=== PATIENT | male | born 1945 | race Caucasian/White ===

== ENCOUNTER 2023-02-13 01:46 | Emergency (ER) | payer MEDICARE, OTHER, SELFPAY ==
[2023-02-13 01:47] VITALS: BP 167/85; PULSE 65; RESP 13; TEMP 36.2; O2SAT 97
[2023-02-13 02:29] LABS: Absolute Lymphocyte Count 1.51 X10^3/uL (0.83-4.51); Absolute Neutrophil Count 4.7 X10^3/uL (2.0-7.7); Basophil# 0.04 X10^3/uL; Basophil% 0.6 % (0-1); Eosinophil# 0.06 X10^3/uL; Eosinophils% 0.9 % (0-5); Hematocrit 49.5 % (40-54); Hemoglobin 16.9 g/dL (13.0-16.5); Lymphocyte # 1.51 X10^3/ul (0.83-4.51); Lymphocyte % 21.9 % (19-41); Mean Corp Hgb Conc 34.1 g/dL (32-36); Mean Corpuscular Hgb 31.4 pg (27.0-32.0); Mean Corpuscular Volume 91.8 fL (80-94); Mean Platelet Vol. 11.2 fl (6.2-12.0); Monocyte# 0.52 X10^3/uL; Monocyte% 7.5 % (0-10); NRBC Flagged by Analyzer 0 % (0-5); Neutrophil # 4.74 X10^3/uL (2.7-7.7); Neutrophil % 68.8 % (47-70); Platelet Count 158 K/mm3 (150-450); RBC Distribution Width CV 12.3 % (11.6-14.6); RBC Distribution Width SD 41.6 fl (35.1-43.9); Red Blood Count 5.39 M/mm3 (4.6-6.2); White Blood Count 6.9 K/mm3 (4.4-11.0)
--- NOTE | 2023-02-13 02:30 | RAD_ITS ---
INDICATION: chest pain EXAMINATION/TECHNIQUE: X-RAY - XR Chest 2 Views COMPARISON: None. FINDINGS: LINES/DEVICES: None. LUNGS: No consolidation, edema or effusion. No pneumothorax. MEDIASTINUM AND CARDIOVASCULAR STRUCTURES: Cardiac silhouette not enlarged. BONES AND SOFT TISSUES: Unremarkable. RAD/Chest PA and Lateral IMPRESSION: No radiographic evidence of acute cardiopulmonary disease. Electronically Signed: Elijah Doss MD at 3:04 EST ,
[2023-02-13] MEDS: Aspirin 325 MG Tablet PO (02:41)
[2023-02-13 02:43] VITALS: BP 154/84; PULSE 65
[2023-02-13] MEDS: Nitroglycerin SL (ED/IMG/CATH) 0.4 MG TABLET SL (02:43)
[2023-02-13 02:52] LABS: AST(SGOT) 26 U/L (15-37); Alanine Aminotransfer ALT/SGPT 21 U/L (16-61); Albumin, Serum 3.7 g/dL (3.2-5.0); Alkaline Phosphatase 79 U/L (45-117); Anion Gap 4 (5-15); BUN 20 mg/dL (7-18); BUN/Creat Ratio 15.9 RATIO (10-20); Bilirubin, Direct 0.12 mg/dL (0.00-0.30); Calcium,Total 8.6 mg/dL (8.5-10.1); Chloride 106 mmol/L (98-107); Creatinine, Serum 1.26 mg/dL (0.70-1.30); EST Glomerular Filtration Rate 59 mL/min (>60); Est Glom Filt Rate - Afr Amer 72 mL/min (>60); Globulin 3.2 g/dL (2.2-4.2); Glucose 133 mg/dL (74-106); Lipase 33 U/L (13-75); Potassium 3.7 mmol/L (3.5-5.1); Protein, Total 6.9 g/dL (6.4-8.2); Sodium Level 139 mmol/L (136-145); Troponin-I HS 7 pg/mL (3.0-78.0)
--- NOTE | 2023-02-13 02:54 | EKG12_ITS ---
Test Reason : c Blood Pressure : / mmHG Vent. Rate : 064 BPM Atrial Rate : 064 BPM P-R Int : 150 ms QRS Dur : 078 ms QT Int : 410 ms P-R-T Axes : 023 009 016 degrees QTc Int : 422 ms Normal sinus rhythm Normal ECG Confirmed by GERRY REYEZ, CHRIS ([id number]), editorial writer JAMES GAR ([id number]) on 02/17/2023 12:33:28 PM Referred By: Confirmed By:CHRIS GARRETT MD
[2023-02-13 03:46] LABS: D-Dimer Quantitative (DVT/PE) 0.28 FEU/ug/m (0.27-0.49)
[2023-02-13] MEDS: Mag Hydrox/Al Hydrox/Simeth 30 ML UDC PO (04:02)
[2023-02-13] MEDS: Famotidine 200 MG/20 ML MDV 20 MG in 0.9% Normal Saline (Pres. free 8 ML 300 MG IV (04:02)
[2023-02-13 04:06] VITALS: BP 141/84; PULSE 63; RESP 16; O2SAT 95
[2023-02-13 04:32] LABS: Troponin-I HS 7 pg/mL (3.0-78.0)
--- NOTE | 2023-02-13 04:55 | EDS_ITS ---
HPI History of Present Illness Chief Complaint: Chest Pain Informant: patient and spouse/S.O. Narrative Narrative: Patient is a 78-year-old male with past medical history of hypertension and hyperlipidemia and GERD. He states he was at to basketball games this evening got home around 11 PM ate fried chicken and [employer] and then was watching TV trying to get ready for bed when he noticed some lower chest/upper mid abdominal pain with bouts of nausea and vomiting. He states that the symptoms persisted for about 1 to 2 hours and was concerned this could be cardiac in nature he comes in for evaluation [facility] Medical History (Updated 02/13/23 @ 06:[address] Guy Boateng, DO) GERD (gastroesophageal reflux disease) HTN (hypertension) Hyperlipidemia Home Medications amlodipine 5 mg tablet 5 mg PO DAILY 01/17/21 [History Last Taken Unknown] cholecalciferol (vitamin D3) 10 mcg (400 unit) capsule 10 mcg PO DAILY 01/17/21 [History Last Taken Unknown] doxazosin 1 mg tablet 1 mg PO DAILY 01/17/21 [History Last Taken Unknown] saw palmetto 160 mg capsule 160 mg PO BID 01/17/21 [History Last Taken Unknown] atorvastatin 10 mg tablet 10 mg PO DAILY 02/13/23 [History Last Taken Unknown] omeprazole 20 mg capsule,delayed release 20 mg PO DAILY 02/13/23 [History Last Taken Unknown] Allergy/AdvReac Type Severity Reaction Status Date / Time niacin Allergy Unknown unknown Verified 02/13/23 01:49 Sulfa (Sulfonamide Allergy Unknown unknown Verified 02/13/23 01:49 Antibiotics) Social History Smoking Status: Never smoker ROS ROS ED Constitutional Constitutional ED: Denies chills or fever(s) ENT ENT ED: Denies sore throat Cardiovascular Cardiovascular: Reports chest pain Respiratory/Chest Respiratory/Chest: Denies cough or dyspnea Gastrointestinal Gastrointestinal: Reports abdominal pain, nausea and vomiting; Denies diarrhea Genitourinary Genitourinary ED: Denies dysuria or hematuria Musculoskeletal Musculoskeletal: Denies back pain or myalgias Integumentary Denies rash Neurologic Neurologic: Denies headache(s) Hematologic/Lymphatic Hematologic/Lymphatic: Denies easy bleeding or easy bruising EXAM Physical Exam Const Vital Signs: 02/13/23 01:47 02/13/23 01:50 02/13/23 02:43 Temperature 97.2 F L Temperature Source Temporal Pulse Rate 65 65 Respiratory Rate 13 Respiratory Effort Normal Non-Labored Blood Pressure 167/85 H 154/84 H Blood Pressure Mean 112 Pulse Ox 97 Oxygen Delivery Method Room Air 02/13/23 04:06 02/13/23 05:01 Temperature Temperature Source Pulse Rate 63 59 L Respiratory Rate 16 13 Respiratory Effort Blood Pressure 141/84 H 137/78 H Blood Pressure Mean 103 97 Pulse Ox 95 95 Oxygen Delivery Method Room Air Positive well nourished and well developed General Appearance ED: well developed; Negative for pallor HEENT Reports moist mucous membranes HEENT Narrative: No signs of infection noted in the posterior pharynx Eyes PERRL and EOMs intact bilaterally General Eye ED: Negative for scleral icterus Neck supple and no JVD Chest Wall palpation of chest normal Chest Narrative: No bony deformity or crepitance Resp normal respiratory effort and clear to auscultation bilaterally Cardio regular rate and regular rhythm Rate: other Other Details: Heart is regular rate and rhythm without murmurs rubs or gallops Radial and carotid pulses are equal and symmetric GI non-distended GI Narrative: Abdomen is soft and nondistended with normal active bowel sounds. There is slight/faint pain with palpation in the midepigastric region without voluntary guarding or rigidity. No pulsatile mass or fluid wave. Negative Phillips sign Auscultation: normoactive bowel sounds Palpation: soft Extremity normal to inspection Extremity Narrative: No asymmetric edema no pitting edema negative Homans' sign bilaterally Neuro oriented x3, CN's II-XII intact bilaterally and no sensory deficits noted Sensorium / Orientation: alert Motor Exam: strength 5/5 throughout Psych mental status grossly normal Skin no rashes or lesions noted General Skin Exam: Negative for jaundice or pallor MDM MDM MDM Narrative Medical decision making narrative: Patient presented to the ER hypertensive otherwise with stable vitals. He reported chest pain but he points to more of the midepigastric upper abdominal region than true chest. However symptoms could be related to acute coronary syndrome versus pneumonia or pneumothorax versus biliary colic or pancreatitis versus gastritis. As he does have risk factors of cardiovascular disease I did elect to perform a an acute coronary work-up. Initial and delta troponin were 7 and EKG is normal sinus going against acute coronary syndrome. Patient's lipase is normal at 33 going against pancreatitis. The patient's liver enzymes are also normal and he does not have pain with palpation in the right upper quadrant going against acute biliary colic or acute cholecystitis. Patient still had discomfort after nitro and therefore he was given Pepcid and a GI cocktail and then had resolution of his pain. At this time with resolution of pain and negative work-up I do not feel there is need for further work-up in the ER and is otherwise safe for discharge History & Record Review Discussion w/independent historian: Patient and Significant other Lab Data Attestation: I reviewed the patient's lab results. Labs: Laboratory Results - last 24 hr 02/13/23 02/13/23 01:54 04:05 WBC 6.9 RBC 5.39 Hgb 16.9 H Hct 49.5 MCV 91.8 MCH 31.4 MCHC 34.1 RDW Std Deviation 41.6 RDW Coeff of Fabrizio 12.3 Plt Count 158 MPV 11.2 Immature Gran % (Auto) 0.300 Neut % (Auto) 68.8 Lymph % (Auto) 21.9 [place]ady % (Auto) 7.5 Eos % (Auto) 0.9 Baso % (Auto) 0.6 Absolute Neuts (auto) 4.7 Absolute Lymphs (auto) 1.51 Nucleated RBC % 0 D-Dimer Quant (PE/DVT) 0.28 Sodium 139 Potassium 3.7 Chloride 106 Carbon Dioxide 29.0 Anion Gap 4 L BUN 20 H Creatinine 1.26 Est GFR (MDRD) Af Amer 72 Est GFR (MDRD) Non-Af 59 L BUN/Creatinine Ratio 15.9 Glucose 133 H Calcium 8.6 Total Bilirubin 0.60 Direct Bilirubin 0.12 AST 26 ALT 21 Alkaline Phosphatase 79 Troponin I High Sens 7 7 Total Protein 6.9 Albumin 3.7 Globulin 3.2 Lipase 33 Radiography Diagnostic Testing: Clinical Impression(s) from Imaging Studies Chest X-Ray 02/13/23 02:30 IMPRESSION: No radiographic evidence of acute cardiopulmonary disease. Electronically Signed: Elijah Doss MD at 3:04 EST , 2 view chest x-ray as interpreted by the emergency medicine physician reveals no acute infiltrate pneumothorax or widening of the mediastinum Discharge Plan Triage Chief Complaint: Chest Pain ED Provider: Guy Boateng Dx/Rx/DC Orders Clinical Impression: Nonspecific chest pain, Hyperlipidemia, Hypertension Instructions: ED Chest Pain, Uncertain Cause, ED Gastritis (Adult) Prescriptions: No Action amlodipine 5 mg tablet 5 mg PO DAILY doxazosin 1 mg tablet 1 mg PO DAILY cholecalciferol (vitamin D3) 10 mcg (400 unit) capsule 10 mcg PO DAILY saw palmetto 160 mg capsule 160 mg PO BID Rx Instructions: give with meal/snack atorvastatin 10 mg tablet 10 mg PO DAILY omeprazole 20 mg capsule,delayed release(DR/EC) 20 mg PO DAILY Primary Care Provider: Aaron Weber Referrals: Aaron Weber MD [Primary Care Provider] - Activity Restrictions/Additional Instructions: Your work-up this evening showed no signs of active cardiac event or lung pathology. It is possible this was related to gastritis/stomach acid or also potential gallbladder dysfunction. If symptoms happen again you can take [id number] Pepcid and or mighta/Maalox or try mixing baking soda and warm water. If symptoms resolve I feel it is safe to stay home but if they are persistent then you need to return to the ER for repeat evaluation. If you notice symptoms are occurring after eating then you may need to have an ultrasound of your gallbladder to check for potential gallbladder dysfunction. Disposition Disposition: Home, Self Care Discharge Date/Time: 02/13/23 05:06
[2023-02-13 05:01] VITALS: BP 137/78; PULSE 59; RESP 13; O2SAT 95
== END 2023-02-13 05:06 | disposition home or self-care (01) ==
PROVIDERS: Emergency Provider Emergency Medicine; PCP Family Medicine; Visit Provider Emergency Medicine
DX: R07.9 Chest pain, unspecified (principal); E78.5 Hyperlipidemia, unspecified; I10 Essential (primary) hypertension; K21.9 Gastro-esophageal reflux disease without esophagitis; Z79.899 Other long term (current) drug therapy
CPT/HCPCS: 71046; 80048; 80076; 83690; 84484; 85025; 85379; 93005; 99283; A4216; J3490

== ENCOUNTER 2023-02-20 02:03 | Emergency (ER) | payer MEDICARE, OTHER, SELFPAY ==
[2023-02-20 02:05] VITALS: BP 179/92; PULSE 64; RESP 18; TEMP 36.6; O2SAT 98; BMI 27.8
--- NOTE | 2023-02-20 02:28 | CT_ITS ---
EXAM: CT Abdomen And Pelvis W/ Contrast Injection HISTORY: abd pain TECHNIQUE: Routine protocol CT abdomen pelvis. IV Contrast: IV 100mL Isovue-370 . Oral Contrast: without. Sagittal and coronal images were reconstructed. RADIATION DOSAGE (If Supplied By Facility): CTDIvol = ( 18.20 ) mGy, DLP = ( 1109.56 ) mGycm Individualized dose optimization techniques were used for this CT. COMPARISON: None. LIMITATIONS: None. FINDINGS: LOWER CHEST: Minimal bilateral pleural effusions. Coronary artery calcifications. Small hiatal hernia. LIVER: Unremarkable. GALLBLADDER/BILE DUCTS: Gallbladder wall appears thickened with minimal adjacent stranding. Suspect small noncalcified stone in the gallbladder neck. PANCREAS: Unremarkable. SPLEEN: Unremarkable. ADRENAL GLANDS: Unremarkable. KIDNEYS / URETERS: Small cyst in the right kidney. No hydronephrosis. BOWEL / MESENTERY: Diverticula throughout the colon. No bowel obstruction. APPENDIX: Identified and normal. No evidence of acute appendicitis. PERITONEUM: No free air. No free fluid. VESSELS: Abdominal aorta is normal caliber. RETROPERITONEUM: Unremarkable. REPRODUCTIVE ORGANS: Prostate enlarged and lobulated, projects into the base of the bladder. BLADDER: Moderately distended. Soft tissue fullness at the base of the bladder is likely adjacent prostate. ABDOMINAL WALL: Small left inguinal hernia contains only fat, no bowel. BONES: No acute abnormality. OTHER: None. CT/Abdomen/Pelvis W IV Cont ONLY IMPRESSION: Findings suspicious for acute cholecystitis. Ultrasound correlation may be helpful. Colonic diverticulosis without evidence of acute diverticulitis. Enlarged prostate. Minimal bilateral pleural effusions. Electronically Signed: Concepcion Bryant MD at 4:20 EST ,
[2023-02-20 02:34] LABS: Bacteria 0 SEEN /hpf (None Seen); Mucous, Urine 0 SEEN /hpf (<or=2+); Red Blood Cells-Urine 0 SEEN /hpf (0-5); Squamous Epithelial Cells - UA 0 SEEN /hpf (0-5); White Blood Cells 0 SEEN /hpf (0-5)
[2023-02-20 02:35] LABS: Color, Urine Yellow (Yellow); Glucose, Dipstick Normal (Normal); Ketone-Dipstick Negative (Negative); Leukocyte Esterase-Dipstick Negative /ul (Negative); Nitrite-Dipstick Negative (Negative); Occult Blood-Urine 10 /ul (Negative); Protein-Dipstick 30 mg/dl (Negative); Urine Bilirubin Dipstick Negative (Negative); Urine Clarity Clear (Clear); Urine Urobilinogen Normal (Normal)
[2023-02-20 02:36] LABS: Absolute Lymphocyte Count 1.49 X10^3/uL (0.83-4.51); Absolute Neutrophil Count 5.3 X10^3/uL (2.0-7.7); Basophil# 0.05 X10^3/uL; Basophil% 0.7 % (0-1); Eosinophil# 0.06 X10^3/uL; Eosinophils% 0.8 % (0-5); Hematocrit 52.2 % (40-54); Hemoglobin 17.7 g/dL (13.0-16.5); Lymphocyte # 1.49 X10^3/ul (0.83-4.51); Mean Corp Hgb Conc 33.9 g/dL (32-36); Mean Corpuscular Hgb 31.2 pg (27.0-32.0); Mean Corpuscular Volume 92.1 fL (80-94); Mean Platelet Vol. 11.3 fl (6.2-12.0); Monocyte% 6.7 % (0-10); NRBC Flagged by Analyzer 0 % (0-5); Neutrophil # 5.33 X10^3/uL (2.7-7.7); Neutrophil % 71.7 % (47-70); Platelet Count 153 K/mm3 (150-450); RBC Distribution Width CV 12.1 % (11.6-14.6); RBC Distribution Width SD 41.1 fl (35.1-43.9); Red Blood Count 5.67 M/mm3 (4.6-6.2); White Blood Count 7.4 K/mm3 (4.4-11.0)
[2023-02-20] MEDS: Mag Hydrox/Al Hydrox/Simeth 30 ML UDC PO (02:36)
[2023-02-20] MEDS: 0.9% Normal Saline (1000mL) 1,000 ML 999 ML IV (02:36)
[2023-02-20 02:54] LABS: AST(SGOT) 17 U/L (15-37); Alanine Aminotransfer ALT/SGPT 21 U/L (16-61); Albumin, Serum 3.9 g/dL (3.2-5.0); Alkaline Phosphatase 94 U/L (45-117); Anion Gap 6 (5-15); BUN 21 mg/dL (7-18); BUN/Creat Ratio 15.9 RATIO (10-20); Bilirubin, Direct 0.18 mg/dL (0.00-0.30); Calcium,Total 8.2 mg/dL (8.5-10.1); Chloride 106 mmol/L (98-107); Creatinine, Serum 1.32 mg/dL (0.70-1.30); EST Glomerular Filtration Rate 56 mL/min (>60); Est Glom Filt Rate - Afr Amer 68 mL/min (>60); Estimated Creatinine Clearance 49.16 ml/min; Globulin 3.3 g/dL (2.2-4.2); Glucose 140 mg/dL (74-106); Lipase 43 U/L (13-75); Potassium 3.7 mmol/L (3.5-5.1); Protein, Total 7.2 g/dL (6.4-8.2); Sodium Level 141 mmol/L (136-145); Troponin-I HS 9 pg/mL (3.0-78.0)
[2023-02-20] MEDS: Famotidine 200 MG/20 ML MDV 20 MG in 0.9% Normal Saline (Pres. free 8 ML 300 MG IV (03:34)
--- NOTE | 2023-02-20 04:28 | US_ITS ---
STUDY: ABDOMINAL ULTRASOUND - RIGHT UPPER QUADRANT REASON FOR VISIT: Male, 78 years old Abd pain with abnormal CT TECHNIQUE: Ultrasound evaluation of the right upper quadrant was performed with real-time and static oscar-scale imaging. TECHNICAL QUALITY: Adequate. COMPARISON: CT FINDINGS: Liver: The liver measures 16.4 cm. There is normal echogenicity of the liver. The bile ducts are within normal limits. There is hepatic color flow. The direction of portal flow is hepatopetal. There is no demonstrated mass lesion. Gallbladder: Moderately distended gallbladder. The gallbladder wall measures 4 mm. There is a positive sonographic Phillips''s sign. There is pericholecystic fluid. There are no gallstones. Common Bile Duct (C.B.D.): The common bile duct measures 4 mm. Pancreas: Normal size of the head, body and tail of the pancreas. There is normal echogenicity of the pancreas. There is no demonstrated pancreatic mass or cyst. Right Kidney: Normal size of the right kidney. The right kidney measures 10.5 cm. Normal renal cortex. The right cortex measures 1.9 cm. There is 2.2 cm cyst. There is no right hydronephrosis. US/Gallbladder IMPRESSION: Distended gallbladder with wall thickening, pericholecystic fluid, and focal tenderness. No gallstones or biliary dilatation. Electronically Signed: Jabari Daigle MD at 8:28 EST ,
[2023-02-20] MEDS: Acetaminophen 500 MG Tablet 1000 MG PO (04:47)
[2023-02-20 04:48] VITALS: BP 153/86; PULSE 63; RESP 15; O2SAT 96
--- NOTE | 2023-02-20 06:44 | EDS_ITS ---
HPI History of Present Illness Chief Complaint: Abd Pain Informant: patient, spouse/S.O. and family Narrative Narrative: Patient is a 78-year-old male who lives at home with his and has a past medical history of hypertension and hyperlipidemia as well as GERD. He was seen roughly 1 week ago secondary similar symptoms and underwent basic laboratory testing with troponins EKG and chest x-ray. This revealed no clinically significant findings and he had improvement of symptoms with GI cocktail and Pepcid. He reports he drinks a large amount of caffeine and there was concern this was gastritis versus biliary colic. However as his pain was not in the [facility] upper quadrant and he did not have elevation to his liver enzymes a ultrasound/CT was not obtained. Patient reports he has been taking his medications and doing well but that this evening a few hours prior to arrival the pain returned and would not resolve and secondary to this he comes back in for evaluation. He states there is mild nausea associated with the pain but he denies any vomiting diarrhea dysuria chest pain or shortness of breath [facility] Medical History (Updated 02/20/23 @ 06:[address] Guy Boateng, DO) GERD (gastroesophageal reflux disease) HTN (hypertension) Hyperlipidemia Home Medications amlodipine 5 mg tablet 5 mg PO DAILY 01/17/21 [History Last Taken Unknown] cholecalciferol (vitamin D3) 10 mcg (400 unit) capsule 10 mcg PO DAILY 01/17/21 [History Last Taken Unknown] doxazosin 1 mg tablet 1 mg PO DAILY 01/17/21 [History Last Taken Unknown] saw palmetto 160 mg capsule 160 mg PO BID 01/17/21 [History Last Taken Unknown] atorvastatin 10 mg tablet 10 mg PO DAILY 02/13/23 [History Last Taken Unknown] omeprazole 20 mg capsule,delayed release 20 mg PO DAILY 02/13/23 [History Last Taken Unknown] Allergy/AdvReac Type Severity Reaction Status Date / Time niacin Allergy Unknown unknown Verified 02/20/23 02:07 Sulfa (Sulfonamide Allergy Unknown unknown Verified 02/20/23 02:07 Antibiotics) Social History Smoking Status: Never smoker ROS ROS ED Constitutional Constitutional ED: Denies chills or fever(s) Eyes Eyes: Denies change in vision ENT ENT ED: Denies sore throat Cardiovascular Cardiovascular: Denies chest pain, palpitations or racing heartbeat Respiratory/Chest Respiratory/Chest: Denies cough or dyspnea Gastrointestinal Gastrointestinal: Reports abdominal pain and nausea; Denies diarrhea or vomiting Genitourinary Genitourinary ED: Denies dysuria or hematuria Musculoskeletal Musculoskeletal: Denies back pain or myalgias Integumentary Denies rash Neurologic Neurologic: Denies headache(s) Hematologic/Lymphatic Hematologic/Lymphatic: Denies easy bleeding or easy bruising EXAM Physical Exam Const Vital Signs: 02/20/23 02:05 02/20/23 04:48 Temperature 97.8 F Temperature Source Temporal Pulse Rate 64 63 Respiratory Rate 18 15 Blood Pressure 179/92 H 153/86 H Blood Pressure Mean 121 108 Pulse Ox 98 96 Oxygen Delivery Method Room Air Room Air Positive well nourished and well developed General Appearance ED: well developed; Negative for pallor HEENT Reports moist mucous membranes HEENT Narrative: No tongue or lip swelling No signs of infection noted in the posterior pharynx Eyes PERRL and EOMs intact bilaterally General Eye ED: Negative for scleral icterus Neck supple and no JVD Chest Wall palpation of chest normal Resp normal respiratory effort and clear to auscultation bilaterally Cardio regular rate and regular rhythm Rate: other Other Details: Heart is regular rate and rhythm without murmurs rubs or gallop Radial and carotid pulses are equal and symmetric GI non-distended GI Narrative: Abdomen is soft and nondistended with mild pain on palpation in the midepiga stric region. No voluntary guarding or rigidity No pulsatile mass or fluid wave Negative Phillips sign Auscultation: normoactive bowel sounds Palpation: soft Back/Spine no CVA tenderness Extremity normal to inspection Extremity Narrative: No asymmetric edema no pitting edema negative Homans' sign bilaterally Neuro oriented x3, CN's II-XII intact bilaterally and no sensory deficits noted Sensorium / Orientation: alert Motor Exam: strength 5/5 throughout Psych mental status grossly normal Skin no rashes or lesions noted General Skin Exam: Negative for jaundice or pallor MDM MDM MDM Narrative Medical decision making narrative: Patient presented to the ER mildly hypertensive otherwise with stable vitals. He was seen roughly 1 week ago for the same event with a negative workup and states has been doing well since that time until a few hours prior to arrival. Pain is more midepigastric and right upper quadrant and there is no Phillips sign present or guarding. Patient does not have any jaundice or scleral icterus either. However as differential diagnosis is for biliary colic versus acute cholecystitis versus common bile duct stone versus pancreatitis versus gastritis I did elect to perform repeat laboratory testing and a CT scan with IV contrast. Labs revealed no clinically significant findings but CT scan showed changes around the gallbladder concerning for potential acute cholecystitis. Secondary to this a gallbladder ultrasound was obtained. At this time the ultrasound test as well as report are still pending and therefore the patient will be signed out to the daytime physician Dr. Wick pending these results. At this time as he does not have a fever or white count I do not feel there is need for antibiotics and will defer until ultrasound has resulted with potential surgery consultation History & Record Review Discussion w/independent historian: Patient, Family and Significant other Lab Data Attestation: I reviewed the patient's lab results. Labs: Laboratory Results - last 24 hr 02/20/23 02:22 WBC 7.4 RBC 5.67 Hgb 17.7 H Hct 52.2 MCV 92.1 MCH 31.2 MCHC 33.9 RDW Std Deviation 41.1 RDW Coeff of Fabrizio 12.1 Plt Count 153 MPV 11.3 Immature Gran % (Auto) 0.100 Neut % (Auto) 71.7 H Lymph % (Auto) 20.0 [place] % (Auto) 6.7 Eos % (Auto) 0.8 Baso % (Auto) 0.7 Absolute Neuts (auto) 5.3 Absolute Lymphs (auto) 1.49 Nucleated RBC % 0 Sodium 141 Potassium 3.7 Chloride 106 Carbon Dioxide 29.0 Anion Gap 6 BUN 21 H Creatinine 1.32 H Estim Creat Clear Calc 49.16 Est GFR (MDRD) Af Amer 68 Est GFR (MDRD) Non-Af 56 L BUN/Creatinine Ratio 15.9 Glucose 140 H Calcium 8.2 L Total Bilirubin 0.60 Direct Bilirubin 0.18 AST 17 ALT 21 Alkaline Phosphatase 94 Troponin I High Sens 9 Total Protein 7.2 Albumin 3.9 Globulin 3.3 Lipase 43 Urine Color Yellow Urine Clarity Clear Urine pH 7.0 Ur Specific [place] 1.010 Urine Protein 30 H Urine Glucose (UA) Normal Urine Ketones Negative Urine Occult Blood 10 H Urine Nitrite Negative Urine Bilirubin Negative Urine Urobilinogen Normal Ur Leukocyte Esterase Negative Urine RBC 0 SEEN Urine WBC 0 SEEN Ur Squamous Epith Cells 0 SEEN Urine Bacteria 0 SEEN Urine Mucus 0 SEEN Radiography Diagnostic Testing: Clinical Impression(s) from Imaging Studies Abdomen/Pelvis CT 02/20/23 02:28 IMPRESSION: Findings suspicious for acute cholecystitis. Ultrasound correlation may be helpful. Colonic diverticulosis without evidence of acute diverticulitis. Enlarged prostate. Minimal bilateral pleural effusions. Electronically Signed: Concepcion Bryant MD at 4:20 EST , Discharge Plan Triage Chief Complaint: Abd Pain ED Provider: Guy Boateng Dx/Rx/DC Orders Clinical Impression: Hyperlipidemia, Hypertension, Biliary colic Prescriptions: No Action amlodipine 5 mg tablet 5 mg PO DAILY doxazosin 1 mg tablet 1 mg PO DAILY cholecalciferol (vitamin D3) 10 mcg (400 unit) capsule 10 mcg PO DAILY saw palmetto 160 mg capsule 160 mg PO BID Rx Instructions: give with meal/snack atorvastatin 10 mg tablet 10 mg PO DAILY omeprazole 20 mg capsule,delayed release(DR/EC) 20 mg PO DAILY Primary Care Provider: Aaron Weber Referrals: Aaron Weber MD [Primary Care Provider] -
[2023-02-20 07:57] VITALS: BP 139/81; PULSE 53; RESP 18; O2SAT 97
[2023-02-20 09:02] VITALS: RESP 17
[2023-02-20 10:19] VITALS: BP 145/89; PULSE 51; RESP 18; O2SAT 95
== END 2023-02-20 10:23 | disposition home or self-care (01) ==
PROVIDERS: Emergency Medicine; Emergency Provider Emergency Medicine; PCP Family Medicine; Visit Provider Emergency Medicine
DX: E78.5 Hyperlipidemia, unspecified (principal); K80.42 Calculus of bile duct with acute cholecystitis without obstruction; I10 Essential (primary) hypertension; Z79.899 Other long term (current) drug therapy; K21.9 Gastro-esophageal reflux disease without esophagitis
CPT/HCPCS: 74177; 76705; 80048; 80076; 81001; 83690; 84484; 85025; 96365; 96366; 99283; J7030; A4216; J3490

== ENCOUNTER 2023-03-02 07:45 | Day surgery (SDC) | payer MEDICARE, OTHER, SELFPAY ==
[2023-03-02] VITALS (11 sets, daily range): BP systolic 88–148; BP diastolic 54–88; PULSE 49–66; RESP 16–18; TEMP 36.1–36.4; O2SAT 88–100; BMI 27.2
[2023-03-02] MEDS: Lactated Ringers 1,000 ML 15 ML IV ×2 (08:12→14:41)
--- NOTE | 2023-03-02 08:36 | HP.PCM_ITS ---
History and Physical Date of Admission: 03/02/23 Date of Service: 02/24/23 MR#: [id number] Acct: [id number] Name: ALBA SMITH [place] Rep #: [id number] : 1945 Provider: Dr. Madeline Tripp MD Age/Sex: 78/M Location: [facility] Status: Signed Intake Vital Signs 02/20/2302:05 02/24/2313:48 Height 5 ft 10 in 5 ft 10 in Weight: 192 lb 4 oz BMI 27.6 BP 143/87 H Blood Pressure Location Rt brachial Position Sitting Respiration 18 Pulse 65 Pulse Source Monitor Temp 97.4 F L Temp Source Temporal Pulse Oximetry (%) 96 Oxygen Delivery Method room air Intake Visit Reasons: GALLBLADDER [facility] ER 02/20 Chief Complaint: gallbladder [facility] er 02/20 [employer] [place] [employer] Required: No Accompanied by: Is patient in pain?: No Allergies niacin Allergy (Unknown, Verified 02/24/23 13:49) unknownSulfa (Sulfonamide Antibiotics) Allergy (Unknown, Verified 02/24/23 13:49) unknown Medications amlodipine 5 mg tablet 5 mg PO DAILY 01/17/21 [History Confirmed 02/24/23] cholecalciferol (vitamin D3) 10 mcg (400 unit) capsule 10 mcg PO DAILY 01/17/21 [History Confirmed 02/24/23] doxazosin 1 mg tablet 1 mg PO DAILY 01/17/21 [History Confirmed 02/24/23] saw palmetto 160 mg capsule 160 mg PO DAILY 01/17/21 [History Confirmed 02/24/23] atorvastatin 10 mg tablet 10 mg PO DAILY 02/13/23 [History Confirmed 02/24/23] omeprazole 20 mg capsule,delayed release 20 mg PO DAILY 02/13/23 [History Confirmed 02/24/23] PFSH Medical History GERD (gastroesophageal reflux disease) HTN (hypertension) Hyperlipidemia Family History Brother Cancer esophageal Courtney esophagus Social History (Updated 02/24/23 @ 13:48 by Becca Trujillo LPN) Smoking Status: Never smoker alcohol intake: current alcohol intake frequency: holidays/special occasions only HPI HPI HPI: 8-year-old male presents with his due to right upper quadrant pain and inflammation of the gallbladder. Patient went to the ED 02/20/2023 about an hour after eating pie and ice cream due to right upper quadrant pain. Patient CT scan which suspected noncalcified stone at the neck of the gallbladder. Ultrasound did not show an obvious stone but did show wall thickening called 3.6 mm as well as some pericholecystic fluid. However patient's symptoms completely resolved while he was in the ER and he was able to tolerate a diet and go home and come back for follow-up with normal white blood cell count and LFTs at that time. Patient states he has been eating a bland diet since then has not any further right upper quadrant pain attacks. Patient does take omeprazole 40 mg p.o. daily for couple years and last had a EGD about 2 years ago denies any reflux symptoms being on the medication. ROS HEENT HEENT: Yes eye surgery Musc Musculoskeletal: Yes back problems and arthritis Cardio Cardiovascular: Yes high blood pressure Gastro Gastrointestinal: Yes abdominal pain, Yes nausea or vomiting, Yes acid reflux a nd Yes gallbladder problem Exam Const General: cooperative, healthy appearing, comfortable and no acute distress HENMT Head: normocephalic and atraumatic Neck Neck: supple Resp Effort & Inspection: normal respiratory effort Cardio Rate: regular rate GI Inspection: non-distended Palpation: soft, no hernias and nontender Skin General: no rashes or lesions noted Neuro General: CN's II-XI intact bilaterally Extrem General: normal to inspection Psych Mental Status: mental status grossly normal Attitude: cooperative Assessment and Plan Assessment and Plan (1) Thickening of wall of gallbladder: Status: Acute (2) Biliary colic: Status: Acute Plan Discussed with patient that there is no definitive stone seen on CT but it is suspected or on ultrasound. However ultrasound does show signs of inflammation of the gallbladder including wall thickening and pericholecystic fluid. Patient's history also fits with gallbladder etiology with pain about an hour after eating pie and ice cream in the right upper quadrant. Reviewed the anatomy with the patient and discussed the procedure: laparoscopic cholecystectomy with possible cholangiograms, possible open. Review risks including but not limited to bleeding, infection, hernia, bile leak, retained gallstones requiring another procedure ERCP- Endoscopic Retrograde Cholangiopancreatography, injury to another organ (bile ducts, common bile duct, small bowel, etc.) and conversion to an open procedure. All questions were answered. Madeline Tripp M.D. Pager: [phone] [facility] [address] [place] [address] Office: [phone] Coding Level of Care Code Off vis,new,level 3 Diagnoses Thickening of wall of gallbladder K82.8 Biliary colic K80.50 02/24/23 1455 <Electronically signed by Madeline Tripp MD> Date Madeline Tripp MD
[2023-03-02] MEDS: Cefazolin 2 GM in 0.9% Normal Saline (100mL Bag) 100 ML IV (08:58)
--- NOTE | 2023-03-02 09:18 | RAD_ITS ---
STUDY: INTRAOPERATIVE CHOLANGIOGRAM. REASON FOR EXAM: Male, 78 years old. LAP CASEY WITH IOC FLUOROSCOPY TIME (if supplied): ( 8 seconds ) minutes/seconds. 4.32 mGy. TECHNIQUE: An intraoperative cholangiogram was performed by the surgeon. Imaging was submitted. COMPARISON: None. FINDINGS: The intra and extrahepatic biliary ducts are unremarkable. There is free flow of contrast into the duodenum. RAD/Cholangiogram/ O R,Initial IMPRESSION: Unremarkable intraoperative cholangiogram. Electronically Signed: Reggie Rojo MD at 10:04 EST ,
--- NOTE | 2023-03-02 09:20 | GALL_PTH ---
PATIENT: ALBA SMITH [place] [facility][id number] AGE/SX: 78/M ROOM: RE03/02/[address]: Dr. Madeline Tripp MD : 1945 BED: DIS: 03/02/2023 SPEC #: [id number] RECD: 03/02/23 10:48 STATUS: PALMER EMMA #: [id number] DEBORAH: 03/02/23 09:[address]: Madeline Tripp DEPT: SURGICAL PATHOLOGY RECD BY: Cari Bean ENTERED: 03/02/23 11:54 SP TYPE: YAYO SHIN DR: Dr. Aaron Weber MD Tissues: Gallbladder, NOS Procedures: Surgery Specimen Level III HEADER OPERATION: Laparoscopic cholecystectomy with IOC PRE-OP DIAGNOSIS: Thickening of wall of gallbladder, biliary colic TISSUE SUBMITTED: Gallbladder MICROSCOPIC DIAGNOSIS Gallbladder, cholecystectomy: Chronic cholecystitis and cholelithiasis. SJ:rio 03/03/2023 MICROSCOPIC DESCRIPTION Slides are reviewed. GROSS DESCRIPTION Received is one container labeled with the patient's name and designated gallbladder. The specimen consists of a gallbladder measuring 9.5 x 3.5 x 3.0 cm. The external surface is smooth and glistening. Focally, it is granular, hemorrhagic and contains cautery artifact. The lumen of the gallbladder contains yellow-green mucoid bile and a black calculus measuring 1.0 cm that is impacted in the cystic duct. The mucosa is bile-stained and without any mass lesions. The gallbladder wall averages 0.2 cm in thickness and is free of mass lesions. Felt Dyeing Machine Tender sections of the gallbladder and the cystic duct at margin of resection are submitted in one cassette. / AM:rio 03/02/2023 TC:3 CPT: 18453
[2023-03-02] MEDS: Bupivacaine Mpf 0.5% 30 ML VIAL (10:06)
--- NOTE | 2023-03-02 10:07 | OP.PCM_ITS ---
Report of Operation Date of Procedure: 03/02/23 Pre-Operative Diagnosis: Gallbladder wall thickening, biliary colic, right upper quadrant pain Post-Operative Diagnosis: Cholelithiasis, cholecystitis Surgery/Procedure Performed:: Laparoscopic cholecystectomy with cholangiograms Surgeon: Madeline Tripp Type of Anesthesia: General/Supplemental Anesthesiologist: Narayan Vitale Special Medications: Ancef 2 g IV x 1 Specimen's removed: Gallbladder Estimated Blood Loss (mL): < 10 cc Description of Procedure: Indications: this is a 78 year-old male who developed abdominal pain/nausea/vomiting and on workup was found to have thickened gallbladder wall, pericholecystic fluid on ultrasound and suspected cholelithiasis, with a normal common bile duct. Laparoscopic cholecystectomy was elected. Description procedure: The patient was placed on operating table in supine position. A timeout was completed verifying correct patient, procedure, site, position and special equipment prior to beginning procedure. General Anesthesia was induced. The abdomen was prepped and draped in usual sterile f ashion. An incision was made in the natural skin line above the umbilicus. The fascia was elevated and incised. The peritoneum was elevated and incised. Entry into the peritoneum was confirmed visually and no bowel was noted in the vicinity of the incision. Guy trocar was placed. The abdomen was insufflated with carbon dioxide to a pressure of 12-15 mmHg. Patient tolerated insufflation well. The laparoscope was then inserted and abdomen inspected. No injuries from initial trocar placement were noted. Additional trochars were then inserted in the following locations 5 mm trocar in the epigastrium and 2 more 5 mm trochars along the right costal margin. The abdomen was inspected no abnormalities were found. The table is placed in reverse Trendelenburg position with the right side up. The dome of the gallbladder was grasped with atraumatic grasper passed through the lateral port and retracted over the dome of the liver. Infundibulum was then grasped with atraumatic grasper through the midclavicular port and retracted to the right lower quadrant. This maneuver exposed Calot's triangle. The peritoneum overlying the gallbladder infundibulum was then incised and cystic duct and artery identified and circumferentially dissected. Evangelista catheter was used for cholangiograms. The cholangiogram showed good filling of the common bile duct into the duodenum with no filling defects, good filling of the right and left bile ducts as well. The cystic duct and artery were then doubly clipped and divided close to the gallbladder. The gallbladder then dissected from its peritoneal attachments by electrocautery. Hemostasis was checked and the gallbladder and contained stones were removed using the endoscopic retrieval bag through the umbilical port. The gallbladder is passed off table as specimen. The gallbladder fossa was irrigated with saline and hemostasis obtained. There is no evidence of bleeding from the gallbladder fossa or cystic artery leakage of bile from the cystic duct stump. Secondary trochars removed under direct vision. No bleeding was noted the trocar sites. The laparoscope was withdrawn and umbilical trocar removed. The abdomen was allowed to collapse. The fascia of the 12 mm trocar was closed with a [id number] 0 Vicryl suture. The skin was closed with sutures of 4-0 Monocryl and Steri-Strips. The patient was extubated. The patient tolerated procedure well and was taken to the postanesthesia care unit in stable condition. Complications None
--- NOTE | 2023-03-02 10:10 | DCINST_ITS ---
Discharge Instructions Diet Discharge Diet: Light diet - advance as tolerated Activity Discharge Activity: May Not Drive (while taking narcotic pain medications.) May shower in (days): 1 Lifting Restrictions: no lifting >20 lbs x 2 wks, no strenuous exercise for 4 wks Dressing / Incision Call your doctor if your incision/area has: Continuous Slow Oozing, Sudden Increased Bleeding, Increased Pain/ Swelling, Increased Redness, Foul Smelling Discharge and Swelling at the incision site Call your doctor if you observe: Fever of 101 or Higher Remove Dressing in: 2 days Cleanse incision/area with: Soap & Water Additional Dressing/Incision Instructions:: Steri-Strips will fall off in 7 to 10 days, if they do not fall off okay to remove after 10 days. Follow Up Care Please Follow Up With: Madeline Tripp MD When: Call the office for a follow-up appointment 2 weeks; after 5 PM and on the weekends call [phone] with any concerns. Test Results: Test results from this visit will be discussed in further detail at your follow- up appointment, if applicable. Discharge Plan Admission Attending Provider: Madeline Tripp Primary Care Provider: Aaron Weber Instructions Additional Instructions / Restrictions: Okay to take ibuprofen 400-600 mg PO q6hr PRN pain and/or Tylenol 650mg PO Q6H PRN pain along with Tramadol. Take all pain meds with food. Tramadol can cause constipation recommend taking daily stool softener (i.e. Colace/docusate) while taking the pain meds. Recommend starting some MiraLAX in 1-2 days if no bowel movement. If still no bowel movement the next day recommend taking magnesium citrate half the bottle and waiting 4-6 hours if still no results take the other half the bottle. Discharge Orders/Prescriptions Prescriptions: New tramadol 50 mg tablet 50 mg PO Q6H PRN (Reason: pain) Qty: 14 0RF Continued amlodipine 5 mg tablet 10 mg PO QHS doxazosin 1 mg tablet 2 mg PO QHS cholecalciferol (vitamin D3) 10 mcg (400 unit) capsule 2,000 unit PO DAILY atorvastatin 10 mg tablet 10 mg PO QHS omeprazole 20 mg capsule,delayed release(DR/EC) 20 mg PO QHS Referrals / Follow Up: Aaron Weber MD [Primary Care Provider] - Disposition Disposition (needs filled in before D/C Order can be placed): Home, Self Care
[2023-03-02] MEDS: traMADol 50 MG Tablet PO (11:54)
[2023-03-02] MEDS: Acetaminophen 325 MG Tablet 650 MG PO (14:40)
== END 2023-03-02 19:05 | disposition home or self-care (01) ==
LOC: SDC 07:48 → AC 07:49
PROVIDERS: PCP Family Medicine; Referring Provider Surgery; Visit Provider Surgery
PROC: (CPT 47610; principal; 2023-03-02 09:00)
DX: K80.10 Calculus of gallbladder with chronic cholecystitis without obstruction (principal); K82.8 Other specified diseases of gallbladder; I10 Essential (primary) hypertension; E78.5 Hyperlipidemia, unspecified; K21.9 Gastro-esophageal reflux disease without esophagitis; Z79.899 Other long term (current) drug therapy
CPT/HCPCS: 47563; 00790; 74300; 76000; 88304; 93005; J7120; J2405

== ENCOUNTER 2024-05-18 13:53 | Inpatient (IN) | payer MEDICARE, OTHER, SELFPAY ==
[2024-05-18] VITALS (15 sets, daily range): BP systolic 122–169; BP diastolic 72–106; PULSE 49–79; RESP 13–20; TEMP 36.6–37.1; O2SAT 95–99; BMI 26.4; BMI 26.5
--- NOTE | 2024-05-18 14:07 | EKG12_ITS ---
Test Reason : CP Blood Pressure : */* mmHG Vent. Rate : 77 BPM Atrial Rate : 77 BPM P-R Int : 152 ms QRS Dur : 86 ms QT Int : 356 ms P-R-T Axes : 39 14 94 degrees QTcB Int : 402 ms Critical Test Result: STEMI Sinus rhythm with frequent Premature ventricular complexes Possible Left atrial enlargement Cannot rule out Anterior infarct , new Inferior injury pattern ACUTE MT / STEMI Consider right ventricular involvement in acute inferior infarct Abnormal ECG Confirmed by TONI GAUTHIER ([id number]), book editor SRAVANTHI DOTSON ([id number]) on 05/22/2024 7:08:44 AM Referred By: Confirmed By: TONI GAUTHIER
--- NOTE | 2024-05-18 14:09 | EDS_ITS ---
HPI History of Present Illness Chief Complaint: Chest Pain Detail of Chief Complaint: Chest tightness Informant: patient Onset/Context/Timing Onset: Today and Hours (1 hour prior to presentation) Activity at onset: sudden Timing: Continuous Quality: Positive for Pressure Location: Substernal Current Severity: Moderate Maximum Severity: Moderate Worsened By: Nothing Relieved By: Nothing Associated Symptoms: Positive for Dyspnea; Negative for Nausea, Cough, Fever, Lightheadedness, Acid Reflux or Palpitations Narrative Narrative: Patient presents with chest pressure that started 1 hour prior to presentation. He reports mild shortness of breath. He has history hypertension hypercholesterolemia. He has no other complaints Prior Similar Symptoms: No Recent Illness/Hospitalization: No CVD Risk Factors: Positive for Hypertension and Hypercholesterolemia; Negative for Diabetes, Family History 1' </=55 or Smoking PE Risk Factors: Negative for Recent Travel/Surgery, Recent Immobilization, Prior DVT or PE, Cancer or OCP + Smoking + >/=35 TAD Risk Factors: Positive for Hypertension and Family History; Negative for Marfan's Syndrome [facility] History Wears glasses Alcohol use Arthritis Back pain Migraine headache Difficulty swallowing Non-smoker GERD (gastroesophageal reflux disease) Hyperlipidemia HTN (hypertension) Home Medications ?Medication ?Instructions ?Recorded ?Last Taken ?Type amlodipine 5 mg tablet 10 mg PO QHS 01/17/21 Unknow n History cholecalciferol (vitamin D3) 10 2,000 unit PO DAILY Unknown History mcg (400 unit) capsule doxazosin 1 mg tablet 2 mg PO QHS 01/17/21 Unknown History atorvastatin 10 mg tablet 10 mg PO QHS 02/13/23 Unknow n History omeprazole 20 mg capsule,delayed 20 mg PO QHS 02/13/23 Unknown History release tramadol 50 mg tablet 50 mg PO Q6H PRN pain #14 ta bs 03/02/23 Unknown Rx Allergy/AdvReac Type Severity Reaction Status Date / Time niacin Allergy Unknown unknown Verified 03/15/23 13:27 Sulfa (Sulfonamide Allergy Unknown unknown Verified 03/15/23 13:27 Antibiotics) Family History Brother Cancer esophageal Courtney esophagus Surgical History S/P laparoscopic cholecystectomy Hx of esophagogastroduodenoscopy Hx of colonoscopy Hx of eye surgery Social History Smoking Status: Never smoker alcohol intake: current alcohol intake frequency: holidays/special occasions only ROS ROS ED Constitutional Constitutional ED: Denies chills or fever(s) Eyes Eyes: Reports none ENT ENT ED: Denies rhinorrhea or sore throat Cardiovascular Cardiovascular: Reports as per HPI Respiratory/Chest Respiratory/Chest: Reports dyspnea; Denies cough Gastrointestinal Gastrointestinal: Denies abdominal pain, diarrhea, melena or vomiting Genitourinary Genitourinary ED: Denies dysuria, hematuria or urinary frequency Musculoskeletal Musculoskeletal: Denies back pain or neck pain Integumentary Denies rash Neurologic Neurologic: Denies headache(s) or paresthesias Endocrine Endocrinology: Denies cold intolerance or heat intolerance Hematologic/Lymphatic Hematologic/Lymphatic: Denies easy bleeding or easy bruising EXAM Physical Exam Const Vital Signs: 05/18/24 13:54 Temperature 97.9 F Temperature Source Temporal Pulse Rate 79 Respiratory Rate 18 Blood Pressure 164/95 H Blood Pressure Mean 118 Pulse Ox 99 Oxygen Delivery Method Room Air Positive well nourished and well developed General Appearance ED: well developed HEENT Reports moist mucous membranes normocephalic and atraumatic Eyes PERRL and EOMs intact bilaterally General Eye ED: Negative for pale conjunctiva or scleral icterus Chest Wall inspection of chest normal and palpation of chest normal Resp normal respiratory effort and clear to auscultation bilaterally Cardio regular rate, regular rhythm, S1 normal heart sound and no murmurs GI normal to inspection, nondistended, normoactive bowel sounds, soft to palpation and non-tender; Negative for hepatosplenomegaly Extremity normal to inspection Extremity Narrative: There is no clubbing or cyanosis. Neuro oriented x3 and CN's II-XII intact bilaterally Sensorium / Orientation: awake and alert Psych mental status grossly normal Skin no rashes or lesions noted and no wounds Heart Score History: Highly Suspicious ECG: Significant ST-Depression Age: >/= 65 years Risk Factors: 1 or 2 Risk Factors Score: 7 MDM MDM MDM Narrative Medical decision making narrative: Patient EKG reveals an acute inferior ST elevation AR with reciprocal changes. STEMI team was called. He was treated with aspirin, Brilinta and heparin. Spoke with interventional radiologist Dr. Armijo. Patient be admitted to the hospitalist service. Radiography Chest X-Ray - ED: - (Chest x-ray was not performed prior to him going to the [facility]) EKG Initial EKG: Attestation: I personally reviewed and interpreted this EKG as follows: Interpretation: Sinus Rhythm (Rate is 77. [place] 152 ms Rickers duration 82 ms. QT duration 3056 ms. [place] is normal. Patient has findings consistent with acute ST elevation AR with reciprocal changes.) Management Discussion w/another healthcare provider: Hospitalist and Patient Care Manager Critical Care Time Critical Care Time: Yes Critical care time (excluding procedures): 30-74 minutes (5), Including time spent: (History, physical, documentation), Discussing w/Patient &/or Family/Merchandise Planning Manager, Discussing w/Consultants and Arranging Admission or Transfer Discharge Plan Triage Chief Complaint: Chest Pain ED Provider: Robby Elizondo Dx/Rx/DC Orders Clinical Impression: 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, History of hypertension, Hx of hypercholesterolemia Prescriptions: No Action amlodipine 5 mg tablet 10 mg PO QHS doxazosin 1 mg tablet 2 mg PO QHS cholecalciferol (vitamin D3) 10 mcg (400 unit) capsule 2,000 unit PO DAILY atorvastatin 10 mg tablet 10 mg PO QHS omeprazole 20 mg capsule,delayed release(DR/EC) 20 mg PO QHS tramadol 50 mg tablet 50 mg PO Q6H PRN (Reason: pain) Qty: 14 0RF Primary Care Provider: Aaron Weber Referrals: Aaron Weber MD [Primary Care Provider] - Print Language: Swedish Disposition Disposition: Acute Care Hospital [facility]
[2024-05-18] MEDS: Heparin Injection (Vial) 5,000 UNIT/ML VIAL 5000 UNIT IV (14:10)
[2024-05-18] MEDS: Aspirin 81 MG TAB.CHEW 324 MG PO (14:10)
[2024-05-18] MEDS: TICAGRELOR 90 MG TABLET 180 MG PO (14:10)
[2024-05-18 14:23] LABS: Absolute Lymphocyte Count 2.17 X10^3/uL (0.83-4.51); Absolute Neutrophil Count 3.5 X10^3/uL (2.0-7.7); Basophil# 0.03 X10^3/uL; Basophil% 0.5 % (0-1); Eosinophil# 0.07 X10^3/uL; Eosinophils% 1.1 % (0-5); Hematocrit 48.8 % (40-54); Hemoglobin 17.4 g/dL (13.0-16.5); Lymphocyte # 2.17 X10^3/ul (0.83-4.51); Lymphocyte % 33.9 % (19-41); Mean Corp Hgb Conc 35.7 g/dL (32-36); Mean Corpuscular Hgb 32.5 pg (27.0-32.0); Mean Platelet Vol. 11.4 fl (6.2-12.0); Monocyte# 0.65 X10^3/uL; Monocyte% 10.1 % (0-10); NRBC Flagged by Analyzer 0 % (0-5); Neutrophil # 3.47 X10^3/uL (2.7-7.7); Neutrophil % 54.1 % (47-70); Platelet Count 148 K/mm3 (150-450); RBC Distribution Width CV 12.4 % (11.6-14.6); RBC Distribution Width SD 40.9 fl (35.1-43.9); Red Blood Count 5.36 M/mm3 (4.6-6.2); White Blood Count 6.4 K/mm3 (4.4-11.0)
[2024-05-18 14:29] LABS: International Normalized Ratio 0.9; Partial Thromboplast Time 26.6 Seconds (24.1-36.2); Prothrombin Time (Protime)PT. 12.4 SECONDS (11.7-14.9)
--- NOTE | 2024-05-18 15:06 | CHAPLAIN ---
Type of Pastoral Visit ___ Initial Visit ___ Follow-up Visit ___ On-call Visit ___ General Patient Visit ___ Spiritual Assessment ___ Family Conference ___ Bereavement _x__ Rapid Response ___ Code Blue ___ Other (describe below) Pastoral Care Referral From ___ Patient ___ Family ___ Nurse ___ Physician ___ Media Relations Specialist ___ Aluminum Polisher _x__ Other (describe below) Sacrament/Intervention _x__ Active listening ___ Anointing ___ Samaritan ___ Bereavement ___ Communion _x__ Crystal exploration ___ _x__ Life review _x__ Prayer ___ Reconciliation ___ Sacrament of Sick _x__ Supportive presence ___ Wedding ___ Other (describe below) Pastoral Comments responded to stemi alert in the ED; met with who brought the patient to ED; pt was taken immediately to the [facility]; followed the spouse to the waiting area of and offered coffee, conversation, prayer, and physical presence until their son arrived to sit also; gave lots of life review and was actively talking during the waiting time; spouse expresses appreciation for the presence and prayer; RN came into waiting area to give update which was a good report; will follow this patient tomorrow as needed
[2024-05-18 15:33] LABS: Anion Gap 7 (5-15); BUN 17 mg/dL (7-18); BUN/Creat Ratio 12.9 RATIO (10-20); Calcium,Total 9.1 mg/dL (8.5-10.1); Chloride 106 mmol/L (98-107); Creatinine, Serum 1.32 mg/dL (0.70-1.30); EST Glomerular Filtration Rate 56 mL/min (>60); Est Glom Filt Rate - Afr Amer 68 mL/min (>60); Estimated Creatinine Clearance 48.39 ml/min; Glucose 161 mg/dL (74-106); Potassium 3.8 mmol/L (3.5-5.1); Sodium Level 140 mmol/L (136-145); Troponin-I HS 146 pg/mL (3.0-78.0)
--- NOTE | 2024-05-18 15:34 | ECQM.STEMI ---
STEMI STEMI ED Door Time / Other REG STEMI EKG Time (1) 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: Acute 05/18/24 13:53 Balloon/Aspiration Date-Time Date of Balloon/Aspiration:: 05/18/24 Time of Balloon/Aspiration:: 14:33
--- NOTE | 2024-05-18 15:40 | ECHOCS_ITS ---
Reason For Study Reason For Study: CHEST PAIN Procedure This was a 2D Doppler, Color Flow transthoracic echocardiogram. Myocardial strain analysis was performed in this exam to aid in the assessment of cardiac function. The study was technically difficult. Contrast injection was performed. Exam performed portable in ICU/CCU. Left Ventricle Normal LV size. Mild eccentric left ventricular hypertrophy. The estimated ejection fraction is 40-45 %. Inferior and inferolateral de anda are hypokinetic. Right Ventricle Mildly dilated right ventricle. Mild global right ventricular systolic dysfunction. Atria The left and right atria are normal. Mitral Valve The mitral valve is structurally normal. No prolapse or stenosis seen. Trivial mitral valve insufficiency. Tricuspid Valve Normal tricuspid valve. Trivial tricuspid valve insufficiency. Unable to estimate RV systolic pressure due to insufficient tricuspid regurgitant envelope. Aortic Valve Trisinus/trileaflet aortic valve. Mild focal aortic valve calcification. There is no aortic stenosis. Pulmonic Valve Normal pulmonic valve. Trivial pulmonic valve insufficiency. Great Vessels Normal sized aortic root. Pericardium/Pleural No pericardial effusion. Medication Diluted definity 1ml given slow IV push to enhance endocardial definition. MMode/2D Measurements & Calculations LVIDd: 4.4 cm IVSd: 1.0 cm LVOT diam: 2.0 cm LVIDs: 3.5 cm LVPWd: 1.4 cm RVDd: 4.2 cm FS: 20.0 % LVOT area: 3.1 cm2 LAV(MOD-bp): 48.8 ml LVAd ap4: 33.2 cm2 SV(MOD-sp4): 50.0 ml LAV(MOD-bp) Indexed: 24.1 ml/m2 LVLd ap4: 8.0 cm SI(MOD-sp4): 24.8 ml/m2 LAV(MOD-sp2): 41.3 ml EDV(MOD-sp4): 116.8 ml LAV(MOD-sp4): 51.0 ml EDV(sp4-el): 117.5 ml LVAs ap4: 23.8 cm2 LVLs ap4: 7.4 cm ESV(MOD-sp4): 66.8 ml ESV(sp4-el): 64.4 ml EF(MOD-sp4): 42.8 % EF(sp4-el): 45.2 % SV(sp4-el): 53.1 ml LA A4 area: 19.2 cm2 LA dimension(2D): 3.8 cm RA A4 area: 14.6 cm2 Time Measurements MV dec time: 0.21 sec Doppler Measurements & Calculations MV E max sunny: 78.9 cm/sec Lat Peak E' Sunny: 10.0 cm/sec Med Peak E' Sunny: 7.4 cm/sec MV A max sunny: 82.2 cm/sec E/E' lat: 7.9 E/E' med: 10.6 MV E/A: 0.96 MV dec slope: 383.5 cm/sec2 Ao V2 max: 144.0 cm/sec LV V1 max: 119.2 cm/sec Ao max P.3 mmHg LV V1 max P.7 mmHg Ao V2 mean: 93.6 cm/sec LV V1 mean P.5 mmHg Ao mean P.1 mmHg LV V1 mean: 70.3 cm/sec Ao V2 VTI: 27.0 cm LV V1 VTI: 22.3 cm AV (velocity ratio): 0.82 JOYCE(I,D): 2.6 cm2 JOYCE(V,D): 2.6 cm2 SV(LVOT): 70.1 ml PA V2 max: 91.0 cm/sec PA V2 mean: 59.6 cm/sec ECHO/Echo Complete W/ Contrast Interpretation Summary The estimated ejection fraction is 40-45 %. Inferior and inferolateral de anda are hypokinetic. Mildly dilated right ventricle. Mild global right ventricular systolic dysfunction. Mild focal aortic valve calcification. Contrast injection was performed. Ordering Physician: Shayla Armijo Referring Physician: MATTY CM Performed By: Sharron Sanders RCS
--- NOTE | 2024-05-18 15:44 | PCM.CONS.C ---
Assessment & Plan Assessment/Plan (1) 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: PLAN: After obtaining informed consent, patient was taken emergently to the cardiac catheterization lab. He was noted to have subtotal occlusion of his proximal RCA with thrombus burden. Successful balloon angioplasty and stent placement was performed with placement of 4.0 x 8 mm and 3.0 x 26 mm drug-eluting stents. Excellent results were noted. Continue aspirin lifelong. Clopidogrel for at least 12 months. (2) Coronary artery disease: PLAN: See #1 above. Patient is also noted to have chronic total occlusion of his proximal obtuse marginal branch which is filling albuterol greatly via collaterals from the RCA as well as from the ramus intermedius. Also a tight lesion in his distal mid LAD. Recommend medical therapy. If continued to have symptoms despite maximal medical therapy, then will consider staged PCI to the mid LAD. (3) HTN (hypertension): PLAN: Beta-blockers, ACEI, amlodipine. (4) Dyslipidemia: PLAN: Atorvastatin. HPI Consult Data Date of Consult: 05/18/24 HPI Narrative Reason for Consultation: STEMI HPI Narrative: 79-year-old gentleman with past medical history significant for hypertension and dyslipidemia. Presented with symptoms of anterior chest pressure of about 1 hour duration. In the emergency room, an ECG was done. It showed changes consistent with acute inferior ST elevation myocardial infarction. Subsequently a STEMI alert was called. Patient denies any radiation of his discomfort to the arm neck or jaw. No previous history of coronary artery disease or congestive heart failure. [facility] Medical History (Updated 05/18/24 @ 15:[address] Shayla Armijo MD) Wears glasses Alcohol use Arthritis Back pain Migraine headache Difficulty swallowing Non-smoker GERD (gastroesophageal reflux disease) Hyperlipidemia HTN (hypertension) Home Medications ?Medication ?Instructions ?Recorded ?Last Taken ?Type amlodipine 5 mg tablet 10 mg PO QHS 01/17/21 Unknown History cholecalciferol (vitamin D3) 10 2,000 unit PO DAILY 01/17/21 Unknown History mcg (400 unit) capsule doxazosin 1 mg tablet 2 mg PO QHS 01/17/21 Unknown History atorvastatin 10 mg tablet 10 mg PO QHS 02/13/23 Unknown History omeprazole 20 mg capsule,delayed 20 mg PO QHS 02/13/23 Unknown History release tramadol 50 mg tablet 50 mg PO Q6H PRN pain #14 tabs 03/02/23 Unknown Rx Allergy/AdvReac Type Severity Reaction Status Date / Time niacin Allergy Unknown unknown Verified 03/15/23 13:27 Sulfa (Sulfonamide Allergy Unknown unknown Verified 03/15/23 13:27 Antibiotics) Family History Brother Cancer esophageal Courtney esophagus Surgical History S/P laparoscopic cholecystectomy Hx of esophagogastroduodenoscopy Hx of colonoscopy Hx of eye surgery Social History Smoking Status: Never smoker alcohol intake: current alcohol intake frequency: holidays/special occasions only Physical Exam Narrative Appeared mildly distressed. Heart sounds 1 and 2 normal. No murmurs. Chest clear to auscultation bilaterally. Alert oriented x 3. No ankle edema. Risk Stratification Risk Stratification Applicable: No Objective Data Vital Signs: Vital Signs Temp Pulse Resp BP Pulse Ox O2 Del Method 98.7 F 77 16 130/86 H 98 Room Air 05/18/24 14:29 05/18/24 14:29 05/18/24 14:29 05/18/24 14:29 05/18/24 14:29 05/18/24 14:27 Oxygen Delivery Method Room Air Weight: 185 lb Body Mass Index (BMI) 26.4 Lab / Micro Data Attestation: I reviewed the patient's lab results. 05/18/24 14:10 05/18/24 14:10 Labs: Laboratory Results - last 24 hr 05/18/24 14:10: WBC 6.4, RBC 5.36, Hgb 17.4 H, Hct 48.8, MCV 91.0, MCH 32.5 H, MCHC 35.7, RDW Std Deviation 40.9, RDW Coeff of Fabrizio 12.4, Plt Count 148 L, MPV 11.4, Immature Gran % (Auto) 0.300, Neut % (Auto) 54.1, Lymph % (Auto) 33.9, [place] % (Auto) 10.1 H, Eos % (Auto) 1.1, Baso % (Auto) 0.5, Absolute Neuts (auto) 3.5, Absolute Lymphs (auto) 2.17, Nucleated RBC % 0, PT 12.4, INR 0.9, APTT 26.6, Sodium 140, Potassium 3.8, Chloride 106, Carbon Dioxide 27.0, Anion Gap 7, BUN 17, Creatinine 1.32 H, Estim Creat Clear Calc 48.39, Est GFR (MDRD) Af Amer 68, Est GFR (MDRD) Non-Af 56 L, BUN/Creatinine Ratio 12.9, Glucose 161 H, Calcium 9.1, Troponin I High Sens 146 H* Rhythm Strip Rhythm Strip: Sinus Rhythm Cardiology Labs/Tests 05/18/24 14:10: WBC 6.4, RBC 5.36, Hgb 17.4 H, Hct 48.8, MCV 91.0, MCH 32.5 H, MCHC 35.7, Plt Count 148 L, MPV 11.4, Immature Gran % (Auto) 0.300, Neut % (Auto) 54.1, Lymph % (Auto) 33.9, [place] % (Auto) 10.1 H, Eos % (Auto) 1.1, Baso % (Auto) 0.5, Absolute Neuts (auto) 3.5, Nucleated RBC % 0, PT 12.4, INR 0.9, APTT 26.6, Sodium 140, Potassium 3.8, Chloride 106, Carbon Dioxide 27.0, Anion Gap 7, BUN 17, Creatinine 1.32 H, Est GFR (MDRD) Af Amer 68, Est GFR (MDRD) Non-Af 56 L, BUN/Creatinine Ratio 12.9, Glucose 161 H, Calcium 9.1 Rhythm: EKG: Sinus rhythm with changes consistent with acute inferior ST elevation myocardial infarction. ECHO: Stress Test: Cardiac Cath: PCI: CT Surgery: Holter monitor: EPS: PPM: CXR: Chest CT Scan:
[2024-05-18 15:52] LABS: ACT Activated Clotting Time 181 sec (74-137)
[2024-05-18 15:52] LABS: ACT Activated Clotting Time 262 sec (74-137)
--- NOTE | 2024-05-18 16:09 | CL.I_ITS ---
Patient Name: ALBA SMITH Study Date: 05/18/2024 Performing: Shayla Armijo MD Ht: 70 inches 178 cm : 1945 Wt: 185.2 lbs 83.91 kg Age: 79 Gender: male BSA: 2.02 PROCEDURE(S) PERFORMED DC01-(17560)LHC/COR/LV IC16-(54599/C9606)AMI, PRO OR PTCA, ARTERY/GRAFT, SINGLE VESSEL CLINICAL PROFILE AND CO-MORBIDITIES Indications: ACS <= 24 hrs Heart Failure: None CAD Presentations: STEMI. Symptom onset Date/Time: 05/18/2201 13:00:00 Time Estimated CONCLUSIONS 99% Prox RCA with thrombus WINDOWS [employer] ADMINISTRATOR Prox OM1 (filling retrogradely via collaterals from Ramus and RPLV 80% distal Mid LAD (small 2 mm vessel) LVEF 60% (post-dilated using 3.5 mm balloon) RECOMMENDATIONS ASA Indefinitley P2Y12 inhibitors for atleast 6 months DESCRIPTION OF PROCEDURE The patient arrived to the procedure lab. The risks and benefits of the procedure as well as a full description of our services here and lack of surgical backup were fully explained to the patient and/or their significant other prior to the catheterization. The Timeout was completed, verifying the correct patient and procedure. The patient's procedural site was prepped and draped in the usual fashion. Local anesthetic was given subcutaneously to right radial region with Lidocaine 2%. Using a modified Seldinger technique, arterial access was obtained via the right radial artery, a 6Fr sheath was inserted.. Left Coronary Artery selective angiography was performed in multiple views using a 5 Fr. 4.0 Jellico catheter. Right Coronary Artery selective angiography was then performed in multiple views using a 5 Fr. 4.0 Jellico catheter. Left Ventriculography was performed in PILLAI projection using a 5 Fr. Pigtail catheter. LV to AO pullback pressures were then recordedThe images were reviewed and options discussed. A decision was then made to proceed with an Intervention, IVUS or other adjunct procedure. jr 4 Guide catheter was inserted and engaged into the RCA. runthrough Guide wire was advanced to the RCA. Balloon catheter was advanced across lesion in the right coronary, proximal. PTCA balloon inflated at 6 atms for 4 secs. PTCA balloon inflated at 6 atms for 15 secs. PTCA balloon inflated at 8 atms for 10 secs. Angiogram performed post balloon dilatation. 3.5 x 26 jaren Drug Eluting stent was advanced across the lesion in the right coronary, proximal. emerge 2.0 x 8 Balloon catheter was advanced across lesion in the right coronary, proximal. PTCA balloon inflated at 4 atms for 30 secs. 3.0 x 26 jaren Drug Eluting stent was advanced across the lesion in the right coronary, proximal. Angiogram performed post stent deployment. nc emerge 3.5 x 8 Balloon catheter was inserted post stent. Angiogram performed post balloon dilatation. jaren 4.0 x 8 Drug Eluting stent was advanced across the lesion in the right coronary, proximal. Angiogram performed post stent deployment. nc euphora 4.0 x 8 Balloon catheter was inserted post stent. The arterial sheath was pulled and a TR Band was applied for hemostasis CORONARY ANGIOGRAPHY DOMINANCE: Right Dominant LEFT HEART ASSESSMENT Left Ventricular Ejection Fraction: by LV Gram 60 % LVEDP: 28 mmHg LEFT MAIN: Luminal Irregularities 10% Ostial lesion in LMCA LEFT ANTERIOR DESCENDING ARTERY: LAD: Calcified 40% Proximal lesion in LAD Calcified 80% Mid lesion in LAD OM 1: Tubular 100% Ostial lesion in MARG1 OM 2: Tubular 100% Ostial lesion in MARG1 RIGHT CORONARY ARTERY: RCA: Complex 99% Proximal lesion in RCA Tubular 50% Proximal lesion in RCA COLLATERAL FLOW: Collateral flow from RAMUS to MARG1 Collateral flow from RT LV-BR to MARG1 INTERVENTION INFORMATION LESION SITE: RCA (Proximal) Lesion Complexity: High/C, thrombus present: Yes, lesion length: 30 mm, culprit lesion: Yes Pre Stenosis: 99 % Pre intervention ROCKY flow: 3 PROCEDURE: Drug Eluting Stent with pre and post dilatation Post Stenosis: 0 % Post intervention ROCKY flow: 3 Lesion Devices: Cordis 6 Fr JR4 100cm Guide Catheter Terumo .014 180cm Runthrough Extra Floppy straight Jono Sci EMERGE MR 3.00x12 BALLOON Medtronic 3.0 x 26 JAREN FRONTIER PRO Jono Sci EMERGE MR 2.00x08 BALLOON Jono Sci NC EMERGE MR 3.50x15 BALLOON Medtronic 4.0 x 08 JAREN FRONTIER PRO COMPLICATIONS No Complications PROCEDURE MEDICATIONS Versed 2 mg IV Fentanyl 50 mcg IV Oxygen: 2 L/min via nasal cannula Heparin 3000 unit(s) IV 05/18/2024 14:25:30 Heparin 3000 unit(s) IV 05/18/2024 14:25:30 Heparin 2 unit(s) IV 05/18/2024 14:59:50 Verapamil 2.5mg, Ntg 200mcgs, given IA 05/18/2024 14:25:02 SUMMARY OF HEMODYNAMIC DATA Time AIR REST ECG 14:18:07 AO 136/81 (101) SA 14:26:58 LV 143/11, 29 15:26:01 LV 141/14, 28 15:26:09 LV 133/22, 33 15:27:35 LVp 134/21, 30 15:27:40 AOp 147/82 (107) 15:27:47 Signed By Shayla Armijo MD On 05/18/2024 16:09:01 Shayla Armijo MD
--- NOTE | 2024-05-18 16:22 | CRPHASE1_ITS ---
Patient Communication Patient Information Former Patient:: Phase I PHII Cardiac Rehab Discussed with Patient:: Yes Guide to Cardiac Rehab Given to Patient:: Yes Cardiac Rehab Facility Choice List Given to Patient:: Yes Communication to Cardiac Rehab Choice Program [facility] CR PHII:: Communication Given to CR Electrotherapist:: Shayla Armijo Phase II Cardiac Rehab:: Yes Sessions:: 36 sessions - 3 days/wk, 12 weeks Cardiac Rehabilitation Info Program Information Cardiac Rehabilitation Program Information: Cardiac Rehab The cardiac rehab team at [facility] consists of highly skilled exercise physiologists, nurses, respiratory therapists and physicians working together with you. Our purpose is to help you have a full recovery and achieve the goals you set for yourself. Over the years many of our patients have returned to activities they assumed they would never do again! We can help restore your confidence and motivation to make lifestyle changes that can have a significant impact on your health and quality of life! We can help answer questions and concerns you may have about exercise, lifestyle, medications, diet, stress and anxiety which are common following a hospitalization. WE monitor ECG and vital signs during exercise and discuss your progress with you and report to your physician(s). Cardiac Rehab is proven to help reduce readmissions, improve functional capacity and lower recurrence of problems with your heart. Our Cardiac Rehab program is Certified by the [place] [employer]-Vascular and Pulmonary [employer] (AACVPR) and Accredited by the [place] [employer] through our [facility]. You can contact us at . We invite you to call us with your questions or to get started in our program. If you have other questions or concerns be sure to ask your physician/provider during your follow-up visit. WE look forward to seeing you!
--- NOTE | 2024-05-18 16:22 | CRPH1.INSTRU ---
General Education Discussed with Patient CAD and cardiac anatomy and function:: Patient communicates acknowledgment Explanation of diagnoses and procedures:: Patient communicates acknowledgment Sign/Symptoms of [place]:: Patient communicates acknowledgment Antiplatelet therapy: Patient communicates acknowledgment Proper use of NTG-SL: Patient communicates acknowledgment Emergency procedures and activation of EMS: Patient communicates acknowledgment Compliance of all prescribed medications: Patient communicates acknowledgment Smoking Risk Factors Patient Nicotine/Smoking Risk Factors Are:: Never smoked Dyslipidemia Risk Factors Patient Dyslipidemia Risk Factors Are:: Total Cholesterol, Triglycerides, HDL and LDL Recommendations Recommendations Include:: Lipid profile not available, Reviewed NCEP/ATP guidelines and Therapeutic Lifestyle Change dietary guidelines Response Code Dyslipidemia Response Code:: Patient communicates acknowledgment Overweight/Obesity Risk Factors Patient Overweight/Obesity Risk Factors Are:: Overweight = 26-29 Recommendations Recommendations Include:: Weight loss of 5-10%, Reduced calorie diet and Exercise 5-7 times/week Response Code Overweight/Obesity:: Patient communicates acknowledgment Hypertension Recommendations Recommendations Include:: Maintain BP <130/85, DASH dietary guidelines, Decrease/maintain normal body weight and Moderation of ETOH Response Code Hypertension:: Patient communicates acknowledgment Diabetes Risk Factors Patient Diabetes Risk Factors Are:: No documented hx of diabetes Metabolic Syndrome Risk Factors Patient Metabolic Syndrome Risk Factors Are [3 of 5]:: Fasting blood sugar > 100 mg/dL, Waist circumference > 35 [female] or 40 [male], High triglyceride >150, Hypertension and Low HDL <40 [male] or < 50 [female] Recommendations Recommendations Include:: Reinforce compliance to risk factor modifications and Encouraged follow-up with Primary Care Physician Response Code Metabolic Syndrome Response Code:: Patient communicates acknowledgment Stress Risk Factors Patient Stress Risk Factors Are:: Patient denies stress as a risk factor
[2024-05-18] MEDS: 0.9% Normal Saline (1000mL) 1,000 ML 150 ML IV (16:55)
--- NOTE | 2024-05-18 17:32 | CM.ED ---
Social work Reason for referral: stemi alert This SW responded to the stemi alert called in triage. This SW provided support to patient's , Anita, as nurses were attending to patient. Anita denied needing water or a chair, but Anita stated being in shock because patient is usually the healthy one. Anita stated being able to call patient's son, Reji, once patient went to the medical laboratory assistant and Anita denied needing SW to call anyone. [facility] Aircraft Cabin [employer]er Van arrived and offered to take Anita to the medical laboratory assistant. Supportive presence passed over to Van. SW to follow as needed. Shanna Israel, TEXTILE EXAMINER, RATE REVIEWER
--- NOTE | 2024-05-18 17:42 | HP.PCM.HOS_ITS ---
HPI - General General Date of Admission: 05/18/24 Date of Service: 05/18/24 Chief Complaint: Chest pain HPI Narrative ALBA SMITH, is a 79-year-old male with history of hypertension, hyperlipidemia, and GERD presented [facility] ED 05/18/2024 due to 1 hour of chest tightness and mild shortness of breath. The pressure was substernal and moderate in intensity with no exacerbating or relieving factors. In triage patient found to have STEMI with ST elevation in inferior leads. He was given aspirin and Brilinta and heparin and taken to the Supervisory Lifeguard. Hospitalist contacted to admit post intervention. Patient evaluated post cath in the ICU. Patient denies any further chest pain, shortness of breath, denies any nausea. ROS completely negative for any acute process. Also of note patient denies any history of previous chest pain said this started suddenly and is never happened to him before [facility] Medical History (Updated 05/18/24 @ 15:[address] Shayla Armijo MD) Alcohol use Arthritis Back pain Difficulty swallowing GERD (gastroesophageal reflux disease) HTN (hypertension) Hyperlipidemia Migraine headache Non-smoker Wears glasses Home Medications ?Medication ?Instructions ?Recorded ?Last Taken ?Type amlodipine 5 mg tablet 10 mg PO QHS 01/17/21 Unknow n History cholecalciferol (vitamin D3) 10 2,000 unit PO DAILY Unknown History mcg (400 unit) capsule doxazosin 1 mg tablet 2 mg PO QHS 01/17/21 Unknown History atorvastatin 10 mg tablet 10 mg PO QHS 02/13/23 Unknow n History omeprazole 20 mg capsule,delayed 20 mg PO QHS 02/13/23 Unknown History release tramadol 50 mg tablet 50 mg PO Q6H PRN pain #14 ta bs 03/02/23 Unknown Rx Allergy/AdvReac Type Severity Reaction Status Date / Time niacin Allergy Unknown unknown Verified 03/15/23 13:27 Sulfa (Sulfonamide Allergy Unknown unknown Verified 03/15/23 13:27 Antibiotics) Family History Brother Cancer esophageal Courtney esophagus Surgical History Hx of colonoscopy Hx of esophagogastroduodenoscopy Hx of eye surgery S/P laparoscopic cholecystectomy Social History Smoking Status: Never smoker alcohol intake: current alcohol intake frequency: holidays/special occasions only ROS ROS Narrative Patient at this time with no acute complaints Vital Signs Vital Signs Vital Signs: 05/18/24 13:54 05/18/24 14:27 05/18/24 14:29 Temperature 97.9 F 98.7 F Temperature Source Temporal Pulse Rate 79 77 Respiratory Rate 18 16 Respiratory Effort Respiratory Pattern Blood Pressure 164/95 H 130/86 H Blood Pressure Mean 118 100 Blood Pressure Source Blood Pressure Position Blood Pressure Location Pulse Ox 99 98 98 Oxygen Delivery Method Room Air Room Air 05/18/24 14:31 05/18/24 16:05 05/18/24 16:12 Temperature 97.9 F Temperature Source Temporal Pulse Rate 61 Respiratory Rate 20 H Respiratory Effort Normal Respiratory Pattern Normal Blood Pressure 139/85 H Blood Pressure Mean 103 Blood Pressure Source Monitor Blood Pressure Position Semi-Fowlers Blood Pressure Location Right Arm Pulse Ox 95 98 Oxygen Delivery Method Room Air Room Air 05/18/24 16:15 05/18/24 16:30 05/18/24 16:45 Temperature Temperature Source Pulse Rate 58 L 55 L 58 L Respiratory Rate 18 18 20 H Respiratory Effort Respiratory Pattern Blood Pressure 129/84 H 122/72 H 123/93 H Blood Pressure Mean 99 88 103 Blood Pressure Source Monitor Monitor Monitor Blood Pressure Position Semi-Fowlers Semi-Fowlers Semi-Fowlers Blood Pressure Location Right Arm Left Arm Left Arm Pulse Ox 98 98 98 Oxygen Delivery Method Room Air Room Air Room Air 05/18/24 17:00 Temperature Temperature Source Pulse Rate 58 L Respiratory Rate 18 Respiratory Effort Respiratory Pattern Blood Pressure 127/77 H Blood Pressure Mean 93 Blood Pressure Source Monitor Blood Pressure Position Semi-Fowlers Blood Pressure Location Left Arm Pulse Ox 97 Oxygen Delivery Method Room Air Weight Weight: 84.2 kg Body Mass Index (BMI) 26.5 Physical Exam Narrative General: Alert, oriented, no apparent distress HEENT: Atraumatic, normocephalic Eyes: Anicteric, normal conjunctiva, extraocular movements grossly intact Neck: Supple Respiratory: Clear to auscultation bilaterally, normal respiratory effort Cardiovascular: Regular rate and rhythm GI: Soft, nontender, nondistended Extremities: No edema Musculoskeletal: Moving all extremities Neuro: No overt focal neurological deficits Skin: No rashes appreciated Psych: Cooperative Results Lab / Micro Data 05/18/24 14:10 05/18/24 14:10 Labs: Laboratory Results - last 24 hr 05/18/24 14:10: WBC 6.4, RBC 5.36, Hgb 17.4 H, Hct 48.8, MCV 91.0, MCH 32.5 H, MCHC 35.7, RDW Std Deviation 40.9, RDW Coeff of Fabrizio 12.4, Plt Count 148 L, MPV 11.4, Immature Gran % (Auto) 0.300, Neut % (Auto) 54.1, Lymph % (Auto) 33.9, M ho % (Auto) 10.1 H, Eos % (Auto) 1.1, Baso % (Auto) 0.5, Absolute Neuts (auto) 3.5, Absolute Lymphs (auto) 2.17, Nucleated RBC % 0, PT 12.4, INR 0.9, APTT 26.6, Sodium 140, Potassium 3.8, Chloride 106, Carbon Dioxide 27.0, Anion Gap 7, BUN 17, Creatinine 1.32 H, Estim Creat Clear Calc 48.39, Est GFR (MDRD) Af Amer 68, Est GFR (MDRD) Non-Af 56 L, BUN/Creatinine Ratio 12.9, Glucose 161 H, Calcium 9.1, Troponin I High Sens 146 H* 05/18/24 14:27: Activated Clotting Time 181 H 05/18/24 15:32: Activated Clotting Time 262 H Rhythm Strip Rhythm Strip: Sinus Rhythm Assessment & Plan Assessment/Plan (1) 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: PLAN: Plan # Inferior STEMI, coronary artery disease -Seen on triage EKG -Patient taken emergently to the Supervisory Lifeguard and was found to have 99% proximal RCA with thrombus and a chronic total occlusion of proximal obtuse marginal branch as well as a lesion in the distal mid LAD -Patient had an angioplasty and stent placement in the proximal RCA and plan will be medical management and if patient continues to have symptoms could consider staged PCI to mid LAD -Aspirin, Plavix, statin -Cardiology to continue to follow -Echocardiogram #GERD -Continue PPI #Hypertension -Will hold home amlodipine to allow for titration of other medications given his coronary artery disease -Patient started on metoprolol and lisinopril by cardiology #DVT ppx: Lovenox subcu Jasmin Morales MD Charges/Coding Visit Charges Inpatient E&M: 92334 Init Hosp L1
[2024-05-18] MEDS: Clopidogrel Bisulfate 300 MG Tablet PO (21:04)
[2024-05-18] MEDS: Atorvastatin Calcium 40 MG Tablet PO (21:04)
[2024-05-18] MEDS: Metoprolol Tartrate 25 MG Tablet 12.5 MG PO (21:04)
[2024-05-18] MEDS: Pantoprazole Sodium 20 MG Tablet PO (21:05)
[2024-05-18] MEDS: Doxazosin 1 MG Tablet 2 MG PO (21:05)
[2024-05-19] VITALS (17 sets, daily range): BP systolic 110–161; BP diastolic 69–96; PULSE 51–69; RESP 12–24; TEMP 36.6–37.1; O2SAT 95–98; BMI 28.0
[2024-05-19 03:36] LABS: Absolute Lymphocyte Count 1.38 X10^3/uL (0.83-4.51); Basophil# 0.03 X10^3/uL; Basophil% 0.4 % (0-1); Eosinophil# 0.06 X10^3/uL; Eosinophils% 0.7 % (0-5); Hematocrit 46.3 % (40-54); Hemoglobin 16.4 g/dL (13.0-16.5); Lymphocyte # 1.38 X10^3/ul (0.83-4.51); Lymphocyte % 16.9 % (19-41); Mean Corp Hgb Conc 35.4 g/dL (32-36); Mean Corpuscular Volume 90.3 fL (80-94); Mean Platelet Vol. 11.2 fl (6.2-12.0); Monocyte# 0.71 X10^3/uL; Monocyte% 8.7 % (0-10); NRBC Flagged by Analyzer 0 % (0-5); Neutrophil # 5.95 X10^3/uL (2.7-7.7); Neutrophil % 73.1 % (47-70); Platelet Count 141 K/mm3 (150-450); RBC Distribution Width CV 12.3 % (11.6-14.6); RBC Distribution Width SD 40.7 fl (35.1-43.9); Red Blood Count 5.13 M/mm3 (4.6-6.2); White Blood Count 8.2 K/mm3 (4.4-11.0)
[2024-05-19 03:59] LABS: Partial Thromboplast Time 27.1 Seconds (24.1-36.2); Prothrombin Time (Protime)PT. 13.8 SECONDS (11.7-14.9)
[2024-05-19 04:13] LABS: ALB/GLOB Ratio 1.2 RATIO (0.9-2.4); AST(SGOT) 90 U/L (15-37); Alanine Aminotransfer ALT/SGPT 34 U/L (16-61); Albumin, Serum 3.4 g/dL (3.2-5.0); Alkaline Phosphatase 74 U/L (45-117); Anion Gap 3 (5-15); BUN 13 mg/dL (7-18); BUN/Creat Ratio 12.5 RATIO (10-20); Calcium,Total 8.6 mg/dL (8.5-10.1); Chloride 112 mmol/L (98-107); Cholesterol 138 mg/dL (200); Creatinine, Serum 1.04 mg/dL (0.70-1.30); EST Glomerular Filtration Rate 74 mL/min (>60); Est Glom Filt Rate - Afr Amer 89 mL/min (>60); Estimated Creatinine Clearance 61.42 ml/min; Globulin 2.8 g/dL (2.2-4.2); Glucose 106 mg/dL (74-106); High Density Lipoprotein 47 mg/dL; Magnesium 2.1 mg/dL (1.6-2.6); Potassium 4.4 mmol/L (3.5-5.1); Protein, Total 6.2 g/dL (6.4-8.2); Sodium Level 144 mmol/L (136-145); Triglycerides 89 mg/dL; Very Low Density Lipoprotein 18 mg/dL (5-40)
[2024-05-19] MEDS: Aspirin E.C. 81 MG Tablet PO (08:01)
[2024-05-19] MEDS: Enoxaparin 40 MG/0.4 ML Syringe SC (08:01)
[2024-05-19] MEDS: Lisinopril 2.5 MG Tablet PO (08:01)
[2024-05-19] MEDS: Clopidogrel Bisulfate 75 MG Tablet PO (08:01)
[2024-05-19] MEDS: Metoprolol Tartrate 25 MG Tablet 12.5 MG PO (08:01)
--- NOTE | 2024-05-19 09:39 | PN.CARD_ITS ---
<Statement entered by Melissa Perez MD - 05/19/24 17:07> Pt seen & evaluated w/ÓSCAR. I personally interviewed & exam the pt. I was involved in all aspects of pt's orders, interpretation of results & treatment Subjective Subjective Patient is doing well. He has not had any chest discomfort since his stenting. Of note he did have some oozing from his cath site in his right radial. Pain has improved in the site overnight. Objective Data Vital Signs: Vital Signs Temp Pulse Resp BP Pulse Ox O2 Del Method 98.7 F 65 16 155/96 H 97 Room Air 05/19/24 04:00 05/19/24 08:01 05/19/24 07:00 05/19/24 08:01 05/19/24 07:00 05/19/24 07:00 Oxygen Delivery Method Room Air Weight: 196 lb 3.382 oz Body Mass Index (BMI) 28.0 Intake & Output: Intake and Output for Last 24 Hours 05/17/24 05/18/24 05/19/24 23:59 23:59 23:59 Intake Total 1000 / 1000 Output Total 1650 / 1650 1400 / 1400 Balance -650 / -650 -1400 / -1400 Lab / Micro Data 05/19/24 03:15 05/19/24 03:15 Labs: Laboratory Results - last 24 hr 05/18/24 14:10: WBC 6.4, RBC 5.36, Hgb 17.4 H, Hct 48.8, MCV 91.0, MCH 32.5 H, MCHC 35.7, RDW Std Deviation 40.9, RDW Coeff of Fabrizio 12.4, Plt Count 148 L, MPV 11.4, Immature Gran % (Auto) 0.300, Neut % (Auto) 54.1, Lymph % (Auto) 33.9, M ho % (Auto) 10.1 H, Eos % (Auto) 1.1, Baso % (Auto) 0.5, Absolute Neuts (auto) 3.5, Absolute Lymphs (auto) 2.17, Nucleated RBC % 0, PT 12.4, INR 0.9, APTT 26.6, Sodium 140, Potassium 3.8, Chloride 106, Carbon Dioxide 27.0, Anion Gap 7, BUN 17, Creatinine 1.32 H, Estim Creat Clear Calc 48.39, Est GFR (MDRD) Af Amer 68, Est GFR (MDRD) Non-Af 56 L, BUN/Creatinine Ratio 12.9, Glucose 161 H, Calcium 9.1, Troponin I High Sens 146 H* 05/18/24 14:27: Activated Clotting Time 181 H 05/18/24 15:32: Activated Clotting Time 262 H 05/19/24 03:15: WBC 8.2, RBC 5.13, Hgb 16.4, Hct 46.3, MCV 90.3, MCH 32.0, MCHC 35.4, RDW Std Deviation 40.7, RDW Coeff of Fabrizio 12.3, Plt Count 141 L, MPV 11.2, Immature Gran % (Auto) 0.200, Neut % (Auto) 73.1 H, Lymph % (Auto) 16.9 L, [place] % (Auto) 8.7, Eos % (Auto) 0.7, Baso % (Auto) 0.4, Absolute Neuts (auto) 6.0, Absolute Lymphs (auto) 1.38, Nucleated RBC % 0, PT 13.8, INR 1.0, APTT 27.1, Sodium 144, Potassium 4.4, Chloride 112 H, Carbon Dioxide 29.0, Anion Gap 3 L, BUN 13, Creatinine 1.04, Estim Creat Clear Calc 61.42, Est GFR (MDRD) Af Amer 89, Est GFR (MDRD) Non-Af 74, BUN/Creatinine Ratio 12.5, Glucose 106, Calcium 8.6, Magnesium 2.1, Total Bilirubin 1.00, AST 90 H, ALT 34, Alkaline Phosphatase 74, Total Protein 6.2 L, Albumin 3.4, Globulin 2.8, Albumin/Globulin Ratio 1.2, Triglycerides 89, Cholesterol 138, LDL Cholesterol 73, VLDL Cholesterol 18, HDL Cholesterol 47, TSH 2.010 Rhythm Strip Rhythm Strip: Sinus Rhythm Cardiology Labs/Tests 05/18/24 14:10: WBC 6.4, RBC 5.36, Hgb 17.4 H, Hct 48.8, MCV 91.0, MCH 32.5 H, MCHC 35.7, Plt Count 148 L, MPV 11.4, Immature Gran % (Auto) 0.300, Neut % (Auto) 54.1, Lymph % (Auto) 33.9, [place] % (Auto) 10.1 H, Eos % (Auto) 1.1, Baso % (Auto) 0.5, Absolute Neuts (auto) 3.5, Nucleated RBC % 0, PT 12.4, INR 0.9, APTT 26.6, Sodium 140, Potassium 3.8, Chloride 106, Carbon Dioxide 27.0, Anion Gap 7, BUN 17, Creatinine 1.32 H, Est GFR (MDRD) Af Amer 68, Est GFR (MDRD) Non-Af 56 L , BUN/Creatinine Ratio 12.9, Glucose 161 H, Calcium 9.1 05/19/24 03:15: WBC 8.2, RBC 5.13, Hgb 16.4, Hct 46.3, MCV 90.3, MCH 32.0, MCHC 35.4, Plt Count 141 L, MPV 11.2, Immature Gran % (Auto) 0.200, Neut % (Auto) 73.1 H, Lymph % (Auto) 16.9 L, [place] % (Auto) 8.7, Eos % (Auto) 0.7, Baso % (Auto) 0.4, Absolute Neuts (auto) 6.0, Nucleated RBC % 0, PT 13.8, INR 1.0, APTT 27.1, Sodium 144, Potassium 4.4, Chloride 112 H, Carbon Dioxide 29.0, Anion Gap 3 L, BUN 13, Creatinine 1.04, Est GFR (MDRD) Af Amer 89, Est GFR (MDRD) Non-Af 74, BUN/Creatinine Ratio 12.5, Glucose 106, Calcium 8.6, Magnesium 2.1, Total Bilirubin 1.00, Triglycerides 89, Cholesterol 138, LDL Cholesterol 73, VLDL Cholesterol 18, HDL Cholesterol 47 Rhythm: NSR Physical Exam Narrative General: Alert, oriented, no apparent distress HEENT: Atraumatic, normocephalic Eyes: Anicteric, normal conjunctiva, extraocular movements grossly intact Neck: Supple Respiratory: Clear to auscultation bilaterally, normal respiratory effort Cardiovascular: Regular rate and rhythm GI: Soft, nontender, nondistended Extremities: No edema Musculoskeletal: Moving all extremities Neuro: No overt focal neurological deficits Skin: No rashes appreciated Psych: Cooperative Assessment & Plan Assessment/Plan (1) 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: (2) Coronary artery disease: (3) HTN (hypertension): (4) Dyslipidemia: PLAN: Plan * Acute STEMI: After obtaining informed consent, patient was taken emergently to the cardiac catheterization lab. He was noted to have subtotal occlusion of his proximal RCA with thrombus burden. Successful balloon angioplasty and stent placement was performed with placement of 4.0 x 8 mm and 3.0 x 26 mm drug-eluting stents. Excellent results were noted. Continue aspirin lifelong. He is aware of Clopidogrel for at least 12 months. Will refer to cardiac rehab on OP basis. * CAD: Patient is also noted to have chronic total occlusion of his proximal obtuse marginal branch which is filling via collaterals from the RCA as well as from the ramus intermedius. Also a tight lesion in his distal mid LAD. Recommend medical therapy. If continued to have symptoms despite maximal medical therapy, then will consider staged PCI to the mid LAD. Would discuss adding Repatha on OP basis to get his lipids to goal. * HTN: Will continue with Beta-blockers, ACEI, amlodipine. Have asked him to monitor his readings, will increase if needed on OP basis. * Dyslipidemia: Will continue with Atorvastatin. As mentioned above, will consider repatha on OP basis to help reach goal. * From a cardiac standpoint patient can be discharged. Will follow-up with him closely in our office. Charges/Coding Visit Charges Inpatient E&M: 79010 Subs Hosp L2
--- NOTE | 2024-05-19 10:31 | CASEMGMT ---
IMTIAZ PENA Assessment Face to Face with patient for initial transition planning/care coordination assessment. IMTIAZ PENA introduced self and role at [facility], pt voices understanding. Pt is A&Ox4 and is resting comfortably in bed and is calm. Care providers, pharmacy, and demographics verified. Admitting dx: MARTI KEENAN Strata: 1 PCP: Aaron Weber Specialists: LITO Preferred Pharmacy: [facility]. Pt plans to do meds to bed and has a payment method Insurance: [facility] A/B, AARP Prescription Benefit: Yes LNOK: Anita (W), Reji (Son) Living Arrangements: Pt lives with his in a 2 story home with 1 step to enter ADLs/IADLs: Ind Transportation: Self, DME: Denies all current DME uses but states that he plans to get a BP Machine. HHC/SNF: Denies Hx or needs Pt?s goal: home Plan: Home with potentially new blood thinning Rx and f/u as an OP through the Cardiac Rehab Program. Pt states that cardio has already talked to him about setting up appointments for this and denies concerns or needs. 6-Click score is 24. There is no therapy ordered. Pt states that he feels safe with this plan and denies further needs at this time. Tera Elizondo RN, CM
--- NOTE | 2024-05-19 16:02 | CHAPLAIN ---
Type of Pastoral Visit ___ Initial Visit _x__ Follow-up Visit ___ On-call Visit ___ General Patient Visit ___ Spiritual Assessment ___ Family Conference ___ Bereavement ___ Rapid Response ___ Code Blue ___ Other (describe below) Pastoral Care Referral From ___ Patient _x__ Family ___ Nurse ___ Physician ___ Prepress Proofer ___ Drag Out Man ___ Other (describe below) Sacrament/Intervention _x__ Active listening ___ Anointing ___ Latter Day ___ Bereavement ___ Communion ___ Crystal exploration ___ ___ Life review ___ Prayer ___ Reconciliation ___ Sacrament of Sick ___ Supportive presence ___ Wedding ___ Other (describe below) Pastoral Comments follow up to stemi alert patient yesterday; and son are in the room who were met yesterday; pt is doing well and is talkative with appropriate humor and expectations; family expresses appreciation for the support
--- NOTE | 2024-05-19 16:33 | DCINST_ITS ---
Discharge Instructions Diet Discharge Diet: Low fat / Low cholesterol DC O2, CPAP, BIPAP needs Home O2 Discharge instructions: No Dressing / Incision Discharge Activity: Return to Normal Activity Weight Bearing Status: Weight bearing as tolerated Dressing / Incision Call your doctor if you observe: Fever of 101 or Higher, Shortness of breath, Dizziness, Swelling in the ankles and Chest pain Follow Up Care Test Results: Test results from this visit will be discussed in further detail at your follow- up appointment, if applicable. Discharge Plan Admission Admit Date/Time: 05/18/24 14:12 Primary Reason for Your Visit: stemi Attending Provider: Radha Hodges Primary Care Provider: Aaron Weber Consulting Providers: Shayla Armijo; Jasmin Morales Instructions Patient Instructions: Heart Attack Angina Sx, Heart Attack Dc, Heart Attack Meds Discharge Orders/Prescriptions Prescriptions: New aspirin 81 mg Tablet,Delayed Release (Dr/Ec) 81 mg PO DAILY@0800 Qty: 30 2RF atorvastatin 40 mg Tablet 40 mg PO QHS Qty: 30 2RF clopidogrel 75 mg Tablet 75 mg PO DAILY Qty: 30 2RF lisinopril 2.5 mg Tablet 2.5 mg PO DAILY Qty: 30 2RF metoprolol tartrate 25 mg Tablet 12.5 mg PO BID Qty: 30 2RF Continued amlodipine 5 mg tablet 10 mg PO QHS doxazosin 1 mg tablet 2 mg PO QHS cholecalciferol (vitamin D3) 10 mcg (400 unit) capsule 2,000 unit PO DAILY omeprazole 20 mg capsule,delayed release(DR/EC) 20 mg PO QHS tramadol 50 mg tablet 50 mg PO Q6H PRN (Reason: pain) Qty: 14 0RF Discontinued atorvastatin 10 mg tablet 10 mg PO QHS Referrals / Follow Up: Shayla Armijo MD [Med Staff - Active Staff] - Within 2 Weeks Aaron Weber MD [Primary Care Provider] - Within 1 Week Disposition Disposition (needs filled in before D/C Order can be placed): Home, Self Care
--- NOTE | 2024-05-19 16:35 | DS.PCM_ITS ---
Providers Date of Admission: 05/18/24 Date of Discharge: 05/19/24 Primary Care Physician: Dr. Aaron Weber MD Consultations 05/18/24 17:44 Consult: Cardiology Routine Consulting Provider: Shayla Armijo Reason for Consult: STEMI EMERGENT Consult: Yes MD Notified: Yes Date Notified: 05/18/24 Time Notified: 17:44 Method of Notification: ED Physician Initiated Reason For Visit: CP Diagnosis Discharge Diagnosis (1) 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: Status: Acute Code(s): I21.19 - ST elevation (STEMI) myocardial infarction involving other coronary artery of inferior wall (2) Coronary artery disease: Status: Acute Code(s): I25.10 - Atherosclerotic heart disease of [place] coronary artery without angina pectoris (3) HTN (hypertension): Status: Chronic Code(s): I10 - Essential (primary) hypertension (4) Dyslipidemia: Status: Deleted Code(s): E78.5 - Hyperlipidemia, unspecified Medications at Discharge Home Medications amlodipine 5 mg tablet 10 mg PO QHS 01/17/21 cholecalciferol (vitamin D3) 10 mcg (400 unit) capsule 2,000 unit PO DAILY 01/17/21 doxazosin 1 mg tablet 2 mg PO QHS 01/17/21 omeprazole 20 mg capsule,delayed release 20 mg PO QHS 02/13/23 tramadol 50 mg tablet 50 mg PO Q6H PRN pain #14 tabs 03/02/23 aspirin 81 mg tablet,delayed release 81 mg PO DAILY@0800 #30 tabs 05/19/24 atorvastatin 40 mg tablet 40 mg PO QHS #30 tabs 05/19/24 clopidogrel 75 mg tablet 75 mg PO DAILY #30 tabs 05/19/24 lisinopril 2.5 mg tablet 2.5 mg PO DAILY #30 tabs 05/19/24 metoprolol tartrate 25 mg tablet 12.5 mg (1/2 x 25 mg) PO BID #30 tabs 05/19/24 Hospital Course Operations None Procedures 2-D Echocardiogram and Angiogram Summary of Care Provided Minutes Spent on Discharge: 45 Hospital Course: Patient is a 79-year-old male with past medical history as outlined which include hypertension, hyperlipidemia and GERD who was admitted through the ED on 05/18/2024 with complaint of chest tightness and mild shortness of breath. Chest pressure was substernal and moderate in intensity with no aggravating or relieving factors. Patient usually very physically active. He said he had never had such chest pain in the past. On admission EKG showed ST elevation in the inferior leads. STEMI alert was called and he was taken emergently to the [facility] after being given aspirin and Brilinta as well as heparin. Cardiac cath showed 99% proximal RCA occlusion with thrombus and a chronic total occlusion of proximal obtuse marginal branch as well as a lesion in the distal mid LAD. He had angioplasty and stent placement in the proximal RCA and to have staged PCI to the mid LAD later. He was placed on aspirin and Plavix as well as statin, lisinopril and metoprolol. He had 2D echo which showed EF of 40 to 45% with inferior and inferior lateral de anda which were hypokinetic and mildly dilated right ventricle with mild global right ventricular systolic dysfunction. Patient remained stable and was discharged home on 07/17/2024. 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 Patient seen and examined prior to discharge. He had no active complaints. Review of systems otherwise negative. Labs and vitals reviewed. Home medication reviewed and reconciled. Physical Exam Const alert, oriented x3 and no apparent distress General Appearance: cooperative, comfortable and well kempt Orientation / Consciousness: awake Exam Limitations: no limitations HEENT normocephalic, head/scalp atraumatic, hearing grossly normal bilaterally, moist oral mucous membranes and oropharynx normal Mouth: oral and palatal mucosa normal Eyes PERRL, EOMs intact bilaterally and conjunctivae normal Neck no lymphadenopathy and supple Resp normal respiratory effort, no retractions, no use of accessory muscles and clear to auscultation bilaterally Cardio regular rate, regular rhythm, S1 normal heart sound, S2 normal heart sound and no murmurs GI normal to inspection, nondistended, normoactive bowel sounds, soft to palpation, non-tender and non-distended Extremity normal to inspection, full ROM and no clubbing, cyanosis or edema Skin no rashes or lesions noted and no wounds Neuro oriented x3, CN's II-XII intact bilaterally, moves all extremities and no focal motor deficits Sensorium / Orientation: awake and alert Motor Exam: strength 5/5 throughout Psych affect normal Weight / BMI Weight Weight: 196 lb 3.382 oz Body Mass Index (BMI) 28.0 ABG / Lab / Microbiology Data 05/19/24 03:15 05/19/24 03:15 Laboratory: Laboratory Results - last 24 hr 05/19/24 03:15: WBC 8.2, RBC 5.13, Hgb 16.4, Hct 46.3, MCV 90.3, MCH 32.0, MCHC 35.4, RDW Std Deviation 40.7, RDW Coeff of Fabrizio 12.3, Plt Count 141 L, MPV 11.2, Immature Gran % (Auto) 0.200, Neut % (Auto) 73.1 H, Lymph % (Auto) 16.9 L, [place] % (Auto) 8.7, Eos % (Auto) 0.7, Baso % (Auto) 0.4, Absolute Neuts (auto) 6.0, Absolute Lymphs (auto) 1.38, Nucleated RBC % 0, PT 13.8, INR 1.0, APTT 27.1, Sodium 144, Potassium 4.4, Chloride 112 H, Carbon Dioxide 29.0, Anion Gap 3 L, BUN 13, Creatinine 1.04, Estim Creat Clear Calc 61.42, Est GFR (MDRD) Af Amer 89, Est GFR (MDRD) Non-Af 74, BUN/Creatinine Ratio 12.5, Glucose 106, Calcium 8.6, Magnesium 2.1, Total Bilirubin 1.00, AST 90 H, ALT 34, Alkaline Phosphatase 74, Total Protein 6.2 L, Albumin 3.4, Globulin 2.8, Albumin/Globulin Ratio 1.2, Triglycerides 89, Cholesterol 138, LDL Cholesterol 73, VLDL Cholesterol 18, HDL Cholesterol 47, TSH 2.010 D/C Instructions Discharge Diet: Low fat / Low cholesterol Discharge Activity: Return to Normal Activity Weight Bearing Status: Weight bearing as tolerated Call your doctor if you observe: Fever of 101 or Higher, Shortness of breath, Dizziness, Swelling in the ankles and Chest pain DC O2, CPAP, BIPAP Needs Home O2 Discharge instructions: No DC home with Oxygen: No Meaningful Use Info Meaningful Use Meaningful Use Diagnoses (Choose all that apply): AMI AMI/Post PCI/Angioplasty Aspirin given w/in 24hrs of arrival?: Yes ASA at discharge?: Yes Antiplatelet Therapy at Discharge:: Yes Statins at discharge?: Yes Vito/ARB at discharge?: Yes Beta Anjum at discharge?: Yes Done w/ Acute UT measure.: Yes Documented LVEF (%): 45 Ischemic Stroke Statin Dosing Therapy Reference: STATIN DOSE THERAPY REFERENCE: * Patients > 75 years receive moderate or high dose statin therapy. * Patients 75 years or YOUNGER should receive HIGH intensity statin dose unless contraindicated. You will be required to document reason for non-treatment if statin daily dose does not meet guidelines. HIGH DOSE STATIN THERAPY DAILY Atorvastatin > than or = to 40 mg Rosuvastatin > than or = to 20 mg Amlodipine + Atorvastatin > than or = to 2.5/40 mg Ezetimibe + Simvastatin 10/80 mg Simvastatin 80mg Discharge Plan Admission Admit Date/Time: 05/18/24 14:12 Primary Reason for Your Visit: stemi Attending Provider: Radha Hodges Primary Care Provider: Aaron Weber Consulting Providers: Shayla Armijo; Jasmin Morales Instructions Patient Instructions: Heart Attack Angina Sx, Heart Attack Dc, Heart Attack Meds Discharge Orders/Prescriptions Prescriptions: New aspirin 81 mg Tablet,Delayed Release (Dr/Ec) 81 mg PO DAILY@0800 Qty: 30 2RF atorvastatin 40 mg Tablet 40 mg PO QHS Qty: 30 2RF clopidogrel 75 mg Tablet 75 mg PO DAILY Qty: 30 2RF lisinopril 2.5 mg Tablet 2.5 mg PO DAILY Qty: 30 2RF metoprolol tartrate 25 mg Tablet 12.5 mg PO BID Qty: 30 2RF Continued amlodipine 5 mg tablet 10 mg PO QHS doxazosin 1 mg tablet 2 mg PO QHS cholecalciferol (vitamin D3) 10 mcg (400 unit) capsule 2,000 unit PO DAILY omeprazole 20 mg capsule,delayed release(DR/EC) 20 mg PO QHS tramadol 50 mg tablet 50 mg PO Q6H PRN (Reason: pain) Qty: 14 0RF Discontinued atorvastatin 10 mg tablet 10 mg PO QHS Referrals / Follow Up: Shayla Armijo MD [Med Staff - Active Staff] - Within 2 Weeks Aaron Weber MD [Primary Care Provider] - Within 1 Week Disposition Disposition (needs filled in before D/C Order can be placed): Home, Self Care Charges/Coding Visit Charges Inpatient E&M: 40823 Disch Hosp >30min
== END 2024-05-19 17:15 | disposition home or self-care (01) | DRG 322 ==
LOC: ED 14:15 → CLINP 14:16 → ICU 15:53
PROVIDERS: Internal Medicine; Admitting Provider Internal Medicine Cardiovascular Disease; Emergency Provider Emergency Medicine; PCP Family Medicine; Visit Provider Student in an Organized Health Care Education/Training Program
DX: I21.19 ST elevation (STEMI) myocardial infarction involving other coronary artery of inferior wall (principal); E78.00 Pure hypercholesterolemia, unspecified; I10 Essential (primary) hypertension; K21.9 Gastro-esophageal reflux disease without esophagitis; I25.10 Atherosclerotic heart disease of native coronary artery without angina pectoris; Z88.2 Allergy status to sulfonamides; Z79.899 Other long term (current) drug therapy
CPT/HCPCS: 80048; 80053; 80061; 83735; 84443; 84484; 85025; 85347; 85610; 85730; 92941; 93005; 93306; 93458; 99152; 99153; Q9957; Q9967; A4216; C1725; C1769; C1874; C1887; C1894; C8929; C9606

== ENCOUNTER → 2024-05-23 | Outpatient (CLI) | payer MEDICARE, OTHER, SELFPAY ==
--- NOTE | 2024-05-23 10:04 | PCM.CR.HP2 ---
CR - History & Physical General Arrival date:: 05/23/24 Arrival time:: 10:04 Date of Referral:: 05/19/24 Date of CR Evaluation:: 05/23/24 Referring Physician: Dr. Armijo Primary Diagnosis: PCI with stenting History of Present Cardiac Event Onset Date Acute Myocardial Infarction within 12 months:: Yes (STEMI 05/18/24) PTCA or coronary stenting:: Yes Vessel: RCA 05/18/24 Medications Ambulatory Orders ?Medication ?Instructions ?Recorded amlodipine 5 mg tablet 10 mg PO QHS 01/17/21 cholecalciferol (vitamin D3) 10 2,000 unit PO DAILY 01/17/21 mcg (400 unit) capsule doxazosin 1 mg tablet 2 mg PO QHS 01/17/21 omeprazole 20 mg capsule,delayed 20 mg PO QHS 02/13/23 release tramadol 50 mg tablet 50 mg PO Q6H PRN pain #14 tabs 03/02/23 aspirin 81 mg tablet,delayed 81 mg PO DAILY@0800 #30 tabs 05/19/24 release atorvastatin 40 mg tablet 40 mg PO QHS #30 tabs 05/19/24 clopidogrel 75 mg tablet 75 mg PO DAILY #30 tabs 05/19/24 lisinopril 2.5 mg tablet 2.5 mg PO DAILY #30 tabs 05/19/24 metoprolol tartrate 25 mg tablet 12.5 mg (1/2 x 25 mg) PO BID #30 05/19/24 tabs Allergies Allergies niacin Allergy (Unknown, Verified 03/15/23 13:27) unknown Sulfa (Sulfonamide Antibiotics) Allergy (Unknown, Verified 03/15/23 13:27) unknown Sleep Disorder Evaluation Hx of Sleep Apnea: No Do you snore loudly (louder than talking or can be heard through closed doors)?: No Do you often feel tired/ fatigued/ sleepy during daytime?: No Has anyone observed you stop breathing during sleep?: No History of Hypertension (for STOP score): Yes STOP Results: Negative Advanced Directives Advanced Directives Power of [employer] Chair: Yes Living Will: Yes Advance Directives Information Provided: Yes Advance Directives on File: No DNR Order?:: No Past Medical History Covid-19 Screening Physicial Symptoms Other Clinical Concerns Exposure Risk Pertinent Comorbidities 65 years or older:: Yes Has a serious heart condition:: Yes Past Medical Illness Past Medical History (Updated 05/19/24 @ 08:46 by Elva Brooks) 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/24) I21.19 Wears glasses Z97.3 Alcohol use Z78.9 RARELY Arthritis M19.90 Back pain M54.9 OC LOWER BACK PAIN Migraine headache G43.909 IN THE DISTANT PAST Difficulty swallowing R13.10 FEELS LIKE FOOD GETS STUCK IMPROVED WITH PRILOSEC USE Non-smoker Z78.9 GERD (gastroesophageal reflux disease) K21.9 CONTROLLED WITH MED Hyperlipidemia E78.5 ON MED HTN (hypertension) I10 CONTROLLED WITH MED Past Surgical History Past Surgical History (Updated 05/19/24 @ 08:44 by Elva Brooks) Stented coronary artery (05/18/24) Z95.5 Javier Treadwell PRO 4.0X 8mm and 3.0 X 20 mm to Proximal RCA 05/18/2024 S/P laparoscopic cholecystectomy Z90.49 Hx of esophagogastroduodenoscopy Z98.890 X2 Hx of colonoscopy Z98.890 X5 Hx of eye surgery Z98.890 CLOGGED TEAR DUCT Family History Summary Family History Brother Cancer esophageal Courtney esophagus Social History Smoking History Smoking Status: Never smoker Alcohol Use Alcohol Usage: No Substance Abuse Hx Substance Use: No Occupation Occupation (List type of work in comments):: Retired Social Environment Status Marital Status: Current Living Arrangements Living Environment:: Spouse Children How many children do you have?: 2 Do any of your children live nearby?: Yes Safety Do you feel safe in your surroundings?: Yes Assistance Do you need any assistance at home?: no Review of Systems Review of Systems Hints Review of Present Symptoms: Reports Fatigue, Appetite - Special Diet and Sleep - Normal; Denies Shortness of Breath at Rest, Shortness of Breath with Exertion, PVD, Operative Discomfort, Angina, Wound Healing, Dizziness/Lightheadedness, Heart Arrhythmia/Irregularities, Appetite - Normal or Sexual Changes Pain Is Patient Pain Free?: Yes Risk Factor Assessment Chief Complaint Chief Complaint: PCI with stenting Vital Signs Pulse Ox: 95 Blood Pressure: 94/60 Pulse Pulse Rate: 69 Hypertension How long have you been treated?: 20 years Blood Pressure Sitting - Right Arm: 94/60 Obesity Height: 5 ft 10.08 in Weight:: 190 lb Weight in Pounds: 190.0 lbs Body Mass Index (BMI): 27.1 Nutritional Referral for Obesity: No Physical Inactivity Physical Inactivity: Reg Exercise 30 min/day Risk Stratification Risk Guidelines: Lowest Risk: Risk Factor for Smoking, Moderate Risk: Risk Factor for Diabetes, Risk Factor for Obesity, Risk Factor for Sedentary Lifestyle and Risk Factor for Depression and Highest Risk: Risk Factor for Dyslipidemia and Risk Factor for Hypertension For Smoking Smoking Risk Guidelines For Dyslipidemia Dyslipidemia Risk Guidelines For Diabetes Mellitus Diabetes Risk Guidelines For Obesity/Overweight Obesity/Overweight Risk Guidelines For Hypertension Hypertension Risk Guidelines For Sedentary Lifestyle Sedentary Lifestyle Risk Guidelines For Depression Depression Risk Guidelines Family History Family History Brother Cancer esophageal Courtney esophagus Motivation Motivation to Participate On a scale of 1 to 10, how prepared are you to commit to attending program?: 10 What do you see as barriers to successfully being able to complete the program?: nothing What do you see as the benefits of succesfully completing the program? In other words, what do you hope to get out of participating in the program?: more energy Are there issues you are dealing with that will interfere with completing the program?: no Do you have a spouse or signficant other, family or friends who will help support you to complete the program?: yes
--- NOTE | 2024-05-23 10:09 | PCM.CR.ITP ---
Diagnosis General Information Admitting Diagnosis: PCI with stenting Personal Learning Style:: Audio/Visual Barriers to Learning: No Barriers Stage of change r/t lifestyle modifications:: Contemplation Gave educational material for:: Treating Heart Disease, How The Heart Works, What it means to have Heart Disease, How Coronary Artery Disease is Diagnosed, Heart Procedures, What Heart Medications Do, Risk Factors & Modifications, Living an Active Life, Nutrition, Emotions & Heart Disease, Stress Management & Relaxation and Sleep Disorders & Heart Disease Education/Goals Cardiac Rehabilitation Goals Personal Goals: Initial Assessment: Improve management of stress and emotions, Improve energy level, Get back to work, or to resume activities faster, Improve knowledge of cardiac disease, Improve muscle strength and endurance, Improve diet and eating habits (eat healthier) and Control risk factors (learn risk factor modification) Scale for measuring improvement of personal goals Diagnosis & Disease Process Outcomes/Goals: Pt IDs own risk factors & lifestyle modifications by Session 10, Verbalizes symptoms of angina & response by session 3., Pt independently manages and Other Additional Outcomes/Goals: Plan/Interventions: Assist Pt to ID & engage in lifestyle modification to reduce CVD risk, Instruct on individual risk factors, Review symptoms of angina & emergency actions, Review secondary diagnosis & identify educational needs. and Other see comment 30 day Reassessments:: Not Met 30 day Reassessments:: Not Met 30 day Reassessments:: Not Met 30 day Reassessments:: Not Met Final Reassessments:: Not Met Safety Referral to Physical Therapy: No Referral to [facility] Case Management: No Fall Risk Assessed:: Yes Assistive Devices:: None Exercise - Initial Assessment Visit Date of Eval: 05/23/24 (initial eval ) Mets: Pre-: >3 METS for 30 minutes by discharge, >5 METS for 30 minutes by discharge, >7 METS for 30 minutes by discharge and Unable to meet goal due to: (see comment below) Physician Prescribed Exercise Modalities: Treadmill, Rower, Schwinn Airdyne AD-7, SciFit Stepper, SciFit Pro-II Ergometer and SciFit Lateral Higbee Frequency: 3x/week for 12 weeks [36 sessions] Intensity: 60-80% of age predicted maximum heart rate reserve Duration: 30 - 45 minutes Current METSs:: 3.0 Target Heart Rate:: 86-107 Resting Blood Pressure: 94/60 EKG Type: SR with frequent PVC Outcomes & Goals Goals:: Verbalizes understanding of THR, RPE & goal METS by session 6, Documents in home exercise log/reports 30 min aerobic 5 day/wk by DC, Demonstrates accurate pulse taking by DC and Other additional outcome/goals: see below Intervention & Plan Exercise Program Goals: Instruct on personal THR & RPE, Instruct on MET level & personal MET goal, Show patient to take own pulse /validate performance until accurate and Instruct on home exercise Physical Activity Home Exercise Physical Activity - Home Exercise: Safe Exercise, Warm-up, Self-monitoring, Cool-Down, Home Exercise > 30 min Daily and Sitting Time <3 hours/daily Outcomes & Goals Outcomes/Goals: Demonstrates correct Warm-up/exercise Cool-Down (S3) if = 2.5 METs, Verbalizes symptoms of exercise intolerance by Session 3 (S3) and Demonstrate safe equipment use (S3) & follows exercise prescrition (6) Intervention & Plan Plan/Intervention: Instruct warm-up & cool-down if exercising at > 2 METs, Instruct on symptoms of exercise intolerance & actions to take, Instruct & monitor on saf and Assess intial functional capacity & safety risk Nutrition - Initial Assessment Program Goals Nutrition Program Goals Patient has diagnosis of Hyperlipidemia (ICD E78)?: Yes Visit Date of Eval: 05/23/24 (initial eval ) Cholesterol/Lipids (Other Core Measures) Determine presence & major risk factors that modify LDL goal: Hypertension or hypertensive medication, Low HDL cholesterol <40 mg/dL*, Family history of premature CHD in Male < 55 years: female <65 yearsFa and Age men > 45 years; women >/= 55 years Outcomes/Goals: Pt IDs own risk factors & lifestyle modifications by Session 10, Verbalizes symptoms of angina & response by session 3., Pt independently manages and Other Additional Outcomes/Goals: Intervention/Plan: Advocate for lipid panel cholesterol medication if applicable, Instruct on personal lipid levels & lipid goals/NCEP guidelines, Instruct on cholesterol and Other additional plan/int Diabetes (Other Core Measures) Diabetes Type: Not Applicable Weight Mgt (Other Care) Height: 5 ft 10 in Weight:: 190 lb BMI: 27.2 Diagnosis Overweight/Obesity BMI> 30% ICD-10 E66: No Diagnosis High BMI/Morbid Obesity BMI> 35% ICD-10 Z68: No Outcomes/Goals: Pt sets, maintains & shows weight loss goal & trend during rehab and Other additional outcomes/goals Intervention/Plan: Instruct on ideal BMI & set weight loss goal w/patient, Assist pt to ID & incorporate diet changes for weight loss by S9, Refer to Structured Weight Loss program as appropriate, Encourage goal of using 250-300dcal per session for weight loss and Other additional plan/interventions Healthy Eating Habits Will attend diet classes:: Yes Outcomes/Goals:: Consume diet rich in vegs,fruits,whole grain/high fiber,fish,lean meat, Limit sat/trans fats,cholesterol & added salts & sugars and Other additional outcome/goals: Intervention/Plan:: Assess current eating habits and Other Additional plan/interventions Education Gave educational materials for:: Signs & symptoms of hypoglycemia, Signs & symptoms of hyperglycemia, Relate diabetes to coronary artery disease and Healthy eating Core - Initial Assessment Visit Date of Eval: 05/23/24 (initial eval) Medication Compliance Preventative Medication(s):: Aspirin, Clopidogrel/P2Y12 inhibit, Statin/lipid and Beta juan francisco H/O mental health issues: depression, anxiety, or addiction?: No Doesn?t believe in the benefits of treatment?: No Believes medications are unnecessary or harmful?: No Has a concern about medication side effects?: No Expresses concern over the cost of medications?: No Outcomes/Goals: Verbalizes medications,desired effect & common side effects @ DC, Pt self-reports following medication regimen, Keeps card in wallet w/medications listed by DC and Other additional outcome/goals: Interventions/plans: Instruct on medication effects & side effects, Review medication list w/patient every two weeks, Instruct importance of taking meds as ordered & assist problem solving and Other additional Tobacco Use Tobacco Use: Non-smoker Hypertension Hypertension Diagnosis:: Hypertension ICD-10 I10 [place] [employer] Hypertension Guidelines Outcomes/Goals: Able to verbalize/achieve optimal blood pressure <130/80, Incorporates diet changes & exercise for blood pressure control by DC and Other additional outcomes/goals Interventions/plan: Instruct on optimal blood pressure, hypertension & medications, Instruct on effects of sodium, alcohol, stress, exercise &hypertension and Other additional plan/interventions Tobacco Cessation Referral Smoking Cessation Referral:: No Individual Education/Counseling:: No Education Schedule Given:: Yes Psychosocial - Initial Assess VIsit Date of Eval: 05/23/24 (initial eval ) History of previous Mental disease:: No Target Goals Target Goals Psychosocial Test Tool Used:: [employer] QOL Cardiac and PHQ-9 Questionnaire phq-9 Severity Referral to Behavioral Health PS - Interventions: Yes: Attend Stress Management Classes Outcomes/Goals: See list Psychosocial Outcomes/Goals:: ID's personal stressors & 2 strategies to manage stress by discharge and Other Additional outcome/goals: Intervention/Plan: See List Interventions/Plan:: Assess stressors,coping strategies & signs of derpression on admission, Instruct/assist pt to develop coping & personal stress Mgt strategies, Refer to Behavioral Health if appropriate, Refer to Physician if appropriate, Instruct patient to recognize signs & symptoms of depression, Instruct patient to recog and Other additional plan/intervention Patient Health Questionnaire PHQ-9 Screening Initial Assessment: 1. Little interest or pleasure in doing things: Not at all 2. Feeling down, depressed, or hopeless: Not at all 3. Trouble falling or staying asleep, or sleeping too much: Not at all 4. Feeling tired or having little energy: Not at all 5. Poor appetite or overeating: Not at all 6. Feeling bad about yourself -- or that you are a failure or have let yourself or your family down: Not at all 7. Trouble concentrating on things, such as reading the newspaper or watching television: Not at all 8. Moving or speaking so slowly that other people could have noticed. Or the opposite - being so fidgety or restless that you have been moving around a lot more than usual: Not at all 9. Thoughts that you would be better off , or of hurting yourself in some way: Not at all How difficult have these problems made it for you to do your work, take care of things at home, or get along with other people?: Not difficult at all Total Score: 0 CHRISTI-Q SV Test Statements CAD is a disease of the arteries in the heart: False Examples of risk factors for heart disease: True Angina is chest pain or discomfort: I Don't Know The benefits of resistance training include: True Eating more meat and dairy products: False Anti-platelet medications such as aspirin are important: I Don't Know The only effective way to manage stress: False An exercise warm-up slowly increases heart rate: I Don't Know Prepared, processed foods usually have high sodium: I Don't Know Depression is common after a heart attack: True The statin medications lower cholesterol: True To control blood pressure, lower the amount of sodium: True If someone gets chest discomfort during walking: False Transfats are partially hydrogenated vegetable oils: I Don't Know Sleep apnea that is not treated increases the risk: I Don't Know To control cholesterol, one should become a vegetarian: I Don't Know Someone knows if he/she is exercising at the right level: I Don't Know Diabetes cannot be prevented with exercise & health eating: I Don't Know Stress is a large risk for heart attack: I Don't Know A diet that can help lower blood pressure is rich in: True Total Score Total Correct Responses: 10 Self-Efficacy 6-Item Scale Initial Assessment: We would like to know how confident you are in doing certain activities. Please select your confidence level for: Fatigue Select Number: 7 Physical Discomfort or Pain Select Number: 7 Emotional Distress Select Number: 6 Other Symptoms or Health Problems Select Number: 7 Different Tasks and Activities Select Number: 8 Medication Select Number: 8 Total Score:: 7 Nutrition Survey Nutrition Survey Instructions Scoring Instructions Nutrition Survey Initial: Have you lost >10 lbs over the past 2 months without trying?: No Are you following a special diet at home for diabetes, low fat, or low salt?: No Are you interested in meeting with a dietitian for help understanding your diet?: Yes Do you eat less than 3 meals a day?: No Do you eat fatty meats (celis, sausage, ribs, etc), fried foods, desserts, large amounts of salad dressings, margarine, butter, or cheese most days?: No Do you have food allergies? [Enter types in comment field]: No Do you eat in restaurants more than 3 times a week?: No Do you season food with salt, seasoning salt, or garlic salt?: Yes Do you used canned, boxed, frozen meals, or soups, seasoning packets?: Yes Total Score:: 3 Exercise - 30-day Assessment Physician Prescribed Exercise Modalities: Treadmill, Rower, Ayushinn Airdyne AD-7, SciFit Stepper, SciFit Pro-II Ergometer and SciFit Lateral Higbee Exercise - 60-day Assessment Physician Prescribed Exercise Modalities: Treadmill, Rower, Schwinn Airdyne AD-7, SciFit Stepper, SciFit Pro-II Ergometer and SciFit Lateral Higbee Exercise - 90-day Assessment Physician Prescribed Exercise Modalities: Treadmill, Rower, Schwinn Airdyne AD-7, SciFit Stepper, SciFit Pro-II Ergometer and SciFit Lateral [employer] Tester Exercise - Final/Discharge Physician Prescribed Exercise Modalities: Treadmill, Rower, Elijah Vogt AD-7, SciFit Stepper, SciFit Pro-II Ergometer and SciFit Lateral [employer] Tester Frequency: 3x/week for 12 weeks [36 sessions] Intensity: 60-80% of age predicted maximum heart rate reserve Current METSs:: 3.0 Target Heart Rate:: 86-107 Nutrition - 30-Day Assessment Weight Mgt (Other Care) Height: 5 ft 10 in Weight:: 190 lb BMI: 27.2 Nutrition - 60-Day Assessment Weight Mgt (Other Care) Height: 5 ft 10 in Weight:: 190 lb BMI: 27.2 Psychosocial - 30-Day Assess Target Goals Target Goals Referral to Behavioral Health PS - Interventions: Yes: Attend Stress Management Classes Psychosocial - 60-Day Assess Target Goals Target Goals Referral to Behavioral Health PS - Interventions: Yes: Attend Stress Management Classes Psychosocial - 90-Day Assess Target Goals Target Goals Referral to Behavioral Health PS - Interventions: Yes: Attend Stress Management Classes Psychosocial - Final Assessmen Target Goals Target Goals Referral to Behavioral Health PS - Interventions: Yes: Attend Stress Management Classes Nutrition - 90-Day Assessment Weight Mgt (Other Care) Height: 5 ft 10 in Weight:: 190 lb BMI: 27.2 Nutrition - Final Assessment Program Goals Patient has diagnosis of Hyperlipidemia (ICD E78)?: Yes Weight Mgt (Other Care) Height: 5 ft 10 in Weight:: 190 lb BMI: 27.2
[2024-05-23 10:23] VITALS: PULSE 69; O2SAT 95
[2024-05-23 10:26] VITALS: BP 94/60
[2024-05-23 10:31] VITALS: BMI 27.1
[2024-05-23 11:08] VITALS: BP 94/60; BMI 27.2
== END | disposition home or self-care (01) ==
LOC: CR 10:00
PROVIDERS: PCP Family Medicine; Referring Provider Internal Medicine Cardiovascular Disease; Visit Provider Internal Medicine Cardiovascular Disease
DX: I25.2 Old myocardial infarction (principal); I10 Essential (primary) hypertension; E78.5 Hyperlipidemia, unspecified; K21.9 Gastro-esophageal reflux disease without esophagitis; Z95.5 Presence of coronary angioplasty implant and graft; Z79.82 Long term (current) use of aspirin; Z79.02 Long term (current) use of antithrombotics/antiplatelets; Z79.899 Other long term (current) drug therapy

== ENCOUNTER 2024-05-26 10:15 | Outpatient (RCR) | payer MEDICARE, OTHER, SELFPAY ==
[2024-05-23 11:08] VITALS: BMI 27.2
== END 2024-05-26 23:59 ==
LOC: CR 10:15
PROVIDERS: PCP Family Medicine; Referring Provider Internal Medicine Cardiovascular Disease; Visit Provider Internal Medicine Cardiovascular Disease
DX: I21.19 ST elevation (STEMI) myocardial infarction involving other coronary artery of inferior wall (principal); I25.10 Atherosclerotic heart disease of native coronary artery without angina pectoris; Z95.5 Presence of coronary angioplasty implant and graft
CPT/HCPCS: 93798

== ENCOUNTER 2024-06-26 10:15 | Outpatient (RCR) | payer MEDICARE, OTHER, SELFPAY ==
[2024-05-23 11:08] VITALS: BMI 27.2
--- NOTE | 2024-06-15 14:43 | CR.ITP_ITS ---
Exercise - Initial Assessment Physician Prescribed Exercise Modalities: Treadmill, Schwinn Airdyne AD-7 and SciFit Stepper Nutrition - Initial Assessment Weight Mgt (Other Care) Height: 5 ft 10 in Weight:: 192 lb 8 oz BMI: 27.6 Psychosocial - Initial Assess Target Goals Target Goals Referral to Behavioral Health PS - Interventions: Yes: Attend Stress Management Classes Patient Health Questionnaire PHQ-9 Screening 30-Day Re-eval Assessment: 1. Little interest or pleasure in doing things: Not at all 2. Feeling down, depressed, or hopeless: Not at all 3. Trouble falling or staying asleep, or sleeping too much: Not at all 4. Feeling tired or having little energy: Not at all 5. Poor appetite or overeating: Not at all 6. Feeling bad about yourself -- or that you are a failure or have let yourself or your family down: Not at all 7. Trouble concentrating on things, such as reading the newspaper or watching television: Not at all 8. Moving or speaking so slowly that other people could have noticed. Or the opposite - being so fidgety or restless that you have been moving around a lot more than usual: Not at all 9. Thoughts that you would be better off , or of hurting yourself in some way: Not at all How difficult have these problems made it for you to do your work, take care of things at home, or get along with other people?: Not difficult at all Total Score: 0 Self-Efficacy 6-Item Scale 30-Day Re-eval Assessment: We would like to know how confident you are in doing certain activities. Please select your confidence level for: Fatigue Select Number: 7 Physical Discomfort or Pain Select Number: 7 Emotional Distress Select Number: 6 Other Symptoms or Health Problems Select Number: 7 Different Tasks and Activities Select Number: 8 Medication Select Number: 8 Total Score:: 7 Nutrition Survey Nutrition Survey Instructions Scoring Instructions Exercise - 30-day Assessment Visit Date of Eval: 06/15/24 Session #:: 9 Physician Prescribed Exercise Modalities: Treadmill, Schwinn Airdyne AD-7 and SciFit Stepper Frequency: 3x/week for 12 weeks [36 sessions] Intensity: 60-80% of age predicted maximum heart rate reserve Duration: 30 - 45 minutes Current METSs:: 4.2 Target Heart Rate:: 86-107 Current RPE:: 12 Maximum Excercise HR:: 90 Resting Blood Pressure: 114/68 Maximum Exercise Blood Pressure: 144/78 EKG Type: NSR with rare PAC Outcomes & Goals Goals:: Verbalizes understanding of THR, RPE & goal METS by session 6, Documents in home exercise log/reports 30 min aerobic 5 day/wk by DC, Demonstrates accurate pulse taking by DC and Other additional outcome/goals: see below Intervention & Plan Exercise Program Goals: Instruct on personal THR & RPE, Instruct on MET level & personal MET goal, Show patient to take own pulse /validate performance until accurate, Instruct on home exercise and Other additional plan/int Physical Activity Home Exercise Physical Activity - Home Exercise: Safe Exercise, Warm-up, Self-monitoring, Cool-Down, Home Exercise > 30 min Daily and Sitting Time <3 hours/daily Outcomes & Goals Outcomes/Goals: Demonstrates correct Warm-up/exercise Cool-Down (S3) if = 2.5 METs, Verbalizes symptoms of exercise intolerance by Session 3 (S3), Demonstrate safe equipment use (S3) & follows exercise prescrition (6) and Other: See below Intervention & Plan Plan/Intervention: Instruct warm-up & cool-down if exercising at > 2 METs, Instruct on symptoms of exercise intolerance & actions to take, Instruct & monitor on saf, Assess intial functional capacity & safety risk and Other See below 30-day Reassessments 30 day Reassessments:: Progressing Reassessment Notes & Comments:: RPE explained to pt. Pt is able to return demonstration in his daily sessions. Exercise - 60-day Assessment Physician Prescribed Exercise Modalities: Treadmill, Schwinn Airdyne AD-7 and SciFit Stepper Exercise - 90-day Assessment Physician Prescribed Exercise Modalities: Treadmill, Schwinn Airdyne AD-7 and SciFit Stepper Exercise - Final/Discharge Physician Prescribed Exercise Modalities: Treadmill, Schwinn Airdyne AD-7 and SciFit Stepper Nutrition - 30-Day Assessment Program Goals Nutrition Program Goals Patient has diagnosis of Hyperlipidemia (ICD E78)?: Yes Visit Date of Eval: 06/15/24 Session #:: 9 Cholesterol/Lipids (Other Core Measures) Determine presence & major risk factors that modify LDL goal: Hypertension or hypertensive medication, Low HDL cholesterol <40 mg/dL*, Family history of premature CHD in Male < 55 years: female <65 yearsFa and Age men > 45 years; women >/= 55 years Outcomes/Goals: Pt IDs own risk factors & lifestyle modifications by Session 10, Verbalizes symptoms of angina & response by session 3., Pt independently manages and Other Additional Outcomes/Goals: Intervention/Plan: Advocate for lipid panel cholesterol medication if applicable, Instruct on personal lipid levels & lipid goals/NCEP guidelines, Instruct on cholesterol and Other additional plan/int Diabetes (Other Core Measures) Diabetes Type: Not Applicable Weight Mgt (Other Care) Height: 5 ft 10 in Weight:: 192 lb 8 oz BMI: 27.6 Diagnosis Overweight/Obesity BMI> 30% ICD-10 E66: No Diagnosis High BMI/Morbid Obesity BMI> 35% ICD-10 Z68: No Outcomes/Goals: Pt sets, maintains & shows weight loss goal & trend during rehab and Other additional outcomes/goals Intervention/Plan: Instruct on ideal BMI & set weight loss goal w/patient, Assist pt to ID & incorporate diet changes for weight loss by S9, Refer to Structured Weight Loss program as appropriate, Encourage goal of using 250- 300dcal per session for weight loss and Other additional plan/interventions Healthy Eating Habits Will attend diet classes:: Yes Outcomes/Goals:: Consume diet rich in vegs,fruits,whole grain/high fiber,fish,lean meat, Limit sat/trans fats,cholesterol & added salts & sugars and Other additional outcome/goals: Intervention/Plan:: Assess current eating habits and Other Additional plan/interventions 30-day Reassessments:: Progressing Reassessment Notes & Comments:: Pt is scheduled to attend nutrition class. Heart healthy low sodium diet encouraged. Education Gave educational materials for:: Signs & symptoms of hypoglycemia, Signs & symptoms of hyperglycemia, Relate diabetes to coronary artery disease and Healthy eating Nutrition - 60-Day Assessment Weight Mgt (Other Care) Height: 5 ft 10 in Weight:: 192 lb 8 oz BMI: 27.6 Core - 30-Day Assessment Medication Compliance Preventative Medication(s):: Aspirin, Clopidogrel/P2Y12 inhibit, Statin/lipid and Beta juan francisco H/O mental health issues: depression, anxiety, or addiction?: No Doesn?t believe in the benefits of treatment?: No Believes medications are unnecessary or harmful?: No Has a concern about medication side effects?: No Expresses concern over the cost of medications?: No Outcomes/Goals: Verbalizes medications,desired effect & common side effects @ DC, Pt self-reports following medication regimen, Keeps card in wallet w/medications listed by DC and Other additional outcome/goals: Interventions/plans: Instruct on medication effects & side effects, Review me dication list w/patient every two weeks, Instruct importance of taking meds as ordered & assist problem solving and Other additional Tobacco Use Tobacco Use: Non-smoker Hypertension Hypertension Diagnosis:: Hypertension ICD-10 I10 Resting Blood Pressure:: 114/68 [place] [employer] Hypertension Guidelines Peak Exercise Blood Pressure:: 144/78 Outcomes/Goals: Able to verbalize/achieve optimal blood pressure <130/80, Incorporates diet changes & exercise for blood pressure control by DC and Other additional outcomes/goals Interventions/plan: Instruct on optimal blood pressure, hypertension & medications, Instruct on effects of sodium, alcohol, stress, exercise &hypertension and Other additional plan/interventions 30 day Reassessments:: Progressing Reassessment Notes & Comments:: Pt's BP's are within AHA normal limits. Tobacco Cessation Referral Smoking Cessation Referral:: No Individual Education/Counseling:: No Education Schedule Given:: Yes Psychosocial - 30-Day Assess VIsit Date of Eval: 06/15/24 Session #:: 9 History of previous Mental disease:: No Target Goals Target Goals Psychosocial Test Tool Used:: PHQ-9 Questionnaire phq-9 Severity Referral to Behavioral Health PS - Interventions: Yes: Attend Stress Management Classes Outcomes/Goals: See list Psychosocial Outcomes/Goals:: ID's personal stressors & 2 strategies to manage stress by discharge and Other Additional outcome/goals: Intervention/Plan: See List Interventions/Plan:: Assess stressors,coping strategies & signs of derpression on admission, Instruct/assist pt to develop coping & personal stress Mgt strategies, Refer to Behavioral Health if appropriate, Refer to Physician if appropriate, Instruct patient to recognize signs & symptoms of depression, Instruct patient to recog and Other additional plan/intervention 30-day Reassessments: 30 day Reassessments:: Met Reassessment Notes & Comments:: Pt denies any psychosocial issues at this time. Psychosocial - 60-Day Assess Target Goals Target Goals Referral to Behavioral Health PS - Interventions: Yes: Attend Stress Management Classes Outcomes/Goals: See list Psychosocial Outcomes/Goals:: ID's personal stressors & 2 strategies to manage stress by discharge and Other Additional outcome/goals: Psychosocial - 90-Day Assess Target Goals Target Goals Referral to Behavioral Health PS - Interventions: Yes: Attend Stress Management Classes Psychosocial - Final Assessmen Target Goals Target Goals Referral to Behavioral Health PS - Interventions: Yes: Attend Stress Management Classes Nutrition - 90-Day Assessment Weight Mgt (Other Care) Height: 5 ft 10 in Weight:: 192 lb 8 oz BMI: 27.6 Nutrition - Final Assessment Weight Mgt (Other Care) Height: 5 ft 10 in Weight:: 192 lb 8 oz BMI: 27.6
[2024-06-15 14:53] VITALS: BP 114/68; BMI 27.6
== END 2024-06-26 23:59 ==
LOC: CR 10:15
PROVIDERS: PCP Family Medicine; Referring Provider Internal Medicine Cardiovascular Disease; Visit Provider Internal Medicine Cardiovascular Disease
DX: I21.19 ST elevation (STEMI) myocardial infarction involving other coronary artery of inferior wall (principal); I25.10 Atherosclerotic heart disease of native coronary artery without angina pectoris; Z95.5 Presence of coronary angioplasty implant and graft
CPT/HCPCS: 93798

== ENCOUNTER 2024-07-26 10:15 | Outpatient (RCR) | payer MEDICARE, OTHER, SELFPAY ==
[2024-06-15 14:53] VITALS: BMI 27.6
[2024-06-27 00:30] VITALS: BP 114/68
--- NOTE | 2024-07-13 07:31 | CR.ITP_ITS ---
Exercise - Initial Assessment Physician Prescribed Exercise Modalities: Treadmill, Schwinn Airdyne AD-7 and SciFit Stepper Nutrition - Initial Assessment Weight Mgt (Other Care) Height: 5 ft 10 in Weight:: 189 lb BMI: 27.1 Core - Initial Assessment Hypertension Resting Blood Pressure:: 92/64 [place] [employer] Hypertension Guidelines Psychosocial - Initial Assess Target Goals Target Goals Referral to Behavioral Health PS - Interventions: Yes: Attend Stress Management Classes Patient Health Questionnaire PHQ-9 Screening 60-Day Re-eval Assessment: 1. Little interest or pleasure in doing things: Not at all 2. Feeling down, depressed, or hopeless: Not at all 3. Trouble falling or staying asleep, or sleeping too much: Not at all 4. Feeling tired or having little energy: Not at all 5. Poor appetite or overeating: Not at all 6. Feeling bad about yourself -- or that you are a failure or have let yourself or your family down: Not at all 7. Trouble concentrating on things, such as reading the newspaper or watching television: Not at all 8. Moving or speaking so slowly that other people could have noticed. Or the opposite - being so fidgety or restless that you have been moving around a lot more than usual: Not at all 9. Thoughts that you would be better off , or of hurting yourself in some way: Not at all How difficult have these problems made it for you to do your work, take care of things at home, or get along with other people?: Not difficult at all Total Score: 0 Self-Efficacy 6-Item Scale 60-Day Re-eval Assessment: We would like to know how confident you are in doing certain activities. Please select your confidence level for: Fatigue Select Number: 7 Physical Discomfort or Pain Select Number: 7 Emotional Distress Select Number: 6 Other Symptoms or Health Problems Select Number: 7 Different Tasks and Activities Select Number: 8 Medication Select Number: 8 Total Score:: 7 Nutrition Survey Nutrition Survey Instructions Scoring Instructions Exercise - 30-day Assessment Physician Prescribed Exercise Modalities: Treadmill, Schwinn Airdyne AD-7 and SciFit Stepper Exercise - 60-day Assessment Visit Date of Eval: 07/13/24 Session #:: 21 Physician Prescribed Exercise Modalities: Treadmill, Schwinn Airdyne AD-7 and SciFit Stepper Frequency: 3x/week for 12 weeks [36 sessions] Intensity: 60-80% of age predicted maximum heart rate reserve Duration: 30 - 45 minutes Current METSs:: 5.2 Target Heart Rate:: 86-107 Current RPE:: 12-13 Maximum Excercise HR:: 103 Resting Blood Pressure: 112/68 Maximum Exercise Blood Pressure: 138/78 EKG Type: SB/NSR occ PAC, slight ST dep. Poss accelerated junct rhythm dropped P wav Outcomes & Goals Goals:: Verbalizes understanding of THR, RPE & goal METS by session 6, Documents in home exercise log/reports 30 min aerobic 5 day/wk by DC, Demonstrates accur ate pulse taking by DC and Other additional outcome/goals: see below Intervention & Plan Exercise Program Goals: Instruct on personal THR & RPE, Instruct on MET level & personal MET goal, Show patient to take own pulse /validate performance until accurate, Instruct on home exercise and Other additional plan/int Physical Activity Home Exercise Physical Activity - Home Exercise: Safe Exercise, Warm-up, Self-monitoring, Cool-Down, Home Exercise > 30 min Daily and Sitting Time <3 hours/daily Outcomes & Goals Outcomes/Goals: Demonstrates correct Warm-up/exercise Cool-Down (S3) if = 2.5 METs, Verbalizes symptoms of exercise intolerance by Session 3 (S3), Demonstrate safe equipment use (S3) & follows exercise prescrition (6) and Other: See below Intervention & Plan Plan/Intervention: Instruct warm-up & cool-down if exercising at > 2 METs, Instruct on symptoms of exercise intolerance & actions to take, Instruct & monitor on saf, Assess intial functional capacity & safety risk and Other See below 30-day Reassessments 30 day Reassessments:: Progressing Reassessment Notes & Comments:: Proper warm up and cool down demonstrated and explained. Pt is able to return demonstration in his daily sessions. Exercise - 90-day Assessment Physician Prescribed Exercise Modalities: Treadmill, Schwinn Airdyne AD-7 and SciFit Stepper Exercise - Final/Discharge Physician Prescribed Exercise Modalities: Treadmill, Schwinn Airdyne AD-7 and SciFit Stepper Nutrition - 30-Day Assessment Weight Mgt (Other Care) Height: 5 ft 10 in Weight:: 189 lb BMI: 27.1 Nutrition - 60-Day Assessment Program Goals Nutrition Program Goals Patient has diagnosis of Hyperlipidemia (ICD E78)?: Yes Visit Date of Eval: 07/13/24 Session #:: 21 Cholesterol/Lipids (Other Core Measures) Determine presence & major risk factors that modify LDL goal: Hypertension or h ypertensive medication, Low HDL cholesterol <40 mg/dL*, Family history of premature CHD in Male < 55 years: female <65 yearsFa and Age men > 45 years; women >/= 55 years Outcomes/Goals: Pt IDs own risk factors & lifestyle modifications by Session 10, Verbalizes symptoms of angina & response by session 3., Pt independently manages and Other Additional Outcomes/Goals: Intervention/Plan: Advocate for lipid panel cholesterol medication if applicable, Instruct on personal lipid levels & lipid goals/NCEP guidelines, Instruct on cholesterol and Other additional plan/int Diabetes (Other Core Measures) Diabetes Type: Not Applicable Weight Mgt (Other Care) Height: 5 ft 10 in Weight:: 189 lb BMI: 27.1 Diagnosis Overweight/Obesity BMI> 30% ICD-10 E66: No Diagnosis High BMI/Morbid Obesity BMI> 35% ICD-10 Z68: No Outcomes/Goals: Pt sets, maintains & shows weight loss goal & trend during rehab and Other additional outcomes/goals Intervention/Plan: Instruct on ideal BMI & set weight loss goal w/patient, Assist pt to ID & incorporate diet changes for weight loss by S9, Refer to Structured Weight Loss program as appropriate, Encourage goal of using 250- 300dcal per session for weight loss and Other additional plan/interventions Healthy Eating Habits Will attend diet classes:: Yes Outcomes/Goals:: Consume diet rich in vegs,fruits,whole grain/high fiber,fish,lean meat, Limit sat/trans fats,cholesterol & added salts & sugars and Other additional outcome/goals: Intervention/Plan:: Assess current eating habits and Other Additional plan/interventions 30-day Reassessments:: Progressing Reassessment Notes & Comments:: Pt has lost 3.5 lbs in the past 30 days. Pt has been referred to nutritional services. Education Gave educational materials for:: Signs & symptoms of hypoglycemia, Signs & symptoms of hyperglycemia, Relate diabetes to coronary artery disease and Healthy eating Core - Final Assessment Hypertension Resting Blood Pressure:: 92/64 [place] [employer] Hypertension Guidelines Core - 60-Day Assessment Visit Date of Eval: 07/13/24 Session #:: 21 Medication Compliance Preventative Medication(s):: Aspirin, Clopidogrel/P2Y12 inhibit, Statin/lipid and Beta juan francisco H/O mental health issues: depression, anxiety, or addiction?: No Doesn?t believe in the benefits of treatment?: No Believes medications are unnecessary or harmful?: No Has a concern about medication side effects?: No Expresses concern over the cost of medications?: No Outcomes/Goals: Verbalizes medications,desired effect & common side effects @ DC, Pt self-reports following medication regimen, Keeps card in wallet w/medications listed by DC and Other additional outcome/goals: Interventions/plans: Instruct on medication effects & side effects, Review medication list w/patient every two weeks, Instruct importance of taking meds as ordered & assist problem solving and Other additional Tobacco Use Tobacco Use: Non-smoker Hypertension Hypertension Diagnosis:: Hypertension ICD-10 I10 Resting Blood Pressure:: 112/68 Resting Blood Pressure:: 92/64 [place] [employer] Hypertension Guidelines Peak Exercise Blood Pressure:: 138/78 Outcomes/Goals: Able to verbalize/achieve optimal blood pressure <130/80, Incorporates diet changes & exercise for blood pressure control by DC and Other additional outcomes/goals Interventions/plan: Instruct on optimal blood pressure, hypertension & medications, Instruct on effects of sodium, alcohol, stress, exercise &hyperten dianna and Other additional plan/interventions 30 day Reassessments:: Met Reassessment Notes & Comments:: Pt's BP's are within AHA normal limits. Will co ntinue to monitor. Tobacco Cessation Referral Smoking Cessation Referral:: No Individual Education/Counseling:: No Education Schedule Given:: Yes Psychosocial - 30-Day Assess Target Goals Target Goals Referral to Behavioral Health PS - Interventions: Yes: Attend Stress Management Classes Outcomes/Goals: See list Psychosocial Outcomes/Goals:: ID's personal stressors & 2 strategies to manage stress by discharge and Other Additional outcome/goals: Psychosocial - 60-Day Assess VIsit Date of Eval: 07/13/24 Session #:: 21 History of previous Mental disease:: No Target Goals Target Goals Psychosocial Test Tool Used:: [employer] QOL Cardiac and PHQ-9 Questionnaire phq-9 Severity See PHQ-9 Score: 0 Referral to Behavioral Health PS - Interventions: Yes: Attend Stress Management Classes Outcomes/Goals: See list Psychosocial Outcomes/Goals:: ID's personal stressors & 2 strategies to manage stress by discharge and Other Additional outcome/goals: Intervention/Plan: See List Interventions/Plan:: Assess stressors,coping strategies & signs of derpression on admission, Instruct/assist pt to develop coping & personal stress Mgt strategies, Refer to Behavioral Health if appropriate, Refer to Physician if appropriate, Instruct patient to recognize signs & symptoms of depression, Instruct patient to recog and Other additional plan/intervention 30-day Reassessments: 30 day Reassessments:: Met Reassessment Notes & Comments:: Pt denies any psychosocial issues at this time. Psychosocial - 90-Day Assess Target Goals Target Goals Referral to Behavioral Health PS - Interventions: Yes: Attend Stress Management Classes Psychosocial - Final Assessmen Target Goals Target Goals Referral to Behavioral Health PS - Interventions: Yes: Attend Stress Management Classes Nutrition - 90-Day Assessment Weight Mgt (Other Care) Height: 5 ft 10 in Weight:: 189 lb BMI: 27.1 Nutrition - Final Assessment Weight Mgt (Other Care) Height: 5 ft 10 in Weight:: 189 lb BMI: 27.1
[2024-07-13 07:43] VITALS: BP 112/68; BP 92/64; BMI 27.1
== END 2024-07-26 23:59 ==
LOC: CR 10:15
PROVIDERS: PCP Family Medicine; Referring Provider Internal Medicine Cardiovascular Disease; Visit Provider Internal Medicine Cardiovascular Disease
DX: I21.19 ST elevation (STEMI) myocardial infarction involving other coronary artery of inferior wall (principal); I25.10 Atherosclerotic heart disease of native coronary artery without angina pectoris; Z95.5 Presence of coronary angioplasty implant and graft
CPT/HCPCS: 93798; 97802

== ENCOUNTER 2024-08-25 10:15 | Outpatient (RCR) | payer MEDICARE, OTHER, SELFPAY ==
[2024-07-13 07:43] VITALS: BMI 27.1
[2024-07-27 00:32] VITALS: BP 112/68; BP 114/68; BP 92/64
--- NOTE | 2024-08-11 09:38 | CR.ITP_ITS ---
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 Little interest or pleasure in doing things: Not at all 2. Feeling down, depressed, or hopeless: Not at all 3. Trouble falling or staying asleep, or sleeping too much: Not at all 4. Feeling tired or having little energy: Not at all 5. Poor appetite or overeating: Not at all 6. Feeling bad about yourself -- or that you are a failure or have let yourself or your family down: Not at all 7. Trouble concentrating on things, such as reading the newspaper or watching television: Not at all 8. Moving or speaking so slowly that other people could have noticed. Or the opposite - being so fidgety or restless that you have been moving around a lot more than usual: Not at all 9. Thoughts that you would be better off , or of hurting yourself in some way: Not at all How difficult have these problems made it for you to do your work, take care of things at home, or get along with other people?: Not difficult at all Total Score: 0 Self-Efficacy 6-Item Scale 90-Day Re-eval Assessment: We would like to know how confident you are in doing certain activities. Please select your confidence level for: Fatigue Select Number: 7 Physical Discomfort or Pain Select Number: 7 Emotional Distress Select Number: 6 Other Symptoms or Health Problems Select Number: 7 Different Tasks and Activities Select Number: 8 Medication Select Number: 7 Total Score:: 7 Nutrition Survey Nutrition Survey Instructions Scoring Instructions Exercise - 30-day Assessment Physician Prescribed Exercise Modalities: Treadmill, Rower, Schwinn Airdyne AD-7, SciFit Stepper, SciFit Pro- II Ergometer and SciFit Lateral [place] Exercise - 60-day Assessment Physician Prescribed Exercise Modalities: Treadmill, Rower, Schwinn Airdyne AD-7, SciFit Stepper, SciFit Pro- II 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 Exercise - 90-day Assessment Visit Date of Eval: 08/11/24 Session #:: 32 Physician Prescribed Exercise Modalities: Treadmill, RowerAyushined Airdyne AD-7, SciFit Stepper, SciFit Pro- II Ergometer and SciFit Lateral [place] Frequency: 3x/week for 12 weeks [36 sessions] Intensity: 60-80% of age predicted maximum heart rate reserve Duration: 30 - 45 minutes METs - Progression 0.5-1.0 weekly:: 0.5-1.0 Current METSs:: 5.5 Target Heart Rate:: 86-114 Target RPE 12-16:: 12-16 Current RPE:: 13 Maximum Excercise HR:: 114 Resting Blood Pressure: 104/58 Maximum Exercise Blood Pressure: 154/82 EKG Type: SB to NSR with occ PVCs, short runs of bi/trigeminy noted, slight ST dep Current Physical Activity or Exercising minutes: 31 Outcomes & Goals Goals:: Verbalizes understanding of THR, RPE & goal METS by session 6, Documents in home exercise log/reports 30 min aerobic 5 day/wk by DC and Demonstrates accurate pulse taking by DC Intervention & Plan Exercise Program Goals: Instruct on personal THR & RPE, Instruct on MET level & personal MET goal, Show patient to take own pulse /validate performance until accurate, Instruct on home exercise and Other additional plan/int 30-day Reassessments 30 day Reassessments:: Met Physical Activity Home Exercise Physical Activity - Home Exercise: Safe Exercise, Warm-up, Self-monitoring, Cool-Down, Home Exercise > 30 min Daily and Sitting Time <3 hours/daily Outcomes & Goals Outcomes/Goals: Demonstrates correct Warm-up/exercise Cool-Down (S3) if = 2.5 METs, Verbalizes symptoms of exercise intolerance by Session 3 (S3) and Demonstrate safe equipment use (S3) & follows exercise prescrition (6) Intervention & Plan Plan/Intervention: Instruct warm-up & cool-down if exercising at > 2 METs, Instruct on symptoms of exercise intolerance & actions to take, Instruct & monitor on saf and Assess intial functional capacity & safety risk 30-day Reassessments 30 day Reassessments:: Met Reassessment Notes & Comments:: Pt warms up and cools down without prompt, pt can verbalize and recognize s/s of exercise intolerance and actions to take Exercise - Final/Discharge Physician Prescribed Exercise Modalities: Treadmill, Rower, Elijah Vogt AD-7, SciFit Stepper, SciFit Pro- II Ergometer and SciFit Lateral [place] Nutrition - 30-Day Assessment Weight Mgt (Other Care) Height: 5 ft 10 in Weight:: 185 lb 8 oz BMI: 26.6 BMI (Report if calculated above): 26 Nutrition - 60-Day Assessment Weight Mgt (Other Care) Height: 5 ft 10 in Weight:: 185 lb 8 oz BMI: 26.6 BMI (Report if calculated above): 26 Core - 30-Day Assessment Hypertension [place] [employer] Hypertension Guidelines Reassessment Notes & Comments:: Pt taking all medications as prescribed and maintaining an optimal BP at rest Core - Final Assessment Hypertension [place] [employer] Hypertension Guidelines Reassessment Notes & Comments:: Pt taking all medications as prescribed and maintaining an optimal BP at rest Core - 90 Day Assessment Visit Date of Eval: 08/11/24 Session #:: 32 Medication Compliance Preventative Medication(s):: Aspirin, Clopidogrel/P2Y12 inhibit, Statin/lipid and Beta juan francisco H/O mental health issues: depression, anxiety, or addiction?: No Doesn?t believe in the benefits of treatment?: No Believes medications are unnecessary or harmful?: No Has a concern about medication side effects?: No Expresses concern over the cost of medications?: No Outcomes/Goals: Verbalizes medications,desired effect & common side effects @ DC , Pt self-reports following medication regimen and Keeps card in wallet w/medications listed by DC Interventions/plans: Instruct on medication effects & side effects, Review me dication list w/patient every two weeks and Instruct importance of taking meds as ordered & assist problem solving 30-day Reassessments:: Met Reassessment Notes & Comments:: pt taking all medications as prescribed Tobacco Use Tobacco Use: Non-smoker Hypertension Hypertension Diagnosis:: Hypertension ICD-10 I10 Resting Blood Pressure:: 104/58 [place] [employer] Hypertension Guidelines Peak Exercise Blood Pressure:: 154/82 Outcomes/Goals: Able to verbalize/achieve optimal blood pressure <130/80 and Incorporates diet changes & exercise for blood pressure control by DC Interventions/plan: Instruct on optimal blood pressure, hypertension & medications and Instruct on effects of sodium, alcohol, stress, exercise &hypertension 30 day Reassessments:: Met Reassessment Notes & Comments:: Pt taking all medications as prescribed and maintaining an optimal BP at rest Tobacco Cessation Referral Education Schedule Given:: Yes Psychosocial - 30-Day Assess Target Goals Target Goals Referral to Behavioral Health PS - Interventions: Yes: Attend Stress Management Classes Psychosocial - 60-Day Assess Target Goals Target Goals Referral to Behavioral Health PS - Interventions: Yes: Attend Stress Management Classes Psychosocial - 90-Day Assess VIsit Date of Eval: 08/11/24 Session #:: 32 Not Applicable: No History of previous Mental disease:: No Target Goals Target Goals Psychosocial Test Tool Used:: PHQ-9 Questionnaire phq-9 Severity See PHQ-9 Score: 0 Referral to Behavioral Health PS - Interventions: Yes: Attend Stress Management Classes Outcomes/Goals: See list Psychosocial Outcomes/Goals:: ID's personal stressors & 2 strategies to manage stress by discharge Intervention/Plan: See List Interventions/Plan:: Assess stressors,coping strategies & signs of derpression on admission, Instruct/assist pt to develop coping & personal stress Mgt strategies, Refer to Behavioral Health if appropriate, Refer to Physician if appropriate, Instruct patient to recognize signs & symptoms of depression and Instruct patient to recog 30-day Reassessments: 30 day Reassessments:: Met Reassessment Notes & Comments:: Pt denies any psychosocial issues at this time Psychosocial - Final Assessmen Target Goals Target Goals Referral to Behavioral Health PS - Interventions: Yes: Attend Stress Management Classes Nutrition - 90-Day Assessment Program Goals Nutrition Program Goals Patient has diagnosis of Hyperlipidemia (ICD E78)?: Yes Visit Date of Eval: 08/11/24 Session #:: 32 Cholesterol/Lipids (Other Core Measures) Triglycerides (mg/dL): 89 Total Cholesterol (mg/dL): 138 LDL Cholesterol (mg/dL): 73 HDL Cholesterol (mg/dL): 47 Lipid Medication: atorvastatin 40mg QHS Determine presence & major risk factors that modify LDL goal: Hypertension or hypertensive medication and Family history of premature CHD in Male < 55 years: female <65 yearsFa Outcomes/Goals: Pt IDs own risk factors & lifestyle modifications by Session 10, Verbalizes symptoms of angina & response by session 3. and Pt independently manages Intervention/Plan: Advocate for lipid panel cholesterol medication if applicable, Instruct on personal lipid levels & lipid goals/NCEP guidelines and Instruct on cholesterol 30-day Reassessments:: Progressing Reassessment Notes & Comments:: Pt taking statins as ordered, pt attending dietary classes Diabetes (Other Core Measures) Diabetes Type: Not Applicable Weight Mgt (Other Care) Not Applicable: No Height: 5 ft 10 in Weight:: 185 lb 8 oz BMI: 26.6 BMI (Report if calculated above): 26 Diagnosis Overweight/Obesity BMI> 30% ICD-10 E66: No Diagnosis High BMI/Morbid Obesity BMI> 35% ICD-10 Z68: No Outcomes/Goals: Pt sets, maintains & shows weight loss goal & trend during rehab Intervention/Plan: Instruct on ideal BMI & set weight loss goal w/patient, Assist pt to ID & incorporate diet changes for weight loss by S9, Refer to Structured Weight Loss program as appropriate and Encourage goal of using 250- 300dcal per session for weight loss 30 day Reassessments:: Met Healthy Eating Habits Will attend diet classes:: Yes Outcomes/Goals:: Consume diet rich in vegs,fruits,whole grain/high fiber,fish,lean meat and Limit sat/trans fats,cholesterol & added salts & sugars Intervention/Plan:: Assess current eating habits 30-day Reassessments:: Met Reassessment Notes & Comments:: Pt attended diet classes, pt utilizing low sodium cardiac diet Education Gave educational materials for:: Signs & symptoms of hypoglycemia, Signs & symptoms of hyperglycemia, Relate diabetes to coronary artery disease and Healthy eating Nutrition - Final Assessment Weight Mgt (Other Care) Height: 5 ft 10 in Weight:: 185 lb 8 oz BMI: 26.6 BMI (Report if calculated above): 26
[2024-08-11 09:55] VITALS: BP 104/58; BMI 26.0; BMI 26.6
== END 2024-08-26 23:59 ==
LOC: CR 10:15
PROVIDERS: PCP Family Medicine; Referring Provider Internal Medicine Cardiovascular Disease; Visit Provider Internal Medicine Cardiovascular Disease
DX: I25.10 Atherosclerotic heart disease of native coronary artery without angina pectoris (principal); I25.2 Old myocardial infarction; Z95.5 Presence of coronary angioplasty implant and graft
CPT/HCPCS: 93798

== ENCOUNTER → 2024-09-12 | Outpatient (CLI) | payer MEDICARE, OTHER, SELFPAY ==
[2024-08-11 09:55] VITALS: BMI 26.6
[2024-09-12 15:09] LABS: ALB/GLOB Ratio 1.9 RATIO (0.9-2.4); AST(SGOT) 24 U/L (<=37); Alanine Aminotransfer ALT/SGPT 17 U/L (<=46); Albumin, Serum 4.2 g/dL (3.4-4.8); Alkaline Phosphatase 76 U/L (40-129); Anion Gap 8 (5-15); BUN 18 mg/dL (4-19); BUN/Creat Ratio 15.4 RATIO (10-20); Calcium,Total 8.9 mg/dL (7.6-11.0); Carbon Dioxide 26.4 mmol/L (21.0-32.0); Chloride 107 mmol/L (98-108); Cholesterol 126 mg/dL (<=200); Creatinine, Serum 1.18 mg/dL (0.70-1.20); EST Glomerular Filtration Rate 64 (>60); Globulin 2.2 g/dL (2.2-4.2); Glucose 99 mg/dL (70-99); High Density Lipoprotein 40 mg/dL; Low Density Lipoprotein Calc. 68 mg/dL; Protein, Total 6.5 g/dL (5.9-8.4); Sodium Level 142 mmol/L (133-145); Total Bilirubin 0.93 mg/dL (0.00-1.30); Triglycerides 87 mg/dL; Very Low Density Lipoprotein 17 mg/dL (5-40); cholesterol:hdl ratio screen 3.14
== END | disposition home or self-care (01) ==
LOC: LAB 08:51
PROVIDERS: PCP Family Medicine; Referring Provider Internal Medicine Cardiovascular Disease; Visit Provider Internal Medicine Cardiovascular Disease
DX: I10 Essential (primary) hypertension (principal); E78.5 Hyperlipidemia, unspecified
CPT/HCPCS: 36415; 80053; 80061

== ENCOUNTER 2024-09-26 06:39 | Outpatient (RCR) | payer SELFPAY ==
[2024-08-11 09:55] VITALS: BMI 26.6
== END 2024-10-26 23:59 ==
LOC: CR 06:39
PROVIDERS: PCP Family Medicine; Visit Provider Internal Medicine Cardiovascular Disease
DX: Z00.00 Encounter for general adult medical examination without abnormal findings (principal)

== ENCOUNTER 2024-12-18 20:05 | Emergency (ER) | payer MEDICARE, OTHER, SELFPAY ==
[2024-08-11 09:55] VITALS: BMI 26.6
[2024-12-18 20:05] VITALS: BP 174/94; PULSE 55; RESP 18; TEMP 36.8; O2SAT 98; BMI 25.4
--- NOTE | 2024-12-18 21:26 | EX.ED.DYSGE1 ---
HPI History of Present Illness Chief Complaint: Hypertension Narrative Narrative: Patient is a 79-year-old male presenting to the emergency department for hypertension. Patient has a past medical history of hypertension, dyslipidemia, STEMI, cholecystectomy. Patient states that he has had some elevated blood pressure readings and his lisinopril was recently doubled from 2.5 mg to 5 mg about 4 days ago. He states he checks his blood pressure at night in the morning. States over the past 4 days even after increasing his lisinopril he has had continued elevation in his BP. He denies headache, vision changes, speech difficulty, focal numbness or weakness, abdominal pain, chest pain or shortness of breath. Patient states he had an elevated reading tonight and became concerned and presented here for evaluation. [facility] Medical History Coronary artery disease HTN (hypertension) 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/24) Wears glasses Alcohol use Arthritis Back pain Migraine headache Difficulty swallowing Non-smoker GERD (gastroesophageal reflux disease) Hyperlipidemia Home Medications ?Medication ?Instructions ?Recorded ?Last Taken ?Type omeprazole 20 mg capsule,delayed 20 mg PO QHS #90 caps 06/15/24 Unknown Rx release dapagliflozin propanediol 10 mg 10 mg PO QAM #90 tabs 06/27/24 Unknown Rx tablet (Farxiga) amlodipine 5 mg tablet 5 mg PO QDAY #90 tabs 09/11/24 Unknown Rx aspirin 81 mg tablet,delayed 81 mg PO DAILY@0800 #10 tabs 09/15/24 Unknown Rx release atorvastatin 40 mg tablet 40 mg PO QHS #10 tabs 09/15/24 Unknown Rx clopidogrel 75 mg tablet 75 mg PO DAILY #10 tabs 09/15/24 Unknown Rx metoprolol succinate 25 mg 25 mg PO QDAY #10 tabs 09/15/24 Unknown Rx tablet,extended release 24 hr tamsulosin 0.4 mg capsule 0.4 mg PO QHS 12/05/24 Unknown History lisinopril 5 mg tablet 5 mg PO QDAY this is a dose 12/12/24 Unknown Rx increase #90 tabs Allergy/AdvReac Type Severity Reaction Status Date / Time niacin Allergy Unknown unknown Verified 12/18/24 20:08 Sulfa (Sulfonamide Allergy Unknown unknown Verified 12/18/24 20:08 Antibiotics) Family History Brother Cancer esophageal Courtney esophagus Surgical History Stented coronary artery (05/18/24) S/P laparoscopic cholecystectomy Hx of esophagogastroduodenoscopy Hx of colonoscopy Hx of eye surgery Social History Smoking Status: Never smoker alcohol intake: current alcohol intake frequency: holidays/special occasions only ROS ROS ED ROS Narrative See HPI EXAM Physical Exam Narrative Exam Narrative: Vital signs: Reviewed General: Alert and oriented x 3. No acute distress HEENT: Head is normocephalic and atraumatic, sinuses nontender, pupils equal round and reactive. Nares are patent. Oropharynx and throat exams normal. Neck: Supple without lymphadenopathy nontender Cardiovascular: Regular rate and rhythm, no murmurs. No rubs or gallops. Normal S1 and S2 Respiratory: Clear to auscultation bilaterally. No wheezes, rales, rhonchi Abdominal: Soft and nontender. Normal bowel sounds. No guarding or rebound. Nonsurgical abdomen Extremities: No tenderness. No bruising. Normal range of motion. Normal sensation. Skin: No rash or redness. Neurological: Cranial nerves II through XII are grossly intact. Normal strength and sensation. Normal cerebellar function The rest of the physical exam is unremarkable Const Vital Signs: 12/18/24 20:05 Temperature 98.2 F Temperature Source Oral Pulse Rate 55 L Respiratory Rate 18 Blood Pressure 174/94 H Blood Pressure Mean 120 Pulse Ox 98 Oxygen Delivery Method Room Air MDM MDM MDM Narrative Medical decision making narrative: Patient is a 79-year-old male presenting emergency department for hypertension. Patient was seen and examined. Vitals are stable. BP of 174/94 on triage vitals, vitals on my evaluation were in the systolics 160s over 90s. Differential includes but is not limited to: Asymptomatic hypertension, hypertensive urgency versus emergency Patient is experiencing asymptomatic hypertension. No chest pain, shortness of breath, abdominal pain or strokelike symptoms. No headache or vision changes. Neuro intact. I had an extensive discussion with patient and at bedside. Recommended that he call his primary care doctor or logistics and planning manager tomorrow morning to update them and see if they want make any medication changes however given his lisinopril was just increased 4 days ago doubt they will. Explained that he needs to return if he develops any headache, strokelike symptoms, chest pain, shortness of breath or abdominal pain. Patient understands. Encouraged to continue taking his lisinopril as prescribed. Patient discharged from the Emergency Department. I do not feel that the patient's evaluation reveals any acute reason for admission at this time. I instructed them to either follow-up with their primary care physician or promptly return to the Emergency Department for reevaluation should symptoms worsen or new symptoms develop. I explained what symptoms would indicate the need to return to the emergency department. Shared decision making was used. The patient voiced understanding of the treatment plan and is agreeable with it. Clinical impression Asymptomatic hypertension History & Record Review Discussion w/independent historian: Patient and Significant other Discharge Plan Triage Chief Complaint: Hypertension ED Provider: Antonieta Braun Dx/Rx/DC Orders Prescriptions: No Action omeprazole 20 mg capsule,delayed release(DR/EC) 20 mg PO QHS Qty: 90 3RF amlodipine 5 mg tablet 5 mg PO QDAY Qty: 90 3RF dapagliflozin propanediol [Farxiga] 10 mg tablet 10 mg PO QAM Qty: 90 3RF aspirin 81 mg tablet,delayed release (DR/EC) 81 mg PO DAILY@0800 Qty: 10 0RF atorvastatin 40 mg tablet 40 mg PO QHS Qty: 10 0RF clopidogrel 75 mg tablet 75 mg PO DAILY Qty: 10 0RF metoprolol succinate 25 mg tablet extended release 24 hr 25 mg PO QDAY Qty: 10 0RF tamsulosin 0.4 mg capsule 0.4 mg PO QHS lisinopril 5 mg tablet 5 mg PO QDAY Qty: 90 3RF Primary Care Provider: Aaron Weber Referrals: Aaron Weber MD [Primary Care Provider, Family Practice] Print Language: Ch[place]
--- OUTSIDE RECORDS SUMMARY | 2024-12-18 21:41 | XMS RPT_ITS | CCD ---
Author Organization [facility] Care Team Providers Care Boatswains Mate Name Role Phone Aaron Cm MD Primary Care Provider Dr. Aaron Cm Primary Care Provider Dr. Aaron Cm Referring Provider Dr. Madeline Tripp Attending Provider Dr. Madeline Tripp Referring Provider Dr. Madeline Tripp Other Provider Aaron Cm MD Primary Care Provider Aaron Cm MD Primary Care Provider Toi REYEZ, Aaron Singh Primary Care Provider Saturnino BREEN.CONTACT FINGER ASSEMBLER, Kitty Unavailable Raciel ROSE, Kayleen Unavailable Dr. Aaron Cm MD Primary Care Provider Dr. Robby Elizondo MD Emergency Provider Aleksander REYEZ, Dr. Mcguire Admit Provider Dr. Shayla Armijo MD Other Provider Dr. Radha Hodges MD Attending Provider Dr. Jasmin Morales MD Other Provider Dr. Shayla Armijo MD Attending Provider Dr. Jasmin Morales MD Attending Provider Dr. Toni Perez MD Attending Provider Dr. Radha Hodges MD Other Provider Aleksander REYEZ, Dr. Mcguire Referring Provider Toi REYEZ, Dr. Walker Referring Provider Chris REYEZ, Dr. Torres Attending Provider Toi REYEZ, Aaron Primary Care Provider Saturnino SCHOOL PROGRAM DIRECTOR.CONTACT FINGER ASSEMBLER, Kitty Unavailable Raciel ROSE, Kayleen Unavailable Toi REYEZ, Dr. Walker Primary Care Provider Aleksander REYEZ, Dr. Mcguire Attending Provider Toi REYEZ, Dr. Walker Primary Care Provider Aleksander REYEZ, Dr. Mcguire Attending Provider Aleksander REYEZ, Dr. Mcguire Referring Provider Toi REYEZ, Dr. Walker Referring Provider Danae REYEZ, Dr. Lizarraga Attending Provider Aleksander, Shayla Referring Unavailable Aleksander, Shayla Attending Unavailable Toi, Aaron Primary Care Unavailable Toi, Aaron Primary Care Unavailable Aleksander, Shayla Attending Unavailable Aleksander, Shayla Referring Unavailable Toi, Aaron Primary Care Unavailable Aleksander, Shayla Attending Unavailable Toi, Aaron Referring Unavailable Toi, Aaron Primary Care Unavailable Aleksander, Shayla Attending Unavailable Toi, Aaron Referring Unavailable Jasmin Morales Attending Unavailable Toi, Aaron Primary Care Unavailable Aleksander, Shayla Admitting Unavailable Aleksander, Shayla Consulting Unavailable Jasmin Morales Consulting Unavailable Aleksander, Shayla Attending Unavailable Koram, Radha Roxanne Attending Unavailable Koram, Radha Roxanne Consulting Unavailable Toi, Aaron Primary Care Unavailable Toni Perez Attending Unavailable Toi, Aaron Primary Care Unavailable Aleksander, Shayla Attending Unavailable Jori Alvarez Attending Unavailable Toi, Aaron Referring Unavailable Toi, Aaron Primary Care Unavailable Aleksander, Shayla Attending Unavailable Toi, Aaron Primary Care Unavailable Aleksander, Shayla Referring Unavailable Toi, Aaron Primary Care Unavailable Aleksander, Shayla Attending Unavailable Aleksander, Shayla Referring Unavailable Aleksander, Shayla Referring Unavailable Aleksander, Shayla Attending Unavailable Aaron Cm Primary Care Unavailable Aleksander, Shayla Attending Unavailable Toi, Aaron Primary Care Unavailable Aleksander, Shayla Referring Unavailable Danae, Thomson Attending Unavailable ToiAaron aguilera Primary Care Unavailable Danae, Thomson Attending Unavailable Toi, Aaron Primary Care Unavailable Toi, Araon Primary Care Unavailable Aleksander, Shayla Consulting Unavailable Aleksander, Shayla Admitting Unavailable Radha Hodges Attending Unavailable Jasmin Morales Consulting Unavailable Toi, Aaron Primary Care Unavailable Aleksander, Shayla Attending Unavailable Aleksander, Shayla Referring Unavailable TOI, AARON A Primary Care Unavailable AARON CM A Attending Unavailable AARON CM A Referring Unavailable TOIJANEEN AGUILERAREY A Primary Care Unavailable JAY DUMONT Attending Unavailable JANEEN CMREY A Primary Care Unavailable Allergies Allergy Classification Reported Allergen(s) Allergy Type Date of Onset Reaction(s) Facility Niacin (1 source) Niacin Drug Allergy 4 [facility] Work Phone: Sulfonamides (antibiotic) (1 source) Sulfonamides (Antibiotic) Drug Allergy 3 [facility] (20 sources) Niacin; Translations: [NIACIN] Drug Allergy 4 [facility] Work Phone: (20 sources) Sulfonamides (Antibiotic); Translations: [SULFA (SULFONAMIDE ANTIBIOTICS)] Drug Allergy 3 [facility] Work Phone: (9 sources) Sulfonamides (Antibiotic) Allergy to substance 3 unknown [facility] (1 source) Niacin Drug Allergy 5 [facility] Rep[facility] (1 source) Sulfonamides (Antibiotic) Drug allergy (disorder) 5 [facility] Repository Medications Current Medications Medication Drug Class(es) Dates Sig (Normalized) Sig (Original) amLODIPine 5 mg oral tablet (20 sources) Dihydropyridine Calcium Channel Anjum Start: 09-21-2024 End: 09-21-2024 take 1 tablet by mouth once amLODIPine (NORVASC) 10 mg tablet Take 1 tablet by mouth once daily. Per Cardio: WHG 90 tablet 09/21/2024 09/21/2024 Discontinued Start: 09-11-2024 End: 09-21-2024 take 1 tablet by mouth once amLODIPine (NORVASC) 5 mg tablet Take 1 tablet by mouth once daily. Per Cardio: WHG 90 tablet 09/21/2024 Active Start: 12-06-2023 End: 09-11-2024 take 1 tablet by mouth once daily Amlodipine 10 mg tablet Discontinued 10 mg PO daily 90 3 June 15, 2024 12:00am September 11, 2024 3:41pm Start: 11-16-2022 End: 12-04-2023 take 1 tablet by mouth once daily amLODIPine (NORVASC) 10 mg tablet Take 1 tablet by mouth once daily. 90 tablet 1 06/07/2023 12/04/2023 Discontinued Start: 10-20-2021 End: 11-14-2022 take 1 tablet by mouth once daily amLODIPine (NORVASC) 10 mg tablet Take 1 tablet by mouth once daily. 90 tablet 1 04/10/2022 11/14/2022 Discontinued Start: 05-22-2021 End: 10-17-2021 take 1 tablet by mouth once daily amLODIPine (NORVASC) 10 mg tablet Take 1 tablet by mouth once daily. 90 tablet 1 05/22/2021 10/17/2021 Discontinued Start: 01-17-2021 End: 06-15-2024 take 2 tablets by mouth at bedtime Amlodipine 5 mg tablet Discontinued 10 mg PO AT BEDTIME January 17, 2021 12:00am June 15, 2024 3:06pm Start: 01-17-2021 take 10 mg by mouth at bedtime Amlodipine Active 10 MG PO AT BEDTIME January 16, 2021 11:00pm Start: 01-17-2021 take 5 mg by mouth once daily Amlodipine Active 5 MG PO DAILY January 16, 2021 11:00pm Comment on above: Take 1 tablet by rody th once daily. atorvastatin 40 mg oral tablet (20 sources) HMG-CoA Reductase Inhibitor Start: 05-19-19 End: 09-16-19 take 1 tablet by mouth once daily at bedtime for hyperlipidemia atorvastatin (LIPITOR) 40 mg tablet TAKE 1 TABLET BY MOUTH DAILY AT BEDTIME FOR CHOLESTEROL 05/22/2024 Active Start: 11-16-2022 End: 05-19-2024 take 1 tablet by mouth at bedtime Atorvastatin 10 mg t ablet Discontinued 10 mg PO AT BEDTIME February 13, 2023 1:00am May 19, 2024 4:53pm Start: 10-20-2021 End: 11-14-2022 take 1 tablet by mouth once daily at bedtime for hyperlipidemia atorvastatin (LIPITOR) 10 mg tablet TAKE 1 TABLET BY MOUTH DAILY AT BEDTIME FOR CHOLESTEROL 90 tablet 1 04/10/2022 11/14/2022 Discontinued Start: 05-22-2021 End: 10-17-2021 take 1 tablet by mouth once daily at bedtime for hyperlipidemia atorvastatin (LIPITOR) 10 mg tablet TAKE 1 TABLET BY MOUTH DAILY AT BEDTIME FOR CHOLESTEROL 90 tablet 1 05/22/2021 10/17/2021 Discontinued Comment on above: TAKE 1 TABLET BY RODY TH DAILY AT BEDTIME FOR CHOLESTEROL dapagliflozin 10 mg oral tablet (11 sources) Sodium-Glucose Cotransporter 2 Inhibitor Start: take 1 tablet by mouth once daily in the morning FARXIGA 10 mg tablet Take 10 mg by mouth every morning. 09/18/2024 Active Start: 06-15-2024 End: 06-19-2024 take 1 tablet by mouth once daily Dapagliflozin Propanediol (Farxiga) 10 mg tablet Discontinued 10 mg PO daily 90 June 15, 2024 12:00am June 19, 2024 3:30pm doxazosin 1 mg oral tablet (20 sources) alpha-Adrenergic Anjum Start: 09-11-2024 take 1 tablet by mouth once daily doxazosin (CARDURA) 1 mg tablet Take 1 tablet by mouth once daily. 09/13/2024 Active Start: 12-06-2023 End: 09-11-2024 take 1 tablet by mouth once daily Doxazosin 2 mg tablet Discontinued 2 mg PO daily 90 June 15, 2024 12:00am September 11, 2024 3:42pm Start: 11-16-2022 End: 12-04-2023 take 1 tablet by mouth once daily doxazosin (CARDURA) 2 mg tablet Take 1 tablet by mouth once daily. 90 tablet 1 06/07/2023 12/04/2023 Discontinued Start: 04-20-2022 End: 11-14-2022 take 1 tablet by mouth once daily doxazosin (CARDURA) 2 mg tablet Take 1 tablet by mouth once daily. 90 tablet 1 04/20/2022 11/14/2022 Discontinued Start: 10-20-2021 take 1 tablet by rody th once daily doxazosin (CARDURA) 2 mg tablet Take 1 tablet by mouth once daily. 90 tablet 1 10/20/2021 Active Start: 05-22-2021 End: 10-17-2021 take 1 tablet by mouth once daily doxazosin (CARDURA) 2 mg tablet Take 1 tablet by mouth once daily. 90 tablet 1 05/22/2021 10/17/2021 Discontinued Start: 01-17-2021 End: 06-15-2024 take 2 tablets by mouth at bedtime Doxazosin 1 mg tablet Discontinued 2 mg PO AT BEDTIME January 17, 2021 12:00am June 15, 2024 3:10pm Start: 01-17-2021 take 2 mg by mouth at bedtime Doxazosin Active 2 MG PO AT BEDTIME January 16, 2021 11:00pm Start: 01-17-2021 take 1 mg by mouth once daily Doxazosin Active 1 MG PO DAILY January 16, 2021 11:00pm Comment on above: Take 1 tablet by rody th once daily. lansoprazole 15 mg delayed release oral capsule (2 sources) Proton Pump Inhibitor Start: take 1 capsule by mouth once daily lansoprazole (PREVACID) 15 mg capsule Take 1 capsule by mouth once daily. 90 capsule 1 09/21/2024 Active metoprolol tartrate 25 mg oral tablet (20 sources) beta-Adrenergic Anjum Start: take 1 tablet by mouth once metoprolol tartrate, short acting, (LOPRESSOR) 25 mg tablet Take 1 tablet by mouth once daily. Per Cardio: WHG 09/21/2024 Active Start: 06-15-2024 End: 09-15-2024 take 1 tablet by mouth once daily Metoprolol Succinate 25 mg tablet extended release 24 hr Discontinued 25 mg PO daily 90 3 September 11, 2024 4:30pm September 15, 2024 4:02pm Start: 05-19-2024 End: 06-15-2024 Metoprolol Tartrate 25 mg Ta blet Discontinued 12.5 mg PO TWICE A DAY 30 2 May 19, 2024 1:00am June 15, 2024 2:51pm End: 09-21-2024 metoprolol tartrate, short a cting, (LOPRESSOR) 25 mg tablet Take 0.5 tablets by mouth two times a day. Per Cardio: WHG 180 tablet 09/21/2024 Discontinued phenylephrine hydrochloride 25 mg/ml ophthalmic solution (3 sources) alpha-1 Adrenergic Agonist Start: 01-13-2024 End: 01-14-2024 PHENYLephrine 2.5 % 1 Drop (AK-DILATE, ANA MARÍA-SYNEPHRINE) Start: 01-13-2024 End: 01-14-2024 1 Drop, BOTH EYES, DIRECT ED, Starting on Afsaneh 01/13/24 at 1400, Until Wed01/14/24 at 0159, Administer for dilation PROTECT FROM LIGHT proparacaine hydrochloride 5 mg/ml ophthalmic solution (3 sources) Local Anesthetic Start: 01-13-2024 End: 01-14-2024 proparacaine 0.5 % 1 Drop (ALCAINE) Start: 01-13-2024 End: 01-14-2024 1 Drop, BOTH EYES, DIRECT ED, Starting on Afsaneh 01/13/24 at 1400, Until Wed01/14/24 at 0159, Administer for pneumo tonometry, tonopen tonometry, or pachymetry. In the event of a proparacaine shortage, administer tetracaine 0.5% ophthalmic drops 1 drop in the left eye as directed for pneumo tonometry, tonopen tonometry, or pachymetry Saw [place] (2 sources) Start: 01-17-2021 take 160 mg by mouth once daily Saw [place] Active 160 MG PO DAILY January 16, 2021 11:00pm give with meal/snack Start: 01-17-2021 take 160 mg by mouth twice daily Saw [place] Active 160 MG PO TWICE A DAY January 16, 2021 11:00pm give with meal/snack tamsulosin hydrochloride 0.4 mg oral capsule (2 sources) alpha-Adrenergic Anjum Start: 09-21-2024 take 1 capsule by mouth once daily tamsulosin (FLOMAX) 0.4 mg Take 1 capsule by mouth once daily. 90 capsule 1 09/21/2024 Active tropicamide 10 mg/ml ophthalmic solution (3 sources) Anticholinergic Start: 01-13-2024 End: 01-14-2024 tropicamide 1 % 1 Drop (MYDRIACYL) Start: 01-13-2024 End: 01-14-2024 1 Drop, BOTH EYES, DIRECT ED, Starting on Wed01/13/24 at 1400, Until Wed01/14/24 at 0159, Administer for dilation Completed/Discontinued Medications Medication Drug Class(es) Dates Sig (Normalized) Sig (Original) aspirin 81 mg delayed release oral tablet (20 sources) Platelet Aggregation Inhibitor, Nonsteroidal Anti-inflammatory Drug Start: 05-19-2024 End: 09-15-2024 take 1 tablet by mouth once daily Aspirin 81 mg tablet,delayed release (DR/EC) Discontinued 81 mg PO DAILY@0800 90 3 September 11, 2024 4:30pm September 15, 2024 2:37pm benzonatate 100 mg oral capsule (18 sources) Non-narcotic Antitussive Start: 08-26-2023 End: 09-21-2024 take 1 capsule by mouth every eight hours as needed benzonatate (TESSALON PERLES) 100 mg capsule Take 1 capsule by mouth three times a day as needed. 21 capsule 08/26/2023 09/21/2024 Discontinued (Course of therapy completed) Start: 06-04-2022 End: 08-25-2022 take 2 capsules by mouth every eight hours as needed benzonatate (TESSALON PERLE) 100 mg capsule Take 2 capsules by mouth three times daily as needed. 30 capsule 06/04/2022 08/25/2022 Discontinued Comment on above: Take 2 capsules by m out three times daily as needed. cholecalciferol 0.01 mg oral capsule (9 sources) Vitamin D Start: 01-18-20 End: 06-16-19 take 1 capsule by mouth once daily Cholecalciferol (Vitamin D3) 10 mcg (400 unit) capsule Discontinued 2000 U PO DAILY January 17, 2021 12:00am June 15, 2024 2:33pm Start: 01-17-2021 take 10 ug by mouth once daily Cholecalciferol (Vitamin D3) Active 10 MCG PO DAILY January 16, 2021 11:00pm clopidogrel 75 mg oral tablet (20 sources) [id number] Platelet Inhibitor Start: 05-19-2024 End: 09-15-2024 take 1 tablet by mouth once daily Clopidogrel 75 mg tablet Discontinued 75 mg PO DAILY 90 September 11, 2024 4:30pm September 15, 2024 4:02pm COMPOUNDED PRESCRIPTION (20 sources) Start: 04-08-2015 End: 09-21-2024 COMPOUNDED PRESCRIPTION OTC Vitamin D3 2000 IU 0 04/08/2015 09/21/2024 Discontinued (Discontinued by Patient) Start: 04-08-2015 COMPOUNDED PRE SCRIPTION OTC Vitamin D3 2000 IU 0 04/08/2015 Active Comment on above: OTC Vitamin D3 2000 IU doxycycline hyclate 100 mg oral tablet (3 sources) Tetracycline-clas s Drug Start: 08-26-2023 End: 09-02-2023 take 1 tablet by mouth twice daily doxycycline (VIBRA-TABS) 100 mg tablet Take 1 tablet by mouth two times a day for 7 days. 14 tablet 08/26/2023 09/02/2023 Start: 05-21-2022 End: 05-28-2022 take 1 tablet by mouth twice daily doxycycline (VIBRA-TABS) 100 mg tablet Take 1 tablet by mouth twice daily for 7 days. 14 tablet 0 05/21/2022 05/28/2022 Active Comment on above: Take 1 tablet by rody twice daily for 7 days. empagliflozin 10 mg oral tablet (5 sources) Sodium-Glucose Cotransporter 2 Inhibitor Start: 06-20-19 End: 06-20-19 take 1 tablet by mouth once daily in the morning Empagliflozin (Jardiance) 10 mg tablet Discontinued 10 mg PO EVERY MORNING 30 June 19, 2024 12:00am June 19, 2024 3:43pm lisinopril 2.5 mg oral tablet (20 sources) Angiotensin Converting Enzyme Inhibitor Start: 05-19-19 End: 09-16-19 take 1 tablet by mouth once daily Lisinopril 2.5 mg tablet Discontinued 2.5 mg PO DAILY 90 September 11, 2024 4:30pm September 15, 2024 4:02pm omeprazole 20 mg delayed release oral capsule (20 sources) Proton Pump Inhibitor Start: 11-17-19 End: 09-22-19 take 1 capsule by mouth at bedtime Omeprazole 20 mg capsule,delayed release(DR/EC) Discontinued 20 mg PO AT BEDTIME February 13, 2023 1:00am June 15, 2024 3:11pm Start: 07-27-2022 End: 11-14-2022 take 1 capsule by mouth once daily, then take 1 capsule by mouth once daily omeprazole (PRILOSEC) 20 mg capsule Take 1 capsule by mouth once daily. Take one tablet daily 0 07/27/2022 11/14/2022 Discontinued Start: 10-20-2021 End: 07-27-2022 take 2 capsules by mouth once daily omeprazole (PRILOSEC) 20 mg capsule Take 2 capsules by mouth once daily. 180 capsule 3 05/29/2022 07/27/2022 Discontinued (Adjust Sig - Block E-Cancel) Start: 09-09-2021 End: 10-17-2021 take 2 capsules by mouth once daily omeprazole (PRILOSEC) 20 mg capsule Take 2 capsules by mouth once daily. 60 capsule 0 09/09/2021 10/17/2021 Discontinued Comment on above: Take 2 capsules by m out once daily. Take 1 capsule by mo [facility] once daily. Take one tablet daily SAW PALMETTO ORAL (20 sources) End: 07-29-2023 take 450 mg by mouth once daily SAW PALMETTO ORAL Take 450 mg by mouth once daily. 07/29/2023 Discontinued End: 07-29-2023 take 450 mg by mouth once daily SAW PALMETTO ORAL Take 450 mg by mouth once daily. 0 07/29/2023 Discontinued take 450 mg by mouth once daily SAW PALMETTO ORAL Take 450 mg by mouth once daily. 0 Active Comment on above: Take 450 mg by mouth once daily. 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; Translations: [ST elevation (STEMI) myocardial infarction involving other coronary artery of inferior wall] Onset: 5 05-27-2024 Chronic Administrative/social admission (20 sources) Advance directive discussed with patient; Translations: [Other specified counseling] Onset: 3 Episodic Biliary tract disease (20 sources) Biliary colic; Translations: [Calculus of bile duct without cholangitis or cholecystitis without obstruction] 02-20-2023 Episodic Blindness and vision defects (4 sources) Bilateral regular astigmatism; Translations: [Regular astigmatism, bilateral] Episodic Cataract (2 sources) Bilateral senile combined form cataracts of eyes; Translations: [Combined forms of age-related cataract, bilateral] Chronic Coagulation and hemorrhagic disorders (5 sources) Thrombocytopenic disorder; Translations: [Thrombocytopenia, unspecified] Onset: 5 07-29-2023 Chronic Coronary atherosclerosis and other heart disease (20 sources) History of acute ST segment elevation myocardial infarction; Translations: [Old myocardial infarction] Onset: 5 05-22-2024 Chronic Disorders of lipid metabolism (20 sources) Mixed hyperlipidemia; Translations: [Mixed hyperlipidemia] Onset: 6 08-22-2015 Chronic Comment on above: ON MED Esophageal disorders (20 sources) Gastro-esophageal reflux disease with esophagitis; Translations: [Gastroesophageal reflux disease with esophagitis] Onset: 6 08-22-2015 Chronic Esophageal disorders (1 source) Esophageal disorders; Translations: [Gastroesophageal reflux disease with esophagitis without hemorrhage] Onset: 6 Essential hypertension (20 sources) Essential hypertension; Translations: [Essential (primary) hypertension] Onset: 6 08-22-2015 Chronic Comment on above: CONTROLLED WITH MED Gastroduodenal ulcer (except hemorrhage) (1 source) Peptic ulcer; Translations: [Peptic ulcer, site unspecified, unspecified as acute or chronic, without hemorrhage or perforation] Chronic Genitourinary symptoms and ill-defined conditions (1 source) Nocturia; Translations: [Benign prostatic hyperplasia with nocturia] Onset: 5 Episodic Hyperplasia of prostate (4 sources) Nocturia due to benign prostatic hypertrophy; Translations: [Benign prostatic hyperplasia with lower urinary tract symptoms] Onset: 5 09-21-2024 Chronic Immunizations and screening for infectious disease (11 sources) Contact with and (suspected) exposure to other viral communicable diseases; Translations: [Contact with or suspected exposure to other viral communicable disease] Onset: 5 01-17-2021 Episodic Inflammation; infection of eye (except that caused by tuberculosis or sexually transmitteddisease) (2 sources) Squamous blepharitis; Translations: [Squamous blepharitis right eye, upper and lower eyelids] Episodic Nausea and vomiting (1 source) Nausea and vomiting; Translations: [Nausea with vomiting, unspecified] 02-16-2023 Episodic Other and ill-defined heart disease (12 sources) Left ventricular systolic dysfunction; Translations: [Heart disease, unspecified] 06-15-2024 Chronic Other and ill-defined heart disease (1 source) Heart disease, unspecified; Translations: [Heart disease, unspecified] Onset: Chronic Other eye disorders (2 sources) Meibomian gland dysfunction of bilateral eyes; Translations: [Meibomian gland dysfunction right eye, upper and lower eyelids] Episodic Other gastrointestinal disorders (3 sources) Dysphagia; Translations: [Dysphagia, unspecified] Episodic Other lower respiratory disease (3 sources) Cough; Translations: [Acute cough] Episodic Other lower respiratory disease (1 source) Cough; Translations: [Acute cough] 06-04-2022 Episodic Other nervous system disorders (1 source) Paresthesia of hand ; Translations: [Anesthesia of skin] Episodic Other screening for suspected conditions (not mental disorders or infectious disease) (4 sources) Raised prostate specific antigen; Translations: [Elevated prostate specific antigen [PSA]] Onset: 5 09-21-2024 Episodic Other skin disorders (1 source) Skin lesion; Translations: [Disorder of the skin and subcutaneous tissue, unspecified] 06-30-2023 Episodic Other upper respiratory disease (9 sources) Nasal discharge; Translations: [Other specified disorders of nose and nasal sinuses] 01-17-2021 Episodic Other upper respiratory infections (2 sources) Chronic sinusitis; Translations: [Chronic sinusitis, unspecified] Chronic Other upper respiratory infections (1 source) Acute upper respiratory infection; Translations: [Acute upper respiratory infection, unspecified] Episodic Screening and history of mental health and substance abuse codes (2 sources) Encounter for screening examination for other mental health and behavioral disorders; Translations: [Encounter for screening for depression] Onset: Episodic Unclassified (4 sources) I21.19 - ST elevation (STEMI) myocardial infarction involving other coronary artery of inferior wall,I25.10 - Atherosclerotic heart disease of [place] coronary artery without angina pectoris,Z95.5 - Presence of coronary angioplasty implant and graft Past or Other Problems Problem Classification Problem Date Documented Da te Episodic/Chronic Coronary atherosclerosis and other heart disease (6 sources) Stented coronary artery; Translations: [Presence of coronary angioplasty implant and graft] Onset: 05-18-2024 05-19-2024 Episodic Comment on above: Javier Hopewell PRO 4. 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; Translations: [Medication management] Onset: 10-28-2018 Episodic Other male genital disorders (20 sources) Disorder of prostate; Translations: [Disorder of prostate, unspecified] Onset: 08-22-2015 08-22-2015 Episodic Other male genital disorders (1 source) Disorder of prostate, unspecified; Translations: [Disorder of prostate] Onset: 08-22-2015 Episodic Other skin disorders (20 sources) Sebaceous cyst of skin; Translations: [Sebaceous cyst] Onset: 05-22-2021 Episodic Other skin disorders (20 sources) Seborrheic keratosis; Translations: [Other seborrheic keratosis] Onset: 03-16-2013 03-12-2014 Episodic Residual codes; unclassified (20 sources) Active living will ; Translations: [Other specified health status] Onset: 05-22-2021 05-22-2021 Episodic Results Test Name Value Interpretation Reference Range Facility [facility] 12-04[facility] ALBA SMITH ([id number]) 1945 M Date Time Provider Department 12/04/24 AARON CM [facility] During your visit today, we recorded the following information about you: Bernie Mann RN 12/04/2024 3:10 PM Signed Pt called in and reports he called [facility] and they wouldn't fill the Flomax and the Cardura together due to interactions. I let him know that the Flomax ordered on 09/21/24 had a note Pt was on Cardura for BP and BPH and BP was too low so cardio decreased it and suggested flomax since less BP affect. Then on the Cardura from 09/13/24 it had a note on it decreased to 1 mg per cardio and may wean off due to low BP. Suggested flomax if needed.. I told Pt he needs to call [facility] and ask them what they would like to do as it seems like these medications were at their request. I told him I would still let PCP know. Bernie Mann, Aaron Baum MD 12/04/2024 3:16 PM Signed Noted. Allergies As of Date: 12/04/2024 Noted Allergy Reaction NIACIN 01/02/2014 4 - Hives SULFA (SULFONAMIDE ANTIBIOTICS) 03/16/2013 4 - Hives Date Reviewed: 09/21/2024 Reviewed by: Aaron Cm MD - Fully Assessed Reason for Visit: Medication Problem [65] Prescriptions as of 12/04/2024 - metoprolol tartrate, short acting, (LOPRESSOR) 25 mg tablet Take 1 tablet by mouth once daily. Per Cardio: [facility] - amLODIPine (NORVASC) 5 mg tablet Take 1 tablet by mouth once daily. Per Cardio: [facility] - FARXIGA 10 mg tablet Take 10 mg by mouth every morning. - lansoprazole (PREVACID) 15 mg capsule Take 1 capsule by mouth once daily. - tamsulosin (FLOMAX) 0.4 mg Take 1 capsule by mouth once daily. - doxazosin (CARDURA) 1 mg tablet Take 1 tablet by mouth once daily. - atorvastatin (LIPITOR) 40 mg tablet TAKE 1 TABLET BY MOUTH DAILY AT BEDTIME FOR CHOLESTEROL - clopidogrel (PLAVIX) 75 mg tablet Take 1 tablet by mouth once daily. - lisinopril 2.5 mg tablet Take 1 tablet by mouth once daily. Per cardio: [facility] - aspirin, enteric coated (ADULT LOW DOSE ASPIRIN) 81 mg EC tablet Take 1 tablet by mouth once daily. Problem List As Of Date 12/04/2024 Noted Resolved Mixed hyperlipidemia [E78.2] Seborrheic keratosis [L82.1] 03/16/2013 Gastroesophageal reflux disease with esophagiti*08/22/2015 Disorder of prostate [N42.9] 08/22/2015 Essential hypertension with goal blood pressure*08/22/2015 Medicare annual wellness visit, subsequent [Z00*04/28/2017 Elevated fasting blood sugar [R73.01] 04/28/2017 Medication management [Z79.899] 10/28/[address] [Z78.9] 05/22/2021 Sebaceous cyst [L72.3] 05/22/2021 Advance directive discussed with patient [Z71.8*07/27/2022 Skin cancer screening [Z12.83] 07/29/[address] elevation myocardial infarction (*05/22/2024 Thrombocytopenia [D69.6] 09/21/2024 Elevated PSA [R97.20] 09/21/2024 Benign prostatic hyperplasia with nocturia [N40*09/21/2024 Encounter Status:Closed by AARON CM on 12/04/24 [facility] CNOVon 09-21-2024 CNOV Office Visit (FAMPWS ) ALBA [id number]) 1945 M Date Time Provider Department 09/21/24 9:40 AM AARON CM During your visit today, we recorded the following information about you: Pulse Respiration Blood pressure Weight 60/minute 16/minute 124/78 82.6 kg Height 1.753 m Aaron Cm MD 09/21/2024 9:46 PM Signed Alba Smith is a 79 year old male here for a Medicare wellness visit. Medicare Health Risk Assessment General Health Very good Exercise: Minutes/Day 30 min Exercise: Days/Week 6 days Alcohol: Daily Use Monthly or less Alcohol: Drinks/Day 1 or 2 Alcohol: 6 or more drinks Never Feel off balance No Concerns: Teeth/Dentures No Concerns: Sexual function No Troubled by feelings None of the above Frequency: Eating healthy diet Nearly every day ADLs requiring help None of the above Safety precautions in home/vehicle No (Has rugs in home, all other precautions followed) Smoke, vape, chews tobacco No Difficulty hearing No Difficulty seeing No Current Providers Specialists: I have reviewed specialist-related care of the patient in the medical record. Medical/Family history review Reviewed and updated problem list, medical/surgical/family/soci al history, medications, and allergies. Opioid use review Opioid Medications (last 90 days) No data to display Anxiety/Depression screening PHQ-2 Score: 0 (Lower risk for depression) WAYNE-2 Score: 1 (Lower risk for anxiety) Recommendation: no further intervention at this time Cognitive screening Mini Cog Score: 4 Cognitive screening reviewed and No further action needed (score 3-5). Mini-Cog Patient asked to remember the following three words: Banana, [place] and Chair Visuospatial/Executive Functioning: Clock drawin/2 (Normal clock with all number in correct sequence and position, hands are correct = 2 points, inability or refusal to draw a clock = 0) Three word recall: 2/3 Total score: 4/5 (Total score = word recall score + clock draw score) Functional Observation Was the patient's Timed Up AND Go test unsteady or >= 12 seconds? No Advance Care Planning Surrogate decision maker and/or advance care plan documented Measurements BP 124/78 (BP Site: Left Arm, BP Position: Sitting, BP Cuff Size: Regular Adult) Pulse 60 Resp 16 Ht 175.3 cm (5' 9) Wt 82.6 kg (182 lb) BMI 26.88 kg/m? Vision Screening: Follows with optometry/ophthalmology annually Assessment/Plan Medicare annual wellness visit, subsequent (Z00.00) - Counseled on healthy diet and regular exercise - Fall avoidance information provided - Personalized prevention plan provided See below Chief Complaint Patient presents with: Medicare Wellness Exam HPI Alba Smith is a 79 year old male who presents here today for Chronic Medical Conditions. and Medicare Annual Visit. Patient with Hx elevated fasting blood sugar, HTN, Hyperlipidemia, GERD as well as those reviewed and addressed below and in ROS. No new issues or concerns today. Alba denies any recent hospitalizations or surgeries. He reports no new major conditions diagnosed in his siblings. He is currently under the care of [facility] for cardiology and [facility] for [facility]. He is scheduled to attend his 60th high school reunion tomorrow night. Alba reports a weight loss of approximately 16-17 lbs since April, which he attributes to dietary changes made after his CO. He denies any recent fevers, frequent cephalalgia, or sudden changes in hearing or vision, though he does note a gradual onset of bilateral tinnitus. He denies any recent issues with his nose or throat, and has not noticed any lumps or swelling in his neck. He denies wheezing, dyspnea, hemoptysis, or production of colored mucus. He also denies chest pain, palpitations, or lower extremity edema. Alba reports no frequent nausea, emesis, diarrhea, or heartburn, and has not observed any blood in his stool or urine. He does report nocturia, with frequency varying from 2 times on a good night to 4-5 times on a bad night. He notes a potential increase in nocturia and daytime urinary frequency after a recent decrease in his doxazosin dosage from 2 mg to 1 mg daily, which was made due to episodes of hypotension with readings as low as 90/60 mmHg. He is able to initiate urination without difficulty. He denies any unusual muscle or joint aches beyond his baseline, and has not noticed any new or different easy bruising or bleeding, though he does report some bruising, which he attributes to his current medications, Plavix and aspirin. He denies any changes in his tolerance to heat or cold, increased thirst, syncope, seizures, or tremors. Alba is currently taking omeprazole 20 mg daily for dysphagia, which he reports has been well-controlled since starting the med (more content not included)... Normal [facility] CBC W Auto Differential pane l (Bld)on 09-18-2024 Basophils (Bld) [#/Vol] 0.03 10*3/uL [facility] Basophils/100 WBC (Bld) 0.5 % [facility] Differential cell count method Nom (Bld) Auto [facility] Eosinophils (Bld) [#/Vol] 0.2 10*3/uL [facility] Eosinophils/100 WBC (Bld) 3 % [facility] Erythrocyte distribution width (RBC) [Ratio] 12.3 % 11.5 - 15.0 % [facility] Hematocrit (Bld) [Volume fraction] 48.9 % 39.0 - 51.0 % [facility] Hemoglobin (Bld) [Mass/Vol] 16.7 g/dL 13.0 - 17.0 g/dL [facility] Immature granulocytes (Bld) [#/Vol] [facility] Immature granulocytes/100 WBC (Bld) 0.2 % [facility] Interpretation and review of laboratory results Abnormal [facility] Lymphocytes (Bld) [#/Vol] 2.19 10*3/uL [facility] Lymphocytes/100 WBC (Bld) 33 % [facility] MCH (RBC) [Entitic mass] 31.9 pg 26.0 - 34.0 pg [facility] MCHC (RBC) [Mass/Vol] 34.2 g/dL 30.5 - 36.0 g/dL [facility] MCV (RBC) [Entitic vol] 93.5 fL 80.0 - 100.0 fL [facility] Monocytes (Bld) [#/Vol] 0.58 10*3/uL [facility] Monocytes/100 WBC (Bld) 8.7 % [facility] Neutrophils (Bld) [#/Vol] 3.62 10*3/uL [facility] Neutrophils/100 WBC (Bld) 54.6 % [facility] Nucleated RBC (Bld) [#/Vol] [facility] Nucleated RBC/100 WBC (Bld) [Ratio] 0 % /100 WBC [facility] Platelet mean volume (Bld) [Entitic vol] 11.7 fL 9.0 - 12.7 fL [facility] Platelets (Bld) [#/Vol] 134 10*3/uL Low [facility] Comment on above: Results checked and verified.No clot detected. RBC (Bld) [#/Vol] 5.23 10*6/uL 4.20 - 6.00 m/uL [facility] WBC (Bld) [#/Vol] 6.63 10*3/uL [facility] Basophils (Bld) [#/Vol] 0.03 10*3/uL Normal <0.11 [facility] Comment on above: Order Comment: Speci men Type: BLOOD SPECIMEN Ordering Facility: [facility] Address: [address] [place] [address] Performed By: #### 2 132-9 #### [facility] CLIA [id number] [address] [place] [address] [place] Basophils/100 WBC (Bld) 0.5 % Normal [facility] Comment on above: Order Comment: Speci men Type: BLOOD SPECIMEN Ordering Facility: [facility] Address: [address] [place] [address] Performed By: #### 2 132-9 #### [facility] CLIA [id number] [address] [place] [address] [place] Differential cell count method Nom (Bld) Auto Normal [facility] Comment on above: Order Comment: Speci men Type: BLOOD SPECIMEN Ordering Facility: [facility] Address: [address] [place] [address] Performed By: #### 2 132-9 #### [facility] CLIA [id number] [address] [place] [address] [place] Eosinophils (Bld) [#/Vol] 0.20 10*3/uL Normal <0.46 [facility] Comment on above: Order Comment: Speci men Type: BLOOD SPECIMEN Ordering Facility: [facility] Address: [address] [place] [address] Performed By: #### 2 132-9 #### [facility] CLIA [id number] [address] [place] [address] [place] Eosinophils/100 WBC (Bld) 3.0 % Normal [facility] Comment on above: Order Comment: Speci men Type: BLOOD SPECIMEN Ordering Facility: [facility] Address: [address] [place] [address] Performed By: #### 2 132-9 #### [facility] CLIA [id number] [address] [place] [address] [place] Erythrocyte distribution width (RBC) [Ratio] 12.3 % Normal 11.5-15.0 [facility] Comment on above: Order Comment: Speci men Type: BLOOD SPECIMEN Ordering Facility: [facility] Address: [address] [place] [address] Performed By: #### 2 132-9 #### [facility] CLIA [id number] [address] [place] [address] [place] Hematocrit (Bld) [Volume fraction] 48.9 % Normal 39.0-51.0 [facility] Comment on above: Order Comment: Speci men Type: BLOOD SPECIMEN Ordering Facility: [facility] Address: [address] [place] [address] Performed By: #### 2 132-9 #### [facility] CLIA [id number] [address] [place] [address] [place] Hemoglobin (Bld) [Mass/Vol] 16.7 g/dL Normal 13.0-17.0 [facility] Comment on above: Order Comment: Speci men Type: BLOOD SPECIMEN Ordering Facility: [facility] Address: [address] [place] [address] Performed By: #### 2 132-9 #### [facility] CLIA [id number] [address] [place] [address] [place] Immature granulocytes (Bld) [#/Vol] 10*3/uL Normal <0.10 [facility] Comment on above: Order Comment: Speci men Type: BLOOD SPECIMEN Ordering Facility: [facility] Address: [address] [place] [address] Performed By: #### 2 132-9 #### [facility] CLIA [id number] [address] [place] [address] [place] Immature granulocytes/100 WBC (Bld) 0.2 % Normal [facility] Comment on above: Order Comment: Speci men Type: BLOOD SPECIMEN Ordering Facility: [facility] Address: [address] [place] [address] Performed By: #### 2 132-9 #### [facility] CLIA [id number] [address] [place] [address] [place] Lymphocytes (Bld) [#/Vol] 2.19 10*3/uL Normal 1.00-4.00 [facility] Comment on above: Order Comment: Speci men Type: BLOOD SPECIMEN Ordering Facility: [facility] Address: [address] [place] [address] Performed By: #### 2 132-9 #### [facility] CLIA [id number] [address] [place] [address] [place] Lymphocytes/100 WBC (Bld) 33.0 % Normal [facility] Comment on above: Order Comment: Speci men Type: BLOOD SPECIMEN Ordering Facility: [facility] Address: [address] [place] [address] Performed By: #### 2 132-9 #### [facility] CLIA [id number] [address] [place] [address] [place] MCH (RBC) [Entitic mass] 31.9 pg Normal 26.0-34.0 [facility] Comment on above: Order Comment: Speci men Type: BLOOD SPECIMEN Ordering Facility: [facility] Address: [address] [place] [address] Performed By: #### 2 132-9 #### [facility] CLIA [id number] [address] [place] [address] [place] MCHC (RBC) [Mass/Vol] 34.2 g/dL Normal 30.5-36.0 [facility] Comment on above: Order Comment: Speci men Type: BLOOD SPECIMEN Ordering Facility: [facility] Address: [address] [place] [address] Performed By: #### 2 132-9 #### [facility] CLIA [id number] [address] [place] [address] [place] MCV (RBC) [Entitic vol] 93.5 fL Normal 80.0-100.0 [facility] Comment on above: Order Comment: Speci men Type: BLOOD SPECIMEN Ordering Facility: [facility] Address: [address] [place] [address] Performed By: #### 2 132-9 #### [facility] CLIA [id number] [address] [place] [address] [place] Monocytes (Bld) [#/Vol] 0.58 10*3/uL Normal <0.87 [facility] Comment on above: Order Comment: Speci men Type: BLOOD SPECIMEN Ordering Facility: [facility] Address: [address] [place] [address] Performed By: #### 2 132-9 #### [facility] CLIA [id number] [address] [place] [address] [place] Monocytes/100 WBC (Bld) 8.7 % Normal [facility] Comment on above: Order Comment: Speci men Type: BLOOD SPECIMEN Ordering Facility: [facility] Address: [address] [place] [address] Performed By: #### 2 132-9 #### [facility] CLIA [id number] [address] [place] [address] [place] Neutrophils (Bld) [#/Vol] 3.62 10*3/uL Normal 1.45-7.50 [facility] Comment on above: Order Comment: Speci men Type: BLOOD SPECIMEN Ordering Facility: [facility] Address: [address] [place] [address] Performed By: #### 2 132-9 #### [facility] CLIA [id number] [address] [place] [address] [place] Neutrophils/100 WBC (Bld) 54.6 % Normal [facility] Comment on above: Order Comment: Speci men Type: BLOOD SPECIMEN Ordering Facility: [facility] Address: [address] [place] [address] Performed By: #### 2 132-9 #### [facility] CLIA [id number] [address] [place] [address] [place] Nucleated RBC (Bld) [#/Vol] 10*3/uL Normal <0.01 [facility] Comment on above: Order Comment: Speci men Type: BLOOD SPECIMEN Ordering Facility: [facility] Address: [address] [place] [address] Performed By: #### 2 132-9 #### [facility] CLIA [id number] [address] [place] [address] [place] Nucleated RBC/100 WBC (Bld) [Ratio] 0.0 /100 WBC Normal [facility] Comment on above: Order Comment: Speci men Type: BLOOD SPECIMEN Ordering Facility: [facility] Address: [address] [place] [address] Performed By: #### 2 132-9 #### [facility] CLIA [id number] [address] [place] [address] [place] Platelet mean volume (Bld) [Entitic vol] 11.7 fL Normal 9.0-12.7 [facility] Comment on above: Order Comment: Speci men Type: BLOOD SPECIMEN Ordering Facility: [facility] Address: [address] [place] [address] Performed By: #### 2 132-9 #### [facility] CLIA [id number] [address] [place] [address] [place] Platelets (Bld) [#/Vol] 134 10*3/uL Low 150-400 [facility] Comment on above: Order Comment: Speci men Type: BLOOD SPECIMEN Ordering Facility: [facility] Address: [address] [place] [address] Result Comment: Resu lts checked and verified.No clot detected. Performed By: #### 2 132-9 #### [facility] CLIA [id number] [address] [place] [address] [place] RBC (Bld) [#/Vol] 5.23 10*6/uL Normal 4.20-6.00 [facility] Comment on above: Order Comment: Speci men Type: BLOOD SPECIMEN Ordering Facility: [facility] Address: [address] [place] [address] Performed By: #### 2 132-9 #### [facility] CLIA [id number] [address] [place] [address] [place] WBC (Bld) [#/Vol] 6.63 10*3/uL Normal 3.70-11.00 [facility] Comment on above: Order Comment: Speci men Type: BLOOD SPECIMEN Ordering Facility: [facility] Address: [address] [place] [address] Performed By: #### 2 132-9 #### [facility] CLIA [id number] [address] [place] [address] [place] HbA1c (Bld)on 09-18-2024 Average glucose Estimated from glycated hemoglobin (Bld) [Mass/Vol] 103 mg/dL Normal [facility] Comment on above: Order Comment: Speci men Type: BLOOD SPECIMEN Ordering Facility: [facility] Address: [address] [place] [address] Result Comment: eAG: (Estimated average glucose) is a calculated value from HgbA1c and is traffic workforce representative of the average blood glucose level in the last 2-3 month period. Performed By: #### 2 132-9 #### [facility] CLIA [id number] [address] [place] [address] [place] HbA1c (Bld) [Mass fraction] 5.2 % Normal 4.3-5.6 [facility] Comment on above: Order Comment: Speci men Type: BLOOD SPECIMEN Ordering Facility: [facility] Address: [address] [place] [address] Result Comment: [place] Diabetes Association guidelines indicate that patients with HgbA1c in the range 5.7-6.4% are at increased risk for development of diabetes, and intervention by lifestyle modification may be beneficial. HgbA1c greater or equal to 6.5% is considered diagnostic of diabetes. Performed By: #### 2 132-9 #### [facility] CLIA [id number] [address] [place] [address] [place] Magnesium SerPl-mCncon 09-18 Magnesium [Mass/Vol] 2.3 mg/dL Normal 1.7-2.3 [facility] Comment on above: Order Comment: Speci men Type: BLOOD SPECIMEN Ordering Facility: [facility] Address: [address] [place] [address] Performed By: #### 1 9123-9 #### [facility] CLIA [id number] [address] [place] [address] [place] PSA SerPl-mCncon 09-18-2024 Prostate specific Ag [Mass/Vol] 3.42 ng/mL High <2.60 [facility] Comment on above: Order Comment: Speci men Type: BLOOD SPECIMEN Ordering Facility: [facility] Address: [address] [place] [address] Result Comment: Tota l PSA test methodology used is the Electrochemiluminescence Immunoassay by [employer]. Total PSA values by differing methodologies cannot be interchanged. For an individual patient, the significance of a PSA level should be interpreted in a broad clinical context, including age, race, family history, digital rectal exam, prostate size, results of prior testing (prostate biopsy, free PSA, PCA3), and use of 5-alpha reductase inhibitors. Considering the high incidence of asymptomatic cancer in the general population that may not pose an ultimate risk to a patient, the decision to recommend urological evaluation or prostate biopsy should be individualized after consideration of all these factors. REFERENCE: Ruslan Flower M.D., M.P.H., Ariel Barreto M.D., Ph.D., Alfonso Stafford M.D., Becca Jay, M.P.H., Anita Thrasher Sc.D. Effect of Verification Bias on Screening for Prostate Cancer by Measurement of Prostatic Specific Antigen. N Engl J Med 2003,349:335-42. Performed By: #### 2 132-9 #### [facility] CLIA [id number] [address] [place] [address] [place] [facility] Urinalysis complete panel (U )on 09-18-2024 Bacteria LM.HPF (Urine sed) [#/Area] Negative Negative /HPF [facility] Bilirubin Ql (U) Negative Negative [facility] Clarity (Unsp spec) Clear Clear [facility] Color (U) Yellow Yellow [facility] Epithelial cells LM.HPF (Urine sed) [#/Area] None Seen /HPF [facility] Glucose Test strip (U) [Mass/Vol] 3+ Abnormal Negative [facility] Hemoglobin Ql (U) Negative Negative [facility] Hyaline casts (Urine sed) [#/Area] 0 /[LPF] 0 /LPF [facility] Interpretation and review of laboratory results Abnormal [facility] Ketones Ql (U) Negative Negative [facility] [facility] Leukocyte esterase Test strip Ql (U) Negative Negative [facility] Nitrite Ql (U) Negative Negative [facility] pH (U) 5.5 [pH] NINF - 8.5 [facility] Protein (U) [Mass/Vol] Negative Negative [facility] RBC LM.HPF (Urine sed) [#/Area] 0-2 /HPF 0-2 /HPF [facility] Specific gravity (U) [Rel density] 1.031 High 1.005 - 1.030 [facility] Urobilinogen Ql (U) 0.2 EU/dL 0.2-1.0 EU/dL [facility] WBC LM.HPF (Urine sed) [#/Area] 0-5 /HPF 0-5 /HPF [facility] This test was develo ped and its performance characteristics determined by [facility] [place] ([facility]). It has not been cleared or approved by the FDA. [facility] is regulated under CLIA as qualified to perform high-complexity testing. This test is used for clinical purposes. It should not be regarded as investigational or for research. [facility] Bacteria LM.HPF (Urine sed) [#/Area] Negative Normal Negative [facility] Comment on above: Order Comment: Speci men Type: BLOOD SPECIMEN Ordering Facility: [facility] Address: [address] [place] [address] Performed By: #### 2 132-9 #### [facility] CLIA [id number] [address] [place] [address] [place] Bilirubin Ql (U) Negative Normal Negative [facility] Comment on above: Order Comment: Speci men Type: BLOOD SPECIMEN Ordering Facility: [facility] Address: [address] [place] [address] Performed By: #### 2 132-9 #### [facility] CLIA [id number] [address] [place] [address] [place] Clarity (Unsp spec) Clear Normal Clear [facility] Comment on above: Order Comment: Speci men Type: BLOOD SPECIMEN Ordering Facility: [facility] Address: [address] [place] [address] Performed By: #### 2 132-9 #### [facility] CLIA [id number] [address] [place] [address] [place] Color (U) Yellow Normal Yellow [facility] Comment on above: Order Comment: Speci men Type: BLOOD SPECIMEN Ordering Facility: [facility] Address: [address] [place] [address] Performed By: #### 2 132-9 #### [facility] CLIA [id number] [address] [place] [address] [place] Epithelial cells LM.HPF (Urine sed) [#/Area] None Seen Normal [facility] Comment on above: Order Comment: Speci men Type: BLOOD SPECIMEN Ordering Facility: [facility] Address: [address] [place] [address] Performed By: #### 2 132-9 #### [facility] CLIA [id number] [address] [place] [address] [place] Glucose Test strip (U) [Mass/Vol] 3+ Abnormal Negative [facility] Comment on above: Order Comment: Speci men Type: BLOOD SPECIMEN Ordering Facility: [facility] Address: [address] [place] [address] Performed By: #### 2 132-9 #### [facility] CLIA [id number] [address] [place] [address] [place] Hemoglobin Ql (U) Negative Normal Negative [facility] Comment on above: Order Comment: Speci men Type: BLOOD SPECIMEN Ordering Facility: [facility] Address: [address] [place] [address] Performed By: #### 2 132-9 #### [facility] CLIA [id number] [address] [place] [address] [place] Hyaline casts (Urine sed) [#/Area] 0 /[LPF] Normal 0 /LPF [facility] Comment on above: Order Comment: Speci men Type: BLOOD SPECIMEN Ordering Facility: [facility] Address: [address] [place] [address] Performed By: #### 2 132-9 #### [facility] CLIA [id number] [address] [place] [address] [place] Ketones Ql (U) Negative Normal Negative [facility] Comment on above: Order Comment: Speci men Type: BLOOD SPECIMEN Ordering Facility: [facility] Address: [address] [place] [address] Performed By: #### 2 132-9 #### [facility] CLIA [id number] [address] [place] [address] [place] Leukocyte esterase Test strip Ql (U) Negative Normal Negative [facility] Comment on above: Order Comment: Speci men Type: BLOOD SPECIMEN Ordering Facility: [facility] Address: [address] [place] [address] Performed By: #### 2 132-9 #### [facility] CLIA [id number] [address] [place] [address] [place] Nitrite Ql (U) Negative Normal Negative [facility] Comment on above: Order Comment: Speci men Type: BLOOD SPECIMEN Ordering Facility: [facility] Address: [address] [place] [address] Performed By: #### 2 132-9 #### [facility] CLIA [id number] [address] [place] [address] [place] pH (U) 5.5 [pH] Normal <8.5 [facility] Comment on above: Order Comment: Speci men Type: BLOOD SPECIMEN Ordering Facility: [facility] Address: [address] [place] [address] Performed By: #### 2 132-9 #### [facility] CLIA [id number] [address] [place] [address] [place] Protein (U) [Mass/Vol] Negative Normal Negative [facility] Comment on above: Order Comment: Speci men Type: BLOOD SPECIMEN Ordering Facility: [facility] Address: [address] [place] [address] Performed By: #### 2 132-9 #### [facility] CLIA [id number] [address] [place] [address] [place] RBC LM.HPF (Urine sed) [#/Area] 0-2 /HPF Normal 0-2 /HPF [facility] Comment on above: Order Comment: Speci men Type: BLOOD SPECIMEN Ordering Facility: [facility] Address: [address] [place] [address] Performed By: #### 2 132-9 #### [facility] CLIA [id number] [address] [place] [address] [place] Specific gravity (U) [Rel density] 1.031 High 1.005-1.03 0 [facility] Comment on above: Order Comment: Speci men Type: BLOOD SPECIMEN Ordering Facility: [facility] Address: [address] [place] [address] Performed By: #### 2 132-9 #### [facility] CLIA [id number] [address] [place] [address] [place] Urobilinogen Ql (U) 0.2 EU/dL Normal 0.2-1.0 EU/dL [facility] Comment on above: Order Comment: Speci men Type: BLOOD SPECIMEN Ordering Facility: [facility] Address: [address] [place] [address] Performed By: #### 2 132-9 #### [facility] CLIA [id number] [address] [place] [address] [place] WBC LM.HPF (Urine sed) [#/Area] 0-5 /HPF Normal 0-5 /HPF [facility] Comment on above: Order Comment: Speci men Type: BLOOD SPECIMEN Ordering Facility: [facility] Address: [address] [place] [address] Performed By: #### 2 132-9 #### [facility] CLIA [id number] [address] [place] [address] [place] Vit B12 SerPl-mCncon -23-2 025 Cobalamin (Vitamin B12) [Mass/Vol] 347 pg/mL Normal 232-1245 [facility] Comment on above: Order Comment: Speci men Type: BLOOD SPECIMEN Ordering Facility: [facility] Address: [address] [place] [address] Performed By: #### 2 132-9 #### [facility] CLIA [id number] [facility] [place] Anion gap in Serum or Plasma Ordered By: Shayla Armijo on 09-12-2024 Anion gap [Moles/Vol] 8 mmol/L 5-15 [facility] BUN/creatinine ratioOrdered By: Shayla Armijo on 09-12-2024 Urea nitrogen/Creatinine [Mass ratio] 15.4 mg/mg 10-20 [facility] Bilirubin, totalOrdered By: Shayla Armijo on 09-12-2024 Bilirubin [Mass/Vol] 0.93 mg/dL 0.00-1.30 [facility] CMP (EXTERNAL)on 09-12-2024 Alk Phos Total 76 U/L 45 - 117 U/L [facility] Bili Total 0.93 mg/dL 0.2 - 1 mg/dL [facility] GFR 64 mL/MIN [facility] GFR AFR AMER [facility] Potassium [Moles/Vol] 4 mmol/L 3.5 - 5.1 mmol/L [facility] Calculated very low density lipoprotein (VLDL) cholesterol measurementOrdered By: Shayla Armijo on 09-12-2024 Calculated very low density lipoprotein (VLDL) cholesterol measurement 17 mg/dL 5-40 [facility] Carbon dioxide, total [Moles /volume] in Central venous bloodOrdered By: Shayla Armijo on 09-12-2024 CO2 [Moles/Vol] 26.4 mmol/L 21.0-32.0 [facility] Chloride assayOrdered By: Negro Armijo on 09-12-2024 Chloride [Moles/Vol] 107 mmol/L 98-108 [facility] Comprehensive Metabolic Prof ilon 09-12-2024 Albumin [Mass/Vol] 4.2 g/dL Normal 3.4-4.8 [facility] Comment on above: Performed By: #### L 500.4100, L500.4050 ####[facility] [address] [place], [address] Albumin/Globulin [Mass ratio] 1.9 {ratio} Normal 0.9-2.4 [facility] Comment on above: Performed By: #### L 500.4100, L500.4050 ####[facility] [address] [place], [address] ALK PHOS 76 U/L Normal 40-129 [facility] Comment on above: Performed By: #### L 500.4100, L500.4050 ####[facility] [address] [place], [address] ALT [Catalytic activity/Vol] 17 U/L Normal <=46 [facility] Comment on above: Performed By: #### L 500.4100, L500.4050 ####[facility] [address] [place], [address] AST [Catalytic activity/Vol] 24 U/L Normal <=37 [facility] Comment on above: Performed By: #### L 500.4100, L500.4050 ####[facility] [address] [place], [address] Bilirubin [Mass/Vol] 0.93 mg/dL Normal 0.00-1.30 [facility] Comment on above: Performed By: #### L 500.4100, L500.4050 ####[facility] [address] [place], [address] BUN/CRE 15.4 RATIO Normal 10-20 [facility] Comment on above: Performed By: #### L 500.4100, L500.4050 ####[facility] [address] [place], [address] Calcium [Mass/Vol] 8.9 mg/dL Normal 7.6-11.0 [facility] Comment on above: Performed By: #### L 500.4100, L500.4050 ####[facility] [address] [place] [address], [address] Chloride [Moles/Vol] 107 mmol/L Normal 98-108 [facility] Comment on above: Performed By: #### L 500.4100, L500.4050 ####[facility] [address] [place], [address] CO2 [Moles/Vol] 26.4 mmol/L Normal 21.0-32.0 [facility] Comment on above: Performed By: #### L 500.4100, L500.4050 ####[facility] [address] [place], [address] Creatinine [Mass/Vol] 1.18 mg/dL Normal 0.70-1.20 [facility] Comment on above: Performed By: #### L 500.4100, L500.4050 ####[facility] [address] [place], [address] GAP 8 Normal 5-15 [facility] Comment on above: Performed By: #### L 500.4100, L500.4050 ####[facility] [address] [place], [address] GFR/1.73 sq M.predicted among non-blacks MDRD (S/P/Bld) [Vol rate/Area] 64 mL/min/{1.73_m2} Normal >60 [facility] Comment on above: Result Comment: mL/m in/1.73m2 CKD-EPI Creatinine Equation (2020) Performed By: #### L 500.4100, L500.4050 ####[facility] [address] [place], [address] Globulin (S) [Mass/Vol] 2.2 g/dL Normal 2.2-4.2 [facility] Comment on above: Performed By: #### L 500.4100, L500.4050 ####[facility] [address] [place], [address] Glucose [Mass/Vol] 99 mg/dL Normal 70-99 [facility] Comment on above: Performed By: #### L 500.4100, L500.4050 ####[facility] [address] [place], [address] Potassium [Moles/Vol] 4.0 mmol/L Normal 3.3-5.1 [facility] Comment on above: Performed By: #### L 500.4100, L500.4050 ####[facility] [address] [place], [address] Sodium [Moles/Vol] 142 mmol/L Normal 133-145 [facility] Comment on above: Performed By: #### L 500.4100, L500.4050 ####[facility] [address] [place], [address] T PROT 6.5 g/dL Normal 5.9-8.4 [facility] Comment on above: Performed By: #### L 500.4100, L500.4050 ####[facility] [address] [place], [address] Urea nitrogen [Mass/Vol] 18 mg/dL Normal 4-19 [facility] Comment on above: Performed By: #### L 500.4100, L500.4050 ####[facility] [address] [place], [address] Glomerular filtration rate ( GFR) estimation/1.73 sq m using serum, plasma, or whole bOrdered By: Shayla Armijo on 09-12-2024 GFR/1.73 sq M.predicted among non-blacks MDRD (S/P/Bld) [Vol rate/Area] 64 mL/min/{1.73_m2} >60 [facility] Comment on above: mL/min/1.73m2 CKD-EP I Creatinine Equation (2020) LDL calc ser/plasOrdered By: Shayla Armijo on 09-12-2024 Cholesterol in LDL [Mass/Vol] 68 mg/dL [facility] Comment on above: Wlcqgilsci=190-006 m g/dL & Higher Nrpn=625 mg/dL or greater LIPID PANEL (OUTSIDE)on 08-27 LDL:HDL Ratio [facility] Non-HDL Cholesterol [facility] TC:HDL Ratio [facility] VLDL Cholesterol [facility] Laboratory - Chemistry and C hemistry - challengeOrdered By: Shayla Armijo on 09-12-2024 AST [Catalytic activity/Vol] 24 U/L <38 [facility] Lipid Profileon 09-12-2024 CHOL:HDL 3.14 Normal [facility] Comment on above: Performed By: #### L 500.4100, L500.4050 ####[facility] [address] [place], [address] Cholesterol [Mass/Vol] 126 mg/dL Normal <=200 [facility] Comment on above: Result Comment: Chol esterol level, Desirable <200 mg/dL Borderline high cholesterol 200-239 mg/dL High cholesterol >=240 mg/dL Recommendations of the NCEP Adult Treatment Panel for the following risk-cutoff thresholds for the [place] population. Performed By: #### L 500.4100, L500.4050 ####[facility] [address] [place], [address] Cholesterol in HDL [Mass/Vol] 40 mg/dL Normal [facility] Comment on above: Result Comment: Ramona onal Cholesterol Education Program (NCEP) guidelines: <40 mg/dL: Low HDL-cholesterol (major risk factor for CHD) >= 60 mg/dL: High HDL-cholesterol (negative risk factor for CHD) HDL-cholesterol is affected by a number of factors, e.g. smoking, exercise, hormones, sex and age. Performed By: #### L 500.4100, L500.4050 ####[facility] [address] [place], [place], [phone]) Cholesterol in LDL [Mass/Vol] 68 mg/dL Normal [facility] Comment on above: Result Comment: Bord afhcuh=143-028 mg/dL Higher Btxj=515 mg/dL or greater Performed By: #### L 500.4100, L500.4050 ####[facility] [address] [place], [address] Cholesterol in VLDL [Mass/Vol] 17 mg/dL Normal 5-40 [facility] Comment on above: Performed By: #### L 500.4100, L500.4050 ####[facility] [address] [place], [address] Triglyceride [Mass/Vol] 87 mg/dL Normal [facility] Comment on above: Result Comment: The drugs N-Acetylcysteine and Metamizole may falsely depress this assay. Normal range: <150 mg/dL Borderline High: 150-199 mg/dL High: 200-499 mg/dL Very High: >500 mg/dL Performed By: #### L 500.4100, L500.4050 ####[facility] [address] [place], [address] No Panel Informationon 09-12 [facility] Potassium measurement (mass/ volume)Ordered By: Shayla Armijo on 09-12-2024 Potassium (Unsp spec) [Mass/Vol] 4.0 mmol/L 3.3-5.1 [facility] Screening total cholesterol/ high density lipoprotein (HDL) cholesterol ratioOrdered By: Shayla Armijo on 09-12-2024 Cholesterol.total/Chol esterol in HDL [Mass ratio] 3.14 {ratio} [facility] Serum creatinine measurement (mass/volume)Ordered By: Shayla Armijo on 09-12-2024 Creatinine [Mass/Vol] 1.18 mg/dL 0.70-1.20 [facility] Serum globulin measurementOr dered By: Shayla Armijo on 09-12-2024 Globulin (S) [Mass/Vol] 2.2 g/dL 2.2-4.2 [facility] Serum glucose measurement (m ass/volume)Ordered By: Shayla Armijo on 09-12-2024 Glucose [Mass/Vol] 99 mg/dL 70-99 [facility] Serum or plasma alanine fox otransferase (ALT) measurementOrdered By: Shaylabonifacio Armijo on 09-12-2024 ALT [Catalytic activity/Vol] 17 U/L <47 [facility] Serum or plasma albumin galo urement (mass/volume)Ordered By: Shayla Aleksander on 09-12-2024 Albumin [Mass/Vol] 4.2 g/dL 3.4-4.8 [facility] Serum or plasma albumin/glob ulin mass ratioOrdered By: Shayla Aleksander on 09-12-2024 Albumin/Globulin [Mass ratio] 1.9 {ratio} 0.9-2.4 [facility] Serum or plasma alkaline krystle sphatase measurementOrdered By: Shayla Aleksander 09-12-2024 ALP [Catalytic activity/Vol] 76 U/L 40-129 [facility] Serum or plasma calcium galo urement (mass/volume)Ordered By: Shayla Aleksander 09-12-2024 Calcium [Mass/Vol] 8.9 mg/dL 7.6-11.0 [facility] Serum or plasma cholesterol in HDL measurement (mass/volume)Ordered By: Shayla Aleksander 09-12-2024 Cholesterol in HDL [Mass/Vol] 40 mg/dL >40 [facility] Comment on above: National Cholesterol Education Program (NCEP) guidelines:<40 mg/dL: Low HDL-cholesterol (major risk factor for CHD)>= 60 mg/dL: High HDL-cholesterol (negative risk factor for CHD)HDL-cholesterol is affected by a number of factors, e.g. smoking, exercise, hormones, sex and age. Serum or plasma cholesterol measurement (mass/volume)Ordered By: Shayla Armijo on 09-12-2024 Cholesterol [Mass/Vol] 126 mg/dL <201 [facility] Comment on above: Cholesterol level, D esirable <200 mg/dLBorderline high cholesterol 200-239 mg/dLHigh cholesterol >=240 mg/dLRecommendations of the NCEP Adult Treatment Panel for the following risk-cutoff thresholds for the [place] population. Serum or plasma urea nitroge n measurement (mass/volume)Ordered By: Shayla Armijo 09-12-2024 Urea nitrogen [Mass/Vol] 18 mg/dL 4-19 [facility] Sodium levelOrdered By: Raj Armijo on 09-12-2024 Sodium [Moles/Vol] 142 mmol/L 133-145 [facility] Total proteinOrdered By: Gaetano Armijo on 09-12-2024 Protein [Mass/Vol] 6.5 g/dL 5.9-8.4 [facility] Triglycerides measurementOrd ered By: Shayla Armijo on 09-12-2024 Triglyceride [Mass/Vol] 87 mg/dL <199 [facility] Comment on above: The drugs N-Acetylcy steine and Metamizole may falsely depress this assay. Normal range: <150 mg/dLBorderline High: 150-199 mg/dLHigh: 200-499 mg/dLVery High: >500 mg/dL Cardiology Visit Reporton Cardiology Visit Report [facility] [place] [facility] [address] [place] [address] OFFICE VISIT Date of Service: 09/11/24 MR#: [id number] Acct: [id number] Name: ALBA SMITH Rep #: [id number] : 1945 Provider: Dr. Shayla Armijo MD Age/Sex: 79/M [place] [facility] [place] Status: Signed HPI HPI History of Present Illness Details: This gentleman with history of coronary artery disease status post inferior CO, status post drug- eluting stents to the RCA, is here for follow-up visit. Denies any chest pains or shortness of breath. No palpitations. No orthopnea or PND. Complains of occasional lightheadedness. No syncope or presyncope. Intake Vital Signs 07/13/24 07:43 09/11/24 08:21 Height 5 ft 10 in 5 ft 10 in Weight: 185 lb BMI 26.5 BP 91/66 Blood Pressure Location Lt brachial Position Sitting Respiration 18 Pulse 70 Pulse Source NIBP Comment Standing BP: 103/71 HR: 76 Intake Visit Reasons: 3 M FU Final Tester Required: No Accompanied by: Self Allergies niacin Allergy (Unknown, Verified 09/11/24 09:48) unknown Sulfa (Sulfonamide Antibiotics) Allergy (Unknown, Verified 09/11/24 09:48) unknown Medications ???Medication ???Instructions ???Recorded ???Confirmed ???Type amlodipine 10 mg tablet 10 mg PO QDAY #90 tabs 06/15/24 Rx aspirin 81 mg tablet,delayed 81 mg PO DAILY@0800 #90 tabs 06/1509/11/24 Rx release atorvastatin 40 mg tablet 40 mg PO QHS #90 tabs 06/15/24 Rx clopidogrel 75 mg tablet 75 mg PO DAILY #90 tabs 06/15/24 0 09/11/24 Rx doxazosin 2 mg tablet 2 mg PO QDAY #90 tabs 06/15/24 Rx lisinopril 2.5 mg tablet 2.5 mg PO DAILY #90 tabs 06/15/24 09/11/24 Rx metoprolol succinate 25 mg 25 mg PO QDAY #90 tabs 06/15/24 Rx tablet,extended release 24 hr omeprazole 20 mg capsule,delayed 20 mg PO QHS #90 caps 06/15/24 Rx release dapagliflozin propanediol 10 mg 10 mg PO QAM #90 tabs 06/27/24 Rx tablet (Farxiga) Ejection fraction %: 40 Have you fallen in the past year?: No PFSH Medical History 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/24) Alcohol use Arthritis Back pain Coronary artery disease Difficulty swallowing GERD (gastroesophageal reflux disease) HTN (hypertension) Hyperlipidemia Migraine headache Non-smoker Wears glasses Surgical History Hx of colonoscopy Hx of esophagogastroduodenoscopy Hx of eye surgery S/P laparoscopic cholecystectomy Stented coronary artery (05/18/24) Family History Brother Cancer esophageal Courtney esophagus Social History Smoking Status: Never smoker alcohol intake: current alcohol intake frequency: holidays/special occasions only ROS Const Const: Negative for fatigue, weakness, headache(s) or weight gain ENT ENT: Positive for dizziness (episodic; positional); Negative for headache(s), Nosebleed/epistaxis or balance problems Cardio Chest Pain: No Palpitations: No Edema: None Muscle aches with walking: None Resp Respiratory: Negative for SOB with activity, SOB at rest or SOB orthopnea SOB lying down GI GI: Negative nausea, vomiting or heartburn Musc Musc: Negative for muscle aches/ myalgia, muscle weakness, joint pain or balance problems Neuro Neuro: Positive for dizziness (episodic; positional), lightheadedness (episodic, positional) and near syncope; Negative for syncope, headache(s) or weakness Endo Endo: Negative for fatigue Cardiology Exam Const Appearance: comfortable and no acute distress Nutritional Appearance: well nourished Neck Neck: no JVD Carotids: Negative bruit Chest Auscultation: Bilateral: Clear to Auscultation Cardio Rate: regular rate Rhythm: regular rhythm Heart sounds: S1 normal and S2 normal Neuro General: patient alert, patient awake and patient oriented x3 Extremities Lower Extremity Edema: None: Bilateral Supplemental Info Supplemental Information Echocardiogram 05/18/2024: Interpretation Summary The estimated ejection fraction is 40-45 %. Inferior and inferolateral de anda are hypokinetic. Mildly dilated right ventricle. Mild global right ventricular systolic dysfunction. Mild focal aortic valve calcification. Contrast injection was performed. Cardiac Catheterization 05/18/24: DC01-([id number])LHC/COR/LV IC16-(72932/[id number])AMI, PRO OR PTCA, ARTERY/GRAFT, SINGLE VESSEL CLINICAL PROFILE AND CO-MORBIDITIES Indications: ACS <= 24 hrs Heart Failure: None CAD Presentations: STEMI. Symptom onset Date/Time: 05/18/2201 13:00:00 Ti (more content not included)... Normal [facility] No Panel InformationOrdered By: Dell Dugan on 06-26-2024 [facility] Cardiac Rehab [address] [place] [address] CR - Individual Treatment Plan MR#: [id number] Acct: [id number] Name: ALBA SMITH ROYAL Rep #:[id number] : 1945 79 From: Dell Whittington BS, RVT PCP: Dr. Aaron Cm MD DOS: 05/29 04/22 Exercise - Initial Assessment Physician Prescribed Exercise Modalities: Treadmill, Schwinn Airdyne AD-7 and SciFit Stepper Nutrition - Initial Assessment Weight Mgt (Other Care) Height: 5 ft 10 in Weight:: 192 lb 8 oz BMI: 27.6 Psychosocial - Initial Assess Target Goals Target Goals Referral to Behavioral Health PS - Interventions: Yes: Attend Stress Management Classes Patient Health Questionnaire PHQ-9 Screening 30-Day Re-eval Assessment: 1. Little interest or pleasure in doing things: Not at all 2. Feeling down, depressed, or hopeless: Not at all 3. Trouble falling or staying asleep, or sleeping too much: Not at all 4. Feeling tired or having little energy: Not at all 5. Poor appetite or overeating: Not at all 6. Feeling bad about yourself -- or that you are a failure or have let yourself or your family down: Not at all 7. Trouble concentrating on things, such as reading the newspaper or watching television: Not at all 8. Moving or speaking so slowly that other people could have noticed. Or the opposite - being so fidgety or restless that you have been moving around a lot more than usual: Not at all 9. Thoughts that you would be better off , or of hurting yourself in some way: Not at all How difficult have these problems made it for you to do your work, take care of things at home, or get along with other people?: Not difficult at all Total Score: 0 Self-Efficacy 6-Item Scale 30-Day Re-eval Assessment: We would like to know how confident you are in doing certain activities. Please select your confidence level for: Fatigue Select Number: 7 Physical Discomfort or Pain Select Number: 7 Emotional Distress Select Number: 6 Other Symptoms or Health Problems Select Number: 7 Different Tasks and Activities Select Number: 8 Medication Select Number: 8 Total Score:: 7 Nutrition Survey Nutrition Survey Instructions Scoring Instructions Exercise - 30-day Assessment Visit Date of Eval: 06/15/24 Session #:: 9 Physician Prescribed Exercise Modalities: Treadmill, Schwinn Airdyne AD-7 and SciFit Stepper Frequency: 3x/week for 12 weeks [36 sessions] Intensity: 60-80% of age predicted maximum heart rate reserve Duration: 30 - 45 minutes Current METSs:: 4.2 Target Heart Rate:: 86-107 Current RPE:: 12 Maximum Excercise HR:: 90 Resting Blood Pressure: 114/68 Maximum Exercise Blood Pressure: 144/78 EKG Type: NSR with rare PAC Outcomes & Goals Goals:: Verbalizes understanding of THR, RPE & goal METS by session 6, Documentsin home exercise log/reports 30 min aerobic 5 day/wk by DC, Demonstrates accurate pulse taking by DC and Other additional outcome/goals: see below Intervention & Plan Exercise Program Goals: Instruct on personal THR & RPE, Instruct on MET level & personal MET goal, Show patient to take own pulse /validate performance until accurate, Instruct on home exercise and Other additional plan/int Physical Activity Home Exercise Physical Activity - Home Exercise: Safe Exercise, Warm-up, Self-monitoring, Cool-Down, Home Exercise > 30 min Daily and Sitting Time <3 hours/daily Outcomes & Goals Outcomes/Goals: Demonstrates correct Warm-up/exercise Cool-Down (S3) if = 2.5 METs, Verbalizes symptoms of exercise intolerance by Session 3 (S3), Demonstratesafe equipment use (S3) & follows exercise prescrition (6) and Other: See below Intervention & Plan Plan/Intervention: Instruct warm-up & cool-down if exercising at > 2 METs, Instruct on symptoms of exercise intolerance & actions to take, Instruct & monitor on saf, Assess intial functional capacity & safety risk and Other See below 30-day Reassessments 30 day Reassessments:: Progressing Reassessment Notes & Comments:: RPE explained to pt. Pt is able to return demonstration in his daily sessions. Exercise - 60-day Assessment Physician Prescribed Exercise Modalities: Treadmill, Schwinn Airdyne AD-7 and SciFit Stepper Exercise - 90-day Assessment Physician Prescribed Exercise Modalities: Treadmill, Schwinn Airdyne AD-7 and SciFit Stepper Exercise - Final/Discharge Physician Prescribed Exercise Modalities: Treadmill, Schwinn Airdyne AD-7 and SciFit Stepper Nutrition - 30-Day Assessment Program Goals Nutrition Program Goals Patient has diagnosis of Hyperlipidemia (ICD E78)?: Yes Visit Date of Eval: 06/15/24 Session #:: 9 Cholesterol/Lipids (Other Core Measures) Determine presence & major risk factors that modify LDL goal: Hypertension or hypertensive medication, Low HDL cholesterol <40 mg/dL*, Family history of premature CHD in Male < 55 years: female <65 yearsFa and Age men > 45 years; women >/= 55 years Outcomes/Goals: Pt IDs own risk factors & lifestyle modifications by Session 10,Verbalizes symptoms of angina & response by session 3., Pt indepen (more content not included)... [facility] Cardiology Visit Reporton Cardiology Visit Report [facility] [address] [place] [address] OFFICE VISIT Date of Service: 06/15/24 MR#: [id number] Acct: [id number] Name: ALBA SMITH [place] Rep #: [id number] : 1945 Provider: Dr. Shayla Armijo MD Age/Sex: 79/M Location: [facility] Status: Signed HPI HPI History of Present Illness Details: This gentleman had presented to the hospital last month with acute inferior myocardial infarction. Emergent coronary angiography revealed subtotal occlusion of the proximal right coronary artery. Successful percutaneous revascularization was done with placement of 2 drug-eluting stents. Excellent results were noted. 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 LAD is diffusely diseased from its mid to distal part. Patient's LVEF was noted to be 45%. Since his discharge from the hospital, patient has been doing well. He has been progressing well at the cardiac rehabilitation. Denies any chest pains. No shortness of breath. No orthopnea or PND. No ankle edema. Intake Vital Signs 05/23/24 10:15 06/15/24 14:30 Height 5 ft 10 in 5 ft 10 in Weight: 194 lb BMI 27.8 BP 132/76 H Blood Pressure Location Lt brachial Position Sitting Respiration 18 Pulse 56 L Pulse Source Monitor Pulse Oximetry (%) 98 Oxygen Delivery Method room air Intake Visit Reasons: HEART ATTACK(05/23 AR) Final Tester Required: No Accompanied by: Is patient in pain?: No Allergies niacin Allergy (Unknown, Verified 06/15/24 14:31) unknown Sulfa (Sulfonamide Antibiotics) Allergy (Unknown, Verified 06/15/24 14:31) unknown Medications ???Medication ???Instructions ???Recorded ???Confirmed ???Type amlodipine 5 mg tablet 10 mg PO QHS 01/17/21 06/15/24 His tory doxazosin 1 mg tablet 2 mg PO QHS 01/17/21 06/15/24 Hist ory omeprazole 20 mg capsule,delayed 20 mg PO QHS 02/13/23 06/15/24 His tory release aspirin 81 mg tablet,delayed 81 mg PO DAILY@0800 #30 tabs 05/1906/15/24 Rx release atorvastatin 40 mg tablet 40 mg PO QHS #30 tabs 05/19/24 Rx clopidogrel 75 mg tablet 75 mg PO DAILY #30 tabs 05/19/24 0 06/15/24 Rx lisinopril 2.5 mg tablet 2.5 mg PO DAILY #30 tabs 05/19/24 06/15/24 Rx metoprolol tartrate 25 mg tablet 12.5 mg (1/2 x 25 mg) PO BID #30 0 05/19/24 06/15/24 Rx tabs Have you fallen in the past year?: No PFSH Medical History (Updated 06/15/24 @ 14:[address] Shayla Armijo MD) Coronary artery disease HTN (hypertension) 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/24) Wears glasses Alcohol use Arthritis Back pain Migraine headache Difficulty swallowing Non-smoker GERD (gastroesophageal reflux disease) Hyperlipidemia Surgical History Stented coronary artery (05/18/24) S/P laparoscopic cholecystectomy Hx of esophagogastroduodenoscopy Hx of colonoscopy Hx of eye surgery Family History Brother Cancer esophageal Courtney esophagus Social History Smoking Status: Never smoker alcohol intake: current alcohol intake frequency: holidays/special occasions only ROS Const Const: Negative for fatigue or weakness ENT ENT: Negative for dizziness or balance problems Cardio Chest Pain: No Palpitations: No Edema: None Muscle aches with walking: None Resp Respiratory: Negative for SOB with activity, SOB at rest or SOB orthopnea SOB lying down GI GI: Negative nausea, vomiting or heartburn Musc Musc: Negative for muscle weakness or balance problems Neuro Neuro: Positive for lightheadedness; Negative for dizziness, near syncope, syncope or weakness Endo Endo: Negative for fatigue Cardiology Exam Const Appearance: comfortable and no acute distress Nutritional Appearance: well nourished Neck Neck: no JVD Carotids: Negative bruit Chest Auscultation: Bilateral: Clear to Auscultation Cardio Rate: regular rate Rhythm: regular rhythm Heart sounds: S1 normal and S2 normal Neuro General: patient alert, patient awake and patient oriented x3 Extremities Lower Extremity Edema: None: Bilateral Supplemental Info Supplemental Information Labs: LDL Cholesterol 73 mg/dL (0-130) HDL Cholesterol 47 mg/dL (40-) Cholesterol 138 mg/dL (200) Triglycerides 89 mg/dL (-199) Diagnostics: Electrocardiogram Echocardiogram Cardiac Catheterization Pulmonary: No Data to Display Past Visits: Cardiology Visit 06/15/24 Assessment and Plan Assessment and Plan (1) History of ST elevation myocardia (more content not included)... Normal [facility] Cardiac rehabilitation evalu ation reportOrdered By: Dell Dugan on 05-25-[address] [facility] Cardiac Rehab [address] [place] [address] CR - History & Physical MR#: [id number] Acct: [id number] Name: ALBA SMITH [place] Rep #:[id number] : 1945 79 From: Dell Whittington BS, RVT PCP: Dr. Aaron Cm MD DOS: 04/30 08/20 CR - History & Physical General Arrival date:: 05/23/24 Arrival time:: 10:04 Date of Referral:: 05/19/24 Date of CR Evaluation:: 05/23/24 Referring Physician: Dr. Armijo Primary Diagnosis: PCI with stenting History of Present Cardiac Event Onset Date Acute Myocardial Infarction within 12 months:: Yes (STEMI 05/18/24) PTCA or coronary stenting:: Yes Vessel: RCA 05/18/24 Medications Ambulatory Orders ?Medication ?Instructions ?Recorded amlodipine 5 mg tablet 10 mg PO QHS 01/17/21 cholecalciferol (vitamin D3) 10 2,000 unit PO DAILY mcg (400 unit) capsule doxazosin 1 mg tablet 2 mg PO QHS 01/17/21 omeprazole 20 mg capsule,delayed 20 mg PO QHS 02/13/23 release tramadol 50 mg tablet 50 mg PO Q6H PRN pain #14 ta bs 03/02/23 aspirin 81 mg tablet,delayed 81 mg PO DAILY@0800 #30 t abs 05/19/24 release atorvastatin 40 mg tablet 40 mg PO QHS #30 tabs clopidogrel 75 mg tablet 75 mg PO DAILY #30 tabs 04/30 04/22 lisinopril 2.5 mg tablet 2.5 mg PO DAILY #30 tabs metoprolol tartrate 25 mg tablet 12.5 mg (03/30 x 25 mg) PO BID #30 05/19/24 tabs Allergies Allergies niacin Allergy (Unknown, Verified 03/15/23 13:27) unknown Sulfa (Sulfonamide Antibiotics) Allergy (Unknown, Verified 03/15/23 13:27) unknown Sleep Disorder Evaluation Hx of Sleep Apnea: No Do you snore loudly (louder than talking or can be heard through closed doors)?:No Do you often feel tired/ fatigued/ sleepy during daytime?: No Has anyone observed you stop breathing during sleep?: No History of Hypertension (for STOP score): Yes STOP Results: Negative Advanced Directives Advanced Directives Power of Aesthetician: Yes Living Will: Yes Advance Directives Information Provided: Yes Advance Directives on File: No DNR Order?:: No Past Medical History Covid-19 Screening Physicial Symptoms Other Clinical Concerns Exposure Risk Pertinent Comorbidities 65 years or older:: Yes Has a serious heart condition:: Yes Past Medical Illness Past Medical History (Updated 05/19/24 @ 08:46 by Elva Brooks) 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/24) I21.19 Wears glasses Z97.3 Alcohol use Z78.9 RARELY Arthritis M19.90 Back pain M54.9 OC LOWER BACK PAIN Migraine headache G43.909 IN THE DISTANT PAST Difficulty swallowing R13.10 FEELS LIKE FOOD GETS STUCK IMPROVED WITH PRILOSEC USE Non-smoker Z78.9 GERD (gastroesophageal reflux disease) K21.9 CONTROLLED WITH MED Hyperlipidemia E78.5 ON MED HTN (hypertension) I10 CONTROLLED WITH MED Past Surgical History Past Surgical History (Updated 05/19/24 @ 08:44 by Elva Brooks) Stented coronary artery (05/18/24) Z95.5 [place] PRO 4.0X 8mm and 3.0 X 20 mm to Proximal RCA 05/18/2024 S/P laparoscopic cholecystectomy Z90.49 Hx of esophagogastroduodenoscopy Z98.890 X2 Hx of colonoscopy Z98.890 X5 Hx of eye surgery Z98.890 CLOGGED TEAR DUCT Family History Summary Family History Brother Cancer esophageal Courtney esophagus Social History Smoking History Smoking Status: Never smoker Alcohol Use Alcohol Usage: No Substance Abuse Hx Substance Use: No Occupation Occupation (List type of work in comments):: Retired Social Environment Status Marital Status: Current Living Arrangements Living Environment:: Spouse Children How many children do you have?: 2 Do any of your children live nearby?: Yes Safety Do you feel safe in your surroundings?: Yes Assistance Do you need any assistance at home?: no Review of Systems Review of Systems Hints Review of Present Symptoms: Reports Fatigue, Appetite - Special Diet and Sleep -Normal; Denies Shortness of Breath at Rest, Shortness of Breath with Exertion, PVD, Operative Discomfort, Angina, Wound Healing, Dizziness/Lightheadedness, Heart Arrhythmia/Irregularities, Appetite - Normal or Sexual Changes Pain Is Patient Pain Free?: Yes Risk Factor Assessment Chief Complaint Chief Complaint: PCI with stenting Vital Signs Pulse Ox: 95 Blood Pressure: 94/60 Pulse Pulse Rate: 69 Hypertension How long have you been treated?: 20 years Blood Pressure Sitting - Right Arm: 94/60 Obesity Height: 5 ft 10.08 in Weight:: 190 lb Weight in Pounds: 190.0 lbs Body Mass Index (BMI): 27.1 Nutritional Referral for Obesity: No Physical Inactivity Physical Inactivity: Reg Exercise 30 min/day Risk Stratification Risk Guidelines: Lowest Risk: Risk Factor for Smoking, Moderate Risk: Risk Factor for Diabetes, Risk Factor for Obesity, Risk Factor for Sedentary Lifestyle and Risk Factor for Depression and Highest Risk: Risk Factor for Dyslipidemia and Risk Factor for Hypertension For Smoking Smoking Risk Guidelines For Dyslipidemia Dyslipidemia Risk Guidelines For Diabetes Mellitus (more content not included)... [facility] No Panel InformationOrdered By: Dell Dugan on 05-25-2024 [facility] Cardiac Rehab [address] [place] [address] CR - Individual Treatment Plan MR#: [id number] Acct: [id number] Name: ALBA SMITH [place] Rep #:[id number] : 1945 79 From: Dell Whittington BS, RVT PCP: Dr. Aaron Cm MD DOS: 04/30 08/20 Diagnosis General Information Admitting Diagnosis: PCI with stenting Personal Learning Style:: Audio/Visual Barriers to Learning: No Barriers Stage of change r/t lifestyle modifications:: Contemplation Gave educational material for:: Treating Heart Disease, How The Heart Works, What it means to have Heart Disease, How Coronary Artery Disease is Diagnosed, Heart Procedures, What Heart Medications Do, Risk Factors & Modifications, Living an Active Life, Nutrition, Emotions & Heart Disease, Stress Management & Relaxation and Sleep Disorders & Heart Disease Education/Goals Cardiac Rehabilitation Goals Personal Goals: Initial Assessment: Improve management of stress and emotions, Improve energy level, Get back to work, or to resume activities faster, Improve knowledge of cardiac disease, Improve muscle strength and endurance, Improve diet and eating habits (eat healthier) and Control risk factors (learn risk factor modification) Scale for measuring improvement of personal goals Diagnosis & Disease Process Outcomes/Goals: Pt IDs own risk factors & lifestyle modifications by Session 10,Verbalizes symptoms of angina & response by session 3., Pt independently managesand Other Additional Outcomes/Goals: Plan/Interventions: Assist Pt to ID & engage in lifestyle modification to reduceCVD risk, Instruct on individual risk factors, Review symptoms of angina & emergency actions, Review secondary diagnosis & identify educational needs. and Other see comment 30 day Reassessments:: Not Met 30 day Reassessments:: Not Met 30 day Reassessments:: Not Met 30 day Reassessments:: Not Met Final Reassessments:: Not Met Safety Referral to Physical Therapy: No Referral to [facility] Case Management: No Fall Risk Assessed:: Yes Assistive Devices:: None Exercise - Initial Assessment Visit Date of Eval: 05/23/24 (initial eval ) Mets: Pre-: >3 METS for 30 minutes by discharge, >5 METS for 30 minutes by discharge, >7 METS for 30 minutes by discharge and Unable to meet goal due to: (see comment below) Physician Prescribed Exercise Modalities: Treadmill, Rower, Schwinn Airdyne AD-7, SciFit Stepper, SciFit Pro-II Ergometer and SciFit Lateral Disc Sander Frequency: 3x/week for 12 weeks [36 sessions] Intensity: 60-80% of age predicted maximum heart rate reserve Duration: 30 - 45 minutes Current METSs:: 3.0 Target Heart Rate:: 86-107 Resting Blood Pressure: 94/60 EKG Type: SR with frequent PVC Outcomes & Goals Goals:: Verbalizes understanding of THR, RPE & goal METS by session 6, Documentsin home exercise log/reports 30 min aerobic 5 day/wk by DC, Demonstrates accurate pulse taking by DC and Other additional outcome/goals: see below Intervention & Plan Exercise Program Goals: Instruct on personal THR & RPE, Instruct on MET level & personal MET goal, Show patient to take own pulse /validate performance until accurate and Instruct on home exercise Physical Activity Home Exercise Physical Activity - Home Exercise: Safe Exercise, Warm-up, Self-monitoring, Cool-Down, Home Exercise > 30 min Daily and Sitting Time <3 hours/daily Outcomes & Goals Outcomes/Goals: Demonstrates correct Warm-up/exercise Cool-Down (S3) if = 2.5 METs, Verbalizes symptoms of exercise intolerance by Session 3 (S3) and Demonstrate safe equipment use (S3) & follows exercise prescrition (6) Intervention & Plan Plan/Intervention: Instruct warm-up & cool-down if exercising at > 2 METs, Instruct on symptoms of exercise intolerance & actions to take, Instruct & monitor on saf and Assess intial functional capacity & safety risk Nutrition - Initial Assessment Program Goals Nutrition Program Goals Patient has diagnosis of Hyperlipidemia (ICD E78)?: Yes Visit Date of Eval: 05/23/24 (initial eval ) Cholesterol/Lipids (Other Core Measures) Determine presence & major risk factors that modify LDL goal: Hypertension or hypertensive medication, Low HDL cholesterol <40 mg/dL*, Family history of premature CHD in Male < 55 years: female <65 yearsFa and Age men > 45 years; women >/= 55 years Outcomes/Goals: Pt IDs own risk factors & lifestyle modifications by Session 10,Verbalizes symptoms of angina & response by session 3., Pt independently managesand Other Additional Outcomes/Goals: Intervention/Plan: Advocate for lipid panel cholesterol medication if applicable, Instruct on personal lipid levels & lipid goals/NCEP guidelines, Instruct on cholesterol and Other additional plan/int Diabetes (Other Core Measures) Diabetes Type: Not Applicable Weight Mgt (Other Care) Height: 5 ft 10 in Weight:: 190 lb BMI: 27.2 Diagnosis Overweight/Obesity BMI> 30% ICD-10 E66: No Diagnosis High BMI/Morbid Obesity BMI> 35% ICD-10 Z68: No Outcomes/Goals: Pt sets, maintains & shows weight loss goal & trend during rehaband Other additional ou (more content not included)... [facility] CR - History AND Physicalon 05-23-2024 CR - History & Physical [facility] Cardiac Rehab [address] [place] [address] CR - History Physical MR#: [id number] Acct: [id number] Name: ALBA SMITH Rep #: [id number] : 1945 79 From: Dell Whittington BS, RVT PCP: Dr. Aaron Cm MD DOS: 05/23/24 CR - History Physical General Arrival date:: 05/23/24 Arrival time:: 10:04 Date of Referral:: 05/19/24 Date of CR Evaluation:: 05/23/24 Referring Physician: Dr. Armijo Primary Diagnosis: PCI with stenting History of Present Cardiac Event Onset Date Acute Myocardial Infarction within 12 months:: Yes (STEMI 05/18/24) PTCA or coronary stenting:: Yes Vessel: RCA 05/18/24 Medications Ambulatory Orders ???Medication ???Instructions ???Recorded amlodipine 5 mg tablet 10 mg PO QHS 01/17/21 cholecalciferol (vitamin D3) 10 2,000 unit PO DAILY 01/17/21 mcg (400 unit) capsule doxazosin 1 mg tablet 2 mg PO QHS 01/17/21 omeprazole 20 mg capsule,delayed 20 mg PO QHS 02/13/23 release tramadol 50 mg tablet 50 mg PO Q6H PRN pain #14 tabs 08/18 aspirin 81 mg tablet,delayed 81 mg PO DAILY@0800 #30 tabs 05/19 release atorvastatin 40 mg tablet 40 mg PO QHS #30 tabs 05/19/24 clopidogrel 75 mg tablet 75 mg PO DAILY #30 tabs 05/19/24 lisinopril 2.5 mg tablet 2.5 mg PO DAILY #30 tabs 05/19/24 metoprolol tartrate 25 mg tablet 12.5 mg (1/2 x 25 mg) PO BID #30 0 05/19/24 tabs Allergies Allergies niacin Allergy (Unknown, Verified 03/15/23 13:27) unknown Sulfa (Sulfonamide Antibiotics) Allergy (Unknown, Verified 03/15/23 13:27) unknown Sleep Disorder Evaluation Hx of Sleep Apnea: No Do you snore loudly (louder than talking or can be heard through closed doors)?: No Do you often feel tired/ fatigued/ sleepy during daytime?: No Has anyone observed you stop breathing during sleep?: No History of Hypertension (for STOP score): Yes STOP Results: Negative Advanced Directives Advanced Directives Power of Aesthetician: Yes Living Will: Yes Advance Directives Information Provided: Yes Advance Directives on File: No DNR Order?:: No Past Medical History Covid-19 Screening Physicial Symptoms Other Clinical Concerns Exposure Risk Pertinent Comorbidities 65 years or older:: Yes Has a serious heart condition:: Yes Past Medical Illness Past Medical History (Updated 05/19/24 @ 08:46 by Elva Brooks) 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/24) I21.19 Wears glasses Z97.3 Alcohol use Z78.9 RARELY Arthritis M19.90 Back pain M54.9 OC LOWER BACK PAIN Migraine headache G43.909 IN THE DISTANT PAST Difficulty swallowing R13.10 FEELS LIKE FOOD GETS STUCK IMPROVED WITH PRILOSEC USE Non-smoker Z78.9 GERD (gastroesophageal reflux disease) K21.9 CONTROLLED WITH MED Hyperlipidemia E78.5 ON MED HTN (hypertension) I10 CONTROLLED WITH MED Past Surgical History Past Surgical History (Updated 05/19/24 @ 08:44 by Elva Brooks) Stented coronary artery (05/18/24) Z95.5 [place] PRO 4.0X 8mm and 3.0 X 20 mm to Proximal RCA 05/18/2024 S/P laparoscopic cholecystectomy Z90.49 Hx of esophagogastroduodenoscopy Z98.890 X2 Hx of colonoscopy Z98.890 X5 Hx of eye surgery Z98.890 CLOGGED TEAR DUCT Family History Summary Family History Brother Cancer esophageal Courtney esophagus Social History Smoking History Smoking Status: Never smoker Alcohol Use Alcohol Usage: No Substance Abuse Hx Substance Use: No Occupation Occupation (List type of work in comments):: Retired Social Environment Status Marital Status: Current Living Arrangements Living Environment:: Spouse Children How many children do you have?: 2 Do any of your children live nearby?: Yes Safety Do you feel safe in your surroundings?: Yes Assistance Do you need any assistance at home?: no Review of Systems Review of Systems Hints Review of Present Symptoms: Reports Fatigue, Appetite - Special Diet and Sleep - Normal; Denies Shortness of Breath at Rest, Shortness of Breath with Exertion, PVD, Operative Discomfort, Angina, Wound Healing, Dizziness/Lightheadedness, Heart Arrhythmia/Irregularities, Appetite - Normal or Sexual Changes Pain Is Patient Pain Free?: Yes Risk Factor Assessment Chief Complaint Chief Complaint: PCI with stenting Vital Signs Pulse Ox: 95 Blood Pressure: 94/60 Pulse Pulse Rate: 69 Hypertension How long have you been treated?: 20 years Blood Pressure Sitting - Right Arm: 94/60 Obesity Height: 5 ft 10.08 in Weight:: 190 lb Weight in Pounds: 190.0 lbs Body Mass Index (BMI): 27.1 Nutritional Referral for Obesity: No Physical Inactivity Physical Inactivity: Reg Exercise 30 min/day Risk Stratification Risk Guidelines: Lowest Risk: Risk Factor for Smoking, Moderate Risk: R (more content not included)... Normal [facility] Absolute lymphocyte countOrd ered By: Jasmin Morales on 05-19-2024 Lymphocytes Auto (Unsp spec) [#/Vol] 1.38 10*3/uL 0.83-4.51 [facility] Absolute neutrophil countOrd ered By: Jasmin Morales on 05-19-2024 Neutrophils (Bld) [#/Vol] 6.0 10*3/uL 2.0-7.7 [facility] Activated partial thrombopla stin time (aPTT) in platelet poor plasma by coagulation aOrdered By: Jasmin Morales on 05-19-2024 aPTT Coag (PPP) [Time] 27.1 s 24.1-36.2 [facility] Albumin to globulin ratioOrd ered By: Shayla Armijo on 05-19-2024 Albumin/Globulin [Mass ratio] 1.2 {ratio} 0.9-2.4 [facility] Automated lymphocyte count a s percentage of total leukocytesOrdered By: Jasmin Morales on 05-19-2024 Lymphocytes/100 WBC Auto (Unsp spec) 16.9 % Low 19- [facility] Basophil percentageOrdered B y: Jasmin Morales on 05-19-2024 Basophils/100 WBC (Bld) 0.4 % 0-1 [facility] Bilirubin, totalOrdered By: Shayla Armijo on 05-19-2024 Bilirubin [Mass/Vol] 1.00 mg/dL 0.20-1.00 [facility] Comment on above: For patients on eltr ombopag therapy, use of Dimension [place] TBIL is not recommended. Blood urea nitrogen (BUN)/cr eatinine ratioOrdered By: Shayla Armjio on 05-19-2024 Urea nitrogen/Creatinine [Mass ratio] 12.5 mg/mg 10- [facility] CBC W/Diff, Automatedon 04-30 Absolute Lymph 1.38 X10 3/uL Normal 0.83-4.51 [facility] Comment on above: Performed By: #### L 500.4050, L100.0100, L500.4100, L501.9520, L501.5200 ####[facility] [address] [place], [address] Absolute Neut 6.0 X10 3/uL Normal 2.0-7.7 [facility] Comment on above: Performed By: #### L 500.4050, L100.0100, L500.4100, L501.9520, L501.5200 ####[facility] [address] [place], [address] Basophils/100 WBC (Bld) 0.4 % Normal 0-1 [facility] Comment on above: Performed By: #### L 500.4050, L100.0100, L500.4100, L501.9520, L501.5200 ####[facility] [address] [place], [address] Eosinophils/100 WBC (Bld) 0.7 % Normal 0-5 [facility] Comment on above: Performed By: #### L 500.4050, L100.0100, L500.4100, L501.9520, L501.5200 ####[facility] [address] [place], [address] Erythrocyte distribution width (RBC) [Ratio] 12.3 % Normal 11.6-14.6 [facility] Comment on above: Performed By: #### L 500.4050, L100.0100, L500.4100, L501.9520, L501.5200 ####[facility] [address] [place], [address] Hematocrit (Bld) [Volume fraction] 46.3 % Normal 40-54 [facility] Comment on above: Performed By: #### L 500.4050, L100.0100, L500.4100, L501.9520, L501.5200 ####[facility] [address] [place], [address] Hemoglobin (Bld) [Mass/Vol] 16.4 g/dL Normal 13.0-16.5 [facility] Comment on above: Performed By: #### L 500.4050, L100.0100, L500.4100, L501.9520, L501.5200 ####[facility] [address] [place], [address] IG% 0.200 Normal 0.0-0.9 [facility] Comment on above: Result Comment: IG% - Immature Granulocytes (promyelocytes, myelocytes and metamyelocytes) > 1% indicates that a LEFT SHIFT is Present. Performed By: #### L 500.4050, L100.0100, L500.4100, L501.9520, L501.5200 ####[facility] [address] [place], [address] Lymphocytes/100 WBC (Bld) 16.9 % Low 19-41 [facility] Comment on above: Performed By: #### L 500.4050, L100.0100, L500.4100, L501.9520, L501.5200 ####[facility] [address] [place], [address] MCH (RBC) [Entitic mass] 32.0 pg Normal 27.0-32.0 [facility] Comment on above: Performed By: #### L 500.4050, L100.0100, L500.4100, L501.9520, L501.5200 ####[facility] [address] [place], [address] MCHC (RBC) [Mass/Vol] 35.4 g/dL Normal 32-36 [facility] Comment on above: Performed By: #### L 500.4050, L100.0100, L500.4100, L501.9520, L501.5200 ####[facility] [address] [place], [address] MCV (RBC) [Entitic vol] 90.3 fL Normal 80-94 [facility] Comment on above: Performed By: #### L 500.4050, L100.0100, L500.4100, L501.9520, L501.5200 ####[facility] [address] [place], [address] Monocytes/100 WBC (Bld) 8.7 % Normal 0-10 [facility] Comment on above: Performed By: #### L 500.4050, L100.0100, L500.4100, L501.9520, L501.5200 ####[facility] [address] [place], [address] Neutrophils/100 WBC (Bld) 73.1 % High 47-70 [facility] Comment on above: Performed By: #### L 500.4050, L100.0100, L500.4100, L501.9520, L501.5200 ####[facility] [address] [place], [address] Nucleated RBC (Bld) [#/Vol] 0 10*3/uL Normal 0-5 [facility] Comment on above: Performed By: #### L 500.4050, L100.0100, L500.4100, L501.9520, L501.5200 ####[facility] [address] [place], [address] Platelet mean volume (Bld) [Entitic vol] 11.2 fL Normal 6.2-12.0 [facility] Comment on above: Performed By: #### L 500.4050, L100.0100, L500.4100, L501.9520, L501.5200 ####[facility] [address] [place], [address] Platelets (Bld) [#/Vol] 141 10*3/uL Low 150-450 [facility] Comment on above: Performed By: #### L 500.4050, L100.0100, L500.4100, L501.9520, L501.5200 ####[facility] [address] [place], [address] RBC (Bld) [#/Vol] 5.13 10*6/uL Normal 4.6-6.2 [facility] Comment on above: Performed By: #### L 500.4050, L100.0100, L500.4100, L501.9520, L501.5200 ####[facility] [address] [place], [address] RDW SD 40.7 fl Normal 35.1-43.9 [facility] Comment on above: Performed By: #### L 500.4050, L100.0100, L500.4100, L501.9520, L501.5200 ####[facility] [address] [place], [address] WBC (Bld) [#/Vol] 8.2 10*3/uL Normal 4.4-11.0 [facility] Comment on above: Performed By: #### L 500.4050, L100.0100, L500.4100, L501.9520, L501.5200 ####[facility] [address] [place], [address] Carbon dioxide measurementOr dered By: Shayla Armijo on 05-19-2024 CO2 [Moles/Vol] 29.0 mmol/L 21.0-32.0 [facility] Chloride measurementOrdered By: Shayla Armijo on 05-19-2024 Chloride [Moles/Vol] 112 mmol/L High 98-107 [facility] Comprehensive Metabolic Prof ilon 05-19-2024 Albumin [Mass/Vol] 3.4 g/dL Normal 3.2-5.0 [facility] Comment on above: Performed By: #### L 500.4050, L100.0100, L500.4100, L501.9520, L501.5200 ####[facility] [address] [place], [address] Albumin/Globulin [Mass ratio] 1.2 {ratio} Normal 0.9-2.4 [facility] Comment on above: Performed By: #### L 500.4050, L100.0100, L500.4100, L501.9520, L501.5200 ####[facility] [address] [place], [address] ALK P 74 U/L Normal 45-117 [facility] Comment on above: Performed By: #### L 500.4050, L100.0100, L500.4100, L501.9520, L501.5200 ####[facility] [address] [place], [address] ALT [Catalytic activity/Vol] 34 U/L Normal 16-61 [facility] Comment on above: Performed By: #### L 500.4050, L100.0100, L500.4100, L501.9520, L501.5200 ####[facility] [address] [place], [address] AST [Catalytic activity/Vol] 90 U/L High 15-37 [facility] Comment on above: Performed By: #### L 500.4050, L100.0100, L500.4100, L501.9520, L501.5200 ####[facility] [address] [place], [address] Bilirubin [Mass/Vol] 1.00 mg/dL Normal 0.20-1.00 [facility] Comment on above: Result Comment: For patients on eltrombopag therapy, use of Dimension [place] TBIL is not recommended. Performed By: #### L 500.4050, L100.0100, L500.4100, L501.9520, L501.5200 ####[facility] [address] [place], [address] BUN/CRE 12.5 RATIO Normal 10-20 [facility] Comment on above: Performed By: #### L 500.4050, L100.0100, L500.4100, L501.9520, L501.5200 ####[facility] [address] [place], [address] CA,Total 8.6 mg/dL Normal 8.5-10.1 [facility] Comment on above: Performed By: #### L 500.4050, L100.0100, L500.4100, L501.9520, L501.5200 ####[facility] [address] [place], [address] Chloride [Moles/Vol] 112 mmol/L High 98-107 [facility] Comment on above: Performed By: #### L 500.4050, L100.0100, L500.4100, L501.9520, L501.5200 ####[facility] [address] [place], [address] CO2 [Moles/Vol] 29.0 mmol/L Normal 21.0-32.0 [facility] Comment on above: Performed By: #### L 500.4050, L100.0100, L500.4100, L501.9520, L501.5200 ####[facility] [address] [place], [address] Creatinine [Mass/Vol] 1.04 mg/dL Normal 0.70-1.30 [facility] Comment on above: Result Comment: The validity of the calculated GFR GFRAA in patients over 70 years has not been determined. Clinical correlation is essential. Performed By: #### L 500.4050, L100.0100, L500.4100, L501.9520, L501.5200 ####[facility] [address] [place], [address] ECRCL 61.42 ml/min Normal [facility] Comment on above: Performed By: #### L 500.4050, L100.0100, L500.4100, L501.9520, L501.5200 ####[facility] [address] [place], [address] EST GFR - AA 89 mL/min Normal >60 [facility] Comment on above: Result Comment: Afri can Austrian GFR Calc Performed By: #### L 500.4050, L100.0100, L500.4100, L501.9520, L501.5200 ####[facility] [address] [place], [address] GAP 3 Low 5-15 [facility] Comment on above: Performed By: #### L 500.4050, L100.0100, L500.4100, L501.9520, L501.5200 ####[facility] [address] [place], [address] GFR/1.73 sq M.predicted among non-blacks MDRD (S/P/Bld) [Vol rate/Area] 74 mL/min/{1.73_m2} Normal >60 [facility] Comment on above: Result Comment: Non- GFR Calc Performed By: #### L 500.4050, L100.0100, L500.4100, L501.9520, L501.5200 ####[facility] [address] [place], [address] Globulin (S) [Mass/Vol] 2.8 g/dL Normal 2.2-4.2 [facility] Comment on above: Performed By: #### L 500.4050, L100.0100, L500.4100, L501.9520, L501.5200 ####[facility] [address] [place], [address] Glucose [Mass/Vol] 106 mg/dL Normal 74-106 [facility] Comment on above: Result Comment: Fast ing Glucose result from 100 to 125 mg/dL suggests IMPAIRED HOMEOSTASIS per A.D.A. criteria. Performed By: #### L 500.4050, L100.0100, L500.4100, L501.9520, L501.5200 ####[facility] [address] [place], [address] Potassium [Moles/Vol] 4.4 mmol/L Normal 3.5-5.1 [facility] Comment on above: Performed By: #### L 500.4050, L100.0100, L500.4100, L501.9520, L501.5200 ####[facility] [address] [place], [address] Sodium [Moles/Vol] 144 mmol/L Normal 136-145 [facility] Comment on above: Performed By: #### L 500.4050, L100.0100, L500.4100, L501.9520, L501.5200 ####[facility] [address] [place], [address] T PROT 6.2 g/dL Low 6.4-8.2 [facility] Comment on above: Performed By: #### L 500.4050, L100.0100, L500.4100, L501.9520, L501.5200 ####[facility] [address] [place], [address] Urea nitrogen [Mass/Vol] 13 mg/dL Normal 7-18 [facility] Comment on above: Performed By: #### L 500.4050, L100.0100, L500.4100, L501.9520, L501.5200 ####[facility] [address] [place], [address] Discharge Instructionon 04-30 Discharge Instruction [facility] Medical Records Department [address] [place] [address] Instructions for Home/Discharge Instructions 05/19/24 1633 MR#: [id number] Acct: [id number] Name: ALBA SMITH Rep #: [id number] : 1945 79 From: Radha Hodges MD PCP: Dr. Aaron Cm MD Status:ADM IN Discharge Instructions Diet Discharge Diet: Low fat / Low cholesterol DC O2, CPAP, BIPAP needs Home O2 Discharge instructions: No Dressing / Incision Discharge Activity: Return to Normal Activity Weight Bearing Status: Weight bearing as tolerated Dressing / Incision Call your doctor if you observe: Fever of 101 or Higher, Shortness of breath, Dizziness, Swelling in the ankles and Chest pain Follow Up Care Test Results: Test results from this visit will be discussed in further detail at your follow-up appointment, if applicable. Discharge Plan Admission Admit Date/Time: 05/18/24 14:12 Primary Reason for Your Visit: stemi Attending Provider: Radha Hodges Primary Care Provider: Aaron Cm Consulting Providers: Shayla Armijo; Jasmin Morales Instructions Patient Instructions: Heart Attack Angina Sx, Heart Attack Dc, Heart Attack Meds Discharge Orders/Prescriptions Prescriptions: New aspirin 81 mg Tablet,Delayed Release (Dr/Ec) 81 mg PO DAILY@0800 Qty: 30 2RF atorvastatin 40 mg Tablet 40 mg PO QHS Qty: 30 2RF clopidogrel 75 mg Tablet 75 mg PO DAILY Qty: 30 2RF lisinopril 2.5 mg Tablet 2.5 mg PO DAILY Qty: 30 2RF metoprolol tartrate 25 mg Tablet 12.5 mg PO BID Qty: 30 2RF Continued amlodipine 5 mg tablet 10 mg PO QHS doxazosin 1 mg tablet 2 mg PO QHS cholecalciferol (vitamin D3) 10 mcg (400 unit) capsule 2,000 unit PO DAILY omeprazole 20 mg capsule,delayed release(DR/EC) 20 mg PO QHS tramadol 50 mg tablet 50 mg PO Q6H PRN (Reason: pain) Qty: 14 0RF Discontinued atorvastatin 10 mg tablet 10 mg PO QHS Referrals / Follow Up: Shayla Armijo MD [Med Staff - Active Staff] - Within 2 Weeks Aaron Cm MD [Primary Care Provider] - Within 1 Week Disposition Disposition (needs filled in before D/C Order can be placed): Home, Self Care 05/19/24 1635 Radha Hodges MD CC: Dr. Shayla Armijo MD; Dr. Aaron Cm MD; Dr. Jasmin Morales MD Signed Normal [facility] Eosinophil percentageOrdered By: Jasmin Morales on 05-19-2024 Eosinophils/100 WBC (Bld) 0.7 % 0-5 [facility] Erythrocyte distribution wid th ratioOrdered By: Jasmin Morales on 05-19-2024 Erythrocyte distribution width (RBC) [Ratio] 12.3 % 11.6-14.6 [facility] Erythrocyte distribution wid th standard deviationOrdered By: Jasmin Morales on 05-19-2024 Erythrocyte distribution width (RBC) [Entitic vol] 40.7 fL 35.1-43.9 [facility] Erythrocyte distribution width (RBC) [Ratio] 40.7 fl 35.1-43.9 [facility] Estimated glomerular filtrat ion rate (GFR) AmericanOrdered By: Shayla Armijo on 05-19-2024 Estimated GFR (MDRD) Amer 89 mL/min >60 [facility] Comment on above: GFR Calc Estimation of creatinine kenroy aranceOrdered By: Shayla Armijo on 05-19-2024 Estimated Creatinine Clearance Calc 61.42 ml/min [facility] Glomerular filtration rate ( GFR) estimationOrdered By: Shayla Armijo on 05-19-2024 Estimated GFR (MDRD) Non-Af Amer 74 mL/min >60 [facility] Comment on above: Non- GFR Calc GFR/1.73 sq M.predicted among non-blacks MDRD (S/P/Bld) [Vol rate/Area] 74 mL/min/{1.73_m2} >60 [facility] Comment on above: Non- GFR Calc Glucose measurementOrdered B y: Shayla Armijo on 05-19-2024 Glucose [Mass/Vol] 106 mg/dL 74-106 [facility] Comment on above: Fasting Glucose resu lt from 100 to 125 mg/dL suggests IMPAIRED HOMEOSTASIS per A.D.A. criteria. Hematocrit Auto (Bld) [Volum e fraction]Ordered By: Jasmin Morales on 05-19-2024 Hematocrit (Bld) [Volume fraction] 46.3 % 40-54 [facility] Hemoglobin measurementOrdere d By: Jasmin Morales on 05-19-2024 Hemoglobin (Bld) [Mass/Vol] 16.4 g/dL 13.0-16.5 [facility] High density lipoprotein (HD L) measurementOrdered By: Shayla Armijo on 05-19-2024 Cholesterol in HDL [Mass/Vol] 47 mg/dL >40 [facility] Comment on above: The drugs N-Acetylcy steine and Metamizole may falsely depress this assay. Reference Range HDL <40 mg/dL Low HDL Cholesterol HDL >or= 60 mg/dL High HDL Cholesterol Immature granulocytes/100 WB C Auto (Bld)Ordered By: Jasmin Morales on 05-19-2024 Immature granulocytes/100 WBC (Bld) 0.200 % 0.0-0.9 [facility] Comment on above: IG% - Immature Granu locytes (promyelocytes, myelocytes and metamyelocytes) > 1% indicates that a LEFT SHIFT is Present. International normalized rat io (INR) calculationOrdered By: Jasmin Morales on 05-19-2024 INR Coag (Bld) [Relative time] 1.0 {INR} [facility] Laboratory - Chemistry and C hemistry - challengeOrdered By: Shayla Armijo on 05-19-2024 AST [Catalytic activity/Vol] 90 U/L High 15-37 [facility] Lipid Profileon 05-19-2024 Cholesterol [Mass/Vol] 138 mg/dL Normal 200 [facility] Comment on above: Result Comment: <200 mg/dL Desirable 200-240 mg/dL Borderline >240 mg/dL High Risk Performed By: #### L 500.4050, L100.0100, L500.4100, L501.9520, L501.5200 ####[facility] [address] [place], [address] Cholesterol in HDL [Mass/Vol] 47 mg/dL Normal [facility] Comment on above: Result Comment: The drugs N-Acetylcysteine and Metamizole may falsely depress this assay. Reference Range HDL <40 mg/dL Low HDL Cholesterol HDL >or= 60 mg/dL High HDL Cholesterol Performed By: #### L 500.4050, L100.0100, L500.4100, L501.9520, L501.5200 ####[facility] [address] [place], [address] Cholesterol in LDL [Mass/Vol] 73 mg/dL Normal 0-130 [facility] Comment on above: Performed By: #### L 500.4050, L100.0100, L500.4100, L501.9520, L501.5200 ####[facility] [address] [place], [address] Cholesterol in VLDL [Mass/Vol] 18 mg/dL Normal 5-40 [facility] Comment on above: Performed By: #### L 500.4050, L100.0100, L500.4100, L501.9520, L501.5200 ####[facility] [address] [place], [place], [address] Triglyceride [Mass/Vol] 89 mg/dL Normal [facility] Comment on above: Result Comment: The drugs N-Acetylcysteine and Metamizole may falsely depress this assay. Serum Triglycerides Reference Interval Normal <150 mg/dL Borderline high 150 - 199 mg/dL High 200 - 499 mg/dL Very High > or = 500 mg/dL Performed By: #### L 500.4050, L100.0100, L500.4100, L501.9520, L501.5200 ####[facility] [address] [facility] [place], [address] Low density lipoprotein (LDL ) cholesterol measurementOrdered By: Shayla Armijo on 05-19-2024 Cholesterol in LDL [Mass/Vol] 73 mg/dL 0-130 [facility] Lymphocytes Auto (Unsp spec) [#/Vol]Ordered By: Jasmin Morales on 05-19-2024 Lymphocytes (Bld) [#/Vol] 1.38 10*3/uL 0.83-4.51 [facility] Lymphocytes/100 WBC Auto (Un sp spec)Ordered By: Jasmin Moarles on 05-19-2024 Lymphocytes/100 WBC (Bld) 16.9 % Low 19-41 [facility] MCV (mean corpuscular volume ) determinationOrdered By: Jasmin Morales on 05-19-2024 MCV (RBC) [Entitic vol] 90.3 fL 80-94 [facility] Magnesiumon 05-19-2024 Magnesium [Mass/Vol] 2.1 mg/dL Normal 1.6-2.6 [facility] Comment on above: Performed By: #### L 500.4050, L100.0100, L500.4100, L501.9520, L501.5200 ####[facility] [address] [facility] [place], [place], [id number] Magnesium measurementOrdered By: Jasmin Morales on 05-19-2024 Magnesium [Mass/Vol] 2.1 mg/dL 1.6-2.6 [facility] Mean corpuscular hemoglobin (MCH) determinationOrdered By: Jasmin Morales on 05-19-2024 MCH (RBC) [Entitic mass] 32.0 pg 27.0-32.0 [facility] Mean corpuscular hemoglobin concentration (MCHC) determinationOrdered By: Jasmin Morales on 05-19-2024 MCHC (RBC) [Mass/Vol] 35.4 g/dL 32-36 [facility] Mean platelet volume determi nationOrdered By: Jasmin Morales on 05-19-2024 Platelet mean volume (Bld) [Entitic vol] 11.2 fL 6.2-12.0 [facility] Monocyte percentageOrdered B y: Jasmin Morales on 05-19-2024 Monocytes/100 WBC (Bld) 8.7 % 0-10 [facility] Neutrophil percentageOrdered By: Jasmin Morales on 05-19-2024 Neutrophils/100 WBC (Bld) 73.1 % High 47-70 [facility] Nucleated red blood cell per centageOrdered By: Jasmin Morales on 05-19-2024 Nucleated RBC/100 WBC (Bld) [Ratio] 0 % 0-5 [facility] Partial Thromboplast Timeon 05-19-2024 aPTT Coag (Bld) [Time] 27.1 s Normal 24.1-36.2 [facility] Comment on above: Order Comment: Comme nts: If not obtained within the previous 24 hours Performed By: #### L 300.3900, L300.4310 ####[facility] [address] [facility] [place], [place], [id number] Platelet countOrdered By: Flor Morales on 05-19-2024 Platelets (Bld) [#/Vol] 141 10*3/uL Low 150-450 [facility] Potassium measurementOrdered By: Shayla Armijo on 05-19-2024 Potassium [Moles/Vol] 4.4 mmol/L 3.5-5.1 [facility] Prothrombin Time w/INRon INR Coag (PPP) [Relative time] 1.0 {INR} Normal [facility] Comment on above: Order Comment: Comme nts: If not obtained within the previous 24 hours Performed By: #### L 300.3900, L300.4310 ####[facility] [address] [place], [place], [id number] PT Coag (PPP) [Time] 13.8 s Normal 11.7-14.9 [facility] Comment on above: Order Comment: Comme nts: If not obtained within the previous 24 hours Performed By: #### L 300.3900, L300.4310 ####[facility] [address] [place], [address] Prothrombin timeOrdered By: Jasmin Morales on 05-19-2024 PT Coag (PPP) [Time] 13.8 s 11.7-14.9 [facility] RBC Auto (Bld) [#/Vol]Ordere d By: Jasmin Morales on 05-19-2024 RBC (Bld) [#/Vol] 5.13 10*6/uL 4.6-6.2 [facility] Serum anion gap measurementO rdered By: Shayla Armijo on 05-19-2024 Anion gap [Moles/Vol] 3 mmol/L Low 5-15 [facility] Serum globulin measurementOr dered By: Shayla Armijo on 05-19-2024 Globulin (S) [Mass/Vol] 2.8 g/dL 2.2-4.2 [facility] Serum or plasma alanine fox otransferase (ALT) measurementOrdered By: Shayla Armijo on 05-19-2024 ALT [Catalytic activity/Vol] 34 U/L 16-61 [facility] Serum or plasma albumin galo urement (mass/volume)Ordered By: Shayla Armijo on 05-19-2024 Albumin [Mass/Vol] 3.4 g/dL 3.2-5.0 [facility] Serum or plasma alkaline krystle sphatase measurementOrdered By: Shayla Armijo on 05-19-2024 ALP [Catalytic activity/Vol] 74 U/L 45-117 [facility] Serum or plasma calcium galo urement (mass/volume)Ordered By: Shayla Armijo on 05-19-2024 Calcium [Mass/Vol] 8.6 mg/dL 8.5-10.1 [facility] Serum or plasma cholesterol measurement (mass/volume)Ordered By: Shayla Armijo on 05-19-2024 Cholesterol [Mass/Vol] 138 mg/dL <200 [facility] Comment on above: <200 mg/dL Desirable 200-240 mg/dL Borderline >240 mg/dL High Risk Serum or plasma creatinine m easurement (mass/volume)Ordered By: Shayla Armijo on 05-19-2024 Creatinine [Mass/Vol] 1.04 mg/dL 0.70-1.30 [facility] Comment on above: The validity of the calculated GFR & GFRAA in patients over 70 years has not been determined. Clinical correlation is essential. Serum or plasma thyroid stim ulating hormone (TSH) measurement (units/volume)Ordered By: Jasmin Morales on 05-19-2024 TSH Qn 2.010 uIU/mL 0.358-3.74 0 [facility] Serum or plasma urea nitroge n measurement (mass/volume)Ordered By: Shayla Armijo on 05-19-2024 Urea nitrogen [Mass/Vol] 13 mg/dL 7-18 [facility] Sodium levelOrdered By: Raj Armijo on 05-19-2024 Sodium [Moles/Vol] 144 mmol/L 136-145 [facility] TSH QnOrdered By: Jasmin hernández on 05-19-2024 Thyroid Stimulating Hormone (TSH) 2.010 uIU/mL 0.358-3.74 0 [facility] Thyroid Stim Hormone (TSH)on 05-19-2024 TSH 2.010 uIU/mL Normal 0.358-3.74 0 [facility] Comment on above: Performed By: #### L 500.4050, L100.0100, L500.4100, L501.9520, L501.5200 ####[facility] [address] [place], [address] Total proteinOrdered By: Gaetano Armijo on 05-19-2024 Protein [Mass/Vol] 6.2 g/dL Low 6.4-8.2 [facility] Triglycerides measurementOrd ered By: Shayla Armijo on 05-19-2024 Triglyceride [Mass/Vol] 89 mg/dL <199 [facility] Comment on above: The drugs N-Acetylcy steine and Metamizole may falsely depress this assay.Serum Triglycerides Reference Interval Normal <150 mg/dL Borderline high 150 - 199 mg/dL High 200 - 499 mg/dL Very High > or = 500 mg/dL Very low density lipoprotein (VLDL) cholesterol measurementOrdered By: Shayla Armijo on 05-19-2024 Very low density lipoprotein (VLDL) cholesterol measurement 18 mg/dL [facility] VLDL Cholesterol 18 mg/dL [facility] White blood cell (WBC) count Ordered By: Jasmin Morales on 05-19-2024 WBC (Bld) [#/Vol] 8.2 10*3/uL 4.4-11.0 [facility] aPTT Coag (PPP) [Time]Ordere d By: Jasmin Morales on 05-19-2024 aPTT Coag (Bld) [Time] 27.1 s 24.1-36.2 [facility] 12 Lead EKGon 05-18-2024 12 Lead EKG [facility] Cardiovascular Services [address] [place] [address] 12 Lead EKG 05/18/24 1401 MR#: [id number] Acct: [id number] Name: ALBA SMITH Rep #: [id number] : 1945 79 From: Toni Perez MD Attending Dr: Dr. Radha Hodges MD Status: DI S IN Ordering Dr: Robby Elizondo MD Date: 05/18/24 Location: ICU Sex: M C Admitted: 05/18/24 Test Reason : CP Blood Pressure : */* mmHG Vent. Rate : 77 BPM Atrial Rate : 77 BPM P-R Int : 152 ms QRS Dur : 86 ms QT Int : 356 ms P-R-T Axes : 39 14 94 degrees QTcB Int : 402 ms Critical Test Result: STEMI Sinus rhythm with frequent Premature ventricular complexes Possible Left atrial enlargement Cannot rule out Anterior infarct , new Inferior injury pattern ACUTE CO / STEMI Consider right ventricular involvement in acute inferior infarct Abnormal ECG Confirmed by TONI PEREZ ([id number]), multimedia editor SRAVANTHI DOTSON ([id number]) on 05/22/2024 7:08:44 AM Referred By: Confirmed By: TONI PEREZ 05/22/24 0708 Date Toni Perez MD CC: Dr. Aaron Cm MD; Dr. Radha Hodges MD; Dr. Robby Elizondo MD Signed Normal [facility] ACT Activated Clotting Timeo n 05-18-2024 ACTk CLOT TIME 262 sec High 74-137 [facility] Comment on above: Performed By: #### L 9100.0100 #### [facility] Laboratory [address] [place], [address] ACTk CLOT TIME 181 sec High 74-137 [facility] Comment on above: Performed By: #### L 9100.0100 #### [facility] Laboratory [address] [place], [address] Activated clotting timeOrder ed By: Shayla Armijo on 05-18-2024 Activated Clotting Time 262 sec High 74-137 [facility] Basic Metabolic Profile (BMP )on 05-18-2024 BUN/CRE 12.9 RATIO Normal 01-15 [facility] Comment on above: Order Comment: 'TROP ' Serial specimen #1, #2 or #3: 1 Performed By: #### L 501.4020, L500.2500, L300.3900, L300.4310, L100.0100 ####[facility] [address] [place], [address] CA,Total 9.1 mg/dL Normal 8.5-10.1 [facility] Comment on above: Order Comment: 'TROP ' Serial specimen #1, #2 or #3: 1 Performed By: #### L 501.4020, L500.2500, L300.3900, L300.4310, L100.0100 ####[facility] [address] [place], [address] Chloride [Moles/Vol] 106 mmol/L Normal 98-107 [facility] Comment on above: Order Comment: 'TROP ' Serial specimen #1, #2 or #3: 1 Performed By: #### L 501.4020, L500.2500, L300.3900, L300.4310, L100.0100 ####[facility] [address] [place], [address] CO2 [Moles/Vol] 27.0 mmol/L Normal 21.0-32.0 [facility] Comment on above: Order Comment: 'TROP ' Serial specimen #1, #2 or #3: 1 Performed By: #### L 501.4020, L500.2500, L300.3900, L300.4310, L100.0100 ####[facility] [address] [place], [address] Creatinine [Mass/Vol] 1.32 mg/dL High 0.70-1.30 [facility] Comment on above: Order Comment: 'TROP ' Serial specimen #1, #2 or #3: 1 Result Comment: The validity of the calculated GFR GFRAA in patients over 70 years has not been determined. Clinical correlation is essential. Performed By: #### L 501.4020, L500.2500, L300.3900, L300.4310, L100.0100 ####[facility] [address] [place], [address] ECRCL 48.39 ml/min Normal [facility] Comment on above: Order Comment: 'TROP ' Serial specimen #1, #2 or #3: 1 Performed By: #### L 501.4020, L500.2500, L300.3900, L300.4310, L100.0100 ####[facility] [address] [place], [address] EST GFR - AA 68 mL/min Normal >60 [facility] Comment on above: Order Comment: 'TROP ' Serial specimen #1, #2 or #3: 1 Result Comment: Afri can Austrian GFR Calc Performed By: #### L 501.4020, L500.2500, L300.3900, L300.4310, L100.0100 ####[facility] [address] [place], [address] GAP 7 Normal 5-15 [facility] Comment on above: Order Comment: 'TROP ' Serial specimen #1, #2 or #3: 1 Performed By: #### L 501.4020, L500.2500, L300.3900, L300.4310, L100.0100 ####[facility] [address] [place], [address] GFR/1.73 sq M.predicted among non-blacks MDRD (S/P/Bld) [Vol rate/Area] 56 mL/min/{1.73_m2} Low >60 [facility] Comment on above: Order Comment: 'TROP ' Serial specimen #1, #2 or #3: 1 Result Comment: Non- GFR Calc Performed By: #### L 501.4020, L500.2500, L300.3900, L300.4310, L100.0100 ####[facility] [address] [place], [address] Glucose [Mass/Vol] 161 mg/dL High 74-106 [facility] Comment on above: Order Comment: 'TROP ' Serial specimen #1, #2 or #3: 1 Result Comment: Fast ing Glucose result greater than or equal to 126 mg/dL suggests DIABETES MELLITUS per A.D.A. criteria. Performed By: #### L 501.4020, L500.2500, L300.3900, L300.4310, L100.0100 ####[facility] [address] [place], [address] Potassium [Moles/Vol] 3.8 mmol/L Normal 3.5-5.1 [facility] Comment on above: Order Comment: 'TROP ' Serial specimen #1, #2 or #3: 1 Performed By: #### L 501.4020, L500.2500, L300.3900, L300.4310, L100.0100 ####[facility] [address] [place], [address] Sodium [Moles/Vol] 140 mmol/L Normal 136-145 [facility] Comment on above: Order Comment: 'TROP ' Serial specimen #1, #2 or #3: 1 Performed By: #### L 501.4020, L500.2500, L300.3900, L300.4310, L100.0100 ####[facility] [address] [place], [address] Urea nitrogen [Mass/Vol] 17 mg/dL Normal 7-18 [facility] Comment on above: Order Comment: 'TROP ' Serial specimen #1, #2 or #3: 1 Performed By: #### L 501.4020, L500.2500, L300.3900, L300.4310, L100.0100 ####[facility] [address] [place], [address] CBC W/Diff, Automatedon 04-30 0-2024 Absolute Lymph 2.17 X10 3/uL Normal 0.83-4.51 [facility] Comment on above: Performed By: #### L 501.4020, L500.2500, L300.3900, L300.4310, L100.0100 #### [facility] Laboratory [address] [place], [address] Absolute Neut 3.5 X10 3/uL Normal 2.0-7.7 [facility] Comment on above: Performed By: #### L 501.4020, L500.2500, L300.3900, L300.4310, L100.0100 #### [facility] Laboratory [address] [place], [address] Basophils/100 WBC (Bld) 0.5 % Normal 0-1 [facility] Comment on above: Performed By: #### L 501.4020, L500.2500, L300.3900, L300.4310, L100.0100 #### [facility] Laboratory [address] [place], [address] Eosinophils/100 WBC (Bld) 1.1 % Normal 0-5 [facility] Comment on above: Performed By: #### L 501.4020, L500.2500, L300.3900, L300.4310, L100.0100 #### [facility] Laboratory [address] [place], [address] Erythrocyte distribution width (RBC) [Ratio] 12.4 % Normal 11.6-14.6 [facility] Comment on above: Performed By: #### L 501.4020, L500.2500, L300.3900, L300.4310, L100.0100 #### [facility] Laboratory [address] [place], [address] Hematocrit (Bld) [Volume fraction] 48.8 % Normal 40-54 [facility] Comment on above: Performed By: #### L 501.4020, L500.2500, L300.3900, L300.4310, L100.0100 #### [facility] Laboratory [address] [place], [address] Hemoglobin (Bld) [Mass/Vol] 17.4 g/dL High 13.0-16.5 [facility] Comment on above: Performed By: #### L 501.4020, L500.2500, L300.3900, L300.4310, L100.0100 #### [facility] Laboratory [address] [place], [address] IG% 0.300 Normal 0.0-0.9 [facility] Comment on above: Result Comment: IG% - Immature Granulocytes (promyelocytes, myelocytes and metamyelocytes) > 1% indicates that a LEFT SHIFT is Present. Performed By: #### L 501.4020, L500.2500, L300.3900, L300.4310, L100.0100 #### [facility] Laboratory [address] [place], [address] Lymphocytes/100 WBC (Bld) 33.9 % Normal 19-41 [facility] Comment on above: Performed By: #### L 501.4020, L500.2500, L300.3900, L300.4310, L100.0100 #### [facility] Laboratory [address] [place], [address] MCH (RBC) [Entitic mass] 32.5 pg High 27.0-32.0 [facility] Comment on above: Performed By: #### L 501.4020, L500.2500, L300.3900, L300.4310, L100.0100 #### [facility] Laboratory [address] [place], [address] MCHC (RBC) [Mass/Vol] 35.7 g/dL Normal 32-36 [facility] Comment on above: Performed By: #### L 501.4020, L500.2500, L300.3900, L300.4310, L100.0100 #### [facility] Laboratory [address] [place], [address] MCV (RBC) [Entitic vol] 91.0 fL Normal 80-94 [facility] Comment on above: Performed By: #### L 501.4020, L500.2500, L300.3900, L300.4310, L100.0100 #### [facility] Laboratory [address] [place], [address] Monocytes/100 WBC (Bld) 10.1 % High 0-10 [facility] Comment on above: Performed By: #### L 501.4020, L500.2500, L300.3900, L300.4310, L100.0100 #### [facility] Laboratory [address] [place], [address] Neutrophils/100 WBC (Bld) 54.1 % Normal 47-70 [facility] Comment on above: Performed By: #### L 501.4020, L500.2500, L300.3900, L300.4310, L100.0100 #### [facility] Laboratory [address] [place], [address] Nucleated RBC (Bld) [#/Vol] 0 10*3/uL Normal 0-5 [facility] Comment on above: Performed By: #### L 501.4020, L500.2500, L300.3900, L300.4310, L100.0100 #### [facility] Laboratory [address] [place], [address] Platelet mean volume (Bld) [Entitic vol] 11.4 fL Normal 6.2-12.0 [facility] Comment on above: Performed By: #### L 501.4020, L500.2500, L300.3900, L300.4310, L100.0100 #### [facility] Laboratory [address] [place], [address] Platelets (Bld) [#/Vol] 148 10*3/uL Low 150-450 [facility] Comment on above: Performed By: #### L 501.4020, L500.2500, L300.3900, L300.4310, L100.0100 #### [facility] Laboratory [address] [place], [address] RBC (Bld) [#/Vol] 5.36 10*6/uL Normal 4.6-6.2 [facility] Comment on above: Performed By: #### L 501.4020, L500.2500, L300.3900, L300.4310, L100.0100 #### [facility] Laboratory [address] [place], [address] RDW SD 40.9 fl Normal 35.1-43.9 [facility] Comment on above: Performed By: #### L 501.4020, L500.2500, L300.3900, L300.4310, L100.0100 #### [facility] Laboratory [address] [place], [address] WBC (Bld) [#/Vol] 6.4 10*3/uL Normal 4.4-11.0 [facility] Comment on above: Performed By: #### L 501.4020, L500.2500, L300.3900, L300.4310, L100.0100 #### [facility] Laboratory [address] [place], [address] Cardiac Cath Interventionon 05-18-[address] [facility] Imaging Services [address] [place] [address] Cardiac Cath Intervention MR#: [id number] Acct: [id number] Name: ALBA SMITH [place] Rep #: [id number] : 1945 79 From: Shayla Armijo MD PCP: Dr. Aaron Cm MD Status:ADM IN Patient Name: ALBA SMITH Study Date: 05/18/2024 Performing: Shayla Armijo MD Ht: 70 inches 178 cm : 1945 Wt: 185.2 lbs 83.91 kg Age: 79 Gender: male BSA: 2.02 PROCEDURE(S) PERFORMED DC01-(23065)LHC/COR/LV IC16-(87836/C9606)AMI, PRO OR PTCA, ARTERY/GRAFT, SINGLE VESSEL CLINICAL PROFILE AND CO-MORBIDITIES Indications: ACS <= 24 hrs Heart Failure: None CAD Presentations: STEMI. Symptom onset Date/Time: 05/18/2201 13:00:00 Time Estimated CONCLUSIONS 99% Prox RCA with thrombus SECOND HELPER Prox OM1 (filling retrogradely via collaterals from Ramus and RPLV 80% distal Mid LAD (small 2 mm vessel) LVEF 60% (post-dilated using 3.5 mm balloon) RECOMMENDATIONS ASA Indefinitley P2Y12 inhibitors for atleast 6 months DESCRIPTION OF PROCEDURE The patient arrived to the procedure lab. The risks and benefits of the procedure as well as a full description of our services here and lack of surgical backup were fully explained to the patient and/or their significant other prior to the catheterization. The Timeout was completed, verifying the correct patient and procedure. The patient's procedural site was prepped and draped in the usual fashion. Local anesthetic was given subcutaneously to right radial region with Lidocaine 2%. Using a modified Seldinger technique, arterial access was obtained via the right radial artery, a 6Fr sheath was inserted.. Left Coronary Artery selective angiography was performed in multiple views using a 5 Fr. 4.0 [place] catheter. Right Coronary Artery selective angiography was then performed in multiple views using a 5 Fr. 4.0 [place] catheter. Left Ventriculography was performed in PILLAI projection using a 5 Fr. Pigtail catheter. LV to AO pullback pressures were then recordedThe images were reviewed and options discussed. A decision was then made to proceed with an Intervention, IVUS or other adjunct procedure. jr 4 Guide catheter was inserted and engaged into the RCA. runthrough Guide wire was advanced to the RCA. Balloon catheter was advanced across lesion in the right coronary, proximal. PTCA balloon inflated at 6 atms for 4 secs. PTCA balloon inflated at 6 atms for 15 secs. PTCA balloon inflated at 8 atms for 10 secs. Angiogram performed post balloon dilatation. 3.5 x 26 javier Drug Eluting stent was advanced across the lesion in the right coronary, proximal. emerge 2.0 x 8 Balloon catheter was advanced across lesion in the right coronary, proximal. PTCA balloon inflated at 4 atms for 30 secs. 3.0 x 26 javier Drug Eluting stent was advanced across the lesion in the right coronary, proximal. Angiogram performed post stent deployment. nc emerge 3.5 x 8 Balloon catheter was inserted post stent. Angiogram performed post balloon dilatation. javier 4.0 x 8 Drug Eluting stent was advanced across the lesion in the right coronary, proximal. Angiogram performed post stent deployment. nc euphora 4.0 x 8 Balloon catheter was inserted post stent. The arterial sheath was pulled and a TR Band was applied for hemostasis CORONARY ANGIOGRAPHY DOMINANCE: Right Dominant LEFT HEART ASSESSMENT Left Ventricular Ejection Fraction: by LV Gram 60 % LVEDP: 28 mmHg LEFT MAIN: Luminal Irregularities 10% Ostial lesion in LMCA LEFT ANTERIOR DESCENDING ARTERY: LAD: Calcified 40% Proximal lesion in LAD Calcified 80% Mid lesion in LAD OM 1: Tubular 100% Ostial lesion in MARG1 OM 2: Tubular 100% Ostial lesion in MARG1 RIGHT CORONARY ARTERY: RCA: Complex 99% Proximal lesion in RCA Tubular 50% Proximal lesion in RCA COLLATERAL FLOW: Collateral flow from RAMUS to MARG1 Collateral flow from RT LV-BR to MARG1 INTERVENTION INFORMATION LESION SITE: RCA (Proximal) Lesion Complexity: High/C, thrombus present: Yes, lesion length: 30 mm, culprit lesion: Yes Pre Stenosis: 99 % Pre intervention ROCKY flow: 3 PROCEDURE: Drug Eluting Stent with pre and post dilatation Post Stenosis: 0 % Post intervention ROCKY flow: 3 Lesion Devices: Cordis 6 Fr JR4 100cm Guide Catheter Terumo .014 180cm Runthrough Extra Floppy straight Jono Sci EMERGE MR 3.00x12 BALLOON Medtronic 3.0 x 26 JAVIER FRONTIER PRO Jono Sci EMERGE MR 2.00x08 BALLOON Jono Sci NC EMERGE MR 3.50x15 BALLOON Medtronic 4.0 x 08 JAVIER FRONTIER PRO COMPLICATIONS No Complications PROCEDURE MEDICATIONS Versed 2 mg IV Fentanyl 50 mcg IV Oxygen: 2 L/min via nasal cannula Heparin 3000 unit(s) IV 05/18/2024 14:25:30 Heparin 3000 unit(s) IV 05/18/2024 14:25:30 Heparin 2 unit(s) IV 05/18/2024 14:59:50 Verapamil 2.5mg, (more content not included)... Normal [facility] Consultation - Cardiologyon 05-18-2024 Consultation - Cardiology [facility] Medical Records Department [address] [place] [address] Consultation - Cardiology 05/18/24 1544 MR#: [id number] Acct: [id number] Name: ALBA SMITH Rep #: [id number] : 1945 79 From: Shayla Armijo MD PCP: Dr. Aaron Cm MD Status:ADM IN Location: [place] [address] Assessment Plan Assessment/Plan (1) 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: PLAN: After obtaining informed consent, patient was taken emergently to the cardiac catheterization lab. He was noted to have subtotal occlusion of his proximal RCA with thrombus burden. Successful balloon angioplasty and stent placement was performed with placement of 4.0 x 8 mm and 3.0 x 26 mm drug-eluting stents. Excellent results were noted. Continue aspirin lifelong. Clopidogrel for at least 12 months. (2) Coronary artery disease: PLAN: See #1 above. Patient is also noted to have chronic total occlusion of his proximal obtuse marginal branch which is filling albuterol greatly via collaterals from the RCA as well as from the ramus intermedius. Also a tight lesion in his distal mid LAD. Recommend medical therapy. If continued to have symptoms despite maximal medical therapy, then will consider staged PCI to the mid LAD. (3) HTN (hypertension): PLAN: Beta-blockers, ACEI, amlodipine. (4) Dyslipidemia: PLAN: Atorvastatin. HPI Consult Data Date of Consult: 05/18/24 HPI Narrative Reason for Consultation: STEMI HPI Narrative: 79-year-old gentleman with past medical history significant for hypertension and dyslipidemia. Presented with symptoms of anterior chest pressure of about 1 hour duration. In the emergency room, an ECG was done. It showed changes consistent with acute inferior ST elevation myocardial infarction. Subsequently a STEMI alert was called. Patient denies any radiation of his discomfort to the arm neck or jaw. No previous history of coronary artery disease or congestive heart failure. [facility] Medical History (Updated 05/18/24 @ 15:[address] Shayla Armijo MD) Wears glasses Alcohol use Arthritis Back pain Migraine headache Difficulty swallowing Non-smoker GERD (gastroesophageal reflux disease) Hyperlipidemia HTN (hypertension) Home Medications ???Medication ???Instructions ???Recorded ???Last Taken ???Type amlodipine 5 mg tablet 10 mg PO QHS 01/17/21 Unknown Hist ory cholecalciferol (vitamin D3) 10 2,000 unit PO DAILY 01/17/21 Unkno wn History mcg (400 unit) capsule doxazosin 1 mg tablet 2 mg PO QHS 01/17/21 Unknown Histo ry atorvastatin 10 mg tablet 10 mg PO QHS 02/13/23 Unknown Hist ory omeprazole 20 mg capsule,delayed 20 mg PO QHS 02/13/23 Unknown Hist ory release tramadol 50 mg tablet 50 mg PO Q6H PRN pain #14 tabs 08/18 Unknown Rx Allergy/AdvReac Type Severity Reaction Status Date / Time niacin Allergy Unknown unknown Verified 03/15/23 13:27 Sulfa (Sulfonamide Allergy Unknown unknown Verified 03/15/23 13:27 Antibiotics) Family History Brother Cancer esophageal Courtney esophagus Surgical History S/P laparoscopic cholecystectomy Hx of esophagogastroduodenoscopy Hx of colonoscopy Hx of eye surgery Social History Smoking Status: Never smoker alcohol intake: current alcohol intake frequency: holidays/special occasions only Physical Exam Narrative Appeared mildly distressed. Heart sounds 1 and 2 normal. No murmurs. Chest clear to auscultation bilaterally. Alert oriented x 3. No ankle edema. Risk Stratification Risk Stratification Applicable: No Objective Data Vital Signs: Vital Signs Temp Pulse Resp BP Pulse Ox O2 Del Method 98.7 F 77 16 130/86 H 98 Room Air 05/18/24 14:29 05/18/24 14:29 05/18/24 14:29 05/18/24 14:29 05/18/24 14:29 05/18/24 14:27 Oxygen Delivery Method Room Air Weight: 185 lb Body Mass Index (BMI) 26.4 Lab / Micro Data Attestation: I reviewed the patient's lab results. 05/18/24 14:10 05/18/24 14:10 Labs: Laboratory Results - last 24 hr 05/18/24 14:10: WBC 6.4, RBC 5.36, Hgb 17.4 H, Hct 48.8, MCV 91.0, MCH 32.5 H, MCHC 35.7, RDW Std Deviation 40.9, RDW Coeff of Fabrizio 12.4, Plt Count 148 L, MPV 11.4, Immature Gran % (Auto) 0.300, Neut % (Auto) 54.1, Lymph % (Auto) 33.9, [place] % (Auto) 10.1 H, Eos % (Auto) 1.1, Baso % (Auto) 0.5, Absolute Neuts (auto) 3.5, Absolute Lymphs (auto) 2.17, Nucleated RBC % 0, PT 12.4, INR 0.9, APTT 26.6, Sodium 140, Potassium 3.8, Chloride 106, Carbon Dioxide 27.0, Anion Gap 7, BUN 17, Creatinine 1.32 H, Estim Creat Clear Calc 48.39, Est GFR (MDRD) Af Amer 68, Est GFR (MDRD) Non-Af 56 L, BUN/Creatinine Ratio 12.9, Glucose 161 H, Calcium 9.1, Troponin I Hig (more content not included)... Normal [facility] Echo Complete W/ Contraston 05-18-2024 Echo Complete W/ Contrast [facility] [address] [place] [address] Echo Complete W/ Contrast 05/19/24 0936 MR#: [id number] Acct: [id number] Name: ALBA SMITH Rep #: [id number] : 1945 79 From: Toni Perez MD Attending Dr: Dr. Radha Hodges MD Status: AD M IN Ordering Dr: Shayla Armijo MD Date: 05/18/24 Location: ICU Sex: M C Admitted: 05/18/24 Reason For Study Reason For Study: CHEST PAIN Procedure This was a 2D Doppler, Color Flow transthoracic echocardiogram. Myocardial strain analysis was performed in this exam to aid in the assessment of cardiac function. The study was technically difficult. Contrast injection was performed. Exam performed portable in ICU/CCU. Left Ventricle Normal LV size. Mild eccentric left ventricular hypertrophy. The estimated ejection fraction is 40- 45 %. Inferior and inferolateral de anda are hypokinetic. Right Ventricle Mildly dilated right ventricle. Mild global right ventricular systolic dysfunction. Atria The left and right atria are normal. Mitral Valve The mitral valve is structurally normal. No prolapse or stenosis seen. Trivial mitral valve insufficiency. Tricuspid Valve Normal tricuspid valve. Trivial tricuspid valve insufficiency. Unable to estimate RV systolic pressure due to insufficient tricuspid regurgitant envelope. Aortic Valve Trisinus/trileaflet aortic valve. Mild focal aortic valve calcification. There is no aortic stenosis. Pulmonic Valve Normal pulmonic valve. Trivial pulmonic valve insufficiency. Great Vessels Normal sized aortic root. Pericardium/Pleural No pericardial effusion. Medication Diluted definity 1ml given slow IV push to enhance endocardial definition. MMode/2D Measurements Calculations LVIDd: 4.4 cm IVSd: 1.0 cm LVOT diam: 2.0 cm LVIDs: 3.5 cm LVPWd: 1.4 cm RVDd: 4.2 cm FS: 20.0 % LVOT area: 3.1 cm2 LAV(MOD-bp): 48.8 ml LVAd ap4: 33.2 cm2 SV(MOD-sp4): 50.0 ml LAV(MOD-bp) Indexed: 24.1 ml/m2 LVLd ap4: 8.0 cm SI(MOD-sp4): 24.8 ml/m2 LAV(MOD-sp2): 41.3 ml EDV(MOD-sp4): 116.8 ml LAV(MOD-sp4): 51.0 ml EDV(sp4-el): 117.5 ml LVAs ap4: 23.8 cm2 LVLs ap4: 7.4 cm ESV(MOD-sp4): 66.8 ml ESV(sp4-el): 64.4 ml EF(MOD-sp4): 42.8 % EF(sp4-el): 45.2 % SV(sp4-el): 53.1 ml LA A4 area: 19.2 cm2 LA dimension(2D): 3.8 cm RA A4 area: 14.6 cm2 Time Measurements MV dec time: 0.21 sec Doppler Measurements Calculations MV E max smooth: 78.9 cm/sec Lat Peak E' Smooth: 10.0 cm/sec Med Peak E' Smooth: 7.4 cm/sec MV A max smooth: 82.2 cm/sec E/E' lat: 7.9 E/E' med: 10.6 MV E/A: 0.96 MV dec slope: 383.5 cm/sec2 Ao V2 max: 144.0 cm/sec LV V1 max: 119.2 cm/sec Ao max P.3 mmHg LV V1 max P.7 mmHg Ao V2 mean: 93.6 cm/sec LV V1 mean P.5 mmHg Ao mean P.1 mmHg LV V1 mean: 70.3 cm/sec Ao V2 VTI: 27.0 cm LV V1 VTI: 22.3 cm AV (velocity ratio): 0.82 JOYCE(I,D): 2.6 cm2 JOYCE(V,D): 2.6 cm2 SV(LVOT): 70.1 ml PA V2 max: 91.0 cm/sec PA V2 mean: 59.6 cm/sec ECHO/Echo Complete W/ Contrast Interpretation Summary The estimated ejection fraction is 40-45 %. Inferior and inferolateral de anda are hypokinetic. Mildly dilated right ventricle. Mild global right ventricular systolic dysfunction. Mild focal aortic valve calcification. Contrast injection was performed. Ordering Physician: Shayla Armijo Referring Physician: AARON CM Performed By: Sharron Sanders RCS 05/19/24 1635 Date Toni Perez MD CC: Dr. Shayla Armijo MD; Dr. Aaron Cm MD; Dr. Radha Hodges MD Date Dictated: 05/19/2436 Date Transcribed: 05/19/241634 Insurance Claims Analyst: Signed Normal [facility] Emergency Department Summary on 05-18-[address] [facility] Medical Records Department [address] [place] [id number] Emergency Department Summary 05/18/24 MR#: [id number] Acct: [id number] Name: ALBA SMITH ROYAL Rep #: [id number] : 1945 79 From: Robby Elizondo MD PCP: Dr. Aaron Cm MD Status:REG ER Location: ED HPI History of Present Illness Chief Complaint: Chest Pain Detail of Chief Complaint: Chest tightness Informant: patient Onset/Context/Timing Onset: Today and Hours (1 hour prior to presentation) Activity at onset: sudden Timing: Continuous Quality: Positive for Pressure Location: Substernal Current Severity: Moderate Maximum Severity: Moderate Worsened By: Nothing Relieved By: Nothing Associated Symptoms: Positive for Dyspnea; Negative for Nausea, Cough, Fever, Lightheadedness, Acid Reflux or Palpitations Narrative Narrative: Patient presents with chest pressure that started 1 hour prior to presentation. He reports mild shortness of breath. He has history hypertension hypercholesterolemia. He has no other complaints Prior Similar Symptoms: No Recent Illness/Hospitalization: No CVD Risk Factors: Positive for Hypertension and Hypercholesterolemia; Negative for Diabetes, Family History 1' PE Risk Factors: Negative for Recent Travel/Surgery, Recent Immobilization, Prior DVT or PE, Cancer or OCP + Smoking + >/=35 TAD Risk Factors: Positive for Hypertension and Family History; Negative for Marfan's Syndrome PFSH PFS Medical History Wears glasses Alcohol use Arthritis Back pain Migraine headache Difficulty swallowing Non-smoker GERD (gastroesophageal reflux disease) Hyperlipidemia HTN (hypertension) Home Medications ???Medication ???Instructions ???Recorded ???Last Taken ???Type amlodipine 5 mg tablet 10 mg PO QHS 01/17/21 Unknown Hist ory cholecalciferol (vitamin D3) 10 2,000 unit PO DAILY 01/17/21 Unkno wn History mcg (400 unit) capsule doxazosin 1 mg tablet 2 mg PO QHS 01/17/21 Unknown Histo ry atorvastatin 10 mg tablet 10 mg PO QHS 02/13/23 Unknown Hist ory omeprazole 20 mg capsule,delayed 20 mg PO QHS 02/13/23 Unknown Hist ory release tramadol 50 mg tablet 50 mg PO Q6H PRN pain #14 tabs 08/18 Unknown Rx Allergy/AdvReac Type Severity Reaction Status Date / Time niacin Allergy Unknown unknown Verified 03/15/23 13:27 Sulfa (Sulfonamide Allergy Unknown unknown Verified 03/15/23 13:27 Antibiotics) Family History Brother Cancer esophageal Courtney esophagus Surgical History S/P laparoscopic cholecystectomy Hx of esophagogastroduodenoscopy Hx of colonoscopy Hx of eye surgery Social History Smoking Status: Never smoker alcohol intake: current alcohol intake frequency: holidays/special occasions only ROS ROS ED Constitutional Constitutional ED: Denies chills or fever(s) Eyes Eyes: Reports none ENT ENT ED: Denies rhinorrhea or sore throat Cardiovascular Cardiovascular: Reports as per HPI Respiratory/Chest Respiratory/Chest: Reports dyspnea; Denies cough Gastrointestinal Gastrointestinal: Denies abdominal pain, diarrhea, melena or vomiting Genitourinary Genitourinary ED: Denies dysuria, hematuria or urinary frequency Musculoskeletal Musculoskeletal: Denies back pain or neck pain Integumentary Denies rash Neurologic Neurologic: Denies headache(s) or paresthesias Endocrine Endocrinology: Denies cold intolerance or heat intolerance Hematologic/Lymphatic Hematologic/Lymphatic: Denies easy bleeding or easy bruising EXAM Physical Exam Const Vital Signs: 05/18/24 13:54 Temperature 97.9 F Temperature Source Temporal Pulse Rate 79 Respiratory Rate 18 Blood Pressure 164/95 H Blood Pressure Mean 118 Pulse Ox 99 Oxygen Delivery Method Room Air Positive well nourished and well developed General Appearance ED: well developed HEENT Reports moist mucous membranes normocephalic and atraumatic Eyes PERRL and EOMs intact bilaterally General Eye ED: Negative for pale conjunctiva or scleral icterus Chest Wall inspection of chest normal and palpation of chest normal Resp normal respiratory effort and clear to auscultation bilaterally Cardio regular rate, regular rhythm, S1 normal heart sound and no murmurs GI normal to inspection, nondistended, normoactive bowel sounds, soft to palpation and non-tender; Negative for hepatosplenomegaly Extremity normal to inspection Extremity Narrative: There is no clubbing or cyanosis. Neuro oriented x3 and CN's II-XII intact bilaterally Sensorium / Orientation: awake and alert Psych mental status g (more content not included)... Normal [facility] H AND P Exam - [facility] 05-18-2024 H&P Exam - Hospitalist [facility] Medical Records Department [address] [place] [address] H P Exam - Hospitalist 05/18/24 1742 MR#: [id number] Acct: [id number] Name: ALBA SMITH ROYAL Rep #: [id number] : 1945 79 From: Jasmin Morales MD PCP: Dr. Aaron Cm MD Status:ADM IN Location: ICU [id number] HPI - General General Date of Admission: 05/18/24 Date of Service: 05/18/24 Chief Complaint: Chest pain HPI Narrative ALBA SMITH, is a 79-year-old male with history of hypertension, hyperlipidemia, and GERD presented [facility] ED 05/18/2024 due to 1 hour of chest tightness and mild shortness of breath. The pressure was substernal and moderate in intensity with no exacerbating or relieving factors. In triage patient found to have STEMI with ST elevation in inferior leads. He was given aspirin and Brilinta and heparin and taken to the [facility]. Hospitalist contacted to admit post intervention. Patient evaluated post cath in the ICU. Patient denies any further chest pain, shortness of breath, denies any nausea. ROS completely negative for any acute process. Also of note patient denies any history of previous chest pain said this started suddenly and is never happened to him before [facility] Medical History (Updated 05/18/24 @ 15:[address] Shayla Armijo MD) Alcohol use Arthritis Back pain Difficulty swallowing GERD (gastroesophageal reflux disease) HTN (hypertension) Hyperlipidemia Migraine headache Non-smoker Wears glasses Home Medications ???Medication ???Instructions ???Recorded ???Last Taken ???Type amlodipine 5 mg tablet 10 mg PO QHS 01/17/21 Unknown Hist ory cholecalciferol (vitamin D3) 10 2,000 unit PO DAILY 01/17/21 Unkno wn History mcg (400 unit) capsule doxazosin 1 mg tablet 2 mg PO QHS 01/17/21 Unknown Histo ry atorvastatin 10 mg tablet 10 mg PO QHS 02/13/23 Unknown Hist ory omeprazole 20 mg capsule,delayed 20 mg PO QHS 02/13/23 Unknown Hist ory release tramadol 50 mg tablet 50 mg PO Q6H PRN pain #14 tabs 08/18 Unknown Rx Allergy/AdvReac Type Severity Reaction Status Date / Time niacin Allergy Unknown unknown Verified 03/15/23 13:27 Sulfa (Sulfonamide Allergy Unknown unknown Verified 03/15/23 13:27 Antibiotics) Family History Brother Cancer esophageal Courtney esophagus Surgical History Hx of colonoscopy Hx of esophagogastroduodenoscopy Hx of eye surgery S/P laparoscopic cholecystectomy Social History Smoking Status: Never smoker alcohol intake: current alcohol intake frequency: holidays/special occasions only ROS ROS Narrative Patient at this time with no acute complaints Vital Signs Vital Signs Vital Signs: 05/18/24 13:54 05/18/24 14:27 05/18/24 14:29 Temperature 97.9 F 98.7 F Temperature Source Temporal Pulse Rate 79 77 Respiratory Rate 18 16 Respiratory Effort Respiratory Pattern Blood Pressure 164/95 H 130/86 H Blood Pressure Mean 118 100 Blood Pressure Source Blood Pressure Position Blood Pressure Location Pulse Ox 99 98 98 Oxygen Delivery Method Room Air Room Air 05/18/24 14:31 05/18/24 16:05 05/18/24 16:12 Temperature 97.9 F Temperature Source Temporal Pulse Rate 61 Respiratory Rate 20 H Respiratory Effort Normal Respiratory Pattern Normal Blood Pressure 139/85 H Blood Pressure Mean 103 Blood Pressure Source Monitor Blood Pressure Position Semi-Fowlers Blood Pressure Location Right Arm Pulse Ox 95 98 Oxygen Delivery Method Room Air Room Air 05/18/24 16:15 05/18/24 16:30 05/18/24 16:45 Temperature Temperature Source Pulse Rate 58 L 55 L 58 L Respiratory Rate 18 18 20 H Respiratory Effort Respiratory Pattern Blood Pressure 129/84 H 122/72 H 123/93 H Blood Pressure Mean 99 88 103 Blood Pressure Source Monitor Monitor Monitor Blood Pressure Position Semi-Fowlers Semi-Fowlers Semi-Fowlers Blood Pressure Location Right Arm Left Arm Left Arm Pulse Ox 98 98 98 Oxygen Delivery Method Room Air Room Air Room Air 05/18/24 17:00 Temperature Temperature Source Pulse Rate 58 L Respiratory Rate 18 Respiratory Effort Respiratory Pattern Blood Pressure 127/77 H Blood Pressure Mean 93 Blood Pressure Source Monitor Blood Pressure Position Semi-Fowlers Blood Pressure Location Left Arm Pulse Ox 97 Oxygen Delivery Method Room Air Weight Weight: 84.2 kg Body Mass Index (BMI) 26.5 Physical Exam Narrative General: Alert, oriented, no apparent distress HEENT: Atraumatic, normocephalic Eyes: Anicteric, normal conjunc (more content not included)... Normal [facility] L501.4020on 05-18-2024 TROPONIN-I HS 146 pg/mL Invalid Interpretation Code 3.0-78.0 [facility] Comment on above: Order Comment: 'TROP ' Serial specimen #1, #2 or #3: 1 Result Comment: Carmen ical Result(s) Called at: 15:32:09 05/18/2024 by: Thalia [facility]leton to [facility]. Results read back by same. Please Note: New Test Units and Gender Specific Reference Ranges. For more information see Policy Stat Procedure [place] High Sensitivity Troponin (TNIH) and attachments. Performed By: #### L 501.4020, L500.2500, L300.3900, L300.4310, L100.0100 ####[facility] [id number] [place], [address] MR/QUALITYon 05-18-2024 MR/QUALITY [facility] Medical Records Department [address] [place] [address] Quality Report 05/18/24 1534 MR#: [id number] Acct: [id number] Name: ALBA SMITH ROYAL Rep #: [id number] : 1945 79 From: Fermin Polo PCP: Dr. Aaron Cm MD Status:ADM IN Location: [place] [address] STEMI STEMI ED Door Time / Other REG STEMI EKG Time (1) 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: Acute 05/18/24 13:53 Balloon/Aspiration Date-Time Date of Balloon/Aspiration:: 05/18/24 Time of Balloon/Aspiration:: 14:33 05/18/24 1535 Date Fermin Polo Cosigner Signature (if applicable): Date CC: Signed Normal [facility] Partial Thromboplast Timeon 05-18-2024 aPTT Coag (Bld) [Time] 26.6 s Normal 24.1-36.2 [facility] Comment on above: Performed By: #### L 501.4020, L500.2500, L300.3900, L300.4310, L100.0100 ####[facility] [id number] [place], [address] Prothrombin Time w/INRon INR Coag (PPP) [Relative time] 0.9 {INR} Normal [facility] Comment on above: Performed By: #### L 501.4020, L500.2500, L300.3900, L300.4310, L100.0100 #### [facility] Laboratory [address] [place], [address] PT Coag (PPP) [Time] 12.4 s Normal 11.7-14.9 [facility] Comment on above: Performed By: #### L 501.4020, L500.2500, L300.3900, L300.4310, L100.0100 #### [facility] Laboratory [address] [place], [address] Troponin IOrdered By: Robby landeros on 05-18-2024 Troponin I 146 pg/mL High 3.0-78.0 [facility] Comment on above: Critical Result(s) C alled at: 15:32:09 05/18/2024 by: Thalia Singleton to [facility]. Results read back by same. Please Note: New Test Units and Gender Specific Reference Ranges. For more information see Policy Stat Procedure [place] High Sensitivity Troponin (TNIH) and attachments. Troponin I High Sensitivity 146 pg/mL High 3.0-78.0 [facility] Comment on above: Critical Result(s) C alled at: 15:32:09 05/18/2024 by: Thalia Singleton to [facility]. Results read back by same. Please Note: New Test Units and Gender Specific Reference Ranges. For more information see Policy Stat Procedure [place] High Sensitivity Troponin (TNIH) and attachments. XR Chest PA and Lateralon IMPRESSION: No acute radiographic abnormality. Insurance Claims Analyst: SMITA Transcribe Date/Time: Aug 26 2023 10:24A Dictated by : STANISLAV DICKENS MD This examination was interpreted and the report reviewed and electronically signed by: STANISLAV DICKENS MD on Aug 26 2023 10:28AM [facility] * * *Final Report* * * DATE OF EXAM: Aug 26 2023 10:15AM WOX [id number] - XR CHEST 2V FRONTAL/LAT / PROCEDURE REASON: Acute cough * * * * Physician Interpretation * * * * EXAMINATION: CHEST RADIOGRAPH (2 VIEW FRONTAL & LATERAL) CLINICAL HISTORY: Acute cough MQ: XC2_6 EXAM DATE/TIME: 08/26/2023 10:15 AM COMPARISON: Chest x-ray on 06/04/2022 RESULT: Lines, tubes, and devices: None. Lungs and pleura: No consolidation. No lung mass. No pleural effusion. No pneumothorax. Cardiomediastinal silhouette: Normal cardiomediastinal silhouette. Bones and soft tissues: The spine shows degenerative changes. DIVISION OF RADIOLOGY Provider, [facility] - 08/26/2023 * * *Final Report* * * DATE OF EXAM: Aug 26 2023 10:15AM WOX [id number] - XR CHEST 2V FRONTAL/LAT / PROCEDURE REASON: Acute cough * * * * Physician Interpretation * * * * EXAMINATION: CHEST RADIOGRAPH (2 VIEW FRONTAL & LATERAL) CLINICAL HISTORY: Acute cough MQ: XC2_6 EXAM DATE/TIME: 08/26/2023 10:15 AM COMPARISON: Chest x-ray on 06/04/2022 RESULT: Lines, tubes, and devices: None. Lungs and pleura: No consolidation. No lung mass. No pleural effusion. No pneumothorax. Cardiomediastinal silhouette: Normal cardiomediastinal silhouette. Bones and soft tissues: The spine shows degenerative changes. IMPRESSION IMPRESSION: No acute radiographic abnormality. Insurance Claims Analyst: SMITA Transcribe Date/Time: Aug 26 2023 10:24A Dictated by : STANISLAV DICKENS MD This examination was interpreted and the report reviewed and electronically signed by: STANISLAV DICKENS MD on Aug 26 2023 10:28AM EST [facility] Radiology Study observation (narrative) [facility] XR Chest PA and LateralOrder ed By: [facility] Provider on 08-26-2023 [facility] Absolute lymphocyte countOrd ered By: Guy Boateng on 02-20-2023 Lymphocytes Auto (Unsp spec) [#/Vol] 1.49 10*3/uL 0.83-4.51 [facility] Basophil percentageOrdered B y: Guy Boateng on 02-20-2023 Basophil percentage 0 SEEN /hpf 0-5 [facility] Basophils/100 WBC (Bld) 0.7 % 0-1 [facility] Bilirubin [Mass/Vol] 0.60 mg/dL 0.20-1.00 [facility] Comment on above: For patients on eltr ombopag therapy, use of Dimension [place] TBIL is not recommended. Chloride [Moles/Vol] 106 mmol/L 98-107 [facility] Eosinophils/100 WBC (Bld) 0.8 % 0-5 [facility] Glucose [Mass/Vol] 140 mg/dL 74-106 [facility] Comment on above: Fasting Glucose resu lt greater than or equal to 126 mg/dL suggests DIABETES MELLITUS per A.D.A. criteria. Neutrophils (Bld) [#/Vol] 5.3 10*3/uL 2.0-7.7 [facility] Neutrophils/100 WBC (Bld) 71.7 % 47-70 [facility] Potassium [Moles/Vol] 3.7 mmol/L 3.5-5.1 [facility] Protein [Mass/Vol] 7.2 g/dL 6.4-8.2 [facility] Sodium [Moles/Vol] 141 mmol/L 136-145 [facility] WBC (Bld) [#/Vol] 7.4 10*3/uL 4.4-11.0 [facility] Bilirubin Test strip Ql (U)O rdered By: Guy Boateng on 02-20-2023 Bilirubin Ql (U) Negative Negative [facility] Blood erythrocytes count (nu mber/volume)Ordered By: Guy Boateng on 02-20-2023 RBC (Bld) [#/Vol] 5.67 10*6/uL 4.6-6.2 [facility] Blood hemoglobin measurement (mass/volume)Ordered By: Guy Boateng on 02-20-2023 Hemoglobin (Bld) [Mass/Vol] 17.7 g/dL 13.0-16.5 [facility] Blood lymphocytes/100 leukoc ytesOrdered By: Guy Boateng on 02-20-2023 Lymphocytes/100 WBC (Bld) 20.0 % 19-41 [facility] Blood monocytes/100 leukocyt esOrdered By: Guy Boateng on 02-20-2023 Monocytes/100 WBC (Bld) 6.7 % 0-10 [facility] Blood platelet mean volumeOr dered By: Guy Boateng on 02-20-2023 Platelet mean volume (Bld) [Entitic vol] 11.3 fL 6.2-12.0 [facility] Determination of erythrocyte mean corpuscular volume (MCV)Ordered By: Guy Boateng on 02-20-2023 MCV (RBC) [Entitic vol] 92.1 fL 80-94 [facility] Direct bilirubinOrdered By: Guy Boateng on 02-20-2023 Bilirubin.direct [Mass/Vol] 0.18 mg/dL 0.00-0.30 [facility] Hematocrit Auto (Bld) [Volum e fraction]Ordered By: Guy Boateng on 02-20-2023 Hematocrit (Bld) [Volume fraction] 52.2 % 40-54 [facility] Ketones Test strip Ql (U)Ord ered By: Guy Boateng on 02-20-2023 Ketones Ql (U) Negative Negative [facility] Laboratory - Chemistry and C hemistry - challengeOrdered By: Guy Boateng on 02-20-2023 ALP [Catalytic activity/Vol] 94 U/L 45-117 [facility] ALT [Catalytic activity/Vol] 21 U/L 16-61 [facility] CO2 [Moles/Vol] 29.0 mmol/L 21.0-32.0 [facility] Globulin (S) [Mass/Vol] 3.3 g/dL 2.2-4.2 [facility] Lipase [Catalytic activity/Vol] 43 U/L 13-75 [facility] Comment on above: Please note:LIPASE r evised reference range effective 22. New Lipase methodology. Expected to produce lower values than the previous assay method. NEW Reference Range: 13 - 75 U/L Urea nitrogen/Creatinine [Mass ratio] 15.9 mg/mg 10-20 [facility] Laboratory - Hematology and Cell countsOrdered By: Guy Boateng on 02-20-2023 Erythrocyte distribution width (RBC) [Entitic vol] 41.1 fL 35.1-43.9 [facility] Erythrocyte distribution width (RBC) [Ratio] 12.1 % 11.6-14.6 [facility] Immature granulocytes/100 WBC (Bld) 0.100 % 0.0-0.9 [facility] Comment on above: IG% - Immature Granu locytes (promyelocytes, myelocytes and metamyelocytes) > 1% indicates that a LEFT SHIFT is Present. MCH (RBC) [Entitic mass] 31.2 pg 27.0-32.0 [facility] Nucleated RBC/100 WBC (Bld) [Ratio] 0 % 0-5 [facility] MCHC Auto (RBC) [Mass/Vol]Or dered By: Guy Boateng on 02-20-2023 MCHC (RBC) [Mass/Vol] 33.9 g/dL 32-36 [facility] Mucus LM Ql (Urine sed)Order ed By: Guy Boateng on 02-20-2023 Mucus Ql (Urine sed) 0 SEEN /hpf [facility] Nitrite Test strip Ql (U)Ord ered By: Guy Boateng on 02-20-2023 Nitrite Ql (U) Negative Negative [facility] No Panel InformationOrdered By: Guy Boateng on 02-20-2023 Estimated Creatinine Clearance Calc 49.16 ml/min [facility] Estimated GFR (MDRD) Amer 68 mL/min >60 [facility] Comment on above: GFR Calc Estimated GFR (MDRD) Non-Af Amer 56 mL/min >60 [facility] Comment on above: Non- GFR Calc Troponin I High Sensitivity 9 pg/mL 3.0-78.0 [facility] Comment on above: Please Note: New Tegan t Units and Gender Specific Reference Ranges. For more information see Policy Stat Procedure [place] High Sensitivity Troponin (TNIH) and attachments. Platelets bldOrdered By: Pan Boateng on 02-20-2023 Platelets (Bld) [#/Vol] 153 10*3/uL 150-450 [facility] Protein Test strip Ql (U)Ord ered By: Guy Boateng on 02-20-2023 Protein Ql (U) 30 mg/dl Negative [facility] Serum or plasma albumin galo urement (mass/volume)Ordered By: Guy Boateng on 02-20-2023 Albumin [Mass/Vol] 3.9 g/dL 3.2-5.0 [facility] Serum or plasma calcium galo urement (mass/volume)Ordered By: Guy Boateng on 02-20-2023 Calcium [Mass/Vol] 8.2 mg/dL 8.5-10.1 [facility] Serum or plasma creatinine m easurement (mass/volume)Ordered By: Guy Boateng on 02-20-2023 Creatinine [Mass/Vol] 1.32 mg/dL 0.70-1.30 [facility] Comment on above: The validity of the calculated GFR & GFRAA in patients over 70 years has not been determined. Clinical correlation is essential. Serum or plasma urea nitroge n measurement (mass/volume)Ordered By: Guy Boateng on 02-20-2023 Urea nitrogen [Mass/Vol] 21 mg/dL 7-18 [facility] Squamous epithelial cells de tection in urine sediment by light microscopyOrdered By: Guy Boateng on 02-20-2023 Epithelial cells.squamous LM Ql (Urine sed) 0 SEEN /hpf 0-5 [facility] Thin prep Papanicolaou smear with manual screeningOrdered By: Guy Boateng on 02-20-2023 Thin prep Papanicolaou smear with manual screening 17 U/L 15-37 [facility] Thin prep Papanicolaou smear with manual screening 6 5-15 [facility] Urine blood detectionOrdered By: Guy Boateng on 02-20-2023 RBC Ql (U) 10 /ul Negative [facility] RBC Ql (U) 0 SEEN /hpf 0-5 [facility] Urine clarityOrdered By: Pan Boateng on 02-20-2023 Clarity (U) Clear Clear [facility] Urine color determinationOrd ered By: Guy Boateng on 02-20-2023 Color (U) Yellow Yellow [facility] Urine glucose detectionOrder ed By: Guy Boateng on 02-20-2023 Glucose Ql (U) Normal mg/dl Normal [facility] Urine leukocyte esterase det ection by dipstickOrdered By: Guy Boateng on 02-20-2023 Leukocyte esterase Test strip Ql (U) Negative Negative [facility] Urine pHOrdered By: Guy shaw on 02-20-2023 pH (U) 7.0 [pH] 5.0 - 8.0 [facility] Urine sediment bacteria coun t by microscopy (number/high power field)Ordered By: Guy Boateng on 02-20-2023 Bacteria LM.HPF (Urine sed) [#/Area] 0 /[HPF] None Seen [facility] Urine specific gravity measu rementOrdered By: Guy Boateng on 02-20-2023 Specific gravity (U) [Rel density] 1.010 1.002-1.03 0 [facility] Urobilinogen Auto test strip Ql (U)Ordered By: Guy Boateng on 02-20-2023 Urobilinogen Ql (U) Normal mg/dl Normal [facility] Absolute lymphocyte countOrd ered By: Guy Boateng on 02-13-2023 Lymphocytes Auto (Unsp spec) [#/Vol] 1.51 10*3/uL 0.83-4.51 [facility] Basophil percentageOrdered B y: Guy Boateng on 02-13-2023 Basophils/100 WBC (Bld) 0.6 % 0-1 [facility] Bilirubin [Mass/Vol] 0.60 mg/dL 0.20-1.00 [facility] Comment on above: For patients on eltr ombopag therapy, use of Dimension [place] TBIL is not recommended. Chloride [Moles/Vol] 106 mmol/L 98-107 [facility] Eosinophils/100 WBC (Bld) 0.9 % 0-5 [facility] Glucose [Mass/Vol] 133 mg/dL 74-106 [facility] Comment on above: Fasting Glucose resu lt greater than or equal to 126 mg/dL suggests DIABETES MELLITUS per A.D.A. criteria. Neutrophils (Bld) [#/Vol] 4.7 10*3/uL 2.0-7.7 [facility] Neutrophils/100 WBC (Bld) 68.8 % 47-70 [facility] Potassium [Moles/Vol] 3.7 mmol/L 3.5-5.1 [facility] Comment on above: Moderate Hemolysis, Result may be falsely increased. Protein [Mass/Vol] 6.9 g/dL 6.4-8.2 [facility] Sodium [Moles/Vol] 139 mmol/L 136-145 [facility] WBC (Bld) [#/Vol] 6.9 10*3/uL 4.4-11.0 [facility] Blood erythrocytes count (nu mber/volume)Ordered By: Guy Boateng on 02-13-2023 RBC (Bld) [#/Vol] 5.39 10*6/uL 4.6-6.2 [facility] Blood hemoglobin measurement (mass/volume)Ordered By: Guy Boateng on 02-13-2023 Hemoglobin (Bld) [Mass/Vol] 16.9 g/dL 13.0-16.5 [facility] Blood lymphocytes/100 leukoc ytesOrdered By: Guy Boateng on 02-13-2023 Lymphocytes/100 WBC (Bld) 21.9 % 19-41 [facility] Blood monocytes/100 leukocyt esOrdered By: Guy Boateng on 02-13-2023 Monocytes/100 WBC (Bld) 7.5 % 0-10 [facility] Blood platelet mean volumeOr dered By: Guy Boateng on 02-13-2023 Platelet mean volume (Bld) [Entitic vol] 11.2 fL 6.2-12.0 [facility] Determination of erythrocyte mean corpuscular volume (MCV)Ordered By: Guy Boateng on 02-13-2023 MCV (RBC) [Entitic vol] 91.8 fL 80-94 [facility] Direct bilirubinOrdered By: Guy Boateng on 02-13-2023 Bilirubin.direct [Mass/Vol] 0.12 mg/dL 0.00-0.30 [facility] Hematocrit Auto (Bld) [Volum e fraction]Ordered By: Guy Boateng on 02-13-2023 Hematocrit (Bld) [Volume fraction] 49.5 % 40-54 [facility] Laboratory - Chemistry and C hemistry - challengeOrdered By: Guy Boateng on 02-13-2023 ALP [Catalytic activity/Vol] 79 U/L 45-117 [facility] ALT [Catalytic activity/Vol] 21 U/L 16-61 [facility] CO2 [Moles/Vol] 29.0 mmol/L 21.0-32.0 [facility] Globulin (S) [Mass/Vol] 3.2 g/dL 2.2-4.2 [facility] Lipase [Catalytic activity/Vol] 33 U/L 13-75 [facility] Comment on above: Please note:LIPASE r evised reference range effective 22. New Lipase methodology. Expected to produce lower values than the previous assay method. NEW Reference Range: 13 - 75 U/L Urea nitrogen/Creatinine [Mass ratio] 15.9 mg/mg 10-20 [facility] Laboratory - Hematology and Cell countsOrdered By: Guy Boateng on 02-13-2023 Erythrocyte distribution width (RBC) [Entitic vol] 41.6 fL 35.1-43.9 [facility] Erythrocyte distribution width (RBC) [Ratio] 12.3 % 11.6-14.6 [facility] Immature granulocytes/100 WBC (Bld) 0.300 % 0.0-0.9 [facility] Comment on above: IG% - Immature Granu locytes (promyelocytes, myelocytes and metamyelocytes) > 1% indicates that a LEFT SHIFT is Present. MCH (RBC) [Entitic mass] 31.4 pg 27.0-32.0 [facility] Nucleated RBC/100 WBC (Bld) [Ratio] 0 % 0-5 [facility] MCHC Auto (RBC) [Mass/Vol]Or dered By: Guy Boateng on 02-13-2023 MCHC (RBC) [Mass/Vol] 34.1 g/dL 32-36 [facility] No Panel InformationOrdered By: Guy Boateng on 02-13-2023 Troponin I High Sensitivity 7 pg/mL 3.0-78.0 [facility] Comment on above: Please Note: New Et[place] t Units and Gender Specific Reference Ranges. For more information see Policy Stat Procedure [place] High Sensitivity Troponin (TNIH) and attachments. D-Dimer Quantitative (PE/DVT) 0.28 FEU/ug/m 0.27-0.49 [facility] Comment on above: NORMAL D-Dimer level (<0.50) indicates no DVT or PE. Estimated GFR (MDRD) Amer 72 mL/min >60 [facility] Comment on above: GFR Calc Estimated GFR (MDRD) Non-Af Amer 59 mL/min >60 [facility] Comment on above: Non- GFR Calc Platelets bldOrdered By: Pan Boateng on 02-13-2023 Platelets (Bld) [#/Vol] 158 10*3/uL 150-450 [facility] Serum or plasma albumin galo urement (mass/volume)Ordered By: Guy Boateng on 02-13-2023 Albumin [Mass/Vol] 3.7 g/dL 3.2-5.0 [facility] Serum or plasma calcium galo urement (mass/volume)Ordered By: Guy Boateng on 02-13-2023 Calcium [Mass/Vol] 8.6 mg/dL 8.5-10.1 [facility] Serum or plasma creatinine m easurement (mass/volume)Ordered By: Guy Boateng on 02-13-2023 Creatinine [Mass/Vol] 1.26 mg/dL 0.70-1.30 [facility] Comment on above: The validity of the calculated GFR & GFRAA in patients over 70 years has not been determined. Clinical correlation is essential. Serum or plasma urea nitroge n measurement (mass/volume)Ordered By: Guy Boateng on 02-13-2023 Urea nitrogen [Mass/Vol] 20 mg/dL -18 [facility] Thin prep Papanicolaou smear with manual screeningOrdered By: Guy Boateng on 02-13-2023 Thin prep Papanicolaou smear with manual screening 26 U/L 15- [facility] Comment on above: Moderate Hemolysis, Result may be falsely increased. Thin prep Papanicolaou smear with manual screening 4 5-15 [facility] XR CHEST 2V FRONTAL/LATon [facility] XR Chest PA and Lateralon IMPRESSION: Stable exam without acute findings. Insurance Claims Analyst: SMITA Transcribe Date/Time: Jun 04 2022 12:53P Dictated by : STANISLAV DICKENS MD This examination was interpreted and the report reviewed and electronically signed by: STANISLAV DICKENS MD on Jun 04 2022 12:55PM [facility] * * *Final Report* * * DATE OF EXAM: Jun 04 2022 12:50PM WOX 5291 - XR CHEST 2V FRONTAL/LAT / PROCEDURE REASON: Acute cough * * * * Physician Interpretation * * * * EXAMINATION: CHEST RADIOGRAPH (2 VIEW FRONTAL & LATERAL) CLINICAL HISTORY: Acute cough MQ: XC2_6 EXAM DATE/TIME: 06/04/2022 12:50 PM COMPARISON: Chest x-ray on 05/12/2019 RESULT: Lines, tubes, and devices: None. Lungs and pleura: No consolidation. No lung mass. No pleural effusion. No pneumothorax. Cardiomediastinal silhouette: Stable cardiomediastinal silhouette. Bones and soft tissues: There are mild degenerative changes in the spine. DIVISION OF RADIOLOGY Provider, [facility] - 06/04/2022 * * *Final Report* * * DATE OF EXAM: Jun 04 2022 12:50PM WOX 5291 - XR CHEST 2V FRONTAL/LAT / PROCEDURE REASON: Acute cough * * * * Physician Interpretation * * * * EXAMINATION: CHEST RADIOGRAPH (2 VIEW FRONTAL & LATERAL) CLINICAL HISTORY: Acute cough MQ: XC2_6 EXAM DATE/TIME: 06/04/2022 12:50 PM COMPARISON: Chest x-ray on 05/12/2019 RESULT: Lines, tubes, and devices: None. Lungs and pleura: No consolidation. No lung mass. No pleural effusion. No pneumothorax. Cardiomediastinal silhouette: Stable cardiomediastinal silhouette. Bones and soft tissues: There are mild degenerative changes in the spine. IMPRESSION IMPRESSION: Stable exam without acute findings. Insurance Claims Analyst: SMITA Transcribe Date/Time: Jun 04 2022 12:53P Dictated by : STANISLAV DICKENS MD This examination was interpreted and the report reviewed and electronically signed by: STANISLAV DICKENS MD on Jun 04 2022 12:55PM [facility] Radiology Study observation (narrative) [facility] XR Chest PA and LateralOrder ed By: [facility] Provider on 06-04-2022 [facility] EGD DIAGNOSTICon 09-09-2021 [facility] Vital Signs Date Time Vital Sign Value Performing Clinician Monica russo 09-21-2024 09:50-0400 Body height 175.3 cm Aaron Cm MD Work Phone: [facility] 09-21-2024 09:50-0400 Body mass index (BMI) [Ratio] 26.88 kg/m2 Aaron Cm MD Work Phone: [facility] 09-21-2024 09:50-0400 Body weight 82.56 kg Aaron Cm MD Work Phone: [facility] 09-21-2024 09:50-0400 Diastolic blood pressure 78 mm[Hg] Aaron Cm MD Work Phone: [facility] 09-21-2024 09:50-0400 Heart rate 60 /min Aaron Cm MD Work Phone: [facility] 09-21-2024 09:50-0400 Respiratory rate 16 /min Aaron Cm MD Work Phone: [facility] 09-21-2024 09:50-0400 Systolic blood pressure 124 mm[Hg] Aaron Cm MD Work Phone: [facility] 09-11-2024 08:21-0400 Body mass index (BMI) [Ratio] 26.5 kg/m2 Dr. Aaron Cm MD Work Phone: [facility] 09-11-2024 08:21-0400 Body weight 83.[address] Aaron Cm MD Work Phone: [facility] 09-11-2024 08:21-0400 Diastolic blood pressure 66 mm[Hg] Dr. Aaron Cm MD Work Phone: [facility] 09-11-2024 08:21-0400 Heart rate 70 /min Dr. Aaron Cm MD Work Phone: [facility] 09-11-2024 08:21-0400 Respiratory rate 18 /min Dr. Aaron Cm MD Work Phone: 6(686)240-588845 [place] [address] 09-11-2024 08:21-0400 Systolic blood pressure 91 mm[Hg] Dr. Aaron Cm MD Work Phone: 3(415)603-568645 [place] [address] 08-11-2024 09:55-0400 Body height 177.[address] Aaron Cm MD Work Phone: 8(363)761-364845 [place] [address] 08-11-2024 09:55-0400 Body weight 84.[address] Aaron Cm MD Work Phone: 4(107)871-965545 [place] [address] 07-13-2024 07:43-0400 Body weight 85.[address] Aaron Cm MD Work Phone: 5(441)997-796745 [place] [address] 06-15-2024 14:53-0400 Body height 177.[address] Aaron Cm MD Work Phone: 3(903)028-552245 [place] [address] 06-15-2024 14:53-0400 Body weight 87.[address] Aaron Cm MD Work Phone: 7(542)256-660845 [place] [address] 06-15-2024 14:30-0400 Body mass index (BMI) [Ratio] 27.8 kg/m2 Dr. Aaron Cm MD Work Phone: 0(498)584-977345 [place] [address] 06-15-2024 14:30-0400 Body weight 87.[address] Aaron Cm MD Work Phone: 5([phone])748-299445 [place] [address] 06-15-2024 14:30-0400 Diastolic blood pressure 76 mm[Hg] Dr. Aaron Cm MD Work Phone: 3(443)580-367745 [place] [address] 06-15-2024 14:30-0400 Heart rate 56 /min Dr. Aaron Cm MD Work Phone: 7(624)156-929245 [place] [address] 06-15-2024 14:30-0400 Respiratory rate 18 /min Dr. Aaron Cm MD Work Phone: 3(060)808-824145 [place] [address] 06-15-2024 14:30-0400 SaO2% (BldA) [Mass fraction] 98 % Dr. Aaron Cm MD Work Phone: 2(650)866-050445 [place] [address] 06-15-2024 14:30-0400 Systolic blood pressure 132 mm[Hg] Dr. Aaron Cm MD Work Phone: 2(809)019-819245 [place] [address] 05-23-2024 11:08-0500 Body weight 86.[address] Aaron Cm MD Work Phone: 9(143)564-665645 [place] [address] 05-23-2024 10:31-0500 Body mass index (BMI) [Ratio] 27.1 kg/m2 Dr. Aaron Cm MD Work Phone: 7(389)493-352445 [place] [address] 05-23-2024 10:26-0500 Diastolic blood pressure 60 mm[Hg] Dr. Aaron Cm MD Work Phone: 8(408)[phone] [place] [address] 05-23-2024 10:26-0500 Systolic blood pressure 94 mm[Hg] Dr. Aaron Cm MD Work Phone: 3(878)641-689545 [place] [address] 05-23-2024 10:23-0500 Heart rate 69 /min Dr. Aaron Cm MD Work Phone: 8(075)029-957445 [place] [address] 05-23-2024 10:23-0500 SaO2% (BldA) [Mass fraction] 95 % Dr. Aaron Cm MD Work Phone: 8(412)264-758545 [place] [address] 05-23-2024 10:15-0500 Body height 177.[address] Aaron Cm MD Work Phone: 8([phone])815-717345 [place] [address] 05-19-2024 15:00-0500 Diastolic blood pressure 74 mm[Hg] Dr. Aaron Cm MD Work Phone: 7(148)068-304645 [place] [address] 05-19-2024 15:00-0500 Heart rate 54 /min Dr. Aaron Cm MD Work Phone: 3(818)893-181145 [place] [address] 05-19-2024 15:00-0500 Respiratory rate 12 /min Dr. Aaron Cm MD Work Phone: 2(224)727-250845 [place] [address] 05-19-2024 15:00-0500 SaO2% (BldA) [Mass fraction] 96 % Dr. Aaron Cm MD Work Phone: [facility] 05-19-2024 15:00-0500 Systolic blood pressure 121 mm[Hg] Dr. Aaron Cm MD Work Phone: [facility] 05-19-2024 12:00-0500 Body temperature 97.9 [degF] Dr. Aaron Cm MD Work Phone: [facility] 05-19-2024 05:00-0500 Body mass index (BMI) [Ratio] 28 kg/m2 Dr. Aaron Cm MD Work Phone: [facility] 05-19-2024 05:00-0500 Body weight [address] Aaron Cm MD Work Phone: [facility] 08-26-2023 09:55-0400 Body mass index (BMI) [Ratio] 28.75 kg/m2 Krislyn Aberegg PA Work Phone: [facility] 08-26-2023 09:55-0400 Body temperature 97.59 [degF] Krislyn Aberegg PA Work Phone: [facility] 08-26-2023 09:55-0400 Body weight 88.3 kg Krislyn Aberegg PA Work Phone: [facility] 08-26-2023 09:55-0400 Diastolic blood pressure 84 mm[Hg] Krislyn Aberegg PA Work Phone: [facility] 08-26-2023 09:55-0400 Heart rate 78 /min Krislyn Aberegg PA Work Phone: [facility] 08-26-2023 09:55-0400 Respiratory rate 20 /min Krislyn Aberegg PA Work Phone: [facility] 08-26-2023 09:55-0400 SaO2% (BldA) [Mass fraction] 98 % Krislyn Aberegg PA Work Phone: [facility] 08-26-2023 09:55-0400 Systolic blood pressure 131 mm[Hg] Chevy RAY Work Phone: [facility] 07-29-2023 11:31-0400 Body height 175.3 cm Aaron Cm MD Work Phone: [facility] 07-29-2023 11:31-0400 Body mass index (BMI) [Ratio] 29.03 kg/m2 Aaron Cm MD Work Phone: [facility] 07-29-2023 11:31-0400 Body weight 89.18 kg Aaron Cm MD Work Phone: [facility] 07-29-2023 11:31-0400 Diastolic blood pressure 78 mm[Hg] Aaron Cm MD Work Phone: [facility] 07-29-2023 11:31-0400 Heart rate 68 /min Aaron Cm MD Work Phone: [facility] 07-29-2023 11:31-0400 Respiratory rate 16 /min Aaron Cm MD Work Phone: [facility] 07-29-2023 11:31-0400 Systolic blood pressure 120 mm[Hg] Aaron Cm MD Work Phone: [facility] 06-30-2023 12:56-0400 Body weight 88.27 kg Kayleen RAY-C Work Phone: [facility] 06-30-2023 12:56-0400 Diastolic blood pressure 80 mm[Hg] Kayleen Schrader PA-C Work Phone: [facility] 06-30-2023 12:56-0400 Heart rate 66 /min Kayleen Schrader PA-C Work Phone: [facility] 06-30-2023 12:56-0400 Respiratory rate 18 /min Kayleen Schrader PA-C Work Phone: [facility] 06-30-2023 12:56-0400 SaO2% (BldA) [Mass fraction] 95 % Kayleen Schrader PA-C Work Phone: [facility] 06-30-2023 12:56-0400 Systolic blood pressure 138 mm[Hg] Kayleen Schrader PA-C Work Phone: [facility] 03-02-2023 13:28-0500 Body temperature 97.5 [degF] Dr. Aaron Cm Work Phone: 3(765)911-957391 [place] [address] 03-02-2023 13:28-0500 Diastolic blood pressure 66 mm[Hg] Dr. Aaron Cm Work Phone: 2(168)665-570645 [place] [address] 03-02-2023 13:28-0500 Heart rate 61 /min Dr. Aaron Cm Work Phone: 6(275)[phone] [place] [address] 03-02-2023 13:28-0500 Respiratory rate 18 /min Dr. Aaron Cm Work Phone: 9([phone])[phone] [place] [address] 03-02-2023 13:28-0500 SaO2% (BldA) [Mass fraction] 94 % Dr. Aaron Cm Work Phone: 1(198)991-821491 [place] [address] 03-02-2023 13:28-0500 Systolic blood pressure 116 mm[Hg] Dr. Aaron Cm Work Phone: 8(326)273-798245 [place] [address] 03-02-2023 10:19-0500 Inhaled oxygen flow rate 8 L/min Dr. Aaron Cm Work Phone: 2(271)084-873191 [place] [address] 03-02-2023 08:06-0500 Body height 177.[address] Aaron Cm Work Phone: 6(657)[phone] [place] [address] 03-02-2023 08:06-0500 Body mass index (BMI) [Ratio] 27.2 kg/m2 Dr. Aaron Cm Work Phone: 3(407)428-590345 [place] [address] 03-02-2023 08:06-0500 Body weight 86.[address] Aaron Cm Work Phone: 3([phone])[phone] [place] [address] 02-24-2023 13:48-0500 Body mass index (BMI) [Ratio] 27.6 kg/m2 Dr. Aaron Cm Work Phone: [facility] 02-24-2023 13:48-0500 Body temperature 97.4 [degF] Dr. Aaron Cm Work Phone: 3(452)210-847891 [place] [address] 02-24-2023 13:48-0500 Body weight 87.[address] Aaron Cm Work Phone: [phone] [place] [address] 02-24-2023 13:48-0500 Diastolic blood pressure 87 mm[Hg] Dr. Aaron Cm Work Phone: [phone] [place] [address] 02-24-2023 13:48-0500 Heart rate 65 /min Dr. Aaron Cm Work Phone: [phone] [place] [address] 02-24-2023 13:48-0500 Respiratory rate 18 /min Dr. Aaron Cm Work Phone: [phone] [place] [address] 02-24-2023 13:48-0500 SaO2% (BldA) [Mass fraction] 96 % Dr. Aaron Cm Work Phone: [phone] [place] [address] 02-24-2023 13:48-0500 Systolic blood pressure 143 mm[Hg] Dr. Aaron Cm Work Phone: [phone] [place] [address] 02-20-2023 10:19-0500 Diastolic blood pressure 89 mm[Hg] [facility] 02-20-2023 10:19-0500 Heart rate 51 /min [facility] 02-20-2023 10:19-0500 Respiratory rate 18 /min [facility] 02-20-2023 10:19-0500 SaO2% (BldA) [Mass fraction] 95 % [facility] 02-20-2023 10:19-0500 Systolic blood pressure 145 mm[Hg] [facility] 02-20-2023 02:05-0500 Body height 177.8 cm [facility] 02-20-2023 02:05-0500 Body mass index (BMI) [Ratio] 27.8 kg/m2 [facility] 02-20-2023 02:05-0500 Body temperature 97.8 [degF] [facility] 02-20-2023 02:05-0500 Body weight 88 kg [facility] 02-16-2023 15:58-0500 Body weight 86.64 kg Melvin Brizuela MD Work Phone: [facility] 02-16-2023 15:58-0500 Diastolic blood pressure 70 mm[Hg] Melvin Brizuela MD Work Phone: [facility] 02-16-2023 15:58-0500 Heart rate 72 /min Melvin Brizuela MD Work Phone: [facility] 02-16-2023 15:58-0500 Respiratory rate 16 /min Melvin Brizuela MD Work Phone: [facility] 02-16-2023 15:58-0500 SaO2% (BldA) [Mass fraction] 97 % Melvin Brizuela MD Work Phone: [facility] 02-16-2023 15:58-0500 Systolic blood pressure 124 mm[Hg] Melvin Brizuela MD Work Phone: [facility] 02-13-2023 05:01-0500 Diastolic blood pressure 78 mm[Hg] [facility] 02-13-2023 05:01-0500 Heart rate 59 /min [facility] 02-13-2023 05:01-0500 Respiratory rate 13 /min [facility] 02-13-2023 05:01-0500 SaO2% (BldA) [Mass fraction] 95 % [facility] 02-13-2023 05:01-0500 Systolic blood pressure 137 mm[Hg] [facility] 02-13-2023 01:47-0500 Body height 177.8 cm [facility] 02-13-2023 01:47-0500 Body temperature 97.2 [degF] [facility] 08-25-2022 10:18-0400 Body weight 88 kg Kayleen Schrader PA-C Work Phone: [facility] 08-25-2022 10:18-0400 Diastolic blood pressure 68 mm[Hg] Kayleen Schrader PA-C Work Phone: [facility] 08-25-2022 10:18-0400 Heart rate 70 /min Kayleen Schrader PA-C Work Phone: [facility] 08-25-2022 10:18-0400 Respiratory rate 16 /min Kayleen Schrader PA-C Work Phone: [facility] 08-25-2022 10:18-0400 SaO2% (BldA) [Mass fraction] 96 % Kayleen Schrader PA-C Work Phone: [facility] 08-25-2022 10:18-0400 Systolic blood pressure 130 mm[Hg] Kayleen Schrader PA-C Work Phone: [facility] 07-27-2022 15:51-0400 Diastolic blood pressure 87 mm[Hg] Aaron Cm MD Work Phone: [facility] 07-27-2022 15:51-0400 Systolic blood pressure 149 mm[Hg] Aaron Cm MD Work Phone: [facility] 07-27-2022 14:04-0400 Body height 176.5 cm Aaron Cm MD Work Phone: [facility] 07-27-2022 14:04-0400 Body weight 88.91 kg Aaron Cm MD Work Phone: [facility] 07-27-2022 14:04-0400 Heart rate 64 /min Aaron Cm MD Work Phone: [facility] 06-04-2022 12:26-0500 Body temperature 98.71 [degF] Fany Lita SCHOOL PROGRAM DIRECTOR.CONTACT FINGER ASSEMBLER Work Phone: [facility] 06-04-2022 12:26-0500 Body weight 88.72 kg Fany Lita SCHOOL PROGRAM DIRECTOR.CONTACT FINGER ASSEMBLER Work Phone: [facility] 06-04-2022 12:26-0500 Diastolic blood pressure 74 mm[Hg] Fany Jarquink SCHOOL PROGRAM DIRECTOR.CONTACT FINGER ASSEMBLER Work Phone: [facility] 06-04-2022 12:26-0500 Heart rate 81 /min Fany Lita SCHOOL PROGRAM DIRECTOR.CONTACT FINGER ASSEMBLER Work Phone: [facility] 06-04-2022 12:26-0500 Respiratory rate 18 /min Fany Lita SCHOOL PROGRAM DIRECTOR.CONTACT FINGER ASSEMBLER Work Phone: [facility] 06-04-2022 12:26-0500 SaO2% (BldA) [Mass fraction] 98 % Fany Lita SCHOOL PROGRAM DIRECTOR.CONTACT FINGER ASSEMBLER Work Phone: [facility] 06-04-2022 12:26-0500 Systolic blood pressure 126 mm[Hg] Fany Lita SCHOOL PROGRAM DIRECTOR.CONTACT FINGER ASSEMBLER Work Phone: [facility] 05-21-2022 11:18-0500 Body temperature 97.39 [degF] Aaron Pendraúlbury SCHOOL PROGRAM DIRECTOR.CONTACT FINGER ASSEMBLER Work Phone: [facility] 05-21-2022 11:18-0500 Body weight 90.81 kg Aaron Pendraúlbury SCHOOL PROGRAM DIRECTOR.CONTACT FINGER ASSEMBLER Work Phone: [facility] 05-21-2022 11:18-0500 Diastolic blood pressure 82 mm[Hg] Aaron Pendlebury SCHOOL PROGRAM DIRECTOR.CONTACT FINGER ASSEMBLER Work Phone: [facility] 05-21-2022 11:18-0500 Heart rate 77 /min Aaron Pendraúlbury SCHOOL PROGRAM DIRECTOR.CONTACT FINGER ASSEMBLER Work Phone: [facility] 05-21-2022 11:18-0500 Respiratory rate 16 /min Aaron Pendraúlbury SCHOOL PROGRAM DIRECTOR.CONTACT FINGER ASSEMBLER Work Phone: [facility] 05-21-2022 11:18-0500 SaO2% (BldA) [Mass fraction] 97 % Aaron Pendraúlemre SCHOOL PROGRAM DIRECTOR.CONTACT FINGER ASSEMBLER Work Phone: [facility] 05-21-2022 11:18-0500 Systolic blood pressure 130 mm[Hg] Aaron Pendlebury SCHOOL PROGRAM DIRECTOR.CONTACT FINGER ASSEMBLER Work Phone: [facility] 09-23-2021 15:22-0400 Body height 177.8 cm Lonny Leal MD Work Phone: [facility] 09-23-2021 15:22-0400 Body temperature 97.39 [degF] Lonny Leal MD Work Phone: [facility] 09-23-2021 15:22-0400 Body weight 88.91 kg Lonny Leal MD Work Phone: [facility] 09-23-2021 15:22-0400 Heart rate 67 /min Lonny Leal MD Work Phone: [facility] 09-23-2021 15:22-0400 SaO2% (BldA) [Mass fraction] 95 % Lonny Leal MD Work Phone: [facility] 09-09-2021 11:05-0400 Heart rate 47 /min Lonny Leal MD Work Phone: [facility] 09-09-2021 11:05-0400 SaO2% (BldA) [Mass fraction] 94 % Lonny Leal MD Work Phone: [facility] 09-09-2021 10:55-0400 Diastolic blood pressure 84 mm[Hg] Lonny Leal MD Work Phone: [facility] 09-09-2021 10:55-0400 Respiratory rate 16 /min Lonny Leal MD Work Phone: [facility] 09-09-2021 10:55-0400 Systolic blood pressure 128 mm[Hg] Lonny Leal MD Work Phone: [facility] 09-09-2021 09:10-0400 Body temperature 97.11 [degF] Lonny Leal MD Work Phone: [facility] 08-11-2021 10:42-0400 Body temperature 97.2 [degF] Kayleen Schrader PA-C Work Phone: [facility] 08-11-2021 10:42-0400 Body weight 89.81 kg Kayleen Schrader PA-C Work Phone: [facility] 08-11-2021 10:42-0400 Diastolic blood pressure 80 mm[Hg] Kayleen Schrader PA-C Work Phone: [facility] 08-11-2021 10:42-0400 Heart rate 68 /min Kayleen Schrader PA-C Work Phone: [facility] 08-11-2021 10:42-0400 Respiratory rate 16 /min Kayleen Schrader PA-C Work Phone: [facility] 08-11-2021 10:42-0400 Systolic blood pressure 106 mm[Hg] Kayleen Schrader PA-C Work Phone: [facility] 07-10-2021 11:43-0400 Body temperature 98.4 [degF] Lonny Leal MD Work Phone: [facility] 07-10-2021 11:43-0400 Body weight 90.9 kg Lonny Leal MD Work Phone: [facility] 07-10-2021 11:43-0400 Heart rate 91 /min Lonny Leal MD Work Phone: [facility] 07-10-2021 11:43-0400 SaO2% (BldA) [Mass fraction] 96 % Lonny Leal MD Work Phone: [facility] 07-02-2021 09:10-0400 Body height 177.8 cm Lonny Leal MD Work Phone: [facility] 07-02-2021 09:10-0400 Body temperature 97.2 [degF] Lonny Leal MD Work Phone: [facility] 07-02-2021 09:10-0400 Body weight 91.81 kg Lonny Leal MD Work Phone: [facility] 07-02-2021 09:10-0400 Diastolic blood pressure 82 mm[Hg] Lonny Leal MD Work Phone: [facility] 07-02-2021 09:10-0400 Heart rate 84 /min Lonny Leal MD Work Phone: [facility] 07-02-2021 09:10-0400 SaO2% (BldA) [Mass fraction] 96 % Lonny Leal MD Work Phone: [facility] 07-02-2021 09:10-0400 Systolic blood pressure 128 mm[Hg] Lonny Leal MD Work Phone: [facility] Encounters Encounter Date Encounter Type Care Provider Facility Start: 12-04-2024 End: 12-04-2024 Telephone encounter Aaron Cm MD Work Phone: [facility] Comment on above: Medication Problem Start: 11-06-2024 ambulatory Zia Fink Facility:[facility] Start: 09-26-2024 End: 10-26-[address] Zia Fink MD -Cardiac Rehab Work Phone: Start: 09-26-2024 End: 10-26-[address] Aaron Cm MD Work Phone: -Cardiac Rehab Start: 09-21-2024 End: 09-21-2024 Patient encounter procedure Aaron Cm MD Work Phone: [facility] Comment on above: Medicare annual well ness visit, subsequent (Primary Dx); Essential hypertension with goal blood pressure less than 140/90; Mixed hyperlipidemia; Elevated fasting blood sugar; Gastroesophageal reflux disease with esophagitis without hemorrhage; History of ST elevation myocardial infarction (STEMI); Advance directive discussed with patient; Thrombocytopenia; Benign prostatic hyperplasia with nocturia; Elevated PSA; Need for vaccination; Encounter for screening examination for other mental health and behavioral disorders; Screening for depression Start: 09-21-2024 End: 09-21-2024 ambulatory AARON CM Facility:[facility] Start: 09-18-2024 End: 09-18-2024 ambulatory Aaron Cm MD Work Phone: [facility] Start: 09-18-2024 End: 09-18-2024 Patient encounter procedure Aaron Cm MD Work Phone: [facility] [place] Comment on above: Annual physical Start: 09-13-2024 End: 09-13-2024 Chart abstracting Jeniffer Beltran LPN [facility] Comment on above: Outside Cardiology Results (Outside lab results /) Start: 09-12-2024 End: 09-12-[address] Aaron Cm MD Work Phone: [facility] Work Phone: Start: 09-12-2024 End: 09-12-[address] Shayla Armijo MD -Laboratory Work Phone: Start: 09-11-2024 End: 09-11-[address] Shayla Armijo MD -[facility] Work Phone: Start: 09-11-2024 End: 09-12-[address] Aaron Cm MD Work Phone: [facility] Work Phone: Start: 09-06-2024 ambulatory Aaron Cm Facility :[facility] Start: 08-25-2024 End: 08-26-[address] Aaron Cm MD Work Phone: [facility] Work Phone: Start: 08-25-2024 End: 08-26-[address] Shayla Armijo MD -Cardiac Rehab Work Phone: Start: 07-26-2024 End: 07-26-2024 ambulatory Shayla Armijo Facility:[facility] Start: 07-26-2024 End: 07-26-[address] Shayla Armijo MD -Cardiac Rehab Work Phone: Start: 06-26-2024 End: 06-26-[address] Aaron Cm MD Work Phone: [facility] Work Phone: Start: 06-26-2024 End: 06-26-[address] Shayla Armijo MD -Cardiac Rehab Work Phone: Start: 06-16-2024 End: 06-16-2024 Chart abstracting Aaron Cm MD Work Phone: [facility] Comment on above: Outside Cardiology Start: 06-15-2024 End: 06-15-[address] Shayla Armijo MD -[facility] Work Phone: Start: 06-15-2024 End: 06-15-2024 ambulatory [facility] [place] [place] Start: 06-05-[address] Shayla ward MD -Cardiac Rehab Work Phone: Start: 06-02-2024 [facility] Start: 05-26-2024 End: 05-26-[address] Shayla Armijo MD -Cardiac Rehab Work Phone: Start: 05-26-2024 End: 05-26-2024 ambulatory [facility] Facility:[facility] Start: 05-23-2024 End: 05-23-[address] Aaron Cm MD Work Phone: [facility] Work Phone: Start: 05-23-2024 End: 05-23-[address] Shayla Armijo MD -Cardiac Rehab Work Phone: Start: 05-23-2024 End: 05-23-2024 ambulatory Shayla Armijo Facility:[facility] Start: 05-22-2024 End: 05-22-2024 Chart abstracting Calvin Smith MA [facility] Comment on above: Hospital F/U Start: 05-19-2024 Non-patient / Non-visit Dr. Radha Hodges MD -[facility] Work Phone: Start: 05-19-2024 Non-patient / Non-visit Dr. Toni deshpande MD -[facility] Start: 05-19-2024 ambulatory [facility] Facility [place] [place] Start: 05-18-2024 Non-patient / Non-visit Dr. Jasmin melendez MD -[facility] Work Phone: Start: 05-18-2024 Non-patient / Non-visit Dr. Shayla kramer MD -[facility] Start: 05-18-2024 ambulatory Jasmin Morales Facility:[facility] Start: 05-18-2024 End: 05-19-2024 Evaluation and management of inpatient Dr. Radha Hodges MD -Intensive Care Unit Work Phone: Start: 03-06-2024 End: 03-06-2024 Refill Aaron Cm MD Work Phone: [facility] Comment on above: Refill Request Start: 02-23-2024 End: 02-23-2024 Refill Aaron Cm MD Work Phone: [facility] [place] Comment on above: Refill Request Start: 01-13-2024 End: 01-13-2024 E-mail encounter from caregiver Jay Halima Dumont OD Work Phone: Ophthalmology Start: 01-13-2024 End: 01-13-2024 ambulatory Jay Dumont OD Work Phone: Ophthalmology Comment on above: Alternative to Visin e Start: 01-13-2024 End: 01-13-2024 Patient encounter procedure Jay Dumont OD Work Phone: Ophthalmology Comment on above: Combined forms of ag e-related cataract of both eyes (Primary Dx); Meibomian gland dysfunction (MGD) of upper and lower lids of both eyes; Squamous blepharitis of 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; Regular astigmatism of both eyes; Presbyopia Start: 12-04-2023 End: 12-06-2023 Refill Kayleen Schrader PA-C Work Phone: [facility] Comment on above: Refill Request Start: 08-26-2023 End: 08-26-2023 Subsequent hospital visit by physician [facility] [place] Work Phone: Radiology Comment on above: Acute cough [R05.1] Start: 08-26-2023 End: 08-26-2023 Patient encounter procedure Chevy RAY Work Phone: [facility] Comment on above: Acute cough (Primary Dx); Sinobronchitis Start: 07-29-2023 ambulatory Aaron aguilera MD Work Phone: [facility] [place] Comment on above: Appt Start: 07-29-2023 End: 07-29-2023 Patient encounter procedure Aaron Cm MD Work Phone: [facility] Comment on above: Medicare annual well ness visit, subsequent (Primary Dx); Essential hypertension with goal blood pressure less than 140/90; Mixed hyperlipidemia; Gastroesophageal reflux disease with esophagitis without hemorrhage; Elevated fasting blood sugar; Advance directive discussed with patient; Skin cancer screening; Thrombocytopenia (HCC) Start: 07-22-2023 ambulatory Aaron aguilera MD Work Phone: [facility] [place] Comment on above: Blood tests Start: 06-30-2023 ambulatory Aaron aguilera MD Work Phone: [facility] [place] Comment on above: Derm Problem Start: 06-30-2023 Telephone encounter Kayleen harris PA-C Work Phone: [facility] [place] Comment on above: Consult Start: 06-30-2023 End: 06-30-2023 Patient encounter procedure Kayleen RAY-C Work Phone: [facility] [place] Comment on above: Skin lesion (Primary Dx) Start: 06-07-2023 Refill Kayleen Daly on PA-C Work Phone: [facility] [place] Comment on above: Refill Request Start: 03-03-2023 Chart abstracting Aaron mobley MD Work Phone: [facility] [place] Comment on above: Outside Imaging Start: 03-02-2023 Chart abstracting Aaron mobley MD Work Phone: [facility] [place] Comment on above: Outside H&P Start: 03-02-2023 Non-patient / Non-visit Dr. Jb Cm Work Phone: [facility] Start: 03-02-2023 End: 03-02-2023 Admission to same day surgery center Dr. Aaron Cm Work Phone: [facility] Start: 03-02-2023 End: 03-02-[address] Aaron Cm Work Phone: [facility] Work Phone: Start: 02-25-2023 Chart abstracting Aaron mobley MD Work Phone: [facility] Comment on above: ext document (Surger y Office note) Start: 02-24-2023 End: 02-24-[address] Aaron Cm Work Phone: [facility] Work Phone: Start: 02-20-2023 End: 02-20-2023 Emergency department patient visit [facility] Work Phone: Start: 02-16-2023 End: 02-16-2023 Patient encounter procedure Melvni Brizuela MD Work Phone: [facility] Comment on above: Epigastric pain (Marta doreen Dx); Nausea and vomiting, unspecified vomiting type Start: 02-13-2023 End: 02-13-2023 Emergency department patient visit [facility] Work Phone: Start: 01-09-2023 End: 01-09-2023 ambulatory [facility] [place] Work Phone: [facility] Start: 11-14-2022 Refill Aaron aguilera MD Work Phone: [facility] Comment on above: Refill Request Start: 08-25-2022 End: 08-25-2022 Office outpatient visit 15 minutes Kayleen Schrader PA-C Work Phone: [facility] Comment on above: Essential hypertensi on with goal blood pressure less than 140/90 (Primary Dx) Start: 08-03-2022 Telephone encounter Kayleen harris PA-C Work Phone: [facility] Comment on above: Opened In Error Start: 07-27-2022 End: 07-27-2022 Patient encounter procedure Aaron Cm MD Work Phone: [facility] [place] Comment on above: Medicare annual well ness visit, subsequent (Primary Dx); Mixed hyperlipidemia; Essential hypertension with goal blood pressure less than 140/90; Gastroesophageal reflux disease with esophagitis without hemorrhage; Elevated fasting blood sugar; Advance directive discussed with patient Start: 06-04-2022 End: 06-04-2022 Subsequent hospital visit by physician [facility] [place] Work Phone: Radiology Comment on above: Acute cough [R05.1] Start: 06-04-2022 End: 06-04-2022 Patient encounter procedure Fany London SCHOOL PROGRAM DIRECTOR.CONTACT FINGER ASSEMBLER Work Phone: [facility] Comment on above: Acute cough (Primary Dx); URI, acute Start: 05-29-2022 Refill Kayleen [place] on PA-C Work Phone: Ambulatory Surgery Comment on above: Refill Request Start: 05-21-2022 End: 05-21-2022 Office outpatient visit 25 minutes Aaron Arias APRN.CONTACT FINGER ASSEMBLER Work Phone: [facility] Comment on above: Sinobronchitis (Prim lindsey Dx) Start: 05-07-2022 Refill Lonny thompson MD Work Phone: Ambulatory Surgery Comment on above: Refill Request Start: 04-10-2022 Refill Kayleen Daly on PA-C Work Phone: [facility] [place] Comment on above: Refill Request Start: 01-22-2022 End: 01-22-2022 Patient encounter procedure Jay Dumont OD Work Phone: Ophthalmology Comment on above: Combined forms of ag e-related cataract of both eyes (Primary Dx); Meibomian gland dysfunction (MGD) of upper and lower lids of both eyes; Squamous blepharitis of 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; Regular astigmatism of both eyes; Presbyopia Start: 10-17-2021 Refill Aaron aguilera MD Work Phone: [facility] Comment on above: Refill Request Start: 09-23-2021 End: 09-23-2021 Patient encounter procedure Lonny Leal MD Work Phone: General Surgery Comment on above: Dysphagia, unspecifi ed type (Primary Dx); Peptic ulcer disease Start: 09-09-2021 End: 09-09-2021 Subsequent hospital visit by physician Lonny Leal MD Work Phone: Ambulatory Surgery Comment on above: Dysphagia, unspecifi ed type [R13.10] Start: 08-15-2021 ambulatory Kayleen alves PA-C Work Phone: [facility] [place] Comment on above: Nerve Pain in arm Start: 08-11-2021 End: 08-11-2021 Patient encounter procedure Kayleen Schrader PA-C Work Phone: [facility] [place] Comment on above: Numbness and tinglin g of right hand (Primary Dx) Start: 07-10-2021 End: 07-10-2021 Patient encounter procedure Lonny Leal MD Work Phone: General Surgery Comment on above: Dysphagia, unspecifi ed type (Primary Dx) Start: 07-02-2021 End: 07-02-2021 Patient encounter procedure Lonny Leal MD Work Phone: General Surgery Comment on above: Sebaceous cyst Start: 05-22-2021 Patient encounter procedure Lonny Leal MD Work Phone: [facility] Work Phone: Procedures Date Procedure Procedure Detail Performing Clinician Start: 09-21-2024 Adult depression screening assessment Aaron Cm MD Work Phone: Start: 09-12-2024 Comprehensive metabolic 2000 panel - Serum or Plasma [facility] Provider Start: 09-12-2024 Lipid panel [facility] Provider Start: 05-19-[address] Ant Cm MD Work Phone: Start: 05-19-2024 Measurement of renal function Dr. Connie Cm MD Work Phone: Comment on above: GFR Calc Start: 05-18-2024 Coagulation time, activated Dr. Aaron Cm MD Work Phone: Start: 08-26-2023 Radiologic exam chest 2 views Chevy RAY Work Phone: Start: 07-29-2023 Adult depression screening assessment Kayleen Schrader PA-C Work Phone: Start: 03-02-2023 Total cholecystectomy and exploration of common bile duct Dr. Aaron Cm Work Phone: Start: 03-02-[address] Aaron Cm Work Phone: Start: 03-02-[address] Aaron Cm Work Phone: Start: 02-20-2023 US scan of gallbladder Start: 02-20-2023 Computed tomography of abdomen and pelvis with intravenous contrast Start: 02-13-2023 Plain chest X-ray Start: 01-09-2023 INFLUENZA VACCINE, PRSV FREE, AGE 65+ YR, HIGH DOSE, QUADRIVALENT (FLUZONE HIGH-DOSE) Opal Garcia MD Work Phone: Start: 07-24-2022 Lipid 1996 panel - Serum or Plasma Immunization [place] Work Phone: Start: 06-04-2022 Radiologic exam chest 2 views Fany [place] APRN.CONTACT FINGER ASSEMBLER Work Phone: Start: 09-09-2021 Esophagogastroduodenoscopy transoral diagnostic Lonny Leal MD Work Phone: Start: 09-16-2020 Colonoscopy Lonny Leal MD Work Phone: History of cholecystectomy S/P l aparoscopic cholecystectomy Dr. Aaron Cm Work Phone: Plan of Treatment Date Care Activity Detail Author Start: 09-19-2027 Diabetes Screening Diabetes Screening [facility] Start: 09-13-2027 Diabetes Screening Diabetes Screening [facility] Start: 07-25-2027 Lipid 1996 panel - Serum or Plasma Lipid Screening [facility] Start: 07-25-2027 LIPID SCREEN LIPID SCREEN [facility] Start: 07-26-2026 Diabetes Screening Diabetes Screening [facility] Start: 05-09-2026 LIPID SCREEN LIPID SCREEN [facility] Start: 09-21-2025 Annual PCP Team Chronic Disease Visit Annual PCP Team Chronic Disease Visit [facility] Start: 09-21-2025 Anxiety Screening Anxiety Screening [facility] Start: 09-21-2025 Covid-19 Vaccine ( season) Covid-19 Vaccine () [facility] Comment on above: Postponed from 2024 (Declined at t his time) Start: 09-21-2025 Depression Screening Depression Screening [facility] Start: 09-21-2025 Medicare Annual Wellness Visit Medicare Annual Wellness Visit [facility] Start: 09-21-2025 Urine microalbumin profile DTaP,Tdap,Td Vaccine (3 - Td or Tdap) [facility] Comment on above: Postponed from 01/11/2023 (Insurance Cov erage) Start: 09-19-2025 End: 09-19-2025 Patient encounter procedure 09/19/2025 8:00 AM EDT Office Visit [facility] [address] [place] [address] Aaron Cm MD [address] [place] [id number] Medicare Wellness [facility] Comment on above: Medicare Wellness Start: 09-16-2025 Colonoscopy COLONOSCOPY [facility] Start: 09-16-2025 COLORECTAL CANCER SCREENING COLORECTAL CANCER SCREENING [facility] Start: 07-24-2025 DIABETES SCREEN DIABETES SCREEN [facility] Start: 07-24-2025 Diabetes Screening Diabetes Screening [facility] Start: 01-12-2025 End: 01-12-2025 Patient encounter procedure 01/12/2025 9:30 AM EDT Office Visit [facility] [address] [place], [place] [id number] Jay Dumont, OD [address] [place], [place] [id number] complete eye exam Ophthalmology Comment on above: complete eye exam Start: 11-27-2024 Influenza vaccination Influenza Vaccine (#1) [place] [facility] Start: 10-21-2024 End: 01-20-2025 CBC W Auto Differential panel - Blood COMPLETE BLOOD COUNT AND DIFFERENTIAL Lab Routine Thrombocytopenia Expected: 10/21/2024, Expires: 01/20/2025 [facility] Comment on above: Expected: 10/21/2024, Expires: Start: 10-21-2024 End: 01-20-2025 Prostate Specific Ag Free [Mass/volume] in Serum or Plasma PROSTATE SPECIFIC ANTIGEN, FREE AND TOTAL Lab Routine Elevated PSA Expected: 10/21/2024, Expires: 01/20/2025 [facility] Work Phone: Comment on above: Expected: 10/21/2024, Expires: Start: 09-21-2024 End: 09-21-2024 Patient encounter procedure 09/21/2024 9:40 AM EDT Office Visit [facility] [address] [place], [place] [id number] Aaron Cm MD [address] [place] [phone] [facility] Comment on above: annual wellness Start: 09-18-2024 End: 12-18-2024 Cobalamin (Vitamin B12) [Mass/volume] in Serum or Plasma [facility] Work Phone: Comment on above: Expected: 09/18/2024, Expires: Start: 09-18-2024 End: 12-18-2024 Hemoglobin A1c in Blood [facility] Comment on above: Expected: 09/18/2024, Expires: Start: 09-18-2024 End: 12-18-2024 Magnesium [Mass/volume] in Serum or Plasma [facility] Comment on above: Expected: 09/18/2024, Expires: Start: 09-18-2024 End: 12-18-2024 Prostate specific Ag [Mass/volume] in Serum or Plasma [facility] Comment on above: Expected: 09/18/2024, Expires: Start: 07-28-2024 Annual PCP Team Chronic Disease Visit Annual PCP Team Chronic Disease Visit [facility] Start: 07-28-2024 Anxiety Screening Anxiety Screening [facility] Start: 07-28-2024 BP Controlled (<130/80) BP Controlled (<130/80) [facility] in Start: 07-28-2024 Covid-19 Vaccine () Covid-19 Vaccine () [facility] Comment on above: Postponed from 05/21/2023 (Declined at t his time) Start: 07-28-2024 Depression Screening Depression Screening [facility] Start: 07-28-2024 Medicare Annual Wellness Visit Medicare Annual Wellness Visit [facility] Start: 07-28-2024 Urine microalbumin profile DTaP,Tdap,Td Vaccine (3 - Td or Tdap) [facility] Comment on above: Postponed from 01/11/2023 (Insurance Cov erage) Start: 07-28-2024 End: 07-28-2024 Patient encounter procedure [facility] Comment on above: medicare wellness Start: 06-29-2024 Annual PCP Team Chronic Disease Visit Annual PCP Team Chronic Disease Visit [facility] Start: 05-19-2024 Patient discharge [facility] Start: 05-19-2024 Patient referral [facility] Work Phone: Start: 05-18-2024 Referral to parts sales representative [facility] Start: 05-18-2024 Tobacco use cessation education [facility] Start: 05-18-2024 End: 05-18-2024 [facility] Start: 05-18-2024 Assessment of risk of venous thromboembolism [facility] Start: 05-18-2024 Continuous pulse oximetry [facility] Start: 05-18-2024 Insertion of catheter into peripheral vein [facility] Start: 05-18-2024 Measuring intake and output [facility] Start: 05-18-2024 Providing care according to standard [facility] Start: 05-18-2024 Vital signs measurements [facility] Start: 05-18-2024 Following clinical pathway protocol [facility] Start: 05-18-2024 Ambulation without limitation [facility] Start: 05-18-2024 Cardiac monitoring [facility] Start: 05-18-2024 Cardiac rehabilitation - phase 1 [facility] Start: 05-18-2024 Cardiac rehabilitation - phase 2 [facility] Start: 05-18-2024 Notification of physician [facility] Start: 05-18-2024 Oxygen therapy [facility] Start: 05-18-2024 Patient discharge [facility] Start: 05-18-2024 Taking patient vital signs [facility] Start: 05-18-2024 Vascular disease risk assessment [facility] Start: 05-18-2024 Vital signs measurements [facility] Start: 05-18-2024 End: 05-18-2024 [facility] Start: 05-18-2024 Hospital admission, emergency, from emergency room, medical nature [facility] Start: 05-09-2024 DIABETES SCREEN DIABETES SCREEN [facility] Start: 03-29-2024 Advance Directive Discussion Advance Directive Discussion [facility] Start: 02-17-2024 Annual PCP Team Chronic Disease Visit Annual PCP Team Chronic Disease Visit [facility] Start: 02-17-2024 BP Controlled (<130/80) BP Controlled (<130/80) [facility] Start: 2024 Covid-19 Vaccine () Covid-19 Vaccine () [facility] Start: 01-29-2024 End: 04-29-2024 CBC W Auto Differential panel - Blood COMPLETE BLOOD COUNT AND DIFFERENTIAL Lab Routine Thrombocytopenia (HCC) Expected: 01/29/2024, Expires: 04/29/2024 [facility] Work Phone: Comment on above: Expected: 01/29/2024, Expires: Start: 01-13-2024 End: 01-13-2024 Patient encounter procedure 01/13/2024 1:45 PM EDT Office Visit [facility] [address] [place], [place] [address] Jay Dumont, OD [address] [place] [address] Complete Eye Exam Ophthalmology Comment on above: Complete Eye Exam Start: 11-28-2023 Covid-19 Vaccine () Covid-19 Vaccine () [facility] Start: 11-28-2023 Influenza vaccination Influenza Vaccine (#1) [place] [facility] Start: 08-26-2023 ANNUAL PCP TEAM CHRONIC DISEASE VISIT ANNUAL PCP TEAM CHRONIC DISEASE VISIT [facility] Start: 07-29-2023 End: 07-29-2023 Patient encounter procedure 07/29/2023 10:00 AM EDT Office Visit [facility] [address] [place] [id number] Aaron Cm MD [address] [place] [address] Medicare wellness [facility] Comment on above: Medicare wellness Start: 07-28-2023 ANNUAL PCP TEAM CHRONIC DISEASE VISIT ANNUAL PCP TEAM CHRONIC DISEASE VISIT [facility] Start: 07-23-2023 End: 10-22-2023 CBC W Auto Differential panel - Blood COMPLETE BLOOD COUNT AND DIFFERENTIAL Lab Routine Medication management Expected: 07/23/2023, Expires: 10/22/2023 [facility] Comment on above: Expected: 07/23/2023, Expires: Start: 07-23-2023 End: 10-22-2023 Cobalamin (Vitamin B12) [Mass/volume] in Serum or Plasma VITAMIN B12 Lab Routine Gastroesophageal reflux disease with esophagitis without hemorrhage Medication management Expected: 07/23/2023, Expires: 10/22/2023 [facility] Work Phone: Comment on above: Expected: 07/23/2023, Expires: Start: 07-23-2023 End: 10-22-2023 Comprehensive metabolic 2000 panel - Serum or Plasma COMPREHENSIVE METABOLIC PANEL Lab Routine Mixed hyperlipidemia Essential hypertension with goal blood pressure less than 140/90 Elevated fasting blood sugar Expected: 07/23/2023, Expires: 10/22/2023 [facility] Comment on above: Expected: 07/23/2023, Expires: Start: 07-23-2023 End: 10-22-2023 Hemoglobin A1c in Blood HEMOGLOBIN A1C Lab Routine Elevated fasting blood sugar Expected: 07/23/2023, Expires: 10/22/2023 [facility] Comment on above: Expected: 07/23/2023, Expires: Start: 07-23-2023 End: 10-22-2023 LIPID PANEL, NONFASTING LIPID PANEL, NONFASTING Lab Routine Mixed hyperlipidemia Essential hypertension with goal blood pressure less than 140/90 Expected: 07/23/2023, Expires: 10/22/2023 [facility] Comment on above: Expected: 07/23/2023, Expires: Start: 07-23-2023 End: 10-22-2023 Magnesium [Mass/volume] in Serum or Plasma MAGNESIUM Lab Routine Gastroesophageal reflux disease with esophagitis without hemorrhage Medication management Expected: 07/23/2023, Expires: 10/22/2023 [facility] Comment on above: Expected: 07/23/2023, Expires: Start: 07-23-2023 End: 10-22-2023 Prostate specific Ag [Mass/volume] in Serum or Plasma PROSTATE-SPECIFIC ANTIGEN DIAGNOSTIC Lab Routine Disorder of prostate Expected: 07/23/2023, Expires: 10/22/2023 [facility] Comment on above: Expected: 07/23/2023, Expires: Start: 07-23-2023 End: 10-22-2023 Urinalysis complete panel - Urine URINALYSIS, WITH MICROSCOPIC Lab Routine Mixed hyperlipidemia Essential hypertension with goal blood pressure less than 140/90 Expected: 07/23/2023, Expires: 10/22/2023 [facility] Comment on above: Expected: 07/23/2023, Expires: Start: 06-05-2023 BP CONTROLLED (<130/80) BP CONTROLLED (<130/80) [facility] Start: 05-21-2023 Covid-19 Vaccine () Covid-19 Vaccine () [facility] Start: 03-29-2023 Advance Directive Discussion Advance Directive Discussion [facility] Start: 03-29-2023 Behavioral Health Screening Behavioral Health Screening [facility] Start: 03-29-2023 Depression Assessment Depression Assessment [facility] Start: 03-02-2023 Patient discharge [facility] Start: 02-20-2023 [facility] Start: 02-20-2023 [facility] Start: 02-13-2023 [facility] Start: 01-11-2023 Urine microalbumin profile [facility] Start: 11-27-2022 Covid-19 Vaccine ( season) Covid-19 Vaccine ( season) [facility] Start: 11-27-2022 Influenza vaccination INFLUENZA (#1) [facility] Start: 08-11-2022 ANNUAL PCP TEAM CHRONIC DISEASE VISIT ANNUAL PCP TEAM CHRONIC DISEASE VISIT [facility] Start: 06-10-2022 COVID-19 VACCINE (6 - Moderna series) COVID-19 VACCINE (6 - Moderna series) [facility] Start: 05-22-2022 ANNUAL PCP TEAM CHRONIC DISEASE VISIT ANNUAL PCP TEAM CHRONIC DISEASE VISIT [facility] Start: 05-22-2022 BP CONTROLLED (<130/80) BP CONTROLLED (<130/80) [facility] Start: 05-22-2022 SHINGRIX VACCINE (2 of 3) SHINGRIX VACCINE (2 of 3) [facility] Comment on above: Postponed from 01/05/2013 (Insurance Cov erage) Start: 03-29-2022 ADVANCE DIRECTIVE DISCUSSION ADVANCE DIRECTIVE DISCUSSION [facility] Start: 03-29-2022 DEPRESSION ASSESSMENT DEPRESSION ASSESSMENT [facility] Start: 01-16-2022 SHINGRIX VACCINE (3 of 3) SHINGRIX VACCINE (3 of 3) [facility] Start: 11-27-2021 Influenza vaccination INFLUENZA (#1) [facility] Start: 09-09-2021 COVID-19 VACCINE (5 - Booster for Moderna series) COVID-19 VACCINE (5 - Booster for Moderna series) [facility] Start: 03-29-2021 ADVANCE DIRECTIVE DISCUSSION ADVANCE DIRECTIVE DISCUSSION [facility] Start: 03-29-2021 DEPRESSION ASSESSMENT DEPRESSION ASSESSMENT [facility] Start: 06-02-2017 FECAL OCCULT BLOOD FECAL OCCULT BLOOD [facility] Start: 2007 RSV Vaccine (1 - 1-dose 60+ series) RSV Vaccine (1 - 1-dose 60+ series) [facility] Start: 02-03-1992 COLOGUARD (FIT-DNA) COLOGUARD (FIT-DNA) [facility] Start: 02-03-[address] COLONOGRAPHY [facility] Start: 02-03-1992 SIGMOIDOSCOPY SIGMOIDOSCOPY [facility] End: 07-10-2022 EGD DIAGNOSTIC EGD DIAGNOSTIC Endoscopy Routine Dysphagia, unspecified type 1 Occurrences starting 07/10/2021 until 07/10/2022 [facility] Work Phone: Comment on above: 1 Occurrences starting 07/10/2021 until 07/10/2022 Patient Education [facility] Work Phone: Patient referral [facility] Work Phone: SURGICAL PATHOLOGY [facility] Work Phone: Comment on above: Release Upon Ordering for 1 Occurrences starting 09/09/2021, 1 completed [facility] Immunizations Immunization Date Immunization Notes Care Provider [facility] 09-21-2024 pneumococcal conjuga te (PCV20) vaccine, 20 valent (PREVNAR 20) Aaron Cm MD Work Phone: [facility] 09-21-2024 pneumococcal Conjuga te, unspecified formulation Aaron Cm MD Work Phone: [facility] 12-24-2023 Seasonal trivalent influenza vaccine, adjuvanted, preservative free Jay Dumont OD Work Phone: [facility] 12-24-2023 influenza virus vaccine, unspecified formulation Aaron Cm MD Work Phone: [facility] 12-08-2023 COVID-19 vaccine (NOVAVAX) Jay Dumont OD Work Phone: [facility] 04-22-2023 respiratory syncytia l virus (RSV) vaccine, bivalent (ABRYSVO) Jay Dumont OD Work Phone: [facility] 01-18-2023 COVID-19 vaccine, ag e 12+ yr, season (MODERNA) Melvin Brizuela MD Work Phone: [facility] 01-09-2023 influenza (HD-IIV4) vaccine, age 65+ yr, high dose, quadrivalent, PF (FLUZONE HIGH-DOSE) Immunization [facility] Work Phone: [facility] 01-09-2023 influenza virus vaccine, unspecified formulation Kayleen Schrader PA-C Work Phone: [facility] 03-11-2022 zoster vaccine recombinant Aaron Cm MD Work Phone: [facility] Work Phone: 11-21-2021 zoster vaccine recombinant Jay Dumont OD Work Phone: [facility] 01-04-2021 influenza, high-dose , quadrivalent vaccine (FLUZONE HIGH DOSE QUADRIVALENT) Lonny Leal MD Work Phone: [facility] 01-17-2020 influenza, high-dose , quadrivalent vaccine (FLUZONE HIGH DOSE QUADRIVALENT) Lonny Leal MD Work Phone: [facility] 02-07-2019 influenza, high dose seasonal, preservative-free Lonny Leal MD Work Phone: [facility] 04-29-2018 pneumococcal polysaccharide vaccine, 23 valent Lonny Leal MD Work Phone: [facility] 01-08-2018 influenza, high dose seasonal, preservative-free Lonny Leal MD Work Phone: [facility] 01-30-2017 influenza, high dose seasonal, preservative-free Lonny Leal MD Work Phone: [facility] Work Phone: 12-23-2015 pneumococcal conjuga te vaccine, 13 valent Lonny Leal MD Work Phone: [facility] Work Phone: 12-20-2015 influenza, high dose seasonal, preservative-free Lonny Leal MD Work Phone: [facility] Work Phone: 01-17-2015 influenza, high dose seasonal, preservative-free Lonny Leal MD Work Phone: [facility] 01-11-2013 tetanus toxoid, redu ruth diphtheria toxoid, and acellular pertussis vaccine, adsorbed Lonny Leal MD Work Phone: [facility] Work Phone: 12-14-2012 influenza virus vaccine, unspecified formulation Lonny Leal MD Work Phone: [facility] Work Phone: 11-10-2012 zoster vaccine, live Lonny Leal MD Work Phone: [facility] 09-19-2012 tetanus toxoid, redu ruth diphtheria toxoid, and acellular pertussis vaccine, adsorbed Kayleen Schrader PA-C Work Phone: [facility] 03-25-2012 pneumococcal polysaccharide vaccine, 23 valent Lonny Leal MD Work Phone: [facility] Payers Date Payer Category Payer Self-pay [id number] 2013 Private Health Insurance [facility] AARP SUPPLEMENT [id number] 2013-Present [phone] [address] [place] [address] Indemnity [id number] 2013 Private Health Insurance [id number] 2013 Unknown [id number] 2012 Medicare MEDICARE MEDICAR E A AND B [id number] 2012-Present [phone] [address] [address] [place] [address] Medicare [id number] 2012 Medicare [id number] 2012 Medicare [id number] Unknown [id number] Unknown [id number] Unknown [id number] Unknown [id number] .[id number] Unknown [id number] .[id number] Unknown [id number] .462 Unknown [id number] .462 Unknown [id number] .462 Unknown [id number] .[id number] Unknown [id number] .462 Unknown [id number] .462 Unknown [id number] .462 Unknown [id number] .462 Unknown [id number] Unknown [id number] .462 Unknown [id number] .[id number] Unknown [id number] .462 Unknown [id number] Social History Date Type Detail Facility Start: 03-16-2013 End: 05-21-2022 Tobacco smoking status NHIS Never smoked tobacco [facility] Work Phone: Start: 03-16-2013 End: 05-21-2022 Tobacco use and exposure Smokeless tobacco non-user [facility] Work Phone: Start: 07-02-2021 End: 09-21-2024 Alcohol intake Current drinker of alcohol (finding) [facility] Start: 05-15-2019 End: 05-17-2019 History SDOH Alcohol Frequency 2 [facility] Start: 05-15-2019 End: 05-17-2019 History SDOH Alcohol Std Drinks 1 [facility] Start: 10-06-2017 History SDOH Alcohol Comment once a month [facility] Start: 05-15-2019 History SDOH Social Connections Phone 3 [facility] Start: 05-15-2019 History SDOH Physica l Activity MPS 6 [facility] Start: 05-15-2019 History SDOH Financial 5 [facility] Start: 05-15-2019 Education 17 [facility] Start: 1945 Sex Assigned At Not on file C [facility] Start: 06-22-2021 End: 09-23-2021 Exposure to SARS-CoV-2 (event) Not sure [facility] Start: 05-15-2019 End: 08-25-2022 History of Social function [place] [facility] Start: 05-15-2019 End: 08-25-2022 Social connection and isolation panel [facility] Do you belong to any clubs or organizations such as baptism groups, unions, fraternal or athletic groups, or school groups? Yes [facility] Are you now , , , , never or living with a partner? [facility] How often to you hav e a drink containing alcohol? Monthly or less [facility] Work Phone: How many standard dr inks containing alcohol do you have on a typical day? 1 or 2 [facility] Work Phone: How often do you hav e 6 or more drinks on 1 occasion? Never [facility] Work Phone: Start: 03-14-2012 How hard is it for y ou to pay for the very basics like food, housing, medical care, and heating Not hard at all [facility] Do you feel stress - tense, restless, nervous, or anxious, or unable to sleep at night because your mind is troubled all the time - these days [OSQ] Not at all [facility] (I/We) worried wheth er (my/our) food would run out before (I/we) got money to buy more. Never true [facility] Start: 02-13-2023 End: 03-01-2023 Tobacco smoking status NHIS Unknown if ever smoked [facility] Start: 1945 Sex Assigned At Male [facility] Start: 06-06-2024 End: 06-27-2024 Sex Male (finding) [facility] Start: 09-21-2024 Alcohol Comment once a month - not even this [facility] Medical Equipment Procedure Code Equipment Code Equipment Original Text Equipment Identifier Dates Total cholecystectomy with exploration of common bile duct Ligation clip, synthetic polymer, non-bioabsorbable [id number] FDA Start: 03-02-2023 Total cholecystectomy with exploration of common bile duct Ligation clip, synthetic polymer, non-bioabsorbable ()[id number] FDA Start: 03-02-2023 Drug-eluting coronary artery stent, non-bioabsorbable -polymer-coated ()[id number] FDA Start: 05-18-2024 Drug-eluting coronary artery stent, non-bioabsorbable -polymer-coated ()[id number] FDA Start: 05-18-2024 Goals Date Patient Goal Desired Activity /State Functional Status Date Assessment Result Facility 09-21-2024 Total score [AUDIT-C] 1 09/22/19 9:46 AM Ame Tellez MA [facility] 05-19-2024 Functional status Bedrest [facility] Work Phone: 06-04-2014 Are you deaf, or do you have serious difficulty hearing No 06/04/2014 11:18 AM Elva Romo LPN No [facility] 06-04-2014 Are you blind, or do you have serious difficulty seeing, even when wearing glasses No 06/04/2014 11:18 AM EDT Elva Colon LPN No [facility] 06-04-2014 Do you have serious difficulty walking or climbing stairs No 06/04/2014 11:18 AM EDT Elva Colon LPN No [facility] 06-04-2014 Do you have difficul ty dressing or bathing No 06/04/2014 11:18 AM EDT Elva Colon LPN No [facility] 06-04-2014 Because of a physica l, mental, or emotional condition, do you have difficulty doing errands alone such as visiting a physician's office or shopping No 06/04/2014 11:18 AM EDT Elva Colon LPN No [facility] Mental Status Date Assessment Result Facility 05-19-2024 Cognitive function Voice/Name [facility] Work Phone: 03-02-2023 Cognitive function Voice/Name [facility] Work Phone: 02-13-2023 Cognitive function Awake;Alert;A ppropriate; Follows Commands [facility] Work Phone: 06-04-2014 Because of a physica l, mental, or emotional condition, do you have serious difficulty concentrating, remembering, or making decisions No 06/04/2014 11:18 AM EDT Elva Colon LPN [facility] Clinical Notes 07-02-2021 to 12-04-2024 Telephone Encounter - Aaron Cm MD - 12/04/2024 3:16 PM EDTTelephone Encounter - Aaron Cm MD - 12/04/2024 3:16 PM EDTPCalvin Tyson MA - 09/13/2024 2:00 PM EDT Note Date & Type Note Facility 12-04-2024 Telephone encounter Note Noted. [facility] 12-04-2024 Miscellaneous Notes Noted. Pt called in and reports he called [facility] and they wouldn't fill the Flomax and the Cardura together due to interactions. I let him know that the Flomax ordered on 09/21/24 had a note Pt was on Cardura for BP and BPH and BP was too low so cardio decreased it and suggested flomax since less BP affect. Then on the Cardura from 09/13/24 it had a note on it decreased to 1 mg per cardio and may wean off due to low BP. Suggested flomax if needed.. I told Pt he needs to call [facility] and ask them what they would like to do as it seems like these medications were at their request. I told him I would still let PCP know. Bernie Mann RN documented in this encounter [facility] 12-04-2024 Telephone encounter Note Pt called in and reports he called [facility] and they wouldn't fill the Flomax and the Cardura together due to interactions. I let him know that the Flomax ordered on 09/21/24 had a note Pt was on Cardura for BP and BPH and BP was too low so cardio decreased it and suggested flomax since less BP affect. Then on the Cardura from 09/13/24 it had a note on it decreased to 1 mg per cardio and may wean off due to low BP. Suggested flomax if needed.. I told Pt he needs to call [facility] and ask them what they would like to do as it seems like these medications were at their request. I told him I would still let PCP know. Bernie Mann RN [facility] 09-21-2024 Instructions Aaron Cm MD - 09/21/2024 10:08 AM EDT Consider getting a Tdap for tetanus update at a local pharmacy. Please bring in copies of your power of deputy attorney general for health care and living will. Reach out to Dr. Cm prior to next appt in 2025 to get labs prior. On or after 10/21/2024 get repeat labs for PSA and blood count. We discussed your health and care plan during today s visit: ### Pneumococcal Vaccine: - You received the Prevnar 20 (pneumococcal vaccine) today. This vaccine does not require a booster. ### Medications: 1. Omeprazole to Lansoprazole (Prevacid): - We are switching your omeprazole (20 mg) to lansoprazole (15 mg) to avoid interactions with Plavix. - Lansoprazole should provide the same heartburn protection. If you notice any swallowing issues or heartburn symptoms, let me know. If needed, we can adjust the dose to 30 mg. 2. Tamsulosin (Flomax): - Start taking tamsulosin 0.4 mg at night to help reduce nighttime urination frequency. - Monitor your blood pressure, as a small number of people may experience a drop in blood pressure with this medication. If you notice dizziness or other symptoms, let me know. 3. B12 Supplement: - Start taking a chewable B12 gummy (500 mcg daily) to support memory and overall health. B12 is water-soluble, so excess amounts will be excreted by your body. 4. Multivitamin: - Begin taking a senior multivitamin daily, such as Centrum Silver or the Equate brand. These contain lutein and zeaxanthin, which help protect against macular degeneration. ### Lab Results: - Platelets: Your platelet count was 134,000, slightly lower than previous levels (140,000s). This is not concerning at this time but will be monitored. Low platelets may be related to Plavix or other medications. - A1c: Your A1c was excellent at 5.2%, indicating good blood sugar control. - Cholesterol: - Triglycerides: 87 (goal: <150) - HDL (good cholesterol): 40 (goal: =40) - LDL (bad cholesterol): 68 (goal: =70) - B12: Your B12 level was 347. While this is within the normal range, levels below 400 can increase the risk of memory issues. - PSA: Your PSA was 3.42, up from 2.47 previously. This may be due to benign factors such as physical activity or prostate changes. ### Follow-Up Plan: 1. Repeat Labs: - Schedule a repeat PSA test and blood count on or after October 21. This will include a free PSA test to provide more information about your prostate health. - We will also monitor your platelet count to ensure it is stable. 2. Prostate Management: - If your PSA remains elevated, we may consider starting finasteride (Propecia) to shrink the prostate. This will be discussed after your repeat PSA test, as finasteride can affect PSA levels. 3. Next Appointment: - Your next annual visit is scheduled for 2023. 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 ### Additional Instructions: - Continue your current medications as prescribed, including Plavix and Farxiga. - Maintain your current diet, which has positively impacted your weight and cholesterol levels. Incorporate more G88-suof foods like leafy greens (e.g., spinach, broccoli) to support your B12 le, vels. - Consider resuming vitamin D3 (2,000 IU daily) to support bone health, especially given limited sun exposure in [place]. If you have any questions or notice any new symptoms, please contact our office. documented in this encounter [facility] 09-21-2024 Note HNO ID: [id number] Author: AARON CM MD Service: ? Author Type: Physician Type: Progress Notes Filed: 09/21/2024 21:46 Note Text: Alba Smith is a 79 year old male here for a Medicare wellness visit. Medicare Health Risk Assessment General Health Very good Exercise: Minutes/Day 30 min Exercise: Days/Week 6 days Alcohol: Daily Use Monthly or less Alcohol: Drinks/Day 1 or 2 Alcohol: 6 or more drinks Never Feel off balance No Concerns: Teeth/Dentures No Concerns: Sexual function No Troubled by feelings None of the above Frequency: Eating healthy diet Nearly every day ADLs requiring help None of the above Safety precautions in home/vehicle No (Has rugs in home, all other precautions followed) Smoke, vape, chews tobacco No Difficulty hearing No Difficulty seeing No Current Providers Specialists: I have reviewed specialist-related care of the patient in the medical record. Medical/Family history review Reviewed and updated problem list, medical/surgical/family/social history, medications, and allergies. Opioid use review Opioid Medications (last 90 days) No data to display Anxiety/Depression screening PHQ-2 Score: 0 (Lower risk for depression) WAYNE-2 Score: 1 (Lower risk for anxiety) Recommendation: no further intervention at this time Cognitive screening Mini Cog Score: 4 Cognitive screening reviewed and No further action needed (score 3-5). Mini-Cog Patient asked to remember the following three words: Banana, [place] and Chair Visuospatial/Executive Functioning: Clock drawin/2 (Normal clock with all number in correct sequence and position, hands are correct = 2 points, inability or refusal to draw a clock = 0) Three word recall: 2/3 Total score: 4/5 (Total score = word recall score + clock draw score) Functional Observation Was the patient's Timed Up AND Go test unsteady or >= 12 seconds? No Advance Care Planning Surrogate decision maker and/or advance care plan documented Measurements BP 124/78 (BP Site: Left Arm, BP Position: Sitting, BP Cuff Size: Regular Adult) Pulse 60 Resp 16 Ht 175.3 cm (5' 9) Wt 82.6 kg (182 lb) BMI 26.88 kg/m? Vision Screening: Follows with optometry/ophthalmology annually Assessment/Plan Medicare annual wellness visit, subsequent (Z00.00) - Counseled on healthy diet and regular exercise - Fall avoidance information provided - Personalized prevention plan provided See below Chief Complaint Patient presents with: Medicare Wellness Exam HPI Alba Smith is a 79 year old male who presents here today for Chronic Medical Conditions. and Medicare Annual Visit. Patient with Hx elevated fasting blood sugar, HTN, Hyperlipidemia, GERD as well as those reviewed and addressed below and in ROS. No new issues or concerns today. Alba denies any recent hospitalizations or surgeries. He reports no new major conditions diagnosed in his siblings. He is currently under the care of [facility] for cardiology and [facility] for dermatology. He is scheduled to attend his 60th high school reunion tomorrow night. Alba reports a weight loss of approximately 16-17 lbs since April, which he attributes to dietary changes made after his CO. He denies any recent fevers, frequent cephalalgia, or sudden changes in hearing or vision, though he does note a gradual onset of bilateral tinnitus. He denies any recent issues with his nose or throat, and has not noticed any lumps or swelling in his neck. He denies wheezing, dyspnea, hemoptysis, or production of colored mucus. He also denies chest pain, palpitations, or lower extremity edema. Alba reports no frequent nausea, emesis, diarrhea, or heartburn, and has not observed any blood in his stool or urine. He does report nocturia, with frequency varying from 2 times on a good night to 4-5 times on a bad night. He notes a potential increase in nocturia and daytime urinary frequency after a recent decrease in his doxazosin dosage from 2 mg to 1 mg daily, which was made due to episodes of hypotension with readings as low as 90/60 mmHg. He is able to initiate urination without difficulty. He denies any unusual muscle or joint aches beyond his baseline, and has not noticed any new or different easy bruising or bleeding, though he does report some bruising, which he attributes to his current medications, Plavix and aspirin. He denies any changes in his tolerance to heat or cold, increased thirst, syncope, seizures, or tremors. Alba is currently taking omeprazole 20 mg daily for dysphagia, which he reports has been well-controlled since starting the medication. He has also been taking vitamin D3, but discontinued it due to concerns about its potential impact on his coronary artery calcium score. He denies taking a multivitamin. He is planning to receive COVID-19 and influenza vaccinations this fall. He consents to receiving the Prevn (more content not included)... [facility] 09-21-2024 History of Presen t illness Narrative Alba Smith is a 79 year old male here for a Medicare wellness visit. Medicare Health Risk Assessment General Health Very good Exercise: Minutes/Day 30 min Exercise: Days/Week 6 days Alcohol: Daily Use Monthly or less Alcohol: Drinks/Day 1 or 2 Alcohol: 6 or more drinks Never Feel off balance No Concerns: Teeth/Dentures No Concerns: Sexual function No Troubled by feelings None of the above Frequency: Eating healthy diet Nearly every day ADLs requiring help None of the above Safety precautions in home/vehicle No (Has rugs in home, all other precautions followed) Smoke, vape, chews tobacco No Difficulty hearing No Difficulty seeing No Current Providers Specialists: I have reviewed specialist-related care of the patient in the medical record. Medical/Family history review Reviewed and updated problem list, medical/surgical/family/social history, medications, and allergies. Opioid use review Opioid Medications (last 90 days) No data to display Anxiety/Depression screening PHQ-2 Score: 0 (Lower risk for depression) WAYNE-2 Score: 1 (Lower risk for anxiety) Recommendation: no further intervention at this time Cognitive screening Mini Cog Score: 4 Cognitive screening reviewed and No further action needed (score 3-5). Mini-Cog Patient asked to remember the following three words: Banana, [place] and Chair Visuospatial/Executive Functioning: Clock drawin/2 (Normal clock with all number in correct sequence and position, hands are correct = 2 points, inability or refusal to draw a clock = 0) Three word recall: 2/3 Total score: 4/5 (Total score = word recall score + clock draw score) Functional Observation Was the patient's Timed Up & Go test unsteady or >= 12 seconds? No Advance Care Planning Surrogate decision maker and/or advance care plan documented Measurements BP 124/78 (BP Site: Left Arm, BP Position: Sitting, BP Cuff Size: Regular Adult) Pulse 60 Resp 16 Ht 175.3 cm (5' 9) Wt 82.6 kg (182 lb) BMI 26.88 kg/m Vision Screening: Follows with optometry/ophthalmology annually Assessment/Plan Medicare annual wellness visit, subsequent (Z00.00) - Counseled on healthy diet and regular exercise - Fall avoidance information provided - Personalized prevention plan provided See below Chief Complaint Patient presents with: Medicare Wellness Exam HPI Alba Smith is a 79 year old male who presents here today for Chronic Medical Conditions. and Medicare Annual Visit. Patient with Hx elevated fasting blood sugar, HTN, Hyperlipidemia, GERD as well as those reviewed and addressed below and in ROS. No new issues or concerns today. Alba denies any recent hospitalizations or surgeries. He reports no new major conditions diagnosed in his siblings. He is currently under the care of [facility] for cardiology and [facility] for dermatology. He is scheduled to attend his 60th high school reunion tomorrow night. Alba reports a weight loss of approximately 16-17 lbs since April, which he attributes to dietary changes made after his CO. He denies any recent fevers, frequent cephalalgia, or sudden changes in hearing or vision, though he does note a gradual onset of bilateral tinnitus. He denies any recent issues with his nose or throat, and has not noticed any lumps or swelling in his neck. He denies wheezing, dyspnea, hemoptysis, or production of colored mucus. He also denies chest pain, palpitations, or lower extremity edema. Alba reports no frequent nausea, emesis, diarrhea, or heartburn, and has not observed any blood in his stool or urine. He does report nocturia, with frequency varying from 2 times on a good night to 4-5 times on a bad night. He notes a potential increase in nocturia and daytime urinary frequency after a recent decrease in his doxazosin dosage from 2 mg to 1 mg daily, which was made due to episodes of hypotension with readings as low as 90/60 mmHg. He is able to initiate urination without difficulty. He denies any unusual muscle or joint aches beyond his baseline, and has not noticed any new or different easy bruising or bleeding, though he does report some bruising, which he attributes to his current medications, Plavix and aspirin. He denies any changes in his tolerance to heat or cold, increased thirst, syncope, seizures, or tremors. Alba is currently taking omeprazole 20 mg daily for dysphagia, which he reports has been well-controlled since starting the medication. He has also been taking vitamin D3, but discontinued it due to concerns about its potential impact on his coronary artery calcium score. He denies taking a multivitamin. He is planning to receive COVID-19 and influenza vaccinations this fall. He consents to receiving the Prevnar 20 pneumococcal vaccine today. Past medical history, appointments, medications, allergies reviewed. Previous Medical History PAST MEDICAL HISTORY Diagnosis Date Advance directive discussed with patient 07/27/2022 Discussed 07/2022: Needs to bring in copies. Arthritis Benign prostatic hyperplasia with nocturia 09/21/2024 Elevated fasting blood sugar 04/28/2017 Essential hypertension with goal blood pressure less than 140/90 08/22/2015 Gastroesophageal reflux disease with esophagitis 08/22/[address] elevation myocardial infarction (STEMI) 05/22/202404/2024, Seeing [facility], stent to RCA 04/[address] 05/22/2021 POA : Anita Medicare annual wellness visit, subsequent 04/28/2017 Medicare Part B: 12/27/2012 last done: 04/29/2018 Mixed hyperlipidemia Proteinuria 03/17/2013 Neg on f/u Sebaceous cyst 05/22/2021 lower left sternal boarder. Seborrheic keratosis 03/16/2013 Skin cancer screening 07/29/2023 Seeing [facility]. Thrombocytopenia 09/21/2024 Previous Surgical History PAST SURGICAL HISTORY Procedure Laterality Date COLONOSCOPY 08/03/2016 Dr. [place] with biopsy in [place], repeat 5 yrs EGD W/O BRSH SPEC VARICIES INJ 09/09/2021 EYE SURGERY HX IMMUNOCHEMICAL FECAL OCCULT BLOOD TEST 06/03/2016 negative PLASTIC REPAIR CANALICULI left REMOVAL GALLBLADDER 03/02/2023 SKIN BIOPSY HX Family History FAMILY HISTORY Problem Relation Age of Onset Coronary Artery Disease Mother Cataract Mother other (parkinson's) Father Diabetes Maternal Grandfather Diabetes Paternal Grandmother Cancer Paternal Uncle lung Patient Allergies ALLERGIES Allergen Reactions Niacin Hives Sulfa (Sulfonamide * Hives Current Medications Current Outpatient Medications on File Prior to Visit Medication Sig amLODIPine (NORVASC) 5 mg tablet Take 1 tablet by mouth once daily. Per Cardio: [facility] doxazosin (CARDURA) 1 mg tablet Take 1 tablet by mouth once daily. atorvastatin (LIPITOR) 40 mg tablet TAKE 1 TABLET BY MOUTH DAILY AT BEDTIME FOR CHOLESTEROL clopidogrel (PLAVIX) 75 mg tablet Take 1 tablet by mouth once daily. lisinopril 2.5 mg tablet Take 1 tablet by mouth once daily. Per cardio: [facility] metoprolol tartrate, short acting, (LOPRESSOR) 25 mg tablet Take 0.5 tablets by mouth two times a day. Per Cardio: [facility] aspirin, enteric coated (ADULT LOW DOSE ASPIRIN) 81 mg EC tablet Take 1 tablet by mouth once daily. omeprazole (PRILOSEC) 20 mg capsule Take 1 capsule by mouth once daily. Take one tablet daily benzonatate (TESSALON PERLES) 100 mg capsule Take 1 capsule by mouth three times a day as needed. COMPOUNDED PRESCRIPTION OTC Vitamin D3 2000 IU No current facility-administered medications on file prior to visit. Social History Social History Tobacco Use Smoking status: Never Smokeless tobacco: Never Vaping Use Vaping status: Never Used Substance Use Topics Alcohol use: Yes Comment: once a month - not even this Drug use: No Review of Symptoms REVIEW OF SYSTEMS GENERAL: No unintentional weight loss, malaise or fevers HEENT: Negative for frequent or significant headaches, No changes in hearing or vision, no nose bleeds or other nasal problems. Has a buzzing in hearing but not sure which sides. NECK: Negative for lumps, goiter, pain and significant neck swelling RESPIRATORY: Negative for cough, hemoptysis, wheezing, COPD, dyspnea or shortness of breath CARDIOVASCULAR: Negative for chest pain, leg swelling, hypertension, CHF or palpitations GI: No nausea, vomiting, or diarrhea, No heartburn or reflux symptoms, and no blood : No history of dysuria, frequency or blood. Nocturia 2-4 times a night. Can start his urine ok. MUSCULOSKELETAL: Negative for new or changes in his typical joint pain or swelling, back pain or muscle pain SKIN: seeing derm PSYCH: Negative for sleep disturbance, mood disorder and recent psychosocial stressors HEMATOLOGY/LYMPHOLOGY: Negative for prolonged bleeding, bruising easily or swollen nodes ENDOCRINE: Negative for cold or heat intolerance, polyuria, polydipsia and goiter NEURO: No history of headaches, syncope, paralysis, seizures or tremors SEE HPI EXAM: BP 124/78 (BP Site: Left Arm, BP Position: Sitting, BP Cuff Size: Regular Adult) Pulse 60 Resp 16 Ht 175.3 cm (5' 9) Wt 82.6 kg (182 lb) BMI 26.88 kg/m Last 6 Encounter Wt Readings: Date: Wt: 09/21/2024 82.6 kg (182 lb) 08/26/2023 88.3 kg (194 lb 10.7 oz) 07/29/2023 89.2 kg (196 lb 9.6 oz) 06/30/2023 88.3 kg (194 lb 9.6 oz) 02/16/2023 86.6 kg (191 lb) 08/25/2022 88 kg (194 lb) General Appearance: Well appearing, alert, in no acute distress, well-hydrated, well nourished. and Overweight. Head: Normocephalic, no masses, lesions, tenderness or abnormalities. Eyes: Anicteric sclera. Pupils are equally round and reactive to light. Extraocular movements are intact. . Ears: External ears, TM's normal, canals clear. Nose/Sinuses: Nares normal, septum midline, mucosa normal, no drainage or sinus tenderness. Oropharynx: Lips, mucosa, and tongue normal, teeth and gums normal, oropharynx normal. Neck: Supple, no adenopathy; thyroid symmetric, normal size, no bruits. Lungs: Lungs clear to auscultation. No wheezing, rhonchi, rales.. Heart: RRR without murmur, gallop, or rubs. No ectopy. Abdomen: Normal abdominal exam, Abdomen soft, non-tender. Bowel sounds normal. No masses, organomegaly. Extremities: No deformities, edema, skin discoloration, Good capillary refill. . Musculoskeletal: No joint swelling, deformity, or tenderness. Peripheral Pulses: Normal. Neurologic: Gait normal. Reflexes normal and symmetric. Sensation to light touch and crainal nerves 2-12 intact.. Genitalia: Normal, Penis normal. No urethral discharge. Scrotum normal to palpation. No hernia.. Rectal: Normal exam. Prostate enlarged smooth firm capsule. [facility] Maintenance List Medicare Annual Wellness Visit due on 07/28/2024 DTaP,Tdap,Td Vaccine(3 - Td or Tdap) due on 09/21/2025 Covid-19 Vaccine( season) due on 09/21/2025 Annual PCP Team Chronic Disease Visit due on 09/21/2025 Depression Screening due on 09/21/2025 Anxiety Screening due on 09/21/2025 Diabetes Screening due on 09/19/2027 Influenza Vaccine Completed Advance Directive Discussion Completed RSV Vaccine Completed Hepatitis C Screening Completed Shingrix Vaccine Completed Pneumococcal Vaccine: 50+ Completed Colorectal Cancer Screening Discontinued Data reviewed Latest Ref Rng 07/27/2023 09/12/2024 09/18/2024 WBC 3.70 - 11.00 k/uL 5.14 6.63 RBC 4.20 - 6.00 m/uL 5.36 5.23 Hemoglobin 13.0 - 17.0 g/dL 17.0 16.7 Hematocrit 39.0 - 51.0 % 48.6 48.9 MCV 80.0 - 100.0 fL 90.7 93.5 MCH 26.0 - 34.0 pg 31.7 31.9 MCHC 30.5 - 36.0 g/dL 35.0 34.2 RDW-CV 11.5 - 15.0 % 12.4 12.3 Platelet Count 150 - 400 k/uL 146 (L) 134 (L) MPV 9.0 - 12.7 fL 10.7 11.7 Neut% % 52.1 54.6 Abs Neut (ANC) 1.45 - 7.50 k/uL 2.68 3.62 Lymph% % 36.4 33.0 Abs Lymph 1.00 - 4.00 k/uL 1.87 2.19 [place]% % 8.6 8.7 Abs [place] <0.87 k/uL 0.44 0.58 Eosin% % 2.1 3.0 Abs Eosin <0.46 k/uL 0.11 0.20 Baso% % 0.6 0.5 Abs Baso <0.11 k/uL 0.03 0.03 Immature Gran % % 0.2 0.2 IMMATURE GRANS (ABS) <0.10 k/uL <0.03 <0.03 NRBC /100 WBC 0.0 0.0 Absolute nRBC <0.01 k/uL <0.01 <0.01 DTYPE Auto Auto Color Yellow Yellow Yellow Clarity Clear Clear Clear Glucose, Urine Negative Negative 3+ ! Bilirubin, Urine Negative Negative Negative Ketones, Urine Negative Negative Negative Specific [place], Ur 1.005 - 1.030 1.019 1.031 (H) Hemoglobin/Blood,Ur Negative Negative Negative pH, Urine <8.5 7.5 5.5 Protein, Urine Negative Trace ! Negative Urobilinogen 0.2-1.0 EU/dL 1.0 EU/dL 0.2 EU/dL Nitrites Negative Negative Negative Leukest Negative Negative Negative WBC, Urine 0-5 /HPF 0-5 /HPF 0-5 /HPF RBC, Urine 0-2 /HPF 0-2 /HPF 0-2 /HPF Bacteria Negative /HPF Negative Negative Epithelial Cells /HPF None Seen None Seen Hyaline Cast 0 /LPF 0 /LPF 0 /LPF Protein, Total 6.3 - 8.0 g/dL 6.8 Albumin 3.2 - 4.6 gm/dL 4.3 4.2 (E) Calcium 8.5 - 10.2 mg/dL 9.3 Bilirubin, Total 0.2 - 1.3 mg/dL 0.9 Alkaline Phosphatase 38 - 113 U/L 80 AST 8 - 37 U/L 19 24 (E) ALT 10 - 54 U/L 14 Glucose 74 - 106 MG/DL 105 (H) 99 (E) BUN 7 - 18 MG/DL 15 18 (E) Creatinine 0.6 - 1.3 MG/DL 1.00 1.18 (E) Sodium 136 - 144 mmol/L 140 Potassium 3.7 - 5.1 mmol/L 3.8 Chloride 98 - 107 MEQ/L 105 107 (E) CO2 21 - 32 MEQ/L 29 26.4 (E) Anion Gap 9 - 18 mmol/L 6 (L) eGFR >=60 mL/min/1.73m 78 NA 136 - 145 mmol/L 142 (E) K 3.5 - 5.1 mmol/L 4.0 (E) GFR mL/MIN 64 (E) Total Protein 6.4 - 8.2 gm/dL 6.5 (E) Calcium 8.5 - 10.1 mg/dL 8.9 (E) Bili Total 0.2 - 1 mg/dL 0.93 (E) ALT (SGPT) 12 - 78 U/L 17 (E) Alk Phos Total 45 - 117 U/L 76 (E) Total Cholesterol, Nonfasting <200 mg/dL 148 Triglycerides, Nonfasting <150 mg/dL 93 HDL Cholesterol, Nonfasting >39 mg/dL 47 LDL Cholesterol Calculated, Nonfasting <100 mg/dL 82 Non HDL Cholesterol, Nonfasting <130 mg/dL 101 VLDL Cholesterol, Nonfasting <30 mg/dL 19 Total Chol/HDL Ratio, Nonfasting <5.10 mg/dL 3.15 LDL/HDL Ratio, Nonfasting <2.54 mg/dL 1.74 Cholesterol, Total <=200 126 (E) Triglyceride <=150 87 (E) HDL CHOLESTEROL >=40 40 (E) LDL CHOLESTEROL <=70 68 (E) Hemoglobin A1C 4.3 - 5.6 % 5.2 5.2 Estimated Average Glucose mg/dL 103 103 Vitamin B12 232 - 1,245 pg/mL 345 347 PSA <2.60 ng/mL 2.47 3.42 (H) Magnesium 1.7 - 2.3 mg/dL 2.3 2.3 Assessment and Plan 1. Medicare annual wellness visit, subsequent (Z00.00) Comprehensive review of systems and physical examination performed. No acute issues identified. - Scheduled follow-up in one year. - Patient to reach out a couple of weeks before the next appointment to coordinate labs with cardiology to avoid duplication. - updated Prev-20 - pt to work on some furtehr weight loss. 2. Essential hypertension with goal blood pressure less than 140/90 (I10) Blood pressure previously noted to be low, leading to a reduction in Cardura dosage by cardiology. - very good control today. Continue current antihypertensive regimen. 3. Mixed hyperlipidemia (E78.2) Recent lipid panel shows triglycerides at 87 mg/dL, HDL at 40 mg/dL, and LDL at 68 mg/dL, all within target ranges. Continue current lipid management. 4. Elevated fasting blood sugar (R73.01) Urinalysis showed glucosuria, likely secondary to Farxiga. Hemoglobin A1c is well-controlled at 5.2%. Continue current management with Farxiga and life style changes. 5. Gastroesophageal reflux disease with esophagitis without hemorrhage (K21.00) Currently managed with omeprazole 20 mg daily. - Discontinue omeprazole since it may interact with his Plavix. - Initiate lansoprazole 15 mg daily. 6. History of ST elevation myocardial infarction (STEMI) (I25.2) Under cardiology care with recent medication adjustments to manage blood pressure. Continue current cardiac management and follow-up with cardiology. 7. Advance directive discussed with patient (Z71.89) Advance directive status reviewed. - pt to bring in copies. . 8. Thrombocytopenia (D69.6) Recent CBC shows platelet count at 134 x 10^3/ microL, slightly decreased from previous values in the 140s. Likely multifactorial, possibly influenced by Plavix therapy. - Repeat CBC in one month to monitor platelet trend. - Educated patient on potential risks of low platelet count, including increased bleeding risk. 9. Benign prostatic hyperplasia with nocturia (N40.1) Increased nocturia noted, possibly exacerbated by recent reduction in Cardura dosage. - Initiate tamsulosin 0.4 mg at bedtime. - Monitor for any hypotensive effects. 10. Elevated PSA (R97.20) Recent PSA level at 3.42 ng/mL, increased from previous value of 2.47 ng/mL. - Repeat PSA and free PSA in one month to further evaluate. - Discussed potential benign causes for PSA elevation. 11. Need for vaccination (Z23) Due for pneumococcal vaccination; last received in 2019. - Administered Prevnar 20 vaccine. - Advised patient to obtain tetanus booster at a local pharmacy. 12. Encounter for screening examination for other mental health and behavioral disorders (Z13.39) Screening for depression (Z13.31) No signs of depression or other mental health disorders observed during the visit. Continue routine mental health screenings at annual visits. In a month check CBC and Free PSA. F/u in a year. Patient to contact me prior to get lab orders. Aaron Cm MD I spent a total of 40 minutes on the date of the service which included preparing to see the patient, [id number] patient care, completing clinical documentation, performing a medically appropriate examination, counseling and educating the patient/family/caregiver and ordering medications, tests, or procedures. Recording using [employer] software for draft documentation of the visit was discussed with the patient/authorized traffic workforce representative; all questions welcomed and answered. Patient/authorized traffic workforce representative agreed to proceed SENSITIVE EXAMINATION CONSENT: The sensitive examination was discussed with the Patient or Patient's Authorized 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. As applicable, any other physician, advance practice provider, medical student, or other health professional student that will be observing or involved in the sensitive examination for educational or training purposes was discussed with the Patient or Authorized 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. The Patient or Authorized 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 has agreed to proceed with the sensitive examination. documented in this encounter [facility] 09-18-2024 Telephone encounter Note See [employer] message. Willow Wiseman MA [facility] 09-18-2024 Miscellaneous Notes See yudelka message. Willow Wiseman MA documented in this encounter [facility] 09-13-2024 Note HNO ID: [id number] Author: CALVIN SMITH MA Service: ? Author Type: High Pressure Firer Type: Progress Notes Filed: 09/13/2024 14:01 Note Text: Scan on 09/12/2024 3:41 PM by Shree Chicas PA-C: Gregg Smith MA [facility] 09-13-2024 History of Presen t illness Narrative Scan on 09/12/2024 3:41 PM by Shree Chicas PA-C: Gregg Smith MA documented in this encounter [facility] 09-13-2024 Note HNO ID: [id number] Author: JENIFFER BELTRAN LPN Service: ? Author Type: LICENSED NURSE Type: Progress Notes Filed: 09/13/2024 10:11 Note Text: Scan on 09/11/2024 10:16 AM by Shree Chicas PA-C: Consultation - Cardiology [facility] 09-13-2024 History of Presen t illness Narrative Scan on 09/11/2024 10:16 AM by Shree Chicas PA-C: Consultation - Cardiology documented in this encounter [facility] 09-11-2024 Evaluation note Diagnosis Onset Date Resolution Coronary artery disease chronic J une 2024 9:38am Dyslipidemia chronic September 11 9:38am HTN (hypertension) chronic August 272024 9:38am Left ventricular systolic dysfunction (LVSD) without heart failure chronic September 11, 2024 9:38am History of ST elevation myocardial infarction (STEMI) resolved September 11, 2024 9:38am [facility] Work Phone: 1(995) 107-612206-16-2025 Progress [facility] [address] [place] [address] OFFICE VISIT Date of Service: 09/11/24 MR#: [id number] Acct: [id number] Name: ALBA SMITH Rep #: [id number] : 1945 Provider: Dr. Raj Armijo MD Age/Sex: 79/M Location: [facility] Status: Signed HPI HPI History of Present Illness Details: This gentleman with history of coronary artery disease status post inferior CO, status post drug-eluting stents to the RCA, is here for follow-up visit. Deniesany chest pains or shortness of breath. No palpitations. No orthopnea or PND. Complains of occasional lightheadedness. No syncope or presyncope. Intake Vital Signs 07/13/24 07:43 09/11/24 08:21 Height 5 ft 10 in 5 ft 10 in Weight: 185 lb BMI 26.5 BP 91/66 Blood Pressure Location Lt brachial Position Sitting Respiration 18 Pulse 70 Pulse Source NIBP Comment Standing BP: 103/71 HR: 76 Intake Visit Reasons: 3 M FU Final Tester Required: No Accompanied by: Self Allergies niacin Allergy (Unknown, Verified 09/11/24 09:48) unknown Sulfa (Sulfonamide Antibiotics) Allergy (Unknown, Verified 09/11/24 09:48) unknown Medications ?Medication ?Instructions ?Recorded ?Confirmed ?Type amlodipine 10 mg tablet 10 mg PO QDAY #90 tabs 06/1509/11/24 Rx aspirin 81 mg tablet,delayed 81 mg PO DAILY@0800 #90 t abs 06/15/24 09/11/24 Rx release atorvastatin 40 mg tablet 40 mg PO QHS #90 tabs 09/11/24 Rx clopidogrel 75 mg tablet 75 mg PO DAILY #90 tabs 03/2 09/11/24 Rx doxazosin 2 mg tablet 2 mg PO QDAY #90 tabs 09/11/24 Rx lisinopril 2.5 mg tablet 2.5 mg PO DAILY #90 tabs 09/11/24 Rx metoprolol succinate 25 mg 25 mg PO QDAY #90 tabs 05/2809/11/24 Rx tablet,extended release 24 hr omeprazole 20 mg capsule,delayed 20 mg PO QHS #90 caps 06/15/24 09/11/24 Rx release dapagliflozin propanediol 10 mg 10 mg PO QAM #90 tabs 06/27/24 09/11/24 Rx tablet (Farxiga) Ejection fraction %: 40 Have you fallen in the past year?: No PFSH Medical History 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/24) Alcohol use Arthritis Back pain Coronary artery disease Difficulty swallowing GERD (gastroesophageal reflux disease) HTN (hypertension) Hyperlipidemia Migraine headache Non-smoker Wears glasses Surgical History Hx of colonoscopy Hx of esophagogastroduodenoscopy Hx of eye surgery S/P laparoscopic cholecystectomy Stented coronary artery (05/18/24) Family History Brother Cancer esophageal Courtney esophagus Social History Smoking Status: Never smoker alcohol intake: current alcohol intake frequency: holidays/special occasions only ROS Const Const: Negative for fatigue, weakness, headache(s) or weight gain ENT ENT: Positive for dizziness (episodic; positional); Negative for headache(s), Nosebleed/epistaxis or balance problems Cardio Chest Pain: No Palpitations: No Edema: None Muscle aches with walking: None Resp Respiratory: Negative for SOB with activity, SOB at rest or SOB orthopneaundefinedSOB lying down GI GI: Negative nausea, vomiting or heartburn Musc Musc: Negative for muscle aches/ myalgia, muscle weakness, joint pain or balanceproblems Neuro Neuro: Positive for dizziness (episodic; positional), lightheadedness (episodic,positional) and near syncope; Negative for syncope, headache(s) or weakness Endo Endo: Negative for fatigue Cardiology Exam Const Appearance: comfortable and no acute distress Nutritional Appearance: well nourished Neck Neck: no JVD Carotids: Negative bruit Chest Auscultation: Bilateral: Clear to Auscultation Cardio Rate: regular rate Rhythm: regular rhythm Heart sounds: S1 normal and S2 normal Neuro General: patient alert, patient awake and patient oriented x3 Extremities Lower Extremity Edema: None: Bilateral Supplemental Info Supplemental Information Echocardiogram 05/18/2024: Interpretation Summary The estimated ejection fraction is 40-45 %. Inferior and inferolateral de anda are hypokinetic. Mildly dilated right ventricle. Mild global right ventricular systolic dysfunction. Mild focal aortic valve calcification. Contrast injection was performed. Cardiac Catheterization 05/18/24: DC01-(58849)LHC/COR/LV IC16-(00617/C9606)AMI, PRO OR PTCA, ARTERY/GRAFT, SINGLE VESSEL CLINICAL PROFILE AND CO-MORBIDITIES Indications: ACS <= 24 hrs Heart Failure: None CAD Presentations: STEMI. Symptom onset Date/Time: 05/18/2201 13:00:00 Time Estimated CONCLUSIONS 99% Prox RCA with thrombus SECOND HELPER Prox OM1 (filling retrogradely via collaterals from Ramus and RPLV 80% distal Mid LAD (small 2 mm vessel) LVEF 60% (post-dilated using 3.5 mm balloon) RECOMMENDATIONS ASA Indefinitley P2Y12 inhibitors for atleast 6 months Assessment and Plan Assessment and Plan (1) History of ST elevation myocardial infarction (STEMI): Status: Resolved Plan: Status post PRO to the proximal RCA. Continue aspirin and Plavix. Risk factor modification. (2) Coronary artery disease: Status: Chronic Plan: Drug-eluting stents to the RCA. Chronic total occlusion of the first obtuse marginal. Diffuse disease of the LAD. Continue aspirin and Plavix. Beta-blockers. Amlodipine. Statins. 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 Continue beta-blockers. ACEI. Dapagliflozin. (4) HTN (hypertension): Status: Chronic Plan: Blood pressure borderline low. Patient complaining of occasional dizziness. Decrease amlodipine to 5 mg daily. Patient has been on doxazosin for a long time. I will decrease the dose to 1 mg daily with the aim of weaning it off completely. Patient is not sure as to why he was prescribed doxazosin. My guess would be for prostate symptoms. If needed, after weaning off from the doxazosin, he could be tried on Flomax. (5) Dyslipidemia: Status: Chronic Plan: Atorvastatin. Check lipid profile. Plan Details Follow Up: 6 Months Coding Level of Care Code Off vis,est,level [address] elevation myocardial infarction (STEMI) I25.2 Coronary artery disease I25.10 Left ventricular systolic dysfunction (LVSD) without heart failure I51.9 HTN (hypertension) I10 Dyslipidemia E78.5 Coding Level of Care Code Off vis,est,level [address] elevation myocardial infarction (STEMI) I25.2 Coronary artery disease I25.10 Left ventricular systolic dysfunction (LVSD) without heart failure I51.9 HTN (hypertension) I10 Dyslipidemia E78.5 Clinical Quality Measures Falls Risk Screening/Assistive Devices Have you fallen in the past year?: No Cardiac Ejection fraction %: 40 09/11/24 1005 MD> Date _ Shayla Armijo MD Cosigner Signature: Date (if applicable) CC: Dr. Aaron Cm MD ~ [facility]06-16-2025 Progress note Author Shayla Armijo [facility] Note Date/Time September 11, 2024 10:0 5am [facility] [address] [place] [address] OFFICE VISIT Date of Service: 09/11/24 MR#: [id number] Acct: [id number] Name: ALBA SMITH [place] Rep #: [id number] : 1945 Provider: Dr. Raj Armijo MD Age/Sex: 79/M [place] [facility] Status: Signed HPI HPI History of Present Illness Details: This gentleman with history of coronary artery disease status post inferior CO, status post drug-eluting stents to the RCA, is here for follow-up visit. Deniesany chest pains or shortness of breath. No palpitations. No orthopnea or PND. Complains of occasional lightheadedness. No syncope or presyncope. Intake Vital Signs 07/13/24 07:43 09/11/24 08:21 Height 5 ft 10 in 5 ft 10 in Weight: 185 lb BMI 26.5 BP 91/66 Blood Pressure Location Lt brachial Position Sitting Respiration 18 Pulse 70 Pulse Source NIBP Comment Standing BP: 103/71 HR: 76 Intake Visit Reasons: 3 M FU Final Tester Required: No Accompanied by: Self Allergies niacin Allergy (Unknown, Verified 09/11/24 09:48) unknown Sulfa (Sulfonamide Antibiotics) Allergy (Unknown, Verified 09/11/24 09:48) unknown Medications ?Medication ?Instructions ?Recorded ?Confirmed ?Type amlodipine 10 mg tablet 10 mg PO QDAY #90 tabs 06/1509/11/24 Rx aspirin 81 mg tablet,delayed 81 mg PO DAILY@0800 #90 t abs 06/15/24 09/11/24 Rx release atorvastatin 40 mg tablet 40 mg PO QHS #90 tabs 09/11/24 Rx clopidogrel 75 mg tablet 75 mg PO DAILY #90 tabs 03/09/11/24 Rx doxazosin 2 mg tablet 2 mg PO QDAY #90 tabs 09/11/24 Rx lisinopril 2.5 mg tablet 2.5 mg PO DAILY #90 tabs 09/11/24 Rx metoprolol succinate 25 mg 25 mg PO QDAY #90 tabs 0309/11/24 Rx tablet,extended release 24 hr omeprazole 20 mg capsule,delayed 20 mg PO QHS #90 caps 06/15/24 09/11/24 Rx release dapagliflozin propanediol 10 mg 10 mg PO QAM #90 tabs 06/27/24 09/11/24 Rx tablet (Farxiga) Ejection fraction %: 40 Have you fallen in the past year?: No PFSH Medical History 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/24) Alcohol use Arthritis Back pain Coronary artery disease Difficulty swallowing GERD (gastroesophageal reflux disease) HTN (hypertension) Hyperlipidemia Migraine headache Non-smoker Wears glasses Surgical History Hx of colonoscopy Hx of esophagogastroduodenoscopy Hx of eye surgery S/P laparoscopic cholecystectomy Stented coronary artery (05/18/24) Family History Brother Cancer esophageal Courtney esophagus Social History Smoking Status: Never smoker alcohol intake: current alcohol intake frequency: holidays/special occasions only ROS Const Const: Negative for fatigue, weakness, headache(s) or weight gain ENT ENT: Positive for dizziness (episodic; positional); Negative for headache(s), Nosebleed/epistaxis or balance problems Cardio Chest Pain: No Palpitations: No Edema: None Muscle aches with walking: None Resp Respiratory: Negative for SOB with activity, SOB at rest or SOB orthopneaundefinedSOB lying down GI GI: Negative nausea, vomiting or heartburn Musc Musc: Negative for muscle aches/ myalgia, muscle weakness, joint pain or balanceproblems Neuro Neuro: Positive for dizziness (episodic; positional), lightheadedness (episodic,positional) and near syncope; Negative for syncope, headache(s) or weakness Endo Endo: Negative for fatigue Cardiology Exam Const Appearance: comfortable and no acute distress Nutritional Appearance: well nourished Neck Neck: no JVD Carotids: Negative bruit Chest Auscultation: Bilateral: Clear to Auscultation Cardio Rate: regular rate Rhythm: regular rhythm Heart sounds: S1 normal and S2 normal Neuro General: patient alert, patient awake and patient oriented x3 Extremities Lower Extremity Edema: None: Bilateral Supplemental Info Supplemental Information Echocardiogram 05/18/2024: Interpretation Summary The estimated ejection fraction is 40-45 %. Inferior and inferolateral de anda are hypokinetic. Mildly dilated right ventricle. Mild global right ventricular systolic dysfunction. Mild focal aortic valve calcification. Contrast injection was performed. Cardiac Catheterization 05/18/24: DC01-(50049)LHC/COR/LV IC16-(93961/C9606)AMI, PRO OR PTCA, ARTERY/GRAFT, SINGLE VESSEL CLINICAL PROFILE AND CO-MORBIDITIES Indications: ACS <= 24 hrs Heart Failure: None CAD Presentations: STEMI. Symptom onset Date/Time: 05/18/2201 13:00:00 Time Estimated CONCLUSIONS 99% Prox RCA with thrombus SECOND HELPER Prox OM1 (filling retrogradely via collaterals from Ramus and RPLV 80% distal Mid LAD (small 2 mm vessel) LVEF 60% (post-dilated using 3.5 mm balloon) RECOMMENDATIONS ASA Indefinitley P2Y12 inhibitors for atleast 6 months Assessment and Plan Assessment and Plan (1) History of ST elevation myocardial infarction (STEMI): Status: Resolved Plan: Status post PRO to the proximal RCA. Continue aspirin and Plavix. Risk factor modification. (2) Coronary artery disease: Status: Chronic Plan: Drug-eluting stents to the RCA. Chronic total occlusion of the first obtuse marginal. Diffuse disease of the LAD. Continue aspirin and Plavix. Beta-blockers. Amlodipine. Statins. 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 Continue beta-blockers. ACEI. Dapagliflozin. (4) HTN (hypertension): Status: Chronic Plan: Blood pressure borderline low. Patient complaining of occasional dizziness. Decrease amlodipine to 5 mg daily. Patient has been on doxazosin for a long time. I will decrease the dose to 1 mg daily with the aim of weaning it off completely. Patient is not sure as to why he was prescribed doxazosin. My guess would be for prostate symptoms. If needed, after weaning off from the doxazosin, he could be tried on Flomax. (5) Dyslipidemia: Status: Chronic Plan: Atorvastatin. Check lipid profile. Plan Details Follow Up: 6 Months Coding Level of Care Code Off vis,est,level [address] elevation myocardial infarction (STEMI) I25.2 Coronary artery disease I25.10 Left ventricular systolic dysfunction (LVSD) without heart failure I51.9 HTN (hypertension) I10 Dyslipidemia E78.5 Coding Level of Care Code Off vis,est,level [address] elevation myocardial infarction (STEMI) I25.2 Coronary artery disease I25.10 Left ventricular systolic dysfunction (LVSD) without heart failure I51.9 HTN (hypertension) I10 Dyslipidemia E78.5 Clinical Quality Measures Falls Risk Screening/Assistive Devices Have you fallen in the past year?: No Cardiac Ejection fraction %: 40 09/11/24 1005 <Electronically signed by Shayla Armijo MD> Date _ Shayla Armijo MD Cosigner Signature: Date (if applicable) CC: Dr. Aaron Cm MD ~ [facility] Work Phone: 1(502) 574-458903-21-2025 NoteHNO ID: [id number] Author: JENIFFER BELTRAN LPN Service: ? Author Type: LICENSED NURSE Type: Progress Notes Filed: 06/16/2024 09:26 Note Text: Scan on 06/15/2024 3:29 PM by Provider, Shree PABrianC: [facility] History of Present illness Narrative* Jeniffer Beltran LPN - 06/16/2024 9:26 AM EDT Scan on 06/15/2024 3:29 PM by Provider, ROSE Swann: Consultation - Cardiology [facility] Evaluation note* Diagnosis Onset Date Resolution Status Admit Date Coronary artery disease chronic M 2024 2:25pm Dyslipidemia chronic June 15, 2024 2:25pm HTN (hypertension) chronic June 15, 2024 2:25pm Left ventricular systolic dysfunction (LVSD) without heart failure chronic June 15, 2024 2:25pm History of ST elevation myocardial infarction (STEMI) resolved [facility] 2024 2:25pm Coronary artery disease chronic J [facility] 2024 9:38am Dyslipidemia chronic September 11, 2 025 9:38am HTN (hypertension) chronic August 272024 9:38am Left ventricular systolic dysfunction (LVSD) without heart failure chronic September 11, 2024 9:38am History of ST elevation myocardial infarction (STEMI) resolved [facility] 2024 9:38am [facility] Work Phone: 1(751) 571-906802-26-2025 NoteHNO ID: [id number] Author: CALVIN SMITH MA Service: ? Author Type: High Pressure Firer Type: Progress Notes Filed: 05/24/2024 15:55 Note Text: Patient does have his cardiology appointment set for 06/15. Not other issues currently and is feeling much better. Cancelled appointment. Calvin Smith [facility]02-24-2025 NoteHNO ID: [id number] Author: AARON CM MD Service: ? Author Type: Physician Type: Progress Notes Filed: 05/22/2024 16:04 Note Text: If his only need to be seen is the heart issue and has f/u with cardio there is no need to be seen here.[facility]02-24-2025 NoteHNO ID: [id number] Author: CALVIN SMITH MA Service: ? Author Type: High Pressure Firer Type: Progress Notes Filed: 05/22/2024 10:31 Note Text: Scan on 05/18/2024 4:01 PM by Shree Chicas PA-C: Consultation - Cardiology Scan on 05/18/2024 4:21 PM by Shree Chicas PA-C: Cardiac Cath Scan on 05/18/2024 6:29 PM by Shree Chicas PA-C: Consultation - Emergency Medicine Scan on 05/19/2024 4:48 PM by Shree Chicas PA-C: Discharge Summary Patient Suffered STEMI; had heart cath. Placed on new medications. Patient to follow up 1 week for PCP and 2 weeks with Cardiology. Any hospital follow up needed? Calvin Smith [facility]02-24-2025 History of Present illness Narrative* Calvin Smith MA - 05/22/2024 10:27 AM EST Scan on 05/18/2024 4:01 PM by Shree Chicas PA-C: Consultation - Cardiology Scan on 05/18/2024 4:21 PM by Shree Chicas PA-C: Cardiac Cath Scan on 05/18/2024 6:29 PM by Shree Chicas PA-C: Consultation - Emergency Medicine Scan on 05/19/2024 4:48 PM by Shree Chicas PA-C: Discharge Summary Patient Suffered STEMI; had heart cath. Placed on new medications. Patient to follow up 1 week for PCP and 2 weeks with Cardiology. Any hospital follow up needed? Calvin Smith MA documented in [facility]Bl[facility]25 [facility] Medical Records Department [address] [place] [address] Discharge Summary 05/19/24 1635 MR#: [id number] Acct: [id number] Name: ALBA SMITH Rep #: [id number] : 1945 79 From: Radha Hodges MD PCP: Dr. Aaron Cm MD Status:ADM IN Location: ICU [id number] Providers Date of Admission: 05/18/24 Date of Discharge: 05/19/24 Primary Care Physician: Dr. Aaron Cm MD Consultations 05/18/24 17:44 Consult: Cardiology Routine Consulting Provider: Shayla Armijo Reason for Consult: STEMI EMERGENT Consult: Yes MD Notified: Yes Date Notified: 05/18/24 Time Notified: 17:44 Method of Notification: ED Physician Initiated Reason For Visit: CP Diagnosis Discharge Diagnosis (1) 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: Status: Acute Code(s): I21.19 - ST elevation (STEMI) myocardial infarction involving other coronary artery of inferior wall (2) Coronary artery disease: Status: Acute Code(s): I25.10 - Atherosclerotic heart disease of [place] coronary artery without angina pectoris (3) HTN (hypertension): Status: Chronic Code(s): I10 - Essential (primary) hypertension (4) Dyslipidemia: Status: Deleted Code(s): E78.5 - Hyperlipidemia, unspecified Medications at Discharge Home Medications amlodipine 5 mg tablet 10 mg PO QHS 01/17/21 cholecalciferol (vitamin D3) 10 mcg (400 unit) capsule 2,000 unit PO DAILY 01/17/21 doxazosin 1 mg tablet 2 mg PO QHS 01/17/21 omeprazole 20 mg capsule,delayed release 20 mg PO QHS 02/13/23 tramadol 50 mg tablet 50 mg PO Q6H PRN pain #14 tabs 03/02/23 aspirin 81 mg tablet,delayed release 81 mg PO DAILY@0800 #30 tabs 05/19/24 atorvastatin 40 mg tablet 40 mg PO QHS #30 tabs 05/19/24 clopidogrel 75 mg tablet 75 mg PO DAILY #30 tabs 05/19/24 lisinopril 2.5 mg tablet 2.5 mg PO DAILY #30 tabs 05/19/24 metoprolol tartrate 25 mg tablet 12.5 mg (1/2 x 25 mg) PO BID #30 tabs 05/19/24 Hospital Course Operations None Procedures 2-D Echocardiogram and Angiogram Summary of Care Provided Minutes Spent on Discharge: 45 Hospital Course: Patient is a 79-year-old male with past medical history as outlined which include hypertension, hyperlipidemia and GERD who was admitted through the ED on 05/18/2024 with complaint of chest tightness and mild shortness of breath. Chest pressure was substernal and moderate in intensity with no aggravating or relieving factors. Patient usually very physically active. He said he had never had such chest pain in the past. On admission EKG showed ST elevation in the inferior leads. STEMI alert was called and he was taken emergently to the [facility] after being given aspirin and Brilinta as well as heparin. Cardiac cath showed 99% proximal RCA occlusion with thrombus and a chronic total occlusion of proximal obtuse marginal branch as well as a lesion in the distal mid LAD. He had angioplasty and stent placement in the proximal RCA and to have staged PCI to the mid LAD later. He was placed on aspirin and Plavix as well as statin, lisinopril and metoprolol. He had 2D echo which showed EF of 40 to 45% with inferior and inferior lateral de anda which were hypokinetic and mildly dilated right ventricle with mild global right ventricular systolic dysfunction. Patient remained stable and was discharged home on 07/17/2024. He was referred to cardiac rehab and counseled to follow-up with his PCP and parts sales representative within 1 to 2 weeks. Patient seen and examined prior to discharge. He had no active complaints. Review of systems otherwise negative. Labs and vitals reviewed. Home medication reviewed and reconciled. Physical Exam Const alert, oriented x3 and no apparent distress General Appearance: cooperative, comfortable and well kempt Orientation / Consciousness: awake Exam Limitations: no limitations HEENT normocephalic, head/scalp atraumatic, hearing grossly normal bilaterally, moist oral mucous membranes and oropharynx normal Mouth: oral and palatal mucosa normal Eyes PERRL, EOMs intact bilaterally and conjunctivae normal Neck no lymphadenopathy and supple Resp normal respiratory effort, no retractions, no use of accessory muscles and clear to auscultation bilaterally Cardio regular rate, regular rhythm, S1 normal heart sound, S2 normal heart sound and no murmurs GI normal to inspection, nondistended, normoactive bowel sounds, soft to palpation, non-tender and non- distended Extremity normal to inspection, full ROM and no clubbing, cyanosis or edema Skin no rashes or lesions noted and no wounds Neuro oriented x3, CN's II-XII intact bilaterally, moves all extremities and no focal motor deficits Sensorium / Orientation: awake and alert Motor Exam: strength 5/5 throughout Psych affect normal Weight / BMI Weight Weight: 196 lb 3.382 oz Body (more content not included)...[facility]02-20-2025 Evaluation note* Diagnosis Onset Date Resolution Status Admit Date Coronary artery disease chronic F 2024 2:12pm HTN (hypertension) chronic 2024 2:12pm 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 May 18, 2024 resolved Apr 2:12pm Dyslipidemia deleted April 2:12pm Coronary artery disease chronic M 2024 2:25pm Dyslipidemia chronic June 15, 2024 2:25pm HTN (hypertension) chronic June 15, 2024 2:25pm Left ventricular systolic dysfunction (LVSD) without heart failure chronic May 2:25pm History of ST elevation myocardial infarction (STEMI) resolved June 15, 2024 2:25pm [facility] Work Phone: 1(560) 881-626802-20-2025 Evaluation note* Diagnosis Onset Date Resolution Status Admit Date Coronary artery disease chronic F 2024 2:12pm HTN (hypertension) chronic 2024 2:12pm 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 May 18, 2024 resolved Apr 2:12pm Dyslipidemia deleted April 2:12pm Coronary artery disease chronic M 2024 2:25pm Dyslipidemia chronic June 15, 2024 2:25pm HTN (hypertension) chronic June 15, 2024 2:25pm Left ventricular systolic dysfunction (LVSD) without heart failure chronic May 2:25pm History of ST elevation myocardial infarction (STEMI) resolved June 15, 2024 2:25pm Coronary artery disease chronic J 2024 9:38am Dyslipidemia chronic September 11, 025 9:38am HTN (hypertension) chronic August 272024 9:38am Left ventricular systolic dysfunction (LVSD) without heart failure chronic September 11, 2024 9:38am History of ST elevation myocardial infarction (STEMI) resolved September 11, 2024 9:38am [facility] Work Phone: [phone]) [phone] Evaluation note* Diagnosis Onset Date Resolution Status Admit Date 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 May 18, 2024 resolved Apr ru2024 2:12pm Coronary artery disease inactive F ebru2024 2:12pm HTN (hypertension) inactive ua ry 2024 2:12pm Dyslipidemia deleted April 2:12pm [facility] Work Phone: 1(572) 384-939712-09-2024 Telephone encounter Note* Telephone Encounter - Aaron Cm MD - 03/06/2024 12:55 PM EST The following approved medication requests have been transmitted electronically. Requested Prescriptions Signed Prescriptions Disp Refills atorvastatin (LIPITOR) 10 mg tablet 90 tablet 1 Sig: TAKE 1 TABLET BY MOUTH DAILY AT BEDTIME FOR CHOLESTEROL Authorizing Provider: AARON CM MD [facility]12-09-2024 Miscellaneous Notes* Telephone Encounter - Aaron Cm MD - 03/06/2024 12:55 PM EST The following approved medication requests have been transmitted electronically. Requested Prescriptions Signed Prescriptions Disp Refills atorvastatin (LIPITOR) 10 mg tablet 90 tablet 1 Sig: TAKE 1 TABLET BY MOUTH DAILY AT BEDTIME FOR CHOLESTEROL Authorizing Provider: AARON CM MD * Telephone Encounter - Calvin Smith MA - 03/06/2024 11:53 AM EST Prescription Refill Information The patient has been identified by name and date of : Yes Caregiver verified no other encounters exist for this prescription request: Yes Caregiver confirmed with patient/requestor that no other refills are due, in the near future, with this provider at this time: Yes The last office visit in the department: 07/2023 Does the patient have a future office visit with this provider/department: Yes Requested Prescriptions Pending Prescriptions Disp Refills atorvastatin (LIPITOR) 10 mg tablet 90 tablet 1 Sig: TAKE 1 TABLET BY MOUTH DAILY AT BEDTIME FOR CHOLESTEROL Calvin Smith MA March 06, 2024 11:53 AM * Telephone Encounter - Madison Caldera - 03/06/2024 11:37 AM EST Alba is calling Aaron Cm MD today with concern regarding Refill Request Ramya Olea is telling Alba they need a new script. Patient has 14 days left. Patient has been identified by name and birthdate. Duration of symptoms: N/A Person calling: self Call patient at: at home [phone] (home) [phone] (cell) Was an appointment scheduled: No Closing statement: Madison Livingston documented in this encounterBl[facility]12-[facility]-2024 Telephone encounter Note * Telephone Encounter - Calvin Smith MA - 03/06/2024 11:53 AM EST Prescription Refill Information The patient has been identified by name and date of : Yes Caregiver verified no other encounters exist for this prescription request: Yes Caregiver confirmed with patient/requestor that no other refills are due, in the near future, with this provider at this time: Yes The last office visit in the department: 07/2023 Does the patient have a future office visit with this provider/department: Yes Requested Prescriptions Pending Prescriptions Disp Refills atorvastatin (LIPITOR) 10 mg tablet 90 tablet 1 Sig: TAKE 1 TABLET BY MOUTH DAILY AT BEDTIME FOR CHOLESTEROL Calvin Smith MA March 06, 2024 11:53 AM [facility]12-09-2024 Telephone encounter Note* Telephone Encounter - Madison Caldera - 03/06/2024 11:37 AM EST Alba is calling Aaron Cm MD today with concern regarding Refill Request Ramya Oela is telling Alba they need a new script. Patient has 14 days left. Patient has been identified by name and birthdate. Duration of symptoms: N/A Person calling: self Call patient at: at home [phone] (home) [phone] (cell) Was an appointment scheduled: No Closing statement: Madison Livingston [facility] Work Phone: 1(427) 346-936510-17-2024 NoteHNO ID: [id number] Author: JAY DUMONT OD Service: ? Author Type: COSMETIC SALES ASSISTANT Type: Progress Notes Filed: 01/13/2024 14:18 Note Text: 1. Combined forms of age-related cataract of both eyes Mild visual significance Monitor 2. Meibomian gland dysfunction (MGD) of upper and lower lids of both eyes 3. Squamous blepharitis of 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 Continue warm compresses and baby shampoo daily Recommend: Using Systane Complete or Refresh Relieva 2-3 times daily instead if Visine 4. Regular astigmatism of both eyes 5. Presbyopia Finalized spec rx Follow-up in 1 year or sooner as needed Jay Dumont, AZAR January 13, 2024 2:16 [facility]10-17-2024 History of Present illness Narrative* Jay Dumont, OD - 01/13/2024 2:16 PM EDT 1. Combined forms of age-related cataract of both eyes Mild visual significance Monitor 2. Meibomian gland dysfunction (MGD) of upper and lower lids of both eyes 3. Squamous blepharitis of 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 Continue warm compresses and baby shampoo daily Recommend: Using Systane Complete or Refresh Relieva 2-3 times daily instead if Visine 4. Regular astigmatism of both eyes 5. Presbyopia Finalized spec rx Follow-up in 1 year or sooner as needed Jay Dumont, OD January 13, 2024 2:16 PM documented in this encounterBl[facility]09-[facility]-2024 Telephone encounter Note * Telephone Encounter - Aaron Cm MD - 12/06/2023 2:06 PM EDT The following approved medication requests have been transmitted electronically. Requested Prescriptions Signed Prescriptions Disp Refills amLODIPine (NORVASC) 10 mg tablet 90 tablet 1 Sig: Take 1 tablet by mouth once daily. Authorizing Provider: AARON CM atorvastatin (LIPITOR) 10 mg tablet 90 tablet 1 Sig: TAKE 1 TABLET BY MOUTH DAILY AT BEDTIME FOR CHOLESTEROL Authorizing Provider: AARON CM omeprazole (PRILOSEC) 20 mg capsule 90 capsule 1 Sig: Take 1 capsule by mouth once daily. Take one tablet daily Authorizing Provider: AARON CM doxazosin (CARDURA) 2 mg tablet 90 tablet 1 Sig: Take 1 tablet by mouth once daily. Authorizing Provider: AARON CM MD [facility]09-09-2024 Miscellaneous Notes* Telephone Encounter - Aaron Cm MD - 12/06/2023 2:06 PM EDT The following approved medication requests have been transmitted electronically. Requested Prescriptions Signed Prescriptions Disp Refills amLODIPine (NORVASC) 10 mg tablet 90 tablet 1 Sig: Take 1 tablet by mouth once daily. Authorizing Provider: AARON CM atorvastatin (LIPITOR) 10 mg tablet 90 tablet 1 Sig: TAKE 1 TABLET BY MOUTH DAILY AT BEDTIME FOR CHOLESTEROL Authorizing Provider: AARON CM omeprazole (PRILOSEC) 20 mg capsule 90 capsule 1 Sig: Take 1 capsule by mouth once daily. Take one tablet daily Authorizing Provider: AARON CM doxazosin (CARDURA) 2 mg tablet 90 tablet 1 Sig: Take 1 tablet by mouth once daily. Authorizing Provider: AARON CM MD * Telephone Encounter - Calvin Smith MA - 12/06/2023 9:49 AM EDT Prescription Refill Information The patient has been identified by name and date of : Yes Caregiver verified no other encounters exist for this prescription request: Yes Caregiver confirmed with patient/requestor that no other refills are due, in the near future, with this provider at this time: Yes The last office visit in the department: 07/2023 Does the patient have a future office visit with this provider/department: Yes 07/2024 Requested Prescriptions Pending Prescriptions Disp Refills amLODIPine (NORVASC) 10 mg tablet 90 tablet 1 Sig: Take 1 tablet by mouth once daily. atorvastatin (LIPITOR) 10 mg tablet 90 tablet 1 Sig: TAKE 1 TABLET BY MOUTH DAILY AT BEDTIME FOR CHOLESTEROL omeprazole (PRILOSEC) 20 mg capsule 90 capsule 1 Sig: Take 1 capsule by mouth once daily. Take one tablet daily doxazosin (CARDURA) 2 mg tablet 90 tablet 1 Sig: Take 1 tablet by mouth once daily. Calvin Smith MA December 06, 2023 9:49 AM documented in this encounterBlanchard [facility]09-09-2024 Telephone encounter Note * Telephone Encounter - Calvin Smith MA - 12/06/2023 9:49 AM EDT Prescription Refill Information The patient has been identified by name and date of : Yes Caregiver verified no other encounters exist for this prescription request: Yes Caregiver confirmed with patient/requestor that no other refills are due, in the near future, with this provider at this time: Yes The last office visit in the department: 07/2023 Does the patient have a future office visit with this provider/department: Yes 07/2024 Requested Prescriptions Pending Prescriptions Disp Refills amLODIPine (NORVASC) 10 mg tablet 90 tablet 1 Sig: Take 1 tablet by mouth once daily. atorvastatin (LIPITOR) 10 mg tablet 90 tablet 1 Sig: TAKE 1 TABLET BY MOUTH DAILY AT BEDTIME FOR CHOLESTEROL omeprazole (PRILOSEC) 20 mg capsule 90 capsule 1 Sig: Take 1 capsule by mouth once daily. Take one tablet daily doxazosin (CARDURA) 2 mg tablet 90 tablet 1 Sig: Take 1 tablet by mouth once daily. Calvin Smith MA December 06, 2023 9:49 AM [facility]05-30-2024 History of Present illness Narrative* Ary No RT(R) - 08/26/2023 10:20 AM EDT Radiology Service Progress Note PATIENT NAME: Alba Smith DATE OF SERVICE: August 26, 2023 TIME: 10:09 AM PATIENT IDENTITY VERIFICATION COMPLETED USING TWO (2) IDENTIFIERS: Name and Date of confirmedby patient verbally. FALL SCREENING: Has the patient had 2 falls in the last year or 1 fall with injury or currently using an Ambulatory Assistive Device (Walker, Cane, Wheelchair, Crutches, etc.)? No PATIENT GENDER DATA: Male PATIENT RELEVANT IMPLANT DATA REVIEWED: Yes PATIENT PRESENTS WITH AN IMPLANTABLE OR ATTACHED CONVERTER SKIMMER: No RADIOLOGY DEPARTMENT: General X-ray: Exam(s) Completed: Chest X-Ray PERIPHERAL IV DATA: Not applicable SIGNED BY: RT Princess(Tyler) August 26, 2023 10:09 AM documented in this encounterBlanchard Valley Health System05-30-2024 History of Present illness Narrative* Chevy Small PA - 08/26/2023 10:01 AM EDT This note was created using NoteWriter. Subjective Alba Smith is a 78 year old male. HPI 78-year-old male presents for cough, chest congestion. Patient has had cough and chest congestion for the past 11 days. He states that he has had nasal congestion and some sinus pain as well. He had some fevers initially last week, but those have resolved. He states that his cough is persistent, so he wanted to be evaluated. He states that he is coughing up some phlegm. Cough is worse at nighttime. He still has some nasal congestion. He has been taking Coricidin and Tussin [id number] with some improvement, but once medication wears off, cough returns. He denies any chest pain or shortness of breath. No history of COPD, asthma or pneumonia. was recently sick with similar symptoms. No other complaint. PAST MEDICAL HISTORY Diagnosis Date Advance directive discussed with patient 07/27/2022 Discussed 07/2022: Needs to bring in copies. Arthritis Elevated fasting blood sugar 04/28/2017 Essential hypertension with goal blood pressure less than 140/90 08/22/2015 Gastroesophageal reflux disease with esophagitis 08/22/[address] 05/22/2021 POA : [place] Medicare annual wellness visit, subsequent 04/28/2017 Medicare Part B: 12/27/2012 last done: 04/29/2018 Mixed hyperlipidemia Proteinuria 03/17/2013 Neg on f/u Sebaceous cyst 05/22/2021 lower left sternal boarder. Seborrheic keratosis 03/16/2013 Skin cancer screening 07/29/2023 Seeing Tommy Neumann. PAST SURGICAL HISTORY Procedure Laterality Date COLONOSCOPY 08/03/2016 Dr. Houston with biopsy in [place], [facility]/09/2021 EYE SURGERY HX FECAL OCCULT BLOOD TEST 06/03/2016 negative PLASTIC REPAIR CANALICULI left REMOVAL GALLBLADDER 03/02/2023 SKIN BIOPSY HX ALLERGIES Niacin and Sulfa (Sulfonamide Antibiotics) MEDICATIONS amLODIPine (NORVASC) 10 mg tablet Take 1 tablet by mouth once daily. atorvastatin (LIPITOR) 10 mg tablet TAKE 1 TABLET BY MOUTH DAILY AT BEDTIME FOR CHOLESTEROL omeprazole (PRILOSEC) 20 mg capsule Take 1 capsule by mouth once daily. Take one tablet daily doxazosin (CARDURA) 2 mg tablet Take 1 tablet by mouth once daily. COMPOUNDED PRESCRIPTION OTC Vitamin D3 2000 IU FAMILY HISTORY Problem Relation Age of Onset Coronary Artery Disease Mother Cataract Mother other (parkinson's) Father Diabetes Maternal Grandfather Diabetes Paternal Grandmother Cancer Paternal Uncle lung Social History Tobacco Use Smoking status: Never Smokeless tobacco: Never Vaping Use Vaping Use: Never used Substance Use Topics Alcohol use: Yes Comment: once a month Drug use: No Review of Systems Constitutional: Negative for chills and fever. HENT: Positive for congestion and sinus pain. Negative for sore throat. Respiratory: Positive for cough. Negative for shortness of breath. Gastrointestinal: Negative for diarrhea and vomiting. Objective BP 131/84 Pulse 78 Temp 36.4 C (97.6 F) Resp 20 Wt 88.3 kg (194 lb 10.7 oz) SpO2 98% BMI 28.75 kg/m Physical Exam Vitals and nursing note reviewed. Constitutional: General: He is not in acute distress. Appearance: Normal appearance. He is not toxic-appearing. HENT: Right Ear: Tympanic membrane and ear canal normal. Left Ear: Tympanic membrane and ear canal normal. Nose: Mucosal edema present. Mouth/Throat: Mouth: Mucous membranes are moist. Pharynx: Oropharynx is clear. Uvula midline. Eyes: Conjunctiva/sclera: Conjunctivae normal. Cardiovascular: Rate and Rhythm: Normal rate and regular rhythm. Pulmonary: Effort: Pulmonary effort is normal. Breath sounds: Normal breath sounds. No wheezing, rhonchi or rales. Skin: General: Skin is warm and dry. Neurological: Mental Status: He is alert. Assessment and Plan ASSESSMENT/PLAN: 1. Acute cough - ICD9: 786.2, ICD10: R05.1 (primary diagnosis) - XR CHEST 2V FRONTAL/LAT-no acute abnormality 2. Sinobronchitis - ICD9: 473.9, 490, ICD10: J32.9, J40 - Will begin treatment with Doxycycline -Rx for Tessalon Perles - Supportive care with plenty of fluids, rest, and analgesia prn. Diagnosis and treatment plan were discussed and questions were answered to the patient's satisfaction. Pt acknowledged understanding of concepts and follow up plan. Specific signs and symptoms that would indicate the need for higher level of care were discussed in detail warranting prompt ER evaluation. FLOR Moran documented in this encounterBlanchard Valley [facility] System05-02-2024 Instructions* Patient Instructions* Aaron Cm MD - 07/29/2023 11:40 AM EDT On or after 01/29/2024 come in for non-fasting blood test to recheck the blood count. Consider getting a Tdap for tetanus booster at the health dept. Screening schedule The following prevention plan is recommended: BP Controlled (<130/80) due on 05/22/2022 DTaP,Tdap,Td Vaccine(3 - Td or Tdap) due on 01/11/2023 Advance Directive Discussion due on 03/29/2023 Behavioral Health Screening Never done Covid-19 Vaccine(2022- season) due on 05/21/2023 WHAT YOU CAN DO TO PREVENT FALLS Many falls can be prevented. By making some changes, you can lower your chances of falling. Four things YOU can do to prevent falls for you* and your caregiver 1. Begin a regular exercise program Exercise is one of the most important ways to lower your chances of falling. It makes you stronger and helps you feel better. Exercises that improve balance and coordination (like Bakari Chi) are the most helpful. Lack of exercise leads to weakness and increases your chances of falling. Ask your doctor or health care provider about the best type of exercise program for you. 2. Have your health care provider review your medicines Have your doctor or pharmacist review all the medicines you take, even ocbz-[id number] medicines. As you get older, the way medicines work in your body can change. Some medicines, or combinations of medicines, can make you sleepy or dizzy andcan cause you to fall. 3. Have your vision checked Have your eyes checked by an eye doctor at least once a year. You may be wearing the wrong glasses or have a condition like glaucoma or cataracts that limits your vision. Poor vision can increase your chances of falling. 4. Make your home safer About half of all falls happen at home. To make your home safer: Remove things you can trip over (like papers, books, clothes, and shoes) from stairs and places where you walk. Remove small throw rugs or use double-sided tape to keep the rugs from slipping. Keep items you use often in cabinets you can reach easily without using a step stool. Have grab bars put in next to your toilet and in the tub or shower. Use non-slip mats in the bathtub and on shower floors. Improve the lighting in your home. As you get older, you need brighter lights to see well. Hang light-weight curtains or shades to reduce glare. Have handrails and lights put in on all staircases. Wear shoes both inside and outside the house. Avoid going barefoot or wearing slippers. For more information, contact: Centers for Disease Control and Prevention www.cdc.gov/injury * This information may not apply if you have certain medical conditions. documented in this encounterBlanchard Valley Health System05-02-2024 History of Present illness Narrative* Aaron Cm MD - 07/29/2023 11:39 AM EDT Images from the original note were not included. Alba Smith is a 78 year old male here for a Medicare wellness visit. Medicare Health Risk Assessment General Health good Exercise: Minutes/Day 35-40 Exercise: Days/Week daily Alcohol: Daily Use No. Maybe once a month Alcohol: Drinks/Day Alcohol: 6 or more drinks Feel off balance no Concerns: Teeth/Dentures Concerns: Sexual function Troubled by feelings none Frequency: Eating healthy diet 4-5 ADLs requiring help none Safety precautions in home/vehicle Wears seat belts, some loose rugs, has grab bars and stair rails Smoke, vape, chews tobacco never Difficulty hearing no Difficulty seeing Wears glasses Current Providers Specialists: I have reviewed specialist-related care of the patient in the medical record. Current care team: Patient Care Team: Aaron Cm MD as PCP - General (Family Medicine) Medical/Family history review Reviewed and updated problem list, medical/surgical/family/social history, medications, and allergies. Opioid use review Opioid Medications (last 90 days) No data to display Depression screening Depression Screening PHQ-2 Score WAYNE-2 Total Score 07/29/2023 0 0 Depression screening tool completed and reviewed. Based on score and interview, patient is not at risk for depression. Screening tool discussed with patient, and I recommended no further interventionat this time. Cognitive screening Mini Cog Score: 4 Cognitive screening reviewed and No further action needed (score 3-5). Functional Observation Was the patient's Timed Up & Go test unsteady or ? 12 seconds? No Advance Care Planning Surrogate decision maker and/or advance care plan documented Measurements BP 120/78 Pulse 68 Resp 16 Ht 5' 9 (1.75m) Wt 196 lb 9.6 oz (89.2kg) BMI 29.02 kg/(m^2). Vision Screening: Follows with optometry/ophthalmology Assessment/Plan Medicare annual wellness visit, subsequent (Z00.00) - Counseled on healthy diet and regular exercise - Fall avoidance information provided - Personalized prevention plan provided See Below. Chief Complaint Patient presents with: Medicare Wellness Exam HPI Alba Smith is a 78 year old male who presents here today for Chronic Medical Conditions. and Medicare Annual Visit. Patient with Hx elevated fasting blood sugar, HTN, Hyperlipidemia, GERD as well as those reviewed and addressed below and in ROS. No new issues or concerns today. Past medical history, appointments, medications, allergies reviewed. Previous Medical History PAST MEDICAL HISTORY Diagnosis Date Advance directive discussed with patient 07/27/2022 Discussed 07/2022: Needs to bring in copies. Arthritis Elevated fasting blood sugar 04/28/2017 Essential hypertension with goal blood pressure less than 140/90 08/22/2015 Gastroesophageal reflux disease with esophagitis 08/22/[address] 05/22/2021 POA : [place] Medicare annual wellness visit, subsequent 04/28/2017 Medicare Part B: 12/27/2012 last done: 04/29/2018 Mixed hyperlipidemia Proteinuria 03/17/2013 Neg on f/u Sebaceous cyst 05/22/2021 lower left sternal boarder. Seborrheic keratosis 03/16/2013 Previous Surgical History PAST SURGICAL HISTORY Procedure Laterality Date COLONOSCOPY 08/03/2016 Dr. Houston with biopsy in [place], repeat 5 yrs EGD W/O BRSH SPEC VARICIES INJ 09/09/2021 EYE SURGERY HX FECAL OCCULT BLOOD TEST 06/03/2016 negative PLASTIC REPAIR CANALICULI left REMOVAL GALLBLADDER 03/02/2023 SKIN BIOPSY HX Family History FAMILY HISTORY Problem Relation Age of Onset Coronary Artery Disease Mother Cataract Mother other (parkinson's) Father Diabetes Maternal Grandfather Diabetes Paternal Grandmother Cancer Paternal Uncle lung Patient Allergies ALLERGIES Allergen Reactions Niacin Hives Sulfa (Sulfonamide * Hives Current Medications Current Outpatient Medications on File Prior to Visit Medication Sig amLODIPine (NORVASC) 10 mg tablet Take 1 tablet by mouth once daily. atorvastatin (LIPITOR) 10 mg tablet TAKE 1 TABLET BY MOUTH DAILY AT BEDTIME FOR CHOLESTEROL omeprazole (PRILOSEC) 20 mg capsule Take 1 capsule by mouth once daily. Take one tablet daily doxazosin (CARDURA) 2 mg tablet Take 1 tablet by mouth once daily. COMPOUNDED PRESCRIPTION OTC Vitamin D3 2000 IU No current facility-administered medications on file prior to visit. Social History Social History Tobacco Use Smoking status: Never Smokeless tobacco: Never Vaping Use Vaping Use: Never used Substance Use Topics Alcohol use: Yes Comment: once a month Drug use: No Review of Symptoms REVIEW OF SYSTEMS GENERAL: No weight loss, malaise or fevers HEENT: Negative for frequent or significant headaches, No changes in hearing or vision, no nose bleeds or other nasal problems NECK: Negative for lumps, goiter, pain and significant neck swelling RESPIRATORY: Negative for cough, hemoptysis, wheezing, COPD, dyspnea or shortness of breath CARDIOVASCULAR: Negative for chest pain, leg swelling, hypertension, CHF or palpitations GI: No nausea, vomiting, or diarrhea, No heartburn or reflux symptoms, and no blood : No history of dysuria, frequency or blood MUSCULOSKELETAL: Negative for joint pain or swelling, back pain or muscle pain SKIN: Negative for lesions, rash, and itching. Seeing Derm PSYCH: Negative for sleep disturbance, mood disorder and recent psychosocial stressors HEMATOLOGY/LYMPHOLOGY: Negative for prolonged bleeding, bruising easily or swollen nodes ENDOCRINE: Negative for cold or heat intolerance, polyuria, polydipsia and goiter NEURO: No history of headaches, syncope, paralysis, seizures or tremors EXAM: BP 120/78 Pulse 68 Resp 16 Ht 175.3 cm (5' 9) Wt 89.2 kg (196 lb 9.6 oz) BMI 29.03 kg/m Last 5 Encounter Wt Readings: Date: Wt: 07/29/2023 89.2 kg (196 lb 9.6 oz) 06/30/2023 88.3 kg (194 lb 9.6 oz) 02/16/2023 86.6 kg (191 lb) 08/25/2022 88 kg (194 lb) 07/27/2022 88.9 kg (196 lb) General Appearance: Well appearing, alert, in no acute distress, well-hydrated, well nourished. andOverweight. Head: Normocephalic, no masses, lesions, tenderness or abnormalities. Eyes: Anicteric sclera. Pupils are equally round and reactive to light. Extraocular movements are intact. . Ears: External ears, TM's normal, canals clear. Nose/Sinuses: Nares normal, septum midline, mucosa normal, no drainage or sinus tenderness. Oropharynx: Lips, mucosa, and tongue normal, teeth and gums normal, oropharynx normal. Neck: Supple, no adenopathy; thyroid symmetric, normal size, no bruits. Lungs: Lungs clear to auscultation. No wheezing, rhonchi, rales.. Heart: RRR without murmur, gallop, or rubs. No ectopy. Abdomen: Normal abdominal exam, Abdomen soft, non-tender. Bowel sounds normal. No masses, organomegaly. Extremities: No deformities, edema, skin discoloration. Good capillary refill. . Musculoskeletal: Muscular strength intact, No joint swelling, deformity, or tenderness. Peripheral Pulses: Normal. Neurologic: Gait normal. Reflexes normal and symmetric. Sensation to light touch and crainal nerves2-12 intact.. Genitalia: Normal, Penis normal. No urethral discharge. Scrotum normal to palpation. No hernia.. Rectal: Normal exam. Prostate slightly enlarged with smooth firm capsule. Health Maintenance List BP Controlled (<130/80) due on 05/22/2022 DTaP,Tdap,Td Vaccine(3 - Td or Tdap) due on 01/11/2023 Advance Directive Discussion due on 03/29/2023 Behavioral Health Screening Never done Covid-19 Vaccine(2022- season) due on 05/21/2023 Annual PCP Team Chronic Disease Visit due on 06/29/2024 Diabetes Screening due on 07/26/2026 Influenza Vaccine Completed RSV Vaccine Completed Hepatitis C Screening Completed Shingrix Vaccine Completed Pneumococcal Vaccine: 65+ Completed Colorectal Cancer Screening Discontinued Data reviewed Latest Ref Rng 07/24/2022 07/27/2023 WBC 3.70 - 11.00 k/uL 4.56 5.14 RBC 4.20 - 6.00 m/uL 5.36 5.36 Hemoglobin 13.0 - 17.0 g/dL 17.1 (H) 17.0 Hematocrit 39.0 - 51.0 % 48.6 48.6 MCV 80.0 - 100.0 fL 90.7 90.7 MCH 26.0 - 34.0 pg 31.9 31.7 MCHC 30.5 - 36.0 g/dL 35.2 35.0 RDW-CV 11.5 - 15.0 % 12.5 12.4 Platelet Count 150 - 400 k/uL 147 (L) 146 (L) MPV 9.0 - 12.7 fL 10.5 10.7 Neut% % 53.9 52.1 Abs Neut (ANC) 1.45 - 7.50 k/uL 2.46 2.68 Lymph% % 34.2 36.4 Abs Lymph 1.00 - 4.00 k/uL 1.56 1.87 [place]% % 9.9 8.6 Abs [place] <0.87 k/uL 0.45 0.44 Eosin% % 1.3 2.1 Abs Eosin <0.46 k/uL 0.06 0.11 Baso% % 0.7 0.6 Abs Baso <0.11 k/uL 0.03 0.03 Immature Gran % % 0.0 0.2 IMMATURE GRANS (ABS) <0.10 k/uL <0.03 <0.03 NRBC /100 WBC 0.0 0.0 Absolute nRBC <0.01 k/uL <0.01 <0.01 DTYPE Auto Auto Color Yellow Colorless Yellow Clarity Clear Clear Clear Glucose, Urine Negative Negative Negative Bilirubin, Urine Negative Negative Negative Ketones, Urine Negative Negative Negative Specific [place], Ur 1.005 - 1.030 1.005 1.019 Hemoglobin/Blood,Ur Negative Negative Negative pH, Urine <8.5 6.5 7.5 Protein, Urine Negative Negative Trace ! Urobilinogen 0.2-1.0 EU/dL Negative 1.0 EU/dL Nitrites Negative Negative Negative Leukest Negative Negative Negative WBC, Urine 0-5 /HPF 0-5 /HPF 0-5 /HPF RBC, Urine 0-2 /HPF 0-3 /HPF 0-2 /HPF Bacteria Negative /HPF Negative Epithelial Cells /HPF None Seen Hyaline Cast 0 /LPF 0 /LPF Protein, Total 6.3 - 8.0 g/dL 6.4 6.8 Albumin 3.9 - 4.9 g/dL 4.3 4.3 Calcium 8.5 - 10.2 mg/dL 8.4 (L) 9.3 Bilirubin, Total 0.2 - 1.3 mg/dL 1.1 0.9 Alkaline Phosphatase 38 - 113 U/L 79 80 AST 14 - 40 U/L 17 19 ALT 10 - 54 U/L 13 14 Glucose 74 - 99 mg/dL 102 (H) 105 (H) BUN 9 - 24 mg/dL 13 15 Creatinine 0.73 - 1.22 mg/dL 1.10 1.00 Sodium 136 - 144 mmol/L 137 140 Potassium 3.7 - 5.1 mmol/L 3.8 3.8 Chloride 97 - 105 mmol/L 101 105 CO2 22 - 30 mmol/L 26 29 Anion Gap 9 - 18 mmol/L 10 6 (L) eGFR >=60 mL/min/1.73m 70 78 Total Cholesterol, Nonfasting <200 mg/dL 152 148 Triglycerides, Nonfasting <150 mg/dL 122 93 HDL Cholesterol, Nonfasting >39 mg/dL 40 47 LDL Cholesterol, Nonfasting <100 mg/dL 88 82 Non HDL Cholesterol, Nonfasting <130 mg/dL 112 101 VLDL Cholesterol, Nonfasting <30 mg/dL 24 19 Total Chol/HDL Ratio, Nonfasting <5.10 mg/dL 3.80 3.15 LDL/HDL Ratio, Nonfasting <2.54 mg/dL 2.20 1.74 PSA <2.60 ng/mL 2.58 2.47 PSA, Percent Free % 24 Hemoglobin A1C 4.3 - 5.6 % 5.2 5.2 Estimated Average Glucose mg/dL 103 103 Magnesium 1.7 - 2.3 mg/dL 2.2 2.3 Vitamin B12 232 - 1,245 pg/mL 497 345 A/P ASSESSMENT/PLAN: 1. Medicare annual wellness visit, subsequent - ICD9: V70.0, ICD10: Z00.00 (primary diagnosis) - Counseled on healthy diet and regular exercise - Discussed need for and benefit of weight loss. BMI 29.03 kg/(m^2) - Follow up for annual exam in one year - advised on Tdap 2. Essential hypertension with goal blood pressure less than 140/90 - ICD9: 401.9, ICD10: I10 - Controlled - Continue current medications - Recommend home blood pressure monitoring, to bring results to next visit - Encouraged sodium restriction, DASH or Mediterranean diet - Recommend regular aerobic exercise 3. Mixed hyperlipidemia - ICD9: 272.2, ICD10: E78.2 - Controlled - Continue current medications - Counseled on healthy diet and regular exercise - Discussed need for and benefit of weight loss. BMI 29.03 kg/(m^2) 4. Gastroesophageal reflux disease with esophagitis without hemorrhage - ICD9: 530.81, 530.10, ICD10: K21.00 - Continue treatment with Prilosec 20 mg QD 5. Elevated fasting blood sugar - ICD9: 790.21, ICD10: R73.01 - good control with life style changes. 6. Advance directive discussed with patient - ICD9: V65.49, ICD10: Z71.89 - needs to bring in copies 7. Skin cancer screening - ICD9: V76.43, ICD10: Z12.83 - seeing Derm 8. Thrombocytopenia (HCC) - ICD9: 287.5, ICD10: D69.6 - in 6 months will repeat CBC. F/u in year extensive I spent a total of 40 minutes on the date of the service which included preparing to see the patient, [id number] patient care, completing clinical documentation, performing a medically appropriate examination, counseling and educating the patient/family/caregiver and ordering medications, tests, or procedures. Aaron mC MD documented in this encounterBlanch[facility]05-02-2024 Telephone encounter Note * Telephone Encounter - Ame Sandoval MA - 07/29/2023 10:51 AM EDT Call to pt who accepted appt today at 11:40 am. Pt states he will be here at 11:30 am. Appt scheduled. Ame Sandoval MA [facility]05-02-[facility]24 Miscellaneous Notes* Telephone Encounter - Ame Sandoval MA - 07/29/2023 10:51 AM EDT Call to pt who accepted appt today at 11:40 am. Pt states he will be here at 11:30 am. Appt scheduled. Ame Sandoval MA * Telephone Encounter - Aaron Cm MD - 07/29/2023 10:43 AM EDT I actually have an opening at 11:40 through 12:20 that he could still be seen * Telephone Encounter - Ame Sandoval MA - 07/29/2023 10:40 AM EDT Pt no showed his appt today at 10:00 am. Currently is schedule on 09/28 for visit. Can I notify pt that he can not come in today due to you being in meetings. Ame Sandoval MA documented in this encounterBlanchard Valley [facility]05-02-2024 Telephone encounter Note * Telephone Encounter - Aaron Cm MD - 07/29/2023 10:43 AM EDT I actually have an opening at 11:40 through 12:20 that he could still be seen [facility]05-02-[facility] Telephone encounter Note* Telephone Encounter - Ame Sandoval MA - 07/29/2023 10:40 AM EDT Pt no showed his appt today at 10:00 am. Currently is schedule on 09/28 for visit. Can I notify pt that he can not come in today due to you being in meetings. Ame Sandoval MA [facility]04-03-2024 Miscellaneous Notes* Telephone Encounter - Nova Hall OCCA - 06/30/2023 1:39 PM EDT Consult for Derm, demographics and OV notes faxed to [facility] at [phone]. SAMUEL Sher documented in this encounterBlanchard Valley [facility] System04-03-2024 History of Present illness Narrative* Kayleen Schrader PA-C - 06/30/2023 1:05 PM EDT Chief Complaint Patient presents with: Derm Problem: Skin lesion behind right ear x 1 month, states condition has not changed in the past month HPI Alba Smith is a 78 year old male who presents here today for Above Complaints.. Patient reports lesion behind right ear for the past month. Hasn't changed. Has been painful at times and pruritic at times. Doesn't seem to be growing or changing. Past medical history, appointments, medications, allergies reviewed. Previous Medical History PAST MEDICAL HISTORY Diagnosis Date Advance directive discussed with patient 07/27/2022 Discussed 07/2022: Needs to bring in copies. Arthritis Elevated fasting blood sugar 04/28/2017 Essential hypertension with goal blood pressure less than 140/90 08/22/2015 Gastroesophageal reflux disease with esophagitis 08/22/[address] 05/22/2021 POA : [place] Medicare annual wellness visit, subsequent 04/28/2017 Medicare Part B: 12/27/2012 last done: 04/29/2018 Mixed hyperlipidemia Proteinuria 03/17/2013 Neg on f/u Sebaceous cyst 05/22/2021 lower left sternal boarder. Seborrheic keratosis 03/16/2013 Previous Surgical History PAST SURGICAL HISTORY Procedure Laterality Date COLONOSCOPY 08/03/2016 Dr. Houston with biopsy in [place], repeat 5 yrs EGD W/O BRSH SPEC VARICIES INJ 09/09/2021 EYE SURGERY HX FECAL OCCULT BLOOD TEST 06/03/2016 negative PLASTIC REPAIR CANALICULI left REMOVAL GALLBLADDER 03/02/2023 SKIN BIOPSY HX Family History FAMILY HISTORY Problem Relation Age of Onset Cancer Paternal Uncle lung Diabetes Maternal Grandfather Diabetes Paternal Grandmother other (parkinson's) Father Coronary Artery Disease Mother Cataract Mother Patient Allergies ALLERGIES Allergen Reactions Niacin Hives Sulfa (Sulfonamide * Hives Current Medications Current Outpatient Medications on File Prior to Visit Medication Sig amLODIPine (NORVASC) 10 mg tablet Take 1 tablet by mouth once daily. atorvastatin (LIPITOR) 10 mg tablet TAKE 1 TABLET BY MOUTH DAILY AT BEDTIME FOR CHOLESTEROL omeprazole (PRILOSEC) 20 mg capsule Take 1 capsule by mouth once daily. Take one tablet daily doxazosin (CARDURA) 2 mg tablet Take 1 tablet by mouth once daily. COMPOUNDED PRESCRIPTION OTC Vitamin D3 2000 IU SAW PARMINDER ORAL Take 450 mg by mouth once daily. (Patient not taking: Reported on 06/30/2023) No current facility-administered medications on file prior to visit. Social History Social History Tobacco Use Smoking status: Never Smokeless tobacco: Never Vaping Use Vaping Use: Never used Substance Use Topics Alcohol use: Yes Comment: once a month Drug use: No Review of Symptoms REVIEW OF SYSTEMS See hpi EXAM: BP 138/80 Pulse 66 Resp 18 Wt 88.3 kg (194 lb 9.6 oz) SpO2 95% BMI 28.33 kg/m General Appearance: Well appearing, alert, in no acute distress, well-hydrated, well nourished.. Skin: raised lesion with ulceration in center. Concerning for squamous cell carcinoma. Health Maintenance List DTaP,Tdap,Td Vaccine(3 - Td or Tdap) due on 01/11/2023 Advance Directive Discussion due on 03/29/2023 Depression Assessment due on 03/29/2023 Annual PCP Team Chronic Disease Visit due on 02/17/2024 BP Controlled (<130/80) due on 02/17/2024 Diabetes Screening due on 07/24/2025 Influenza Vaccine Completed RSV Vaccine Completed Hepatitis C Screening Completed Shingrix Vaccine Completed Covid-19 Vaccine Completed Pneumococcal Vaccine: 65+ Completed Colorectal Cancer Screening Discontinued Data reviewed ASSESSMENT/PLAN: 1. Skin lesion - ICD9: 709.9, ICD10: L98.9 Set up with derm for consult for bx - CONSULT TO DERMATOLOGY Kayleen Schrader PA-C documented in this encounterBlanchard Valley Health System04-03-2024 Miscellaneous Notes* Telephone Encounter - Jenniffer Hawthorne RN - 06/30/2023 9:38 AM EDT Spouse calls to report skin growth. Nurse triage completed. Protocol recommends see provider hours. Scheduled. Reason for Disposition [1] Looks infected (spreading redness, pus) AND [2] no fever Answer Assessment - Initial Assessment Questions 1. APPEARANCE of LESION: Area is raised dark pink to red in color. Starting to turn purple. Presentfor about a month. 2. SIZE: Size of a grape 3. COLOR: Dark pink to red 4. SHAPE: Irregular 5. RAISED: Raised 6. TENDER: Tender to touch 7. LOCATION: Behind right ear 8. ONSET:About a month ago 9. NUMBER:One 10. CAUSE: Spouse not certain 11. OTHER SYMPTOMS: Afebrile Protocols used: Skin Lesion - Moles or [id number] documented in this encounterBlanchard Valley [facility] System03-11-2024 Miscellaneous Notes* Telephone Encounter - Anny Allen LPN - 06/07/2023 12:44 PM EDT Patient has been identified by name and date of : Yes, Patient phones for refill(s): Requested Prescriptions Pending Prescriptions Disp Refills amLODIPine (NORVASC) 10 mg tablet 90 tablet 1 Sig: Take 1 tablet by mouth once daily. atorvastatin (LIPITOR) 10 mg tablet 90 tablet 1 Sig: TAKE 1 TABLET BY MOUTH DAILY AT BEDTIME FOR CHOLESTEROL omeprazole (PRILOSEC) 20 mg capsule 90 capsule 1 Sig: Take 1 capsule by mouth once daily. Take one tablet daily doxazosin (CARDURA) 2 mg tablet 90 tablet 1 Sig: Take 1 tablet by mouth once daily. Date of last office visit in primary care: 02/16/2023 Date of next office visit in primary care: 07/29/2023 Please advise. Thank you. Anny Allen LPN. documented in this encounterBlanchard Valley [facility] System12-06-2023 History of Present illness Narrative* Fela Posadas LPN - 03/03/2023 11:12 AM EST Scan on 03/02/2023 10:14 AM by Provider, External, DOROTHYC: Miscellaneous Imaging documented in this encounterBlanchard Valley Health System12-05-2023 Discharge summary Author Madeline [facility] March 02, 2023 10:10am Note Date/Time March 02, 2023 1 0:10am [facility] Medical Records Department [address] [place] [address] Instructions for Home/Discharge Instructions 03/02/23 1010 MR#: [id number] Acct: [id number] Name: ALBA SMITH Rep #:[id number] : 1945 78 From: Madeline Tripp MD PCP: Dr. Aaron Cm MD Status:REG [facility] Discharge Instructions Diet Discharge Diet: Light diet - advance as tolerated Activity Discharge Activity: May Not Drive (while taking narcotic pain medications.) May shower in (days): 1 Lifting Restrictions: no lifting >20 lbs x 2 wks, no strenuous exercise for 4 wks Dressing / Incision Call your doctor if your incision/area has: Continuous Slow Oozing, Sudden Increased Bleeding, Increased Pain/ Swelling, Increased Redness, Foul Smelling Discharge and Swelling at the incision site Call your doctor if you observe: Fever of 101 or Higher Remove Dressing in: 2 days Cleanse incision/area with: Soap & Water Additional Dressing/Incision Instructions:: Steri-Strips will fall off in 7 to 10 days, if they do not fall off okay to remove after 10 days. Follow Up Care Please Follow Up With: Madeline Tripp MD When: Call the office for a follow-up appointment 2 weeks; after 5 PM and on call [phone] with any concerns. Test Results: Test results from this visit will be discussed in further detail at your follow- up appointment, if applicable. Discharge Plan Admission Attending Provider: Madeline Tripp Primary Care Provider: Aaron Cm Instructions Additional Instructions / Restrictions: Okay to take ibuprofen 400-600 mg PO q6hr PRN pain and/or Tylenol 650mg PO Q6H PRN pain along with Tramadol. Take all pain meds with food. Tramadol can cause constipation recommend taking daily stool softener (i.e. Colace/docusate) while taking the pain meds. Recommend starting some MiraLAX in1-2 days if no bowel movement. If still no bowel movement the next day recommend taking magnesium citrate half the bottle and waiting 4-6 hours if still no results take the other half the bottle. Discharge Orders/Prescriptions Prescriptions: New tramadol 50 mg tablet 50 mg PO Q6H PRN (Reason: pain) Qty: 14 0RF Continued amlodipine 5 mg tablet 10 mg PO QHS doxazosin 1 mg tablet 2 mg PO QHS cholecalciferol (vitamin D3) 10 mcg (400 unit) capsule 2,000 unit PO DAILY atorvastatin 10 mg tablet 10 mg PO QHS omeprazole 20 mg capsule,delayed release(DR/EC) 20 mg PO QHS Referrals / Follow Up: aAron Cm MD [Primary Care Provider] - Disposition Disposition (needs filled in before D/C Order can be placed): Home, Self Care 03/02/23 1010<Electronically signed by Madeline Tripp MD>Madeline Tripp MD CC: Dr. Aaron Cm MD ~ Signed [facility] Work Phone: 1(510) 863-730112-05-2023 History and physical note Author Madeline [facility] March 02, 2023 8:44am Note Date/Time March 02, 2023 8 :37am [facility] Medical Records Department [address] [place] [id number] History & Physical Exam 03/02/23 0836 MR#: [id number] Acct: [id number] Name: ALBA SMITH Rep #:[id number] : 1945 78 From: Madeline Tripp MD PCP: Dr. Aaron Cm MD Status[facility] Location: [place] [address] History and Physical Date of Admission: 03/02/23 Date of Service: 02/24/23 MR#: [id number] Acct: [id number] Name: ALBA SMITH Rep #: [id number] : 1945 Provider: Dr. Madeline Tripp MD Age/Sex: 78/M Location: [facility] Status: Signed Intake Vital Signs 02/20/2302:05 02/24/2313:48 Height 5 ft 10 in 5 ft 10 in Weight: 192 lb 4 oz BMI 27.6 BP 143/87 H Blood Pressure Location Rt brachial Position Sitting Respiration 18 Pulse 65 Pulse Source Monitor Temp 97.4 F L Temp Source Temporal Pulse Oximetry (%) 96 Oxygen Delivery Method room air Intake Visit Reasons: GALLBLADDER [facility] ER 02/20 Chief Complaint: gallbladder [facility] er 02/20 Final Tester Required: No Accompanied by: Is patient in pain?: No Allergies niacin Allergy (Unknown, Verified 02/24/23 13:49) unknownSulfa (Sulfonamide Antibiotics) Allergy (Unknown, Verified 02/24/23 13:49) unknown Medications amlodipine 5 mg tablet 5 mg PO DAILY 01/17/21 [History Confirmed 02/24/23] cholecalciferol (vitamin D3) 10 mcg (400 unit) capsule 10 mcg PO DAILY 01/17/21 [History Confirmed 02/24/23] doxazosin 1 mg tablet 1 mg PO DAILY 01/17/21 [History Confirmed 02/24/23] saw palmetto 160 mg capsule 160 mg PO DAILY 01/17/21 [History Confirmed 02/24/23] atorvastatin 10 mg tablet 10 mg PO DAILY 02/13/23 [History Confirmed 02/24/23] omeprazole 20 mg capsule,delayed release 20 mg PO DAILY 02/13/23 [History Confirmed 02/24/23] [facility] Medical History GERD (gastroesophageal reflux disease) HTN (hypertension) Hyperlipidemia Family History Brother Cancer esophageal Courtney esophagus Social History (Updated 02/24/23 @ 13:48 by Becca Trujillo LPN) Smoking Status: Never smoker alcohol intake: current alcohol intake frequency: holidays/special occasions only HPI HPI HPI: 8-year-old male presents with his due to right upper quadrant pain and inflammation of the gallbladder. Patient went to the ED 02/20/2023 about an hour after eating pie and ice cream due to right upper quadrant pain. Patient CT scan which suspected noncalcified stone at the neck of the gallbladder. Ultrasound did not show an obvious stone but did show wall thickening called 3.6mm as well as some pericholecystic fluid. However patient's symptoms completelyresolved while he was in the ER and he was able to tolerate a diet and go home and come back for follow- up with normal white blood cell count and LFTs at that time. Patient states he has been eating a bland diet since then has not any further right upper quadrant pain attacks. Patient does take omeprazole 40 mg p.o. daily for couple years and last had a EGD about 2 years ago denies any reflux symptoms being on the medication. ROS HEENT HEENT: Yes eye surgery Musc Musculoskeletal: Yes back problems and arthritis Cardio Cardiovascular: Yes high blood pressure Gastro Gastrointestinal: Yes abdominal pain, Yes nausea or vomiting, Yes acid reflux and Yes gallbladder problem Exam Const General: cooperative, healthy appearing, comfortable and no acute distress HENCT Head: normocephalic and atraumatic Neck Neck: supple Resp Effort & Inspection: normal respiratory effort Cardio Rate: regular rate GI Inspection: non-distended Palpation: soft, no hernias and nontender Skin General: no rashes or lesions noted Neuro General: CN's II-XI intact bilaterally Extrem General: normal to inspection Psych Mental Status: mental status grossly normal Attitude: cooperative Assessment and Plan Assessment and Plan (1) Thickening of wall of gallbladder: Status: Acute (2) Biliary colic: Status: Acute Plan Discussed with patient that there is no definitive stone seen on CT but it is suspected or on ultrasound. However ultrasound does show signs of inflammation of the gallbladder including wall thickening and pericholecystic fluid. Patient's history also fits with gallbladder etiology with pain about an hour after eating pie and ice cream in the right upper quadrant. Reviewed the anatomy with the patient and discussed the procedure: laparoscopic cholecystectomy with possible cholangiograms, possible open. Review risks including but not limited to bleeding, infection, hernia, bile leak, retained gallstones requiring another procedure ERCP- Endoscopic Retrograde Cholangiopancreatography, injury to another organ (bile ducts, common bile duct,small bowel, etc.) and conversion to an open procedure. All questions were answered. Madeline Tripp M.D. Pager: [phone] [facility] [address] [place] [address], [facility], [address] [place] [address] Office: [phone] Coding Level of Care Code Off vis,new,level 3 Diagnoses Thickening of wall of gallbladder K82.8 Biliary colic K80.50 02/24/23 1455 <Electronically signed by Madeline Tripp MD> Date Madeline Tripp MD 03/02/23 0837 <Electronically signed by Madeline Tripp MD> Cosigner Signature (if applicable): CC: Dr. Aaron Cm MD; Dr. Madeline Tripp MD~ Signed ADDENDUM by Dr. Madeline Tripp MD on 03/02/23 at 0844 Addendum I have examined the patient and the H&P has been reviewed. There are no clinicalchanges since date of exam. 03/02/23 0844<Electronically signed by Madeline Tripp MD> Cosigner Signature (if applicable): cc: Dr. Aaron Cm MD; Dr. Madeline Tripp MD ~* Signed [facility] Work Phone: 1(144) 448-379812-05-2023 [facility] 03-02-2023 History of Present illness Narrative* Jeniffer Beltran LPN - 03/02/2023 9:01 AM EST Scan on 03/02/2023 8:50 AM by ProviderShree PA-C documented in this encounterBlanchard Valley Health System12-05-2023 Hospital Discharge instructions Additional Instructions Okay to take ibuprofen 400-600 mg PO q6hr PRN pain and/or Tylenol 650mg PO Q6H PRN pain along with Tramadol. Take all pain meds with food. Tramadol can cause constipation recommend taking daily stool softener (i.e. Colace/docusate) while taking the pain meds. Recommend starting some MiraLAX in 1-2 days if no bowel movement. If still no bowel movement the next day recommend taking magnesium citrate half the bottle and waiting 4-6 hours if still no results take the other half the bottle. Implant Used?: [facility] Work Phone: 1(329) 312-741111-30-2023 History of Present illness Narrative* Willow Wiseman Ma - 02/25/2023 4:06 PM EST Scan on 02/24/2023 2:59 PM by ProviderShree PA-C: Consultation - General Surgery documented in this encounterBlanchard Valley Health System11-25-2023 Discharge summary Author Nito Wick [facility] February 20, 2023 10:11am Note Date/Time February 20, 2023 6:50am [facility] Medical Records Department [address] [place] [address] Emergency Department Summary 02/20/23 MR#: [id number] Acct: [id number] Name: ALBA SMITH Rep #:[id number] : [id number] 78 From: Guy Boateng DO PCP: Dr. Aaron Cm MD Status:REG ER Location: ED ADDENDUM by Dr. Nito Wick MD on 02/20/23 at 1011 Patient's ultrasound came back and it did show some changes in the gallbladder. Looking at the images that does not look markedly abnormal but certainly is not a normal ultrasound. I went back to check the patient. He is completely asymptomatic. He states he has no pain whatsoever. Even pressing firmly in theepigastric right upper quadrant and other areas of the abdomen produced no discomfort. No CVA tenderness. I reviewed his blood work also. I did talk to Dr. Tripp and we reviewed the results. We gave the patient some fluids here he has drank and has no symptoms at all. He is comfortable going home. I explained he needs to have no fats in his diet. Very bland food. If he has further symptoms he should come back. It is expected that his gallbladder will likely need removal but it probably does not need an acute admission at this time. But certainly if anything changes he will return. 02/20/23 1011<Electronically signed by Nito Wick MD> Cosigner Signature (if applicable): cc: Dr. Aaron Cm MD ~* Signed HPI History of Present Illness Chief Complaint: Abd Pain Informant: patient, spouse/S.O. and family Narrative Narrative: Patient is a 78-year-old male who lives at home with his and has a past medical history of hypertension and hyperlipidemia as well as GERD. He was seenroughly 1 week ago secondary similar symptoms and underwent basic laboratory testing with troponins EKG and chest x-ray. This revealed no clinically significant findings and he had improvement of symptoms with GI cocktail and Pepcid. He reports he drinks a large amount of caffeine and there was concern this was gastritis versus biliary colic. However as his pain was not in the right upper quadrant and he did not have elevation to his liver enzymes a ultrasound/CT was not obtained. Patient reports he has been taking his medications and doing well but that this evening a few hours prior to arrival the pain returned and would not resolve and secondary to this he comes back in for evaluation. He states there is mild nausea associated with the pain but he denies any vomiting diarrhea dysuria chest pain or shortness of breath [facility] Medical History (Updated 02/20/23 @ 06:[address] Guy Boateng DO) GERD (gastroesophageal reflux disease) HTN (hypertension) Hyperlipidemia Home Medications amlodipine 5 mg tablet 5 mg PO DAILY 01/17/21 [History Last Taken Unknown] cholecalciferol (vitamin D3) 10 mcg (400 unit) capsule 10 mcg PO DAILY 01/17/21 [History Last Taken Unknown] doxazosin 1 mg tablet 1 mg PO DAILY 01/17/21 [History Last Taken Unknown] saw palmetto 160 mg capsule 160 mg PO BID 01/17/21 [History Last Taken Unknown] atorvastatin 10 mg tablet 10 mg PO DAILY 02/13/23 [History Last Taken Unknown] omeprazole 20 mg capsule,delayed release 20 mg PO DAILY 02/13/23 [History Last Taken Unknown] Allergy/AdvReac Type Severity Reaction Status Date / Time niacin Allergy Unknown unknown Verified 02/20/23 02:07 Sulfa (Sulfonamide Allergy Unknown unknown Verified 02/20/23 02:07 Antibiotics) Social History Smoking Status: Never smoker ROS [facility] ED Constitutional Constitutional ED: Denies chills or fever(s) Eyes Eyes: Denies change in vision ENT ENT ED: Denies sore throat Cardiovascular Cardiovascular: Denies chest pain, palpitations or racing heartbeat Respiratory/Chest Respiratory/Chest: Denies cough or dyspnea Gastrointestinal Gastrointestinal: Reports abdominal pain and nausea; Denies diarrhea or vomiting Genitourinary Genitourinary ED: Denies dysuria or hematuria Musculoskeletal Musculoskeletal: Denies back pain or myalgias Integumentary Denies rash Neurologic Neurologic: Denies headache(s) Hematologic/Lymphatic Hematologic/Lymphatic: Denies easy bleeding or easy bruising EXAM Physical Exam Const Vital Signs: 02/20/23 02:05 02/20/23 04:48 Temperature 97.8 F Temperature Source Temporal Pulse Rate 64 63 Respiratory Rate 18 15 Blood Pressure 179/92 H 153/86 H Blood Pressure Mean 121 108 Pulse Ox 98 96 Oxygen Delivery Method Room Air Room Air Positive well nourished and well developed General Appearance ED: well developed; Negative for pallor HEENT Reports moist mucous membranes HEENT Narrative: No tongue or lip swelling No signs of infection noted in the posterior pharynx Eyes PERRL and EOMs intact bilaterally General Eye ED: Negative for scleral icterus Neck supple and no JVD Chest Wall palpation of chest normal Resp normal respiratory effort and clear to auscultation bilaterally Cardio regular rate and regular rhythm Rate: other Other Details: Heart is regular rate and rhythm without murmurs rubsor gallop Radial and carotid pulses are equal and symmetric GI non-distended GI Narrative: Abdomen is soft and nondistended with mild pain on palpation in the midepigastric region. No voluntary guarding or rigidity No pulsatile mass or fluid wave Negative Phillips sign Auscultation: normoactive bowel sounds Palpation: soft Back/Spine no CVA tenderness Extremity normal to inspection Extremity Narrative: No asymmetric edema no pitting edema negative Homans' sign bilaterally Neuro oriented x3, CN's II-XII intact bilaterally and no sensory deficits noted Sensorium / Orientation: alert Motor Exam: strength 5/5 throughout Psych mental status grossly normal Skin no rashes or lesions noted General Skin Exam: Negative for jaundice or pallor MDM MDM MDM Narrative Medical decision making narrative: Patient presented to the ER mildly hypertensive otherwise with stable vitals. He was seen roughly 1 week ago for the same event with a negative workup and states has been doing well since that time until a few hours prior to arrival. Pain is more midepigastric and right upper quadrant and there is no Phillips sign present or guarding. Patient does not have any jaundice or scleral icterus either. However as differential diagnosis is for biliary colic versus acute cholecystitis versus common bile duct stone versus pancreatitis versus gastritisI did elect to perform repeat laboratory testing and a CT scan with IV contrast. Labs revealed no clinically significant findings but CT scan showed changes around the gallbladder concerning for potential acute cholecystitis. Secondary to this a gallbladder ultrasound was obtained. At this time the ultrasound testas well as report are still pending and therefore the patient will be signed outto the daytime physician Dr. Wick pending these results. At this time as he does not have a fever or white count I do not feel there is need for antibiotics and will defer until ultrasound has resulted with potential surgery consultation History & Record Review Discussion w/independent historian: Patient, Family and Significant other Lab Data Attestation: I reviewed the patient's lab results. Labs: Laboratory Results - last 24 hr 02/20/23 02:22 WBC 7.4 RBC 5.67 Hgb 17.7 H Hct 52.2 MCV 92.1 MCH 31.2 MCHC 33.9 RDW Std Deviation 41.1 RDW Coeff of Fabrizio 12.1 Plt Count 153 MPV 11.3 Immature Gran % (Auto) 0.100 Neut % (Auto) 71.7 H Lymph % (Auto) 20.0 [place] % (Auto) 6.7 Eos % (Auto) 0.8 Baso % (Auto) 0.7 Absolute Neuts (auto) 5.3 Absolute Lymphs (auto) 1.49 Nucleated RBC % 0 Sodium 141 Potassium 3.7 Chloride 106 Carbon Dioxide 29.0 Anion Gap 6 BUN 21 H Creatinine 1.32 H Estim Creat Clear Calc 49.16 Est GFR (MDRD) Af Amer 68 Est GFR (MDRD) Non-Af 56 L BUN/Creatinine Ratio 15.9 Glucose 140 H Calcium 8.2 L Total Bilirubin 0.60 Direct Bilirubin 0.18 AST 17 ALT 21 Alkaline Phosphatase 94 Troponin I High Sens 9 Total Protein 7.2 Albumin 3.9 Globulin 3.3 Lipase 43 Urine Color Yellow Urine Clarity Clear Urine pH 7.0 Ur Specific [place] 1.010 Urine Protein 30 H Urine Glucose (UA) Normal Urine Ketones Negative Urine Occult Blood 10 H Urine Nitrite Negative Urine Bilirubin Negative Urine Urobilinogen Normal Ur Leukocyte Esterase Negative Urine RBC 0 SEEN Urine WBC 0 SEEN Ur Squamous Epith Cells 0 SEEN Urine Bacteria 0 SEEN Urine Mucus 0 SEEN Radiography Diagnostic Testing: Clinical Impression(s) from Imaging Studies Abdomen/Pelvis CT 02/20/23 02:28 IMPRESSION: Findings suspicious for acute cholecystitis. Ultrasound correlation may be helpful. Colonic diverticulosis without evidence of acute diverticulitis. Enlarged prostate. Minimal bilateral pleural effusions. Electronically Signed: Concepcion Bryant MD at 4:20 EST , Discharge Plan Triage Chief Complaint: Abd Pain ED Provider: Guy Boateng Dx/Rx/DC Orders Clinical Impression: Hyperlipidemia, Hypertension, Biliary colic Prescriptions: No Action amlodipine 5 mg tablet 5 mg PO DAILY doxazosin 1 mg tablet 1 mg PO DAILY cholecalciferol (vitamin D3) 10 mcg (400 unit) capsule 10 mcg PO DAILY saw palmetto 160 mg capsule 160 mg PO BID Rx Instructions: give with meal/snack atorvastatin 10 mg tablet 10 mg PO DAILY omeprazole 20 mg capsule,delayed release(DR/EC) 20 mg PO DAILY Primary Care Provider: Aaron Cm Referrals: Aaron Cm MD [Primary Care Provider] - What to do if you have Problems For any increased pain, shortness of breath, bleeding, nausea or vomiting, chestpain, or any unexpected problems, contact your Primary Care Provider. Call [facility] ([phone]) or report to the closest Emergency Room. Call 911 if necessary. 02/20/23 0716 <Electronically signed by Guy Boateng DO> Cosigner Signature (if applicable): CC: Dr. Aaron Cm MD ~ Signed [facility] Work Phone: 1(655) 384-896211-21-2023 History of Present illness Narrative* Melvin Brizuela MD - 02/16/2023 4:02 PM EST Chief Complaint Patient presents with: ER F/U HPI Alba Smith is a 78 year old male who presents here today for ER Follow Up.. Patient evaluated at [facility] ED on 02/13 for complaint of chest pain after eating fried chicken late atnight. Associated with nausea and vomiting. Cardiac workup in the ED initiated with normal EKG, troponin, and CXR. CBC, CMP, lipase unremarkable. Given nitro which did not improve symptoms so was given pepcid and GI cocktail which resolved pain. Advised to continue his omeprazole and follow up with our office. Since discharge, has not had any recurrent symptoms. Denies chest pain, abdominal pain, nausea, vomiting. Taking all medications as prescribed. Avoiding fatty/fried foods. Past medical history, appointments, medications, allergies reviewed. Previous Medical History PAST MEDICAL HISTORY Diagnosis Date Advance directive discussed with patient 07/27/2022 Discussed 07/2022: Needs to bring in copies. Arthritis Elevated fasting blood sugar 04/28/2017 Essential hypertension with goal blood pressure less than 140/90 08/22/2015 Gastroesophageal reflux disease with esophagitis 08/22/[address] 05/22/2021 POA : [employer] Medicare annual wellness visit, subsequent 04/28/2017 Medicare Part B: 12/27/2012 last done: 04/29/2018 Mixed hyperlipidemia Proteinuria 03/17/2013 Neg on f/u Sebaceous cyst 05/22/2021 lower left sternal boarder. Seborrheic keratosis 03/16/2013 Previous Surgical History PAST SURGICAL HISTORY Procedure Laterality Date COLONOSCOPY 08/03/2016 Dr. Houston with biopsy in [place], repeat 5 yrs EGD W/O BRSH SPEC VARICIES INJ 09/09/2021 EYE SURGERY HX FECAL OCCULT BLOOD TEST 06/03/2016 negative PLASTIC REPAIR CANALICULI left SKIN BIOPSY HX Family History FAMILY HISTORY Problem Relation Age of Onset Cancer Paternal Uncle lung Diabetes Maternal Grandfather Diabetes Paternal Grandmother other (parkinson's) Father Coronary Artery Disease Mother Cataract Mother Patient Allergies ALLERGIES Allergen Reactions Niacin Hives Sulfa (Sulfonamide * Hives Current Medications Current Outpatient Medications on File Prior to Visit Medication Sig amLODIPine (NORVASC) 10 mg tablet Take 1 tablet by mouth once daily. atorvastatin (LIPITOR) 10 mg tablet TAKE 1 TABLET BY MOUTH DAILY AT BEDTIME FOR CHOLESTEROL omeprazole (PRILOSEC) 20 mg capsule Take 1 capsule by mouth once daily. Take one tablet daily doxazosin (CARDURA) 2 mg tablet Take 1 tablet by mouth once daily. SAW PALMETTO ORAL Take 450 mg by mouth once daily. COMPOUNDED PRESCRIPTION OTC Vitamin D3 2000 IU No current facility-administered medications on file prior to visit. Social History Social History Tobacco Use Smoking status: Never Smokeless tobacco: Never Vaping Use Vaping Use: Never used Substance Use Topics Alcohol use: Yes Comment: once a month Drug use: No Review of Symptoms REVIEW OF SYSTEMS GENERAL: No weight loss, malaise or fevers RESPIRATORY: Negative for cough, hemoptysis, wheezing, COPD, dyspnea or shortness of breath CARDIOVASCULAR: Negative for chest pain, leg swelling, hypertension, CHF or palpitations GI: See HPI EXAM: BP 124/70 Pulse 72 Resp 16 Wt 86.6 kg (191 lb) SpO2 97% BMI 27.80 kg/m General Appearance: Well appearing, alert, in no acute distress, well-hydrated, well nourished.. Skin: Skin color, texture, turgor normal, no suspicious rashes or lesions. Lungs: Lungs clear to auscultation. No wheezing, rhonchi, rales.. Heart: RRR without murmur, gallop, or rubs. No ectopy. Abdomen: Normal abdominal exam, Abdomen soft, non-tender. Bowel sounds normal. No masses, organomegaly. Negative phillips's Health Maintenance List RSV Vaccine(1 - 1-dose 60+ series) Never done BP Controlled (<130/80) due on 05/22/2022 DTaP,Tdap,Td Vaccine(3 - Td or Tdap) due on 01/11/2023 Annual PCP Team Chronic Disease Visit due on 08/26/2023 Diabetes Screening due on 07/24/2025 Influenza Vaccine Completed Advance Directive Discussion Completed Depression Assessment Completed Hepatitis C Screening Completed Shingrix Vaccine Completed Covid-19 Vaccine Completed Pneumococcal Vaccine: 65+ Completed Colorectal Cancer Screening Discontinued ASSESSMENT/PLAN: 1. Epigastric pain - ICD9: 789.06, ICD10: R10.13 (primary diagnosis) Resolved. Discussed possible GERD/gastritis vs gallbladder etiology. Offered US which he is refusing unless symptoms return. Avoid fatty foods and discussed healthy diet. Continue PPI. May take pepcid for recurrent symptoms. 2. Nausea and vomiting, unspecified vomiting type - ICD9: 787.01, ICD10: R11.2 See above. Red flags for re-assessment reviewed with patient in detail. I spent a total of 30 minutes on the date of the service which included preparing to see the patient, [id number] patient care, completing clinical documentation, obtaining and/or reviewing separately obtained history, performing a medically appropriate examination, and counseling and educating the patient/family/caregiver. Melvin Brizuela MD documented in this encounterBlanchard Valley Health System08-21-2023 Miscellaneous Notes* Telephone Encounter - Nova Hall OCCA - 11/16/2022 9:14 AM EDT Patient has been identified by name and date of : Yes Patient phones for refill(s): Requested Prescriptions Pending Prescriptions Disp Refills doxazosin (CARDURA) 2 mg tablet 90 tablet 1 Sig: Take 1 tablet by mouth once daily. Date of last office visit in primary care: [facility] 08/25/22 07/29/23 Last 2 Encounter Wt Readings: Date: Wt: 08/25/2022 88 kg (194 lb) 07/27/2022 88.9 kg (196 lb) Please advise. Thank you. SAMUEL Sher documented in this encounterBlanchard Valley Health System08-21-2023 Miscellaneous Notes* Telephone Encounter - Nova Hall OCCA - 11/16/2022 8:42 AM EDT Patient has been identified by name and date of : Yes Patient phones for refill(s): Requested Prescriptions Pending Prescriptions Disp Refills amLODIPine (NORVASC) 10 mg tablet 90 tablet 1 Sig: Take 1 tablet by mouth once daily. atorvastatin (LIPITOR) 10 mg tablet 90 tablet 1 Sig: TAKE 1 TABLET BY MOUTH DAILY AT BEDTIME FOR CHOLESTEROL omeprazole (PRILOSEC) 20 mg capsule Sig: Take 1 capsule by mouth once daily. Take one tablet daily Date of last office visit in primary care: [facility] 08/25/22 07/29/23 Last 2 Encounter Wt Readings: Date: Wt: 08/25/2022 88 kg (194 lb) 07/27/2022 88.9 kg (196 lb) Please advise. Thank you. SAMUEL Sher documented in this encounterBlanchard Valley Health System05-30-2023 History of Present illness Narrative* Kayleen Schrader PA-C - 08/25/2022 10:45 AM EDT Chief Complaint Patient presents with: Hypertension HPI Alba Smith is a 77 year old male who presents here today for recheck. Patient's BP was elevated at last visit with PCP. No changes were made. Patient doesn't check at home but had bp checked at specialist office and it was 116/72. No other concerns today. Past medical history, appointments, medications, allergies reviewed. Previous Medical History PAST MEDICAL HISTORY Diagnosis Date Advance directive discussed with patient 07/27/2022 Discussed 07/2022: Needs to bring in copies. Arthritis Elevated fasting blood sugar 04/28/2017 Essential hypertension with goal blood pressure less than 140/90 08/22/2015 Gastroesophageal reflux disease with esophagitis 08/22/[address] 05/22/2021 POA : [employer] annual wellness visit, subsequent 04/28/2017 Medicare Part B: 12/27/2012 last done: 04/29/2018 Mixed hyperlipidemia Proteinuria 03/17/2013 Neg on f/u Sebaceous cyst 05/22/2021 lower left sternal boarder. Seborrheic keratosis 03/16/2013 Previous Surgical History PAST SURGICAL HISTORY Procedure Laterality Date COLONOSCOPY 08/03/2016 Dr. Houston with biopsy in [place], repeat 5 yrs EGD W/O BRSH SPEC VARICIES INJ 09/09/2021 EYE SURGERY HX FECAL OCCULT BLOOD TEST 06/03/2016 negative PLASTIC REPAIR CANALICULI left SKIN BIOPSY HX Family History FAMILY HISTORY Problem Relation Age of Onset Cancer Paternal Uncle lung Diabetes Maternal Grandfather Diabetes Paternal Grandmother other (parkinson's) Father Coronary Artery Disease Mother Cataract Mother Patient Allergies ALLERGIES Allergen Reactions Niacin Hives Sulfa (Sulfonamide * Hives Current Medications Current Outpatient Medications on File Prior to Visit Medication Sig omeprazole (PRILOSEC) 20 mg capsule Take 1 capsule by mouth once daily. Take one tablet daily doxazosin (CARDURA) 2 mg tablet Take 1 tablet by mouth once daily. amLODIPine (NORVASC) 10 mg tablet Take 1 tablet by mouth once daily. atorvastatin (LIPITOR) 10 mg tablet TAKE 1 TABLET BY MOUTH DAILY AT BEDTIME FOR CHOLESTEROL SAW PALMETTO ORAL Take 450 mg by mouth once daily. COMPOUNDED PRESCRIPTION OTC Vitamin D3 2000 IU benzonatate (TESSALON PERLE) 100 mg capsule Take 2 capsules by mouth three times daily as needed. (Patient not taking: Reported on 07/27/2022) No current facility-administered medications on file prior to visit. Social History Social History Tobacco Use Smoking status: Never Smokeless tobacco: Never Vaping Use Vaping Use: Never used Substance Use Topics Alcohol use: Yes Comment: once a month Drug use: No Review of Symptoms REVIEW OF SYSTEMS GENERAL: No weight loss, malaise or fevers EXAM: BP 130/68 Pulse 70 Resp 16 Wt 88 kg (194 lb) SpO2 96% BMI 28.24 kg/m General Appearance: Well appearing, alert, in no acute distress, well-hydrated, well nourished.. Health Maintenance List BP CONTROLLED (<130/80) due on 05/22/2022 DTAP,TDAP,TD(3 - Td or Tdap) due on 01/11/2023 ANNUAL PCP TEAM CHRONIC DISEASE VISIT due on 07/28/2023 DIABETES SCREEN due on 07/24/2025 COLORECTAL CANCER SCREENING due on 09/16/2025 LIPID SCREEN due on 07/25/2027 INFLUENZA Completed ADVANCE DIRECTIVE DISCUSSION Completed DEPRESSION ASSESSMENT Completed HEPATITIS C SCREENING Completed SHINGRIX VACCINE Completed COVID-19 VACCINE Completed PNEUMOCOCCAL: 65+ Completed Data reviewed ASSESSMENT/PLAN: 1. Essential hypertension with goal blood pressure less than 140/90 - ICD9: 401.9, ICD10: I10 - good control - Continue current medication(s) - Recommended regular aerobic exercise. - Recommend home blood pressure monitoring, to bring results in on next visit - Goal of BP <130/80 Kayleen Schrader PA-C documented in this encounterBlanchard Valley Health System05-01-2023 Nurse Note* Calvin Smith MA - 07/27/2022 3:52 PM EDT True BP average 73 146/88 149/84 150/88 155/89 14/87 Calvin Smith MA documented in this encounterBlanchard Valley Health System05-01-2023 Instructions* Patient Instructions* Aaron Cm MD - 07/27/2022 2:27 PM EDT Please bring in copies of your power of deputy attorney general for health care and living will. documented in this encounterBlanchard Valley Health System05-01-2023 History of Present illness Narrative* Aaron Cm MD - 07/27/2022 2:00 PM EDT Medicare Yearly Visit Medical B eligibilty date 12/27/2012 Date of last exam 05/22/2021 PAST MEDICAL HISTORY PAST MEDICAL HISTORY Diagnosis Date Elevated fasting blood sugar 04/28/2017 Essential hypertension with goal blood pressure less than 140/90 08/22/2015 Gastroesophageal reflux disease with esophagitis 08/22/2015 GERD (gastroesophageal reflux disease) HTN (hypertension) Hyperlipidemia Mixed hyperlipidemia Proteinuria 03/17/2013 Neg on f/u Seborrheic keratosis 03/16/2013 PAST SURGICAL HISTORY PAST SURGICAL HISTORY Procedure Laterality Date COLONOSCOPY 08/03/2016 Dr. Houston with biopsy in [place], repeat 5 yrs FECAL OCCULT BLOOD TEST 06/03/2016 negative REPAIR TEAR DUCTS left Niacin; Sulfa (Sulfonamide Antibiotics) Medications reviewed: Yes FAMILY HISTORY FAMILY HISTORY Problem Relation Age of Onset Cancer Paternal Uncle lung Diabetes Maternal Grandfather Diabetes Paternal Grandmother other (parkinson's) Father Coronary Artery Disease Mother SOCIAL HISTORY: Social History Marital status: Spouse name: Years of education: Number of children: Social History Main Topics Smoking status: Never Smoker Smokeless tobacco: Never Used Alcohol use: Yes Comment: once a month Drug use: No Alba works out regularly 2-3 times per week with walking, walking on treadmill. He watches his diet for sodium, low fat and low cholesterol some of the time, List of current specialists seen: optho End of Live Planning discussed including patients advanced directive wishes: Yes I am willing to follow Alba's advanced directives. Depression screen Depression Screening 10/26/2016 04/29/2018 05/15/2019 07/27/2022 PHQ-2 Score 0 0 0 0 Depression screening tool completed and reviewed. Based on score and interview, patient is not at risk for depression. Screening tool discussed with patient, and I recommended no further interventionat this time. Functional Ability/Safety Screen 1. Was the patient's timed Up and Go test unsteady or longer than 30 seconds? No 2. Does the patient need help with the phone, transportation, shopping,preparing meals, housework, laundry, medications or managing money? No 3. Does your home have rugs in the hallway, lack of grab bars in the bathroom, lack of handrails onthe stairs or have poor lighting? NO Hearing Evaluation: normal PHYSICAL EXAM BP 160/96 (BP Site: Right Arm, BP Position: Sitting, BP Cuff Size: Regular Adult) Pulse 64 Ht 176.5 cm (5' 9.5) Wt 88.9 kg (196 lb) BMI 28.53 kg/m Alert and oriented X 3: YES Body mass index is 28.53 kg/m . Visual acuity: seeing optho See below ASSESSMENT/PLAN: 77 year old male The following prevention plan was discussed during the office visit and provided to the patient: See below Aaron Cm MD Chief Complaint Patient presents with: Medicare Wellness Exam HPI Alba Smith is a 77 year old male who presents here today for Medicare Annual Visit. Office visit - medicare wellness Patient with Hx elevated fasting blood sugar, HTN, Hyperlipidemia, GERD as well as those reviewed and addressed below and in ROS. No new issues or concerns today. Office visit - medicare wellness 04/2021 Patient with H/x elevated fasting blood sugar, HTN, Hyperlipidemia, GERD as well as those reviewed and addressed below and in ROS. Since last year he has completed his COVID vaccine series and booster. Just found out his 6 yo grand daughter has an auto immune disorder. Another grandson (16 yr) was injured playing football back in the fall and still not able to figure out what is going on with groinpain.. Past medical history, appointments, medications, allergies reviewed. Previous Medical History PAST MEDICAL HISTORY Diagnosis Date Arthritis Elevated fasting blood sugar 04/28/2017 Essential hypertension with goal blood pressure less than 140/90 08/22/2015 Gastroesophageal reflux disease with esophagitis 08/22/[address] 05/22/2021 POA : Anita Medicare annual wellness visit, subsequent 04/28/2017 Medicare Part B: 12/27/2012 last done: 04/29/2018 Mixed hyperlipidemia Proteinuria 03/17/2013 Neg on f/u Sebaceous cyst 05/22/2021 lower left sternal boarder. Seborrheic keratosis 03/16/2013 Previous Surgical History PAST SURGICAL HISTORY Procedure Laterality Date COLONOSCOPY 08/03/2016 Dr. Houston with biopsy in [place], repeat 5 yrs EGD W/O BRSH SPEC VARICIES INJ 09/09/2021 EYE SURGERY HX FECAL OCCULT BLOOD TEST 06/03/2016 negative PLASTIC REPAIR CANALICULI left SKIN BIOPSY HX Family History FAMILY HISTORY Problem Relation Age of Onset Cancer Paternal Uncle lung Diabetes Maternal Grandfather Diabetes Paternal Grandmother other (parkinson's) Father Coronary Artery Disease Mother Cataract Mother Patient Allergies ALLERGIES Allergen Reactions Niacin Hives Sulfa (Sulfonamide * Hives Current Medications Current Outpatient Medications on File Prior to Visit Medication Sig benzonatate (TESSALON PERLE) 100 mg capsule Take 2 capsules by mouth three times daily as needed. omeprazole (PRILOSEC) 20 mg capsule Take 2 capsules by mouth once daily. doxazosin (CARDURA) 2 mg tablet Take 1 tablet by mouth once daily. amLODIPine (NORVASC) 10 mg tablet Take 1 tablet by mouth once daily. atorvastatin (LIPITOR) 10 mg tablet TAKE 1 TABLET BY MOUTH DAILY AT BEDTIME FOR CHOLESTEROL SAW PALMETTO ORAL Take 450 mg by mouth once daily. COMPOUNDED PRESCRIPTION OTC Vitamin D3 2000 IU No current facility-administered medications on file prior to visit. Social History Social History Tobacco Use Smoking status: Never Smokeless tobacco: Never Vaping Use Vaping Use: Never used Substance Use Topics Alcohol use: Yes Comment: once a month Drug use: No Review of Symptoms REVIEW OF SYSTEMS GENERAL: No weight loss, malaise or fevers HEENT: Negative for frequent or significant headaches, No changes in hearing or vision, no nose bleeds or other nasal problems NECK: Negative for lumps, goiter, pain and significant neck swelling RESPIRATORY: Negative for cough, hemoptysis, wheezing, COPD, dyspnea or shortness of breath CARDIOVASCULAR: Negative for chest pain, leg swelling, hypertension, CHF or palpitations GI: No nausea, vomiting, or diarrhea, No heartburn or reflux symptoms, and no blood. : No history of dysuria, blood MUSCULOSKELETAL: Negative for joint pain or swelling, back pain or muscle pain SKIN: Negative for lesions, rash, and itching PSYCH: Negative for sleep disturbance, mood disorder and recent psychosocial stressors HEMATOLOGY/LYMPHOLOGY: Negative for prolonged bleeding, bruising easily or swollen nodes ENDOCRINE: Negative for cold or heat intolerance, polyuria, polydipsia and goiter NEURO: No history of headaches, syncope, paralysis, seizures or tremors EXAM: BP 160/96 (BP Site: Right Arm, BP Position: Sitting, BP Cuff Size: Regular Adult) Pulse 64 Ht 176.5 cm (5' 9.5) Wt 88.9 kg (196 lb) BMI 28.53 kg/m BP 142/84 Pulse 64 Ht 176.5 cm (5' 9.5) Wt 88.9 kg (196 lb) BMI 28.53 kg/m BP 149/87 Pulse 64 Ht 176.5 cm (5' 9.5) Wt 88.9 kg (196 lb) BMI 28.53 kg/m General Appearance: Well appearing, alert, in no acute distress, well-hydrated, well nourished.. Skin: Skin color, texture, turgor normal, no suspicious rashes or lesions. Head: Normocephalic, no masses, lesions, tenderness or abnormalities. Eyes: Anicteric sclera. Pupils are equally round and reactive to light. Extraocular movements are intact. . Ears: External ears, TM's normal, canals clear. Nose/Sinuses: Nares normal, septum midline, mucosa normal, no drainage or sinus tenderness. Oropharynx: Lips, mucosa, and tongue normal, teeth and gums normal, oropharynx normal. Neck: Supple, no adenopathy; thyroid symmetric, normal size, no bruits. Lungs: Lungs clear to auscultation. No wheezing, rhonchi, rales.. Heart: RRR without murmur, gallop, or rubs. No ectopy. Abdomen: Normal abdominal exam, Abdomen soft, non-tender. Bowel sounds normal. No masses, organomegaly. Extremities: No deformities, edema, skin discoloration, Good capillary refill. . Musculoskeletal: Muscular strength intact, No joint swelling, deformity, or tenderness. Peripheral Pulses: Normal. Neurologic: Gait normal. Reflexes normal and symmetric. Sensation to light touch and crainal nerves2-12 intact.. Genitalia: Normal, Penis normal. No urethral discharge. Scrotum normal to palpation. No hernia.. Rectal: Normal exam. Prostate slightly enlarged. Health Maintenance List SHINGRIX VACCINE(3 of 3) due on 01/16/2022 ADVANCE DIRECTIVE DISCUSSION Never done DEPRESSION ASSESSMENT Never done ANNUAL PCP TEAM CHRONIC DISEASE VISIT due on 08/11/2022 DTAP,TDAP,TD(3 - Td or Tdap) due on 01/11/2023 BP CONTROLLED (<130/80) due on 06/05/2023 DIABETES SCREEN due on 07/24/2025 COLORECTAL CANCER SCREENING due on 09/16/2025 LIPID SCREEN due on 07/25/2027 INFLUENZA Completed HEPATITIS C SCREENING Completed COVID-19 VACCINE Completed PNEUMOCOCCAL: 65+ Completed Data reviewed Component Latest Ref Rng & Units 05/09/2021 07/24/2022 WBC 3.70 - 11.00 k/uL 6.08 4.56 RBC 4.20 - 6.00 m/uL 5.56 5.36 Hemoglobin 13.0 - 17.0 g/dL 17.7 (H) 17.1 (H) Hematocrit 39.0 - 51.0 % 49.8 48.6 MCV 80.0 - 100.0 fL 89.6 90.7 MCH 26.0 - 34.0 pg 31.8 31.9 MCHC 30.5 - 36.0 g/dL 35.5 35.2 RDW-CV 11.5 - 15.0 % 12.0 12.5 Platelet Count 150 - 400 k/uL 157 147 (L) MPV 9.0 - 12.7 fL 10.8 10.5 Neut% % 53.8 53.9 Abs Neut (ANC) 1.45 - 7.50 k/uL 3.26 2.46 Lymph% % 35.5 34.2 Abs Lymph 1.00 - 4.00 k/uL 2.16 1.56 [place]% % 8.6 9.9 Abs [place] <0.87 k/uL 0.52 0.45 Eosin% % 1.8 1.3 Abs Eosin <0.46 k/uL 0.11 0.06 Baso% % 0.3 0.7 Abs Baso <0.11 k/uL <0.03 0.03 Immature Gran % % 0.0 IMMATURE GRANS (ABS) <0.10 k/uL <0.03 NRBC /100 WBC 0.0 Absolute nRBC <0.01 k/uL <0.01 <0.01 DTYPE Auto Nucleated Reds 0 /100 WBC 0.0 Diff Type Auto Diff Protein, Total 6.3 - 8.0 g/dL 6.2 (L) 6.4 Albumin 3.9 - 4.9 g/dL 4.4 4.3 Calcium 8.5 - 10.2 mg/dL 8.9 8.4 (L) Bilirubin, Total 0.2 - 1.3 mg/dL 0.9 1.1 Alkaline Phosphatase 38 - 113 U/L 80 79 AST 14 - 40 U/L 17 17 Glucose 74 - 99 mg/dL 113 (H) 102 (H) BUN 9 - 24 mg/dL 16 13 Creatinine 0.73 - 1.22 mg/dL 1.15 1.10 Sodium 136 - 144 mmol/L 138 137 Potassium 3.7 - 5.1 mmol/L 3.7 3.8 Chloride 97 - 105 mmol/L 104 101 CO2 22 - 30 mmol/L 26 26 Anion Gap 9 - 18 mmol/L 8 (L) 10 ALT 10 - 54 U/L 15 13 eGFR- >60 eGFR-All Other Races . >60 Color Yellow Yellow Colorless Clarity Clear Clear Clear Glucose, Urine Trace, Negative Negative Negative Bilirubin, Urine Negative Negative Negative Ketones, Urine Trace, Negative Negative Negative Specific [place], Ur 1.005 - 1.030 1.014 1.005 Hemoglobin/Blood,Ur Negative, Trace Negative Negative pH, Urine 5.0 - 8.0 7.0 6.5 Protein, Urine Trace, Negative Negative Negative Urobilinogen Negative Negative Negative Nitrites Negative Negative Negative Leukest Negative, 25 Karine/uL Negative Negative Comment SEE COMMENT Urine Jeramie Comment SEE COMMENT WBC, Urine 0-5 /HPF 0-5 0-5 /HPF RBC, Urine 0-3 /HPF 0-3 0-3 /HPF eGFR >=60 mL/min/1.73m 70 Total Cholesterol, Nonfasting <200 mg/dL 172 152 Triglycerides, Nonfasting <150 mg/dL 107 122 HDL Cholesterol, Nonfasting >39 mg/dL 46 40 LDL Cholesterol, Nonfasting <100 mg/dL 105 (H) 88 Non HDL Cholesterol, Nonfasting <130 mg/dL 126 112 VLDL Cholesterol, Nonfasting <30 mg/dL 21 24 Total Chol/HDL Ratio, Nonfasting <5.10 mg/dL 3.74 3.80 LDL/HDL Ratio, Nonfasting <2.54 mg/dL 2.28 2.20 Hemoglobin A1C 4.3 - 5.6 % 5.3 5.2 Estimated Average Glucose mg/dL 105 103 PSA <2.60 ng/mL 2.41 2.58 PSA, Percent Free % 24 Magnesium 1.7 - 2.3 mg/dL 2.1 2.2 Vitamin B12 232 - 1,245 pg/mL 324 497 A/P ASSESSMENT/PLAN: 1. Medicare annual wellness visit, subsequent - ICD9: V70.0, ICD10: Z00.00 (primary diagnosis) - Counseled on healthy diet and regular exercise - Follow up for annual exam in one year 2. Mixed hyperlipidemia - ICD9: 272.2, ICD10: E78.2 - good control - Encouraged following a low fat, low cholesterol diet. - Discussed the benefits of regular aerobic exercise and weight loss. - Encouraged following a low carbohydrate, healthy oil intake diet. - Continue current therapy. 3. Essential hypertension with goal blood pressure less than 140/90 - ICD9: 401.9, ICD10: I10 - suboptimal control - Continue current medication(s) - Recommended regular aerobic exercise. - Recommend home blood pressure monitoring, to bring results in on next visit - Recheck in 2 weeks, sooner should new symptoms or problems arise. - Goal of BP <130/80 4. Gastroesophageal reflux disease with esophagitis without hemorrhage - ICD9: 530.81, 530.10, ICD10: K21.00 - Continue treatment with Prilosec 20 mg QD 5. Elevated fasting blood sugar - ICD9: 790.21, ICD10: R73.01 - good control with life style changes. 6. Advance directive discussed with patient - ICD9: V65.49, ICD10: Z71.89 - patient to bring in copies. F/u in a year for extensive exam. Sooner if issues. F/u 2-3 weeks for HTN med check I spent a total of 40 minutes on the date of the service which included preparing to see the patient, [id number] patient care, completing clinical documentation, performing a medically appropriate examination, counseling and educating the patient/family/caregiver and ordering medications, tests, or procedures. Aaron Cm MD documented in this encounterBlanchard Valley Health System03-09-2023 History of Present illness Narrative* Aishwarya Chi, RT(R) - 06/04/2022 12:50 PM EST Radiology Service Progress Note PATIENT NAME: Alba Smith DATE OF SERVICE: June 04, 2022 TIME: 12:45 PM PATIENT IDENTITY VERIFICATION COMPLETED USING TWO (2) IDENTIFIERS: Name and Date of confirmedby patient verbally. FALL SCREENING: Has the patient had 2 falls in the last year or 1 fall with injury or currently using an Ambulatory Assistive Device (Walker, Cane, Wheelchair, Crutches, etc.)? No PATIENT GENDER DATA: Male PATIENT RELEVANT IMPLANT DATA REVIEWED: Not Applicable RADIOLOGY DEPARTMENT: General X-ray: Exam(s) Completed: Chest X-Ray PERIPHERAL IV DATA: Not applicable SIGNED BY: RT Zully(R) June 04, 2022 12:45 PM documented in this encounterBlanchard Valley Health System03-09-2023 History of Present illness Narrative* Fany London APRN.CONTACT FINGER ASSEMBLER - 06/04/2022 12:27 PM EST Subjective The history is provided by the patient. No speech language assistant was used. HPI Alba Smith is a 77 year old male who presents today for CC of cough and congestion for 5 days. 3 weeks ago had similar illness treated with doxycycline, and did go away. He denies any fever, chest pain or SOB. BP 126/74 Pulse 81 Temp 37.1 C (98.7 F) (Tympanic) Resp 18 Wt 88.7 kg (195 lb 9.6 oz) SpO2 98% BMI 28.07 kg/m Social History Tobacco Use Smoking status: Never Smokeless tobacco: Never Vaping Use Vaping Use: Never used Substance Use Topics Alcohol use: Yes Comment: once a month Drug use: No PAST MEDICAL HISTORY Diagnosis Date Arthritis Elevated fasting blood sugar 04/28/2017 Essential hypertension with goal blood pressure less than 140/90 08/22/2015 Gastroesophageal reflux disease with esophagitis 08/22/[address] 05/22/2021 POA : [facility] Medicare annual wellness visit, subsequent 04/28/2017 Medicare Part B: 12/27/2012 last done: 04/29/2018 Mixed hyperlipidemia Proteinuria 03/17/2013 Neg on f/u Sebaceous cyst 05/22/2021 lower left sternal boarder. Seborrheic keratosis 03/16/2013 I have confirmed and edited as necessary, the [facility] Review of Systems Constitutional: Negative for chills, fever and malaise/fatigue. HENT: Positive for congestion (chest). Negative for ear pain, sinus pain and sore throat. Respiratory: Positive for cough. Negative for sputum production, shortness of breath and wheezing. Cardiovascular: Negative for chest pain. Gastrointestinal: Negative for abdominal pain, diarrhea, nausea and vomiting. Musculoskeletal: Negative for myalgias. Neurological: Negative for headaches. Objective Physical Exam Vitals and nursing note reviewed. Constitutional: Appearance: He is not toxic-appearing. HENT: Head: Normocephalic and atraumatic. Right Ear: Tympanic membrane, ear canal and external ear normal. Left Ear: Tympanic membrane, ear canal and external ear normal. Nose: No mucosal edema, congestion or rhinorrhea. Right Sinus: No maxillary sinus tenderness or frontal sinus tenderness. Left Sinus: No maxillary sinus tenderness or frontal sinus tenderness. Mouth/Throat: Pharynx: Uvula midline. No oropharyngeal exudate or posterior oropharyngeal erythema. Tonsils: No tonsillar abscesses. Cardiovascular: Rate and Rhythm: Normal rate and regular rhythm. Heart sounds: Normal heart sounds. Pulmonary: Effort: Pulmonary effort is normal. Breath sounds: Normal breath sounds. No decreased breath sounds, wheezing, rhonchi or rales. Comments: A moist, rattling cough was noted during this encounter. Talking in full sentences. Handling secretions without drooling. Lips and nailbeds are pink without cyanosis. Lymphadenopathy: Head: Right side of head: No submental, submandibular, tonsillar or preauricular adenopathy. Left side of head: No submental, submandibular, tonsillar or preauricular adenopathy. Cervical: No cervical adenopathy. Right cervical: No superficial cervical adenopathy. Left cervical: No superficial cervical adenopathy. Neurological: Mental Status: He is alert. ASSESSMENT/PLAN: 1. Acute cough - ICD9: 786.2, ICD10: R05.1 (primary diagnosis) Appears to be new viral cough Tessalon Perls Continue mucinex - XR CHEST 2V FRONTAL/LAT RESULT: Lines, tubes, and devices: None. Lungs and pleura: No consolidation. No lung mass. No pleural effusion. No pneumothorax. Cardiomediastinal silhouette: Stable cardiomediastinal silhouette. Bones and soft tissues: There are mild degenerative changes in the spine. IMPRESSION: Stable exam without acute findings. Interpreted by : STANISLAV DICKENS MD 2. URI, acute - ICD9: 465.9, ICD10: J06.9 - Discussed viral etiology and rationale for treatment. - Symptomatic treatment with prn analgesia - Supportive care with fluids and rest Diagnosis and treatment plan were discussed and questions were answered to the patient's satisfaction. Pt acknowledged understanding of concepts and follow up plan. Specific signs and symptoms that would indicate the need for higher level of care were discussed indetail warranting prompt ER evaluation. Fany London APRN.ENRIQUE documented in this encounterBlanchard Valley [facility] System03-03-2023 Miscellaneous Notes* Telephone Encounter - Kayleen Schrader PA-C - 05/29/2022 1:17 PM EST The following approved medication requests have been transmitted electronically. Requested Prescriptions Signed Prescriptions Disp Refills omeprazole (PRILOSEC) 20 mg capsule 180 capsule 3 Sig: Take 2 capsules by mouth once daily. Authorizing Provider: KAYLEEN SCHRADER PA-C * Telephone Encounter - Maude Moody LPN - 05/29/2022 1:10 PM EST Patient phones requesting refills as follows: Patient comment: Please renew, would like a 90 day supply. Requested Prescriptions Pending Prescriptions Disp Refills omeprazole (PRILOSEC) 20 mg capsule 180 capsule 3 Sig: Take 2 capsules by mouth once daily. SERVANDO-08/11/21 Labs-05/09/21 NOV-07/27/22 med filled 05/07/22 Please review and advise. Maude Moody LPN documented in this encounterBlanchard Valley Health System02-23-2023 History of Present illness Narrative* Aaron Arias APRN.ENRIQUE - 05/21/2022 11:29 AM EST Subjective HPI Nontoxic-appearing male presents urgent care chief complaint cough nasal congestion. Duration of symptoms 10 days. Associated symptoms today cough. States initially he did have body aches chills low-grade fever sore throat sinus pressure. Those symptoms have resolved. Still has some transient sinuspressure and a lingering cough. States initially he felt like he was getting better and then becamemore sick the last few days. No known direct sick exposures. Has been using OTC medications this ishelped some. Denies any fever body aches chills productive cough chest pain shortness of breath pleuritic pain hemoptysis nausea vomiting abdominal pain change in bowel or bladder habits. Past medical history prescription medication use and allergies reviewed. .Patient presents with: Cough: Cough, congestion and ST x 10 days PAST MEDICAL HISTORY Diagnosis Date Arthritis Elevated fasting blood sugar 04/28/2017 Essential hypertension with goal blood pressure less than 140/90 08/22/2015 Gastroesophageal reflux disease with esophagitis 08/22/[address] 05/22/2021 POA : [place] Medicare annual wellness visit, subsequent 04/28/2017 Medicare Part B: 12/27/2012 last done: 04/29/2018 Mixed hyperlipidemia Proteinuria 03/17/2013 Neg on f/u Sebaceous cyst 05/22/2021 lower left sternal boarder. Seborrheic keratosis 03/16/2013 PAST SURGICAL HISTORY Procedure Laterality Date COLONOSCOPY 08/03/2016 Dr. Houston with biopsy in [place], repeat 5 yrs EGD W/O BRSH SPEC VARICIES INJ 09/09/2021 EYE SURGERY HX FECAL OCCULT BLOOD TEST 06/03/2016 negative PLASTIC REPAIR CANALICULI left SKIN BIOPSY HX ALLERGIES Niacin and Sulfa (Sulfonamide Antibiotics) MEDICATIONS omeprazole (PRILOSEC) 20 mg capsule Take 2 capsules by mouth once daily. doxazosin (CARDURA) 2 mg tablet Take 1 tablet by mouth once daily. amLODIPine (NORVASC) 10 mg tablet Take 1 tablet by mouth once daily. atorvastatin (LIPITOR) 10 mg tablet TAKE 1 TABLET BY MOUTH DAILY AT BEDTIME FOR CHOLESTEROL SAW PALMETTO ORAL Take 450 mg by mouth once daily. COMPOUNDED PRESCRIPTION OTC Vitamin D3 2000 IU FAMILY HISTORY Problem Relation Age of Onset Cancer Paternal Uncle lung Diabetes Maternal Grandfather Diabetes Paternal Grandmother other (parkinson's) Father Coronary Artery Disease Mother Cataract Mother Social History Tobacco Use Smoking status: Never Smokeless tobacco: Never Vaping Use Vaping Use: Never used Substance Use Topics Alcohol use: Yes Comment: once a month Drug use: No BP 130/82 Pulse 77 Temp 36.3 C (97.4 F) (Tympanic) Resp 16 Wt 90.8 kg (200 lb 3.2 oz) SpO2 97% BMI 28.73 kg/m Review of Systems Constitutional: Negative for chills, fever and malaise/fatigue. HENT: Positive for congestion and sinus pain. Negative for ear discharge, ear pain and sore throat. Eyes: Negative for blurred vision, pain, discharge and redness. Respiratory: Positive for cough. Negative for hemoptysis, sputum production, shortness of breath, wheezing and stridor. Cardiovascular: Negative for chest pain. Gastrointestinal: Negative for abdominal pain, diarrhea, nausea and vomiting. Musculoskeletal: Negative for myalgias. Skin: Negative for itching and rash. Neurological: Negative for dizziness and headaches. Objective Physical Exam Constitutional: General: He is not in acute distress. Appearance: He is not diaphoretic. HENT: Head: Normocephalic. Nose: Right Sinus: Maxillary sinus tenderness present. Left Sinus: Maxillary sinus tenderness present. Mouth/Throat: Mouth: Mucous membranes are moist. Pharynx: Oropharynx is clear. Uvula midline. No pharyngeal swelling, oropharyngeal exudate, posterior oropharyngeal erythema or uvula swelling. Eyes: Conjunctiva/sclera: Conjunctivae normal. Pupils: Pupils are equal, round, and reactive to light. Cardiovascular: Rate and Rhythm: Normal rate and regular rhythm. Heart sounds: Normal heart sounds. Pulmonary: Effort: Pulmonary effort is normal. No tachypnea, accessory muscle usage or respiratory distress. Breath sounds: Normal breath sounds. No stridor. No wheezing, rhonchi or rales. Abdominal: Palpations: Abdomen is soft. Tenderness: There is no abdominal tenderness. Musculoskeletal: Cervical back: Normal range of motion and neck supple. No rigidity or tenderness. Lymphadenopathy: Cervical: No cervical adenopathy. Skin: General: Skin is warm and dry. Neurological: Mental Status: He is alert and oriented to person, place, and time. ASSESSMENT/PLAN: 1. Sinobronchitis - ICD9: 473.9, 490, ICD10: J32.9, J40 Chest x-ray offered declined x-ray at this time. Patient placed on doxycycline treated for sinobronchitis. Follow-up PCP 2 to 3 days reevaluation. Patient was educated on supportive therapies. Patient was instructed to immediately proceed to emergency room for any new, worsening, or symptoms lasting longer than anticipated. The patient's clinical presentation is otherwise unremarkable at this time. Based on exam and clinical finding, the patient is stable for discharge. Plan of care was discussed with patient. Patient verbalizes understanding and agrees to plan of care. This note was generated using [employer] software. It may contain errors in wording, punctuation, or spelling. Aaron Arias APRN.ENRIQUE documented in this encounterBlanchard Valley Health System02-09-2023 Miscellaneous Notes* Telephone Encounter - Anny Allen LPN - 05/07/2022 2:02 PM EST Patient has been identified by name and date of : Yes Patient phones for refill(s): Requested Prescriptions Pending Prescriptions Disp Refills omeprazole (PRILOSEC) 20 mg capsule 60 capsule 0 Sig: Take 2 capsules by mouth once daily. Date of last office visit in primary care: 05/22/21 Next appt: 07/27/2022 Please advise. Thank you. Anny Allen LPN documented in this encounterBlanchard Valley Health System01-13-2023 Miscellaneous Notes* Telephone Encounter - Aaron Cm MD - 04/10/2022 11:27 AM EST The following approved medication requests have been transmitted electronically. Requested Prescriptions Signed Prescriptions Disp Refills amLODIPine (NORVASC) 10 mg tablet 90 tablet 1 Sig: Take 1 tablet by mouth once daily. Authorizing Provider: AARON CM atorvastatin (LIPITOR) 10 mg tablet 90 tablet 1 Sig: TAKE 1 TABLET BY MOUTH DAILY AT BEDTIME FOR CHOLESTEROL Authorizing Provider: AARON CM MD * Telephone Encounter - Calvin Smith MA - 04/10/2022 11:11 AM EST Patient has been identified by name and date of : Yes Requested Prescriptions Pending Prescriptions Disp Refills amLODIPine (NORVASC) 10 mg tablet 90 tablet 1 Sig: Take 1 tablet by mouth once daily. atorvastatin (LIPITOR) 10 mg tablet 90 tablet 1 Sig: TAKE 1 TABLET BY MOUTH DAILY AT BEDTIME FOR CHOLESTEROL RX INSTRUCTIONS: Patient aware RX will be sent to pharmacy. No need to notify patient. Calvin Smith MA Servando: 04/2021 Nov: 07/2022 Last refill; 09/2021 documented in this encounterBl[facility]10-27-2022 History of Present illness Narrative* Jay Dumont, OD - 01/22/2022 12:06 PM EDT 1. Combined forms of age-related cataract of both eyes Mild visual significance Continue to monitor 2. Meibomian gland dysfunction (MGD) of upper and lower lids of both eyes 3. Squamous blepharitis of 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 Continue baby shampoo and warm compresses as needed 4. Regular astigmatism of both eyes 5. Presbyopia Finalized spec rx but okay to continue with current glasses Follow-up in 1 year or sooner as needed Jay Dumont, OD January 22, 2022 12:06 PM documented in this [facility]07-23-2022 Miscellaneous Notes* Telephone Encounter - Madue Moody LPN - 10/18/2021 8:06 AM EDT Patient phones requesting refills as follows: Pending Prescriptions Disp Refills AMLODIPINE 10 MG TABLET 90 tablet 1 Sig: Take 1 tablet by mouth once daily. ARVIND: No ATORVASTATIN 10 MG TABLET 90 tablet 1 Sig: TAKE 1 TABLET BY MOUTH DAILY AT BEDTIME FOR CHOLESTEROL ARVIND: No DOXAZOSIN 2 MG TABLET 90 tablet 1 Sig: Take 1 tablet by mouth once daily. ARVIND: No SERVANDO-08/11/21 Labs-05/09/21 NOV-none meds filled 05/22/21 Please review and advise. Maude Moody LPN documented in this encounterBlanchard [facility]06-29-2022 History of Present illness Narrative* Lonny Leal MD - 09/24/2021 7:30 AM EDT FOLLOW UP VISIT - ENDOSCOPY NAME: Alba Smith [facility] NO.: [id number] DATE OF SERVICE: 09/23/2021 : 1945 REFERRING PHYSICIAN: Aaron Cm MD Alba is a patient I am following for dysphagia. Approximately 8 years previously had upper endoscopy performed for dysphagia and was found to have mild esophageal stenosis which was dilated by a business banking representative. He has been having no complaints since that time until recently when he again noted occasional dysphagia. He denies significant heartburn or other difficulties. He notes no change inhis bowel habits. He states he had a recent colonoscopy. I performed upper endoscopy on September 09, 2021. The patient was found to have moderate duodenitis, gastritis and distal esophagitis. The patient was given a prescription for proton pump inhibitors. He did not start taking them until last week and has been only taking 20 mg/day not 40 mg. He is uncertain whether his dysphagia is improved since that time. Pathology demonstrated: FINAL DIAGNOSIS A. Duodenum, biopsy: - Duodenal mucosa with intact villous architecture and focal foveolar metaplasia, suggestive of peptic injury - Negative for intraepithelial lymphocytosis B. Stomach antrum, biopsy: - Portions of oxyntic type gastric mucosa with no significant histologic abnormality - Negative for Helicobacter pylori organisms on routine staining - Negative for intestinal metaplasia or dysplasia C. Esophagogastric junction, biopsy: -Squamous mucosa with mild reactive changes -Negative for eosinophilic esophagitis D. Esophagus, MID, biopsy: -Squamous mucosa with no significant histologic abnormality -Negative for eosinophilic esophagitis 09/10/21 VITALS: Pulse 67, temperature 36.3 C (97.4 F), height 177.8 cm (5' 10), weight 88.9 kg (196 lb), SpO2 95 %. On examination, the abdomen is benign. Assessment IMPRESSION: Peptic ulcer disease with moderate duodenitis, gastritis and distal esophagitis. PLAN: If the patient notes any problems or changes in bowel function, the patient should contact me immediately. Otherwise I recommend follow up endoscopy as needed. The patient who had the risk of side effects With proton pump inhibitor and was reluctant to consider that medication. We reviewed his photos specifically his impressive duodenitis on imaging. The patient would like that his brother had a history of reflux, Courtney's esophagitis and esophageal cancer. We discussed the risks and benefits of this medication compared to the possibilities Diagnoses: (R13.10) Dysphagia, unspecified type (primary encounter diagnosis) (K27.9) Peptic ulcer disease Return to Clinic: The patient is instructed to follow-up with me as needed. Lonny Leal MD documented in this encounterBlanchard Valley [facility] System06-14-2022 Nurse Note* Ariana Scanlon RN - 09/09/2021 10:25 AM EDT Arrived in phase II via cart. Left lateral position. Sedated, but responds to verbal stimuli. Colornormal; skin warm and dry. Respirations wnl and unlabored. Abdomen soft and with + bowel sounds in quads X 4. Patient resting comfortably. Family at bedside. Dr. Leal at bedside to review procedure and recommendations. Ariana Scanlon RN documented in this encounterBlanchard Valley [facility]06-14-2022 History and physical note * Lonny Leal MD - 09/09/2021 9:45 AM EDT UPDATED PROCEDURAL SEDATION HISTORY AND PHYSICAL EXAMINATION SERVICE DATE: 09/09/2021 SERVICE TIME: 9:48 AM PHYSICAL EXAM MUST BE COMPLETED ON ADMISSION PROCEDURE: Procedure Indications: The History and Physical (completed in the past 30 days) has been reviewed and the patient has beenexamined. The contents accurately reflect the patient's condition with the following additions or revisions since the H&P was completed. ASA Class: ASA Class:: Patient with mild systemic disease Examination indicates no changes. AIRWAY: Airway Visualization of Uvula: Yes Mouth opening greater than 2 fingerbreadths: Yes Neck Full Range of Motion: Yes LUNGS: Lungs clear to auscultation CARDIAC: Regular rhythm, Provisional Diagnosis/Treatment Plan: dysphagia -EGD SEDATION GOAL: Moderate This H&P can be found in the attached. SIGNATURE: Lonny Leal MD PATIENT NAME: Alba Smith DATE: September 09, 2021 TIME: 9:48 AM * Lonny Leal MD - 09/09/2021 9:45 AM EDT Alba Smith 1945 REFERRING PHYSICIAN: Aaron Cm MD CHIEF COMPLAINT: Follow Up (suture removal, wound check) HPI: The patient is a 76 year old male who returns for suture removal from a sebaceous cyst removedfrom his chest. The patient notes no difficulties with the sebaceous cyst removal and is here for suture removal. The patient also however notes that he does have some issues with dysphagia. Approximately 8 years previously had upper endoscopy performed for dysphagia and was found to have mild esophageal stenosis which was dilated by a business banking representative. He has been having no complaints since that time until recently when he again noted occasional dysphagia. He denies significant heartburn or other difficulties. He notes no change in his bowel habits. He states he had a recent colonoscopy. The patient is being seen by me today at the request of Dr. Aaron Cm MD for my opinion and advice regarding which removal but now dysphagia. PAST MEDICAL HISTORY PAST MEDICAL HISTORY Diagnosis Date Elevated fasting blood sugar 04/28/2017 Essential hypertension with goal blood pressure less than 140/90 08/22/2015 Gastroesophageal reflux disease with esophagitis 08/22/[address] 05/22/2021 POA : [employer] annual wellness visit, subsequent 04/28/2017 Medicare Part B: 12/27/2012 last done: 04/29/2018 Mixed hyperlipidemia Proteinuria 03/17/2013 Neg on f/u Sebaceous cyst 05/22/2021 lower left sternal boarder. Seborrheic keratosis 03/16/2013 PAST SURGICAL HISTORY PAST SURGICAL HISTORY Procedure Laterality Date COLONOSCOPY 08/03/2016 Dr. Houston with biopsy in [place], repeat 5 yrs FECAL OCCULT BLOOD TEST 06/03/2016 negative PLASTIC REPAIR CANALICULI left CURRENT MEDICATIONS Current Outpatient Medications Medication Sig amLODIPine (NORVASC) 10 mg tablet Take 1 tablet by mouth once daily. atorvastatin (LIPITOR) 10 mg tablet TAKE 1 TABLET BY MOUTH DAILY AT BEDTIME FOR CHOLESTEROL doxazosin (CARDURA) 2 mg tablet Take 1 tablet by mouth once daily. SAW PALMETTO ORAL Take 450 mg by mouth once daily. COMPOUNDED PRESCRIPTION OTC Vitamin D3 2000 IU No current facility-administered medications for this visit. ALLERGIES: Niacin and Sulfa (Sulfonamide Antibiotics) PERSONAL HISTORY: SOCIAL HISTORY Social History Tobacco Use Smoking status: Never Smoker Smokeless tobacco: Never Used Vaping Use Vaping Use: Never used Substance Use Topics Alcohol use: Yes Comment: once a month Drug use: No FAMILY HISTORY: FAMILY HISTORY FAMILY HISTORY Problem Relation Age of Onset Cancer Paternal Uncle lung Diabetes Maternal Grandfather Diabetes Paternal Grandmother other (parkinson's) Father Coronary Artery Disease Mother Cataract Mother REVIEW OF SYMPTOMS: The review of systems data was entered by the nurse and reviewed by me There are no exam notes on file for this visit. PHYSICAL EXAMINATION: General: The patient is 76 year old male, well nourished, well hydrated in no acute distress. The patient is oriented to time, place, and person. VITALS: Pulse 91, temperature 36.9 C (98.4 F), weight 90.9 kg (200 lb 6.4 oz), SpO2 96 %. Body massindex is 28.75 kg/m . HEENT: Normal cephalic, ataumatic, pupils are equally round, sclera are anicteric, mucous membranesare moist, oropharynx is clear. Neck has no masses, asymmetry or lymphadenopathy. Thyroid is unremarkable. Respiratory: Clear to auscultation and percussion. Normal respiratory excursion and pattern. Cardiac: Examination is regular rate and rhythm. Abdominal exam: Soft, nontender, with no palpable masses. No hepatosplenomegaly. No palpable hernias. Rectal exam: exam deferred Extremities: no clubbing, cyanosis or edema. No adenopathy. Other: The sutures on his chest are healing as appropriately. The sutures removed and Steri-Strips were applied. LABORATORY VALUES: As Noted RADIOLOGIC STUDIES: As Noted Assessment IMPRESSION: Occasional dysphagia PLAN: I plan to perform upper endoscopy. We discussed the risks and benefits of the planned endoscopy. I have informed the patient that complications can occur including failure to complete the endoscopy and perforation. The patient had the opportunity to ask questions concerning the planned endoscopy. My staff has also explained the procedure to the patient in understandable terms and has given the patient printed material concerning the procedure. The patient freely consents to surgery. Diagnoses: (R13.10) Dysphagia, unspecified type (primary encounter diagnosis) My findings have been communicated to Dr. Aaron Cm MD via shared medical record. This note will be forwarded to Dr. Aaron Cm MD. Return to Clinic: The patient is instructed to follow-up with me after the testing has been completed. Lonny Leal MD documented in this encounterBl[facility]ard [facility]05-16-2022 History of Present illness Narrative* Kayleen Schrader PA-C - 08/11/2021 10:49 AM EDT Chief Complaint Patient presents with: Recheck: numbness in right arm HPI Alba Smith is a 76 year old male who presents here today for Above Complaints.. Patient has been having some right hand n/t. Mostly in 5th digit. Pain from elbow down at times. He does golf yearly. Pain did start before he started golfing this year. Pain started shortly after using garden tita to trim shrubs. Past medical history, appointments, medications, allergies reviewed. Previous Medical History PAST MEDICAL HISTORY Diagnosis Date Elevated fasting blood sugar 04/28/2017 Essential hypertension with goal blood pressure less than 140/90 08/22/2015 Gastroesophageal reflux disease with esophagitis 08/22/[address] 05/22/2021 POA : [employer] annual wellness visit, subsequent 04/28/2017 Medicare Part B: 12/27/2012 last done: 04/29/2018 Mixed hyperlipidemia Proteinuria 03/17/2013 Neg on f/u Sebaceous cyst 05/22/2021 lower left sternal boarder. Seborrheic keratosis 03/16/2013 Previous Surgical History PAST SURGICAL HISTORY Procedure Laterality Date COLONOSCOPY 08/03/2016 Dr. Houston with biopsy in [place], repeat 5 yrs FECAL OCCULT BLOOD TEST 06/03/2016 negative PLASTIC REPAIR CANALICULI left Family History FAMILY HISTORY Problem Relation Age of Onset Cancer Paternal Uncle lung Diabetes Maternal Grandfather Diabetes Paternal Grandmother other (parkinson's) Father Coronary Artery Disease Mother Cataract Mother Patient Allergies ALLERGIES Allergen Reactions Niacin Hives Sulfa (Sulfonamide * Hives Current Medications Current Outpatient Medications on File Prior to Visit Medication Sig amLODIPine (NORVASC) 10 mg tablet Take 1 tablet by mouth once daily. atorvastatin (LIPITOR) 10 mg tablet TAKE 1 TABLET BY MOUTH DAILY AT BEDTIME FOR CHOLESTEROL doxazosin (CARDURA) 2 mg tablet Take 1 tablet by mouth once daily. SAW PALMETTO ORAL Take 450 mg by mouth once daily. COMPOUNDED PRESCRIPTION OTC Vitamin D3 2000 IU No current facility-administered medications on file prior to visit. Social History Social History Tobacco Use Smoking status: Never Smoker Smokeless tobacco: Never Used Vaping Use Vaping Use: Never used Substance Use Topics Alcohol use: Yes Comment: once a month Drug use: No Review of Symptoms REVIEW OF SYSTEMS see hpi EXAM: BP 106/80 (BP Site: Left Arm, BP Position: Sitting, BP Cuff Size: Large Adult) Pulse 68 Temp 36.2 C (97.2 F) Resp 16 Wt 89.8 kg (198 lb) BMI 28.41 kg/m General Appearance: Well appearing, alert, in no acute distress, well-hydrated, well nourished.. Musculoskeletal: +tinnels at right ulnar tunnel. No pain with ROM. Strength intact. [facility] Maintenance List ADVANCE DIRECTIVE DISCUSSION Never done SHINGRIX VACCINE(2 of 3) due on 05/22/2022 ANNUAL PCP TEAM CHRONIC DISEASE VISIT due on 05/22/2022 BP CONTROLLED (<130/80) due on 05/22/2022 DTAP,TDAP,TD(3 - Td or Tdap) due on 01/11/2023 DIABETES SCREEN due on 05/09/2024 COLORECTAL CANCER SCREENING due on 09/16/2025 LIPID SCREEN due on 05/09/2026 INFLUENZA Completed HEPATITIS C SCREENING Completed PNEUMOVAX AGE 65 AND OVER WITH 5YR LOOKBACK Completed COVID-19 VACCINE Completed MENINGOCOCCAL CONJUGATE Aged Out DEPRESSION SCREENING Discontinued Data reviewed ASSESSMENT/PLAN: 1. Numbness and tingling of right hand - ICD9: 782.0, ICD10: R20.0, R20.2 Suspect ulnar impingement/entrapment vs medial epicondylitis. Will get EMG and set up with ortho. EMG order sent to [facility] - CONSULT TO ORTHOPAEDICS Kayleen Schrader PA-C documented in this encounterBlanchard Valley [facility] System04-14-2022 History of Present illness Narrative* Lonny Leal MD - 07/10/2021 2:17 PM EDT HISTORY AND PHYSICAL Alba Scott Giovany 1945 REFERRING PHYSICIAN: Aaron Cm MD CHIEF COMPLAINT: Follow Up (suture removal, wound check) HPI: The patient is a 76 year old male who returns for suture removal from a sebaceous cyst removedfrom his chest. The patient notes no difficulties with the sebaceous cyst removal and is here for suture removal. The patient also however notes that he does have some issues with dysphagia. Approximately 8 years previously had upper endoscopy performed for dysphagia and was found to have mild esophageal stenosis which was dilated by a business banking representative. He has been having no complaints since that time until recently when he again noted occasional dysphagia. He denies significant heartburn or other difficulties. He notes no change in his bowel habits. He states he had a recent colonoscopy. The patient is being seen by me today at the request of Dr. Aaron Cm MD for my opinion and advice regarding which removal but now dysphagia. PAST MEDICAL HISTORY Diagnosis Date Elevated fasting blood sugar 04/28/2017 Essential hypertension with goal blood pressure less than 140/90 08/22/2015 Gastroesophageal reflux disease with esophagitis 08/22/[address] 05/22/2021 POA : [employer] annual wellness visit, subsequent 04/28/2017 Medicare Part B: 12/27/2012 last done: 04/29/2018 Mixed hyperlipidemia Proteinuria 03/17/2013 Neg on f/u Sebaceous cyst 05/22/2021 lower left sternal boarder. Seborrheic keratosis 03/16/2013 PAST SURGICAL HISTORY Procedure Laterality Date COLONOSCOPY 08/03/2016 Dr. Houston with biopsy in [place], repeat 5 yrs FECAL OCCULT BLOOD TEST 06/03/2016 negative PLASTIC REPAIR CANALICULI left Current Outpatient Medications Medication Sig amLODIPine (NORVASC) 10 mg tablet Take 1 tablet by mouth once daily. atorvastatin (LIPITOR) 10 mg tablet TAKE 1 TABLET BY MOUTH DAILY AT BEDTIME FOR CHOLESTEROL doxazosin (CARDURA) 2 mg tablet Take 1 tablet by mouth once daily. SAW PARMINDER ORAL Take 450 mg by mouth once daily. COMPOUNDED PRESCRIPTION OTC Vitamin D3 2000 IU No current facility-administered medications for this visit. ALLERGIES: Niacin and Sulfa (Sulfonamide Antibiotics) PERSONAL HISTORY: Social History Tobacco Use Smoking status: Never Smoker Smokeless tobacco: Never Used Vaping Use Vaping Use: Never used Substance Use Topics Alcohol use: Yes Comment: once a month Drug use: No FAMILY HISTORY: FAMILY HISTORY Problem Relation Age of Onset Cancer Paternal Uncle lung Diabetes Maternal Grandfather Diabetes Paternal Grandmother other (parkinson's) Father Coronary Artery Disease Mother Cataract Mother REVIEW OF SYMPTOMS: The review of systems data was entered by the nurse and reviewed by me There are no exam notes on file for this visit. PHYSICAL EXAMINATION: General: The patient is 76 year old male, well nourished, well hydrated in no acute distress. The patient is oriented to time, place, and person. VITALS: Pulse 91, temperature 36.9 C (98.4 F), weight 90.9 kg (200 lb 6.4 oz), SpO2 96 %. Body massindex is 28.75 kg/m . HEENT: Normal cephalic, ataumatic, pupils are equally round, sclera are anicteric, mucous membranesare moist, oropharynx is clear. Neck has no masses, asymmetry or lymphadenopathy. Thyroid is unremarkable. Respiratory: Clear to auscultation and percussion. Normal respiratory excursion and pattern. Cardiac: Examination is regular rate and rhythm. Abdominal exam: Soft, nontender, with no palpable masses. No hepatosplenomegaly. No palpable hernias. Rectal exam: exam deferred Extremities: no clubbing, cyanosis or edema. No adenopathy. Other: The sutures on his chest are healing as appropriately. The sutures removed and Steri-Strips were applied. LABORATORY VALUES: As Noted RADIOLOGIC STUDIES: As Noted Assessment IMPRESSION: Occasional dysphagia PLAN: I plan to perform upper endoscopy. We discussed the risks and benefits of the planned endoscopy. I have informed the patient that complications can occur including failure to complete the endoscopy and perforation. The patient had the opportunity to ask questions concerning the planned endoscopy. My staff has also explained the procedure to the patient in understandable terms and has given the patient printed material concerning the procedure. The patient freely consents to surgery. Diagnoses: (R13.10) Dysphagia, unspecified type (primary encounter diagnosis) My findings have been communicated to Dr. Aaron Cm MD via shared medical record. This note will be forwarded to Dr. Aaron Cm MD. Return to Clinic: The patient is instructed to follow-up with me after the testing has been completed. Lonny Leal MD documented in this encounterBlanchard Valley Health System04-06-2022 Instructions* Patient Instructions* Doreen Hale LPN - 07/02/2021 10:07 AM EDT The following instructions are important for you related to your office visit today with the [facility]. Instructions After SKIN EXCISION-SUTURES You can remove the dressing in two days. If the dressing becomes soaked or had significant drainage, the dressing should be changed. If there is minor bleeding from this skin edge, you should hold pressure on the incision until the bleeding stops. If there is continued bleeding, you should contact our office immediately. You do not need to leave a dressing on the wound after two days. If the wound shows signs of redness, inflammation, or purulent drainage, you should contact our office immediately. You should keep the wound dry for the first two days. After that time, you may wash the wound with gentle soap and water. The wound should not be immersed in a pool, bathtub, or even hot tub. We prefer to check the incision and remove the stitches in our office when ready. Please make an appointment to return to our office in 10 days. Please do not remove the stitches yourself without approval from our office. If you note any additional difficulties, questions, or concerns, you should contact our office immediately @ [phone] and ask to be transferred to the General Surgery department. documented in this encounterBlanchard Valley Health System04-06-2022 History of Present illness Narrative* Lonny Leal MD - 07/02/2021 9:41 AM EDT HISTORY AND PHYSICAL Alba Smith 1945 REFERRING PHYSICIAN: Aaron Cm MD CHIEF COMPLAINT: skin lesion HPI: The patient is a 76 year old male. He has a single sebaceous cyst on his chest. He has noticedthis cyst for approximately 10 years. It became infected in the past and was probed to drain it. Heis not had it completely excised. He notes it is growing again although is not infected currently he wishes to have it removed. SIGNIFICANT MEDICAL PROBLEMS: PAST MEDICAL HISTORY Diagnosis Date Elevated fasting blood sugar 04/28/2017 Essential hypertension with goal blood pressure less than 140/90 08/22/2015 Gastroesophageal reflux disease with esophagitis 08/22/[address] 05/22/2021 POA : [employer] annual wellness visit, subsequent 04/28/2017 Medicare Part B: 12/27/2012 last done: 04/29/2018 Mixed hyperlipidemia Proteinuria 03/17/2013 Neg on f/u Sebaceous cyst 05/22/2021 lower left sternal boarder. Seborrheic keratosis 03/16/2013 OPERATIONS: PAST SURGICAL HISTORY Procedure Laterality Date COLONOSCOPY 08/03/2016 Dr. Houston with biopsy in [place], repeat 5 yrs FECAL OCCULT BLOOD TEST 06/03/2016 negative PLASTIC REPAIR CANALICULI left CURRENT MEDICATIONS: Current Outpatient Medications Medication Sig Dispense Refill amLODIPine (NORVASC) 10 mg tablet Take 1 tablet by mouth once daily. 90 tablet 1 atorvastatin (LIPITOR) 10 mg tablet TAKE 1 TABLET BY MOUTH DAILY AT BEDTIME FOR CHOLESTEROL 90 tablet 1 doxazosin (CARDURA) 2 mg tablet Take 1 tablet by mouth once daily. 90 tablet 1 SAW PALMETTO ORAL Take 450 mg by mouth once daily. COMPOUNDED PRESCRIPTION OTC Vitamin D3 2000 IU 0 No current facility-administered medications for this visit. ALLERGIES: Niacin and Sulfa (Sulfonamide Antibiotics) PERSONAL HISTORY: Social History Tobacco Use Smoking status: Never Smoker Smokeless tobacco: Never Used Vaping Use Vaping Use: Never used Substance Use Topics Alcohol use: Yes Comment: once a month Drug use: No FAMILY HISTORY: FAMILY HISTORY Problem Relation Age of Onset Cancer Paternal Uncle lung Diabetes Maternal Grandfather Diabetes Paternal Grandmother other (parkinson's) Father Coronary Artery Disease Mother Cataract Mother REVIEW OF SYMPTOMS: The review of systems data was entered by the nurse and reviewed by vt Nursing Notes: Susanna Jurado RN 07/02/2021 9:12 AM Signed REVIEW OF SYSTEMS: General: The patient denies fatigue, denies weight loss, denies weight gain, denies feeling hot, and denies feelings of cold. Eyes: The patient denies glaucoma, NOTES eye injury/surgery, wears glasses or contacts. Ear/Nose/Throat: The patient NOTES allergies, denies hayfever, denies ear infections, and denies bloody noses. Cardiovascular: The patient denies chest pain, denies heart disease, NOTES high blood pressure,denies cardiac stent, denies prior heart attack, denies irregular heart beat, NOTES high cholesterol, denies poor circulation, denies heart failure, other cardiac issues, denies claudication, denies cold feet, denies peripheral arterial stent. Respiratory: The patient denies tuberculosis, denies pneumonia, denies frequent cough, denies pulmonary embolism, denies shortness of breath, and denies coughing up blood. Gastrointestinal: The patient NOTES difficulty swallowing, NOTES acid reflux, denies ulcers, deniesvomiting, denies jaundice/hepatitis, denies gallbladder problems, denies black or tarry stools, denies hemorrhoids, denies bleeding from rectum, denies diverticulitis, denies constipation, denies diarrhea, denies loss of stool control, and denies hernias. Kidney/Bladder: The patient NOTES kidney stones, denies urine infections, and denies bloody urine. Skin: The patient denies a history of skin cancer, denies bleeding/changing moles, and denies a history of skin rash. Neurologic: The patient denies a history of epilepsy/convulsions, denies headaches, denies head/spinal injuries, and denies stroke/TIA. Psychiatric: The patient denies psychiatric medications, denies depression, and denies voices, denies substance abuse. Endocrine: The patient denies thyroid disorders, denies diabetes, and denies hormonal problems. Hematologic: The patient denies a history of bruising, denies bleeding, and denies anemia, denies blood clots. Infections: The patient NOTES a history of measles and mumps, denies rheumatic fever, and denies sexually transmitted diseases. Musculoskeletal: The patient denies back pain/injury, NOTES back problems, denies sciatica, denies knee/foot trouble, denies arthritis, or denies gout. When was patient's last Mammogram screening? N/A Last Colonoscopy: 2021 Susanna Jurado RN PHYSICAL EXAMINATION: General: The patient is 76 year old male, well nourished, well hydrated in no acute distress. The patient is oriented to time, place, and person. VITALS: Blood pressure 128/82, pulse 84, temperature 36.2 C (97.2 F), height 177.8 cm (5' 10), weight 91.8 kg (202 lb 6.4 oz), SpO2 96 %. Body mass index is 29.04 kg/m . HEENT: Normal cephalic, ataumatic, pupils are equally round, sclera are anicteric, mucous membranesare moist, oropharynx is clear. Neck has no masses, asymmetry or lymphadenopathy. Thyroid is unremarkable. Respiratory: Clear to auscultation and percussion. Normal respiratory excursion and pattern. Cardiac: Examination is regular rate and rhythm. Abdominal exam: Soft, nontender, with no palpable masses. No hepatosplenomegaly. No palpable hernias. Rectal exam: exam deferred Extremities: no clubbing, cyanosis or edema. No adenopathy. Other: Location: Mid sternum-4 cm sebaceous cyst with 2 punctum's and what looks to be a small incision LABORATORY VALUES: As Noted RADIOLOGIC STUDIES: As Noted PROCEDURE: EXCISION OF SEBACEOUS CYST - STERNUM The risks, benefits and anticipated outcomes of the procedure, the risks and benefits of the alternatives to the procedure, and the roles and tasks of the personnel to be involved, were discussed with the patient, and the patient consents to the procedure and agrees to proceed. I verify that I personally obtained the patient's consent. The patient`s skin was prepped and draped in the usual fashion. A combination of Lidocaine and Marcaine was injected into the skin. An eliptical incision was made over the sebaceous cyst. The sebaceous cyst was dissected from it's subcutaneous attachments and removed in its entirety. The specimen measured 5 by 4 cm. This was not sent to pathology. The skin was then closed with interrupted 4-0 nylon sutures. The patient tolerated the procedure well. Assessment IMPRESSION: STATUS POST EXCISION OF SEBACEOUS CYST - STERNUM PLAN: Alba is instructed to remove the dressing in two days. If the dressing becomes soaked or had significant drainage, the dressing should be changed. If there is minor bleeding from this skin edge, the patient should hold pressure on the incision. If there is continued bleeding, the patient should contact our office immediately. The patient may may wash the wound with gentle soap and water after two days. The wound should not be immersed in a pool, bathtub, or even hot tub. Diagnoses: (L72.3) Sebaceous cyst Return to Clinic: The patient is instructed to follow-up with my staff in 7-8 days. Lonny Leal MD UNIVERSAL PROTOCOL / SAFETY CHECKLIST Procedure to be Performed: Excision of chest sebaceous cyst Sign In: A Moment of CARE was completed. Personnel directly involved with the procedure wore the appropriate PPE (Personal Protective Equipment). Patient/Surrogate Stated/Verified: PATIENT VERIFIED(optional for EMERGENT procedures): Patient name, Date of , Relevant allergies and The intended procedure Time Out Communication: Intended patient and procedure match the source documents. Consent documented and matches the intended procedure. No relevant labs, photos, and/or imaging studies were applicable for review. Medications required for procedure verified. No fire risk assessment and interventions applicable. No implant(s) inserted. Sign Out: SIGN OUT (optional for EMERGENT procedures): No specimen collected. No instruments, equipment or retained foreign bodies applicable. Post-procedure follow-up management communicated and Plan of Care Visit completed when applicable. Dorene Hale LPN [facility]* Susanna Jurado RN - 07/02/2021 9:08 AM EDT REVIEW OF SYSTEMS: General: The patient denies fatigue, denies weight loss, denies weight gain, denies feeling hot, and denies feelings of cold. Eyes: The patient denies glaucoma, NOTES eye injury/surgery, wears glasses or contacts. Ear/Nose/Throat: The patient NOTES allergies, denies hayfever, denies ear infections, and denies bloody noses. Cardiovascular: The patient denies chest pain, denies heart disease, NOTES high blood pressure,denies cardiac stent, denies prior heart attack, denies irregular heart beat, NOTES high cholesterol, denies poor circulation, denies heart failure, other cardiac issues, denies claudication, denies cold feet, denies peripheral arterial stent. Respiratory: The patient denies tuberculosis, denies pneumonia, denies frequent cough, denies pulmonary embolism, denies shortness of breath, and denies coughing up blood. Gastrointestinal: The patient NOTES difficulty swallowing, NOTES acid reflux, denies ulcers, deniesvomiting, denies jaundice/hepatitis, denies gallbladder problems, denies black or tarry stools, denies hemorrhoids, denies bleeding from rectum, denies diverticulitis, denies constipation, denies diarrhea, denies loss of stool control, and denies hernias. Kidney/Bladder: The patient NOTES kidney stones, denies urine infections, and denies bloody urine. Skin: The patient denies a history of skin cancer, denies bleeding/changing moles, and denies a history of skin rash. Neurologic: The patient denies a history of epilepsy/convulsions, denies headaches, denies head/spinal injuries, and denies stroke/TIA. Psychiatric: The patient denies psychiatric medications, denies depression, and denies voices, denies substance abuse. Endocrine: The patient denies thyroid disorders, denies diabetes, and denies hormonal problems. Hematologic: The patient denies a history of bruising, denies bleeding, and denies anemia, denies blood clots. Infections: The patient NOTES a history of measles and mumps, denies rheumatic fever, and denies sexually transmitted diseases. Musculoskeletal: The patient denies back pain/injury, NOTES back problems, denies sciatica, denies knee/foot trouble, denies arthritis, or denies gout. When was patient's last Mammogram screening? N/A Last Colonoscopy: 2021 Susanna Jurado RN [facility] Sebaceous cyst [facility] in [facility]* Diagnosis Dysphagia, unspecified type- Primary documented in this encounter [facility] note* Diagnosis Numbness and tingling of right hand- Primary [facility] Diagnosis Dysphagia, unspecified type [facility] Diagnosis Dysphagia, unspecified type- Primary Peptic ulcer disease Peptic ulcer, unspecified site, unspecified as acute or chronic, without mention of hemorrhage, perforation, or obstruction [facility]* Diagnosis Combined forms of age-related cataract of both eyes- Primary Other and combined forms of senile cataract Meibomian gland dysfunction (MGD) of upper and lower lids of both eyes Squamous blepharitis of 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 Regular astigmatism of both eyes Regular astigmatism Presbyopia [facility] Diagnosis Sinobronchitis- Primary Unspecified sinusitis (chronic) [facility]* Diagnosis Acute cough- Primary URI, acute Acute upper respiratory infections of unspecified site [facility]* Diagnosis Medicare annual wellness visit, subsequent- Primary Routine general medical examination at a [facility] care facility Mixed hyperlipidemia Essential hypertension with goal blood pressure less than 140/90 Gastroesophageal reflux disease with esophagitis without hemorrhage Elevated fasting blood sugar Impaired fasting glucose Advance directive discussed with patient Other specified counseling [facility]* Diagnosis Essential hypertension with goal blood pressure less than 140/90- Primary [facility] noteNo assessment information availableWAccess [facility] Work Phone: Evaluation note* Diagnosis Epigastric pain- Primary Abdominal pain, epigastric Nausea and vomiting, unspecified vomiting type [facility]* Diagnosis Onset Date Resolution Status Thickening of wall of gallbladder resolved [facility] Work Phone: Evaluation note* Diagnosis Skin lesion- Primary Unspecified disorder of skin and subcutaneous tissue [facility] Diagnosis Mixed hyperlipidemia- Primary Gastroesophageal reflux disease with esophagitis without hemorrhage Essential hypertension with goal blood pressure less than 140/90 Elevated fasting blood sugar Impaired fasting glucose Medication management Encounter for long-term (current) use of other medications Disorder of prostate Unspecified disorder of prostate [facility]* Diagnosis Medicare annual wellness visit, subsequent- Primary Routine general medical examination at a [facility] Essential hypertension with goal blood pressure less than 140/90 Mixed hyperlipidemia Gastroesophageal reflux disease with esophagitis without hemorrhage Elevated fasting blood sugar Impaired fasting glucose Advance directive discussed with patient Other specified counseling Skin cancer screening Screening for malignant neoplasm of the skin Thrombocytopenia (HCC) Thrombocytopenia, unspecified [facility] Diagnosis Acute cough- Primary Sinobronchitis Unspecified sinusitis (chronic) Acute cough [facility]* Diagnosis Acute cough [facility]* Diagnosis Acute cough [facility]* Diagnosis Combined forms of age-related cataract of both eyes- Primary Other and combined forms of senile cataract Meibomian gland dysfunction (MGD) of upper and lower lids of both eyes Squamous blepharitis of 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 Regular astigmatism of both eyes Regular astigmatism Presbyopia [facility]* Diagnosis Elevated fasting blood sugar- Primary Impaired fasting glucose Disorder of prostate Unspecified disorder of prostate Gastroesophageal reflux disease with esophagitis without hemorrhage Medication management Encounter for long-term (current) use of other medications Mixed hyperlipidemia Essential hypertension with goal blood pressure less than 140/90 [facility]* Diagnosis Medicare annual wellness visit, subsequent- Primary Routine general medical examination at a health care facility Essential hypertension with goal blood pressure less than 140/90 Mixed hyperlipidemia Elevated fasting blood sugar Impaired fasting glucose Gastroesophageal reflux disease with esophagitis without hemorrhage History of ST elevation myocardial infarction (STEMI) Old myocardial infarction Advance directive discussed with patient Other specified counseling Thrombocytopenia Thrombocytopenia, unspecified Benign prostatic hyperplasia with nocturia Elevated PSA Elevated prostate specific antigen (PSA) Need for vaccination Need for prophylactic vaccination and inoculation against unspecified single disease Encounter for screening examination for other mental health and behavioral disorders Screening for depression [facility] Additional Instructions Your work-up this evening showed no signs of active cardiac event or lung pathology. It is possible this was related to gastritis/stomach acid or also potential gallbladder dysfunction. If symptoms happen again you can take [id number] Pepcid and or mighta/Maalox or try mixing baking soda and warm water. If symptoms resolve I feel it is safe to stay home but if they are persistent then you need to return to the ER for repeat evaluation. If you notice symptoms are occurring after eating then you may need to have an ultrasound of your gallbladder to check for potential gallbladder dysfunction.[facility] Work Phone: Reason for referral (narrative)* Outpatient Procedure (Routine) - Authorized Specialty Diagnoses / Procedures Referred By Kandis tadeo Referred To Contact [facility] Diagnoses Dysphagia, unspecified type Procedures EGD DIAGNOSTIC ESOPHAGOGASTRODUODENOSC OPY TRANSORAL DIAGNOSTIC Lonny Leal MD [address] [place] [address] [place] [address] Referral ID Status Reason Start Date Expiration Date Visits Requested Visits Authorized [id number] Authorized Auto-Generat ed Referral 07/10/2021 07/10/2022 1 1 [facility] for referral (narrative)* Outpatient Procedure (Routine) - Closed Specialty Diagnoses / Procedures Referred By Kandis tadeo Referred To Contact [facility] Diagnoses Dysphagia, unspecified type Procedures EGD DIAGNOSTIC ESOPHAGOGASTRODUODENOSC OPY TRANSORAL DIAGNOSTIC Lonny Leal MD [address] [place] [address] [place] [address] Referral ID Status Reason Start Date Expiration Date V isits Requested Visits Authorized [id number] Closed Auto-Generate d Referral 07/10/2021 07/10/2022 1 1 [facility] for referral (narrative)No reason for referral information availableWAccess Hospital [place] Work Phone: Reason for visit Narrative* Outpatient Procedure (Routine) - Closed Specialty Diagnoses / Procedures Referred By Kandis tadeo Referred To Contact [facility] Diagnoses Dysphagia, unspecified type Procedures EGD DIAGNOSTIC ESOPHAGOGASTRODUODENOSC OPY TRANSORAL DIAGNOSTIC Lonny Leal MD [address] [place] [address] [address] [place] [address] Referral ID Status Reason Start Date Expiration Date V isits Requested Visits Authorized [id number] Closed Auto-Generate d Referral 07/10/2021 07/10/2022 1 1 [facility] Reason for Referral Specialty Diagnoses / Procedures Referred By Kandis tadeo Referred To Contact Orthopedics Diagnoses Numbness and tingling of right hand Procedures CONSULT TO ORTHOPAEDICS OFFICE/OUTPATIENT NEW HIGH MDM 60-74 MINUTES Kayleen Schrader PA-C [address] [place] [address] Referral ID Status Reason Start Date Expiration Date Visits Requested Visits Authorized [id number] Authorized PCP Requested Referral 08/11/2021 08/11/2022 1 1 Specialty Diagnoses / Procedures Referred By Kandis tadeo Referred To Contact Dermatology Diagnoses Skin lesion Procedures CONSULT TO DERMATOLOGY Kayleen Schrader PA-C [address] [place] [address] Referral ID Status Reason Start Date Expiration Date Visits Requested Visits Authorized [id number] Ref Not Required PCP Requested Referral 06/30/2023 06/29/2024 1 1 Advance Directives No Advanced Directives Records FoundDocuments on File Type Date Recorded Patient 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 Expl anation Advance Directive(s) 08/06/2021 4:28 PM Documents on File Type Date Recorded Patient 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 Expl anation Advance Directive(s) 08/06/2021 4:28 PM Documents on File Type Date Recorded Patient 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 Expl anation Advance Directive(s) 09/08/2021 3:42 PM Advance Directive(s) 08/06/2021 4:28 PM Documents on File Type Date Recorded Patient 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 Expl anation Advance Directive(s) 09/08/2021 3:42 PM Advance Directive(s) 08/06/2021 4:28 PM Advance Directive Response Recorded Date/ Time Living Will Yes February 13 1:50am Power of Aesthetician Yes February 13, 2023 1:50am Name of Medical Power of Aesthetician ANITA SMITH February 13, 2023 1:50am Advance Directive Response Recorded Date/ Time Name of Medical Power of Aesthetician ANITA SMITH February 13, 2023 1:50am Name of Medical Power of Aesthetician orquidea smith February 20, 2023 2:08am Living Will Yes February 20, 023 2:08am Power of Aesthetician Yes February 20, 2023 2:08am Advance Directive Response Recorded Date/ Time Name of Medical Power of Aesthetician ANITA SMITH February 13, 2023 1:50am Name of Medical Power of Aesthetician orquidea smith February 20, 2023 2:08am Name of Medical Power of Aesthetician March 01, 2023 8:37am Living Will Yes March 01 8:37am Power of Aesthetician Yes March 01, 2023 8:37am Advance Directive Response Recorded Date/ Time Living Will No May 18 5:24pm Power of Aesthetician No May 18, 2024 5:24pm Advance Directives on File No 2024 11:09am Living Will Yes May 23 11:23am Power of Aesthetician Yes May 23, 2024 11:23am Advance Directive Response Recorded Date/ Time Living Will No May 18 5:24pm Do you have a Healthcare Power of Aesthetician? No May 18, 2024 5:24pm Advance Directives on File No 2024 11:09am Living Will Yes May 23 11:23am Do you have a Healthcare Power of Aesthetician? Yes May 23, 2024 11:23am Advance Directive Response Recorded Date/ Time Advance Directives on File No 2024 11:09am Living Will Yes May 23 11:23am Do you have a Healthcare Power of Aesthetician? Yes May 23, 2024 11:23am Medications Administered Section Inactive Administered Medications - up to 3 most recent administrations Medication Order MAR Action Action Date Dose Rate Site benzocaine 20% 1 [place] (TOPEX) 1 [place], TOPICAL, DIRECTED, Starting on Wed09/09/21 at 1030, Until Wed09/09/21 at 1429, DOSING DIRECTED BY PHYSICIAN FOR PROCEDURAL SEDATION ONLY - Pharmaceutical Waste: Aerosol -, Intraprocedure Given 09/09/2021 10:03 AM EDT 5 Sprays fentaNYL 50 mcg/mL 25-100 mcg injection (SUBLIMAZE) 25-100 mcg, INTRAVENOUS, DIRECTED, Starting on Wed09/09/21 at 1030, Until Wed09/09/21 at 1429, DOSING DIRECTED BY PHYSICIAN FOR PROCEDURAL SEDATION ONLY, Intraprocedure Given 09/09/2021 10:06 AM EDT 25 mcg Given 09/09/2021 10:03 AM EDT 50 mcg lactated ringers iv infusion 30 mL/hr, INTRAVENOUS, CONTINUOUS, Starting on Wed09/09/21 at 0930, Until Wed09/09/21 at 1027, Preprocedure New Bag/Syringe/Bottle 09/09/2021 9:15 AM EDT 30 mL/hr 30 mL/hr midazolam (PF) 1-5 mg injection (VERSED) 1-5 mg, INTRAVENOUS, DIRECTED, Starting on Wed09/09/21 at 1030, Until Wed09/09/21 at 1429, DOSING DIRECTED BY PHYSICIAN FOR PROCEDURAL SEDATION ONLY, Intraprocedure Given 09/09/2021 10:05 AM EDT 1 mg Given 09/09/2021 10:03 AM EDT 3 mg Chief Complaint and Reason for Visit Chief Complaint CHEST PAIN Chief Complaint CHEST PAIN abdominal pain Chief Complaint CHEST PAIN abdominal pain GALLBLADDER [facility] ER 02/20 Laparoscopic, Cholecystectomy with Laparoscopic, Cholecystectomy with Reason for Visit Thickening of wall o f gallbladder Chief Complaint Admit Date CP May 18, 2024 2:12pm CP May 18, 2024 3:44pm CP May 18, 2024 5:42pm Referral Order May 19, 2024 8:40am CP May 19, 2024 4:35pm PCI with stenting May 23, 2024 9:58am PCI with stenting May 26, 2024 10:15am PCI with stenting June 05, 2024 10: 15am Reason for Visit Admit Date 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 May 18, 2024 2:12pm Coronary artery disease May 18 025 2:12pm HTN (hypertension) May 18, 2024 2:12pm Dyslipidemia May 18, 2024 2:12pm Chief Complaint Admit Date CP May 18, 2024 2:12pm CP May 18, 2024 3:44pm CP May 18, 2024 5:42pm Referral Order May 19, 2024 8:40am CP May 19, 2024 4:35pm PCI with stenting May 23, 2024 9:58am PCI with stenting May 26, 2024 10:15am HEART ATTACK(2/25 AR) June 15, 2024 2 :25pm PCI with stenting June 26, 2024 10: 15am Reason for Visit Admit Date Coronary artery disease May 18 025 2:12pm HTN (hypertension) May 18, 2024 2:12pm 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 May 18, 2024 2:12pm Dyslipidemia May 18, 2024 2:12pm Coronary artery disease June 15, 2024 2:25pm Dyslipidemia June 15, 2024 2:2 5pm HTN (hypertension) June 15, 2024 2:2 5pm Left ventricular systolic dy sfunction (LVSD) without heart failure June 15, 2024 2:25pm History of ST elevation myocardial infar ction (STEMI) June 15, 2024 2:25pm Chief Complaint Admit Date CP May 18, 2024 2:12pm CP May 18, 2024 3:44pm CP May 18, 2024 5:42pm Referral Order May 19, 2024 8:40am CP May 19, 2024 4:35pm PCI with stenting May 23, 2024 9:58am PCI with stenting May 26, 2024 10:15am HEART ATTACK(2/25 AR) June 15, 2024 2 :25pm PCI with stenting June 26, 2024 10: 15am PCI with stenting July 26, 2024 10: 15am PCI with stenting August 25, 2024 10:15 am Chief Complaint Admit Date CP May 18, 2024 2:12pm CP May 18, 2024 3:44pm CP May 18, 2024 5:42pm Referral Order May 19, 2024 8:40am CP May 19, 2024 4:35pm PCI with stenting May 23, 2024 9:58am PCI with stenting May 26, 2024 10:15am HEART ATTACK(2/25 AR) June 15, 2024 2 :25pm PCI with stenting June 26, 2024 10: 15am PCI with stenting July 26, 2024 10: 15am PCI with stenting August 25, 2024 10:15 am 3 M FU September 11, 2024 9:38 am Reason for Visit Admit Date Coronary artery disease May 18 025 2:12pm HTN (hypertension) May 18, 2024 2:12pm 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 May 18, 2024 2:12pm Dyslipidemia May 18, 2024 2:12pm Coronary artery disease June 15, 2024 2:25pm Dyslipidemia June 15, 2024 2:2 5pm HTN (hypertension) June 15, 2024 2:2 5pm Left ventricular systolic dy sfunction (LVSD) without heart failure June 15, 2024 2:25pm History of ST elevation myocardial infar ction (STEMI) June 15, 2024 2:25pm Coronary artery disease September 11, 2024 9:38am Dyslipidemia September 11, 2024 9:38 am HTN (hypertension) September 11, 2024 9:38 am Left ventricular systolic dy sfunction (LVSD) without heart failure September 11, 2024 9:38am History of ST elevation myocardial infar ction (STEMI) September 11, 2024 9:38am Chief Complaint Admit Date PCI with stenting May 23, 2024 9:58am PCI with stenting May 26, 2024 10:15am HEART ATTACK(05/23 AR) June 15, 2024 2 :25pm PCI with stenting June 26, 2024 10: 15am PCI with stenting July 26, 2024 10: 15am PCI with stenting August 25, 2024 10:15 am 3 M FU September 11, 2024 9:38 am INT LAB September 12, 2024 8:49 am Reason for Visit Admit Date Coronary artery disease June 15, 2024 2:25pm Dyslipidemia June 15, 2024 2:2 5pm HTN (hypertension) June 15, 2024 2:2 5pm Left ventricular systolic dy sfunction (LVSD) without heart failure June 15, 2024 2:25pm History of ST elevation myocardial infar ction (STEMI) June 15, 2024 2:25pm Coronary artery disease September 11, 2024 9:38am Dyslipidemia September 11, 2024 9:38 am HTN (hypertension) September 11, 2024 9:38 am Left ventricular systolic dy sfunction (LVSD) without heart failure September 11, 2024 9:38am History of ST elevation myocardial infar ction (STEMI) September 11, 2024 9:38am Chief Complaint Admit Date PCI with stenting July 26, 2024 10: 15am PCI with stenting August 25, 2024 10:15 am 3 M FU September 11, 2024 9:38 am INT LAB September 12, 2024 8:49 am PHIII monthly maintenance self pay free month September 26, 2024 6:39am Reason for Visit Admit Date Coronary artery disease September 11, 2024 9:38am Dyslipidemia September 11, 2024 9:38 am HTN (hypertension) September 11, 2024 9:38 am Left ventricular systolic dy sfunction (LVSD) without heart failure September 11, 2024 9:38am History of ST elevation myocardial infar ction (STEMI) September 11, 2024 9:38am Family History No Family History Records Found Relationship Condition Age at Onset Recorded Date/T diane brother Malignant neoplasm Unknown Courtney's esophagus Unknown Summary Purpose Additional Source Comments Source Comments (unrecognize d section and content) In the event this informatio n is protected by the Federal Confidentiality of Alcohol and Drug Abuse Patient Records regulations: The Federal rules restrict any use of the information to criminally investigate or prosecute any alcohol or drug abuse patient.[facility]In the event this information is protected by the Federal Confidentiality of Alcohol and Drug Abuse Patient Records regulations: The Federal rules restrict any use of the information to criminally investigate or prosecute any alcohol or drug abuse patient.[facility] SystemIn the event this information is protected by the Federal Confidentiality of Alcohol and Drug Abuse Patient Records regulations: The Federal rules restrict any use of the information to criminally investigate or prosecute any alcohol or drug abuse patient.[facility] SystemIn the event this information is protected by the Federal Confidentiality of Alcohol and Drug Abuse Patient Records regulations: The Federal rules restrict any use of the information to criminally investigate or prosecute any alcohol or drug abuse patient.[facility] SystemIn the event this information is protected by the Federal Confidentiality of Alcohol and Drug Abuse Patient Records regulations: The Federal rules restrict any use of the information to criminally investigate or prosecute any alcohol or drug abuse patient.[facility] SystemIn the event this information is protected by the Federal Confidentiality of Alcohol and Drug Abuse Patient Records regulations: The Federal rules restrict any use of the information to criminally investigate or prosecute any alcohol or drug abuse patient.[facility] SystemIn the event this information is protected by the Federal Confidentiality of Alcohol and Drug Abuse Patient Records regulations: The Federal rules restrict any use of the information to criminally investigate or prosecute any alcohol or drug abuse patient.[facility] SystemIn the event this information is protected by the Federal Confidentiality of Alcohol and Drug Abuse Patient Records regulations: The Federal rules restrict any use of the information to criminally investigate or prosecute any alcohol or drug abuse patient.[facility] SystemIn the event this information is protected by the Federal Confidentiality of Alcohol and Drug Abuse Patient Records regulations: The Federal rules restrict any use of the information to criminally investigate or prosecute any alcohol or drug abuse patient.[facility] SystemIn the event this information is protected by the Federal Confidentiality of Alcohol and Drug Abuse Patient Records regulations: The Federal rules restrict any use of the information to criminally investigate or prosecute any alcohol or drug abuse patient.[facility] SystemIn the event this information is protected by the Federal Confidentiality of Alcohol and Drug Abuse Patient Records regulations: The Federal rules restrict any use of the information to criminally investigate or prosecute any alcohol or drug abuse patient.[facility] SystemIn the event this information is protected by the Federal Confidentiality of Alcohol and Drug Abuse Patient Records regulations: The Federal rules restrict any use of the information to criminally investigate or prosecute any alcohol or drug abuse patient.[facility] SystemIn the event this information is protected by the Federal Confidentiality of Alcohol and Drug Abuse Patient Records regulations: The Federal rules restrict any use of the information to criminally investigate or prosecute any alcohol or drug abuse patient.[facility] SystemIn the event this information is protected by the Federal Confidentiality of Alcohol and Drug Abuse Patient Records regulations: The Federal rules restrict any use of the information to criminally investigate or prosecute any alcohol or drug abuse patient.[facility] SystemIn the event this information is protected by the Federal Confidentiality of Alcohol and Drug Abuse Patient Records regulations: The Federal rules restrict any use of the information to criminally investigate or prosecute any alcohol or drug abuse patient.[facility] SystemIn the event this information is protected by the Federal Confidentiality of Alcohol and Drug Abuse Patient Records regulations: The Federal rules restrict any use of the information to criminally investigate or prosecute any alcohol or drug abuse patient.[facility] SystemIn the event this information is protected by the Federal Confidentiality of Alcohol and Drug Abuse Patient Records regulations: The Federal rules restrict any use of the information to criminally investigate or prosecute any alcohol or drug abuse patient.[facility] SystemIn the event this information is protected by the Federal Confidentiality of Alcohol and Drug Abuse Patient Records regulations: The Federal rules restrict any use of the information to criminally investigate or prosecute any alcohol or drug abuse patient.[facility] SystemIn the event this information is protected by the Federal Confidentiality of Alcohol and Drug Abuse Patient Records regulations: The Federal rules restrict any use of the information to criminally investigate or prosecute any alcohol or drug abuse patient.[facility] SystemIn the event this information is protected by the Federal Confidentiality of Alcohol and Drug Abuse Patient Records regulations: The Federal rules restrict any use of the information to criminally investigate or prosecute any alcohol or drug abuse patient.[facility] SystemIn the event this information is protected by the Federal Confidentiality of Alcohol and Drug Abuse Patient Records regulations: The Federal rules restrict any use of the information to criminally investigate or prosecute any alcohol or drug abuse patient.[facility] SystemIn the event this information is protected by the Federal Confidentiality of Alcohol and Drug Abuse Patient Records regulations: The Federal rules restrict any use of the information to criminally investigate or prosecute any alcohol or drug abuse patient.[facility] SystemIn the event this information is protected by the Federal Confidentiality of Alcohol and Drug Abuse Patient Records regulations: The Federal rules restrict any use of the information to criminally investigate or prosecute any alcohol or drug abuse patient.[facility] SystemIn the event this information is protected by the Federal Confidentiality of Alcohol and Drug Abuse Patient Records regulations: The Federal rules restrict any use of the information to criminally investigate or prosecute any alcohol or drug abuse patient.[facility] SystemIn the event this information is protected by the Federal Confidentiality of Alcohol and Drug Abuse Patient Records regulations: The Federal rules restrict any use of the information to criminally investigate or prosecute any alcohol or drug abuse patient.[facility] SystemIn the event this information is protected by the Federal Confidentiality of Alcohol and Drug Abuse Patient Records regulations: The Federal rules restrict any use of the information to criminally investigate or prosecute any alcohol or drug abuse patient.[facility] SystemIn the event this information is protected by the Federal Confidentiality of Alcohol and Drug Abuse Patient Records regulations: The Federal rules restrict any use of the information to criminally investigate or prosecute any alcohol or drug abuse patient.[facility] SystemIn the event this information is protected by the Federal Confidentiality of Alcohol and Drug Abuse Patient Records regulations: The Federal rules restrict any use of the information to criminally investigate or prosecute any alcohol or drug abuse patient.[facility] SystemIn the event this information is protected by the Federal Confidentiality of Alcohol and Drug Abuse Patient Records regulations: The Federal rules restrict any use of the information to criminally investigate or prosecute any alcohol or drug abuse patient.[facility] SystemIn the event this information is protected by the Federal Confidentiality of Alcohol and Drug Abuse Patient Records regulations: The Federal rules restrict any use of the information to criminally investigate or prosecute any alcohol or drug abuse patient.[facility] SystemIn the event this information is protected by the Federal Confidentiality of Alcohol and Drug Abuse Patient Records regulations: The Federal rules restrict any use of the information to criminally investigate or prosecute any alcohol or drug abuse patient.[facility] SystemIn the event this information is protected by the Federal Confidentiality of Alcohol and Drug Abuse Patient Records regulations: The Federal rules restrict any use of the information to criminally investigate or prosecute any alcohol or drug abuse patient.[facility] SystemIn the event this information is protected by the Federal Confidentiality of Alcohol and Drug Abuse Patient Records regulations: The Federal rules restrict any use of the information to criminally investigate or prosecute any alcohol or drug abuse patient.[facility] SystemIn the event this information is protected by the Federal Confidentiality of Alcohol and Drug Abuse Patient Records regulations: The Federal rules restrict any use of the information to criminally investigate or prosecute any alcohol or drug abuse patient.[facility] SystemIn the event this information is protected by the Federal Confidentiality of Alcohol and Drug Abuse Patient Records regulations: The Federal rules restrict any use of the information to criminally investigate or prosecute any alcohol or drug abuse patient.[facility] SystemIn the event this information is protected by the Federal Confidentiality of Alcohol and Drug Abuse Patient Records regulations: The Federal rules restrict any use of the information to criminally investigate or prosecute any alcohol or drug abuse patient.[facility] SystemIn the event this information is protected by the Federal Confidentiality of Alcohol and Drug Abuse Patient Records regulations: The Federal rules restrict any use of the information to criminally investigate or prosecute any alcohol or drug abuse patient.[facility] SystemIn the event this information is protected by the Federal Confidentiality of Alcohol and Drug Abuse Patient Records regulations: The Federal rules restrict any use of the information to criminally investigate or prosecute any alcohol or drug abuse patient.[facility] SystemIn the event this information is protected by the Federal Confidentiality of Alcohol and Drug Abuse Patient Records regulations: The Federal rules restrict any use of the information to criminally investigate or prosecute any alcohol or drug abuse patient.[facility] SystemIn the event this information is protected by the Federal Confidentiality of Alcohol and Drug Abuse Patient Records regulations: The Federal rules restrict any use of the information to criminally investigate or prosecute any alcohol or drug abuse patient.[facility] SystemIn the event this information is protected by the Federal Confidentiality of Alcohol and Drug Abuse Patient Records regulations: The Federal rules restrict any use of the information to criminally investigate or prosecute any alcohol or drug abuse patient.[facility] SystemIn the event this information is protected by the Federal Confidentiality of Alcohol and Drug Abuse Patient Records regulations: The Federal rules restrict any use of the information to criminally investigate or prosecute any alcohol or drug abuse patient.[facility] SystemIn the event this information is protected by the Federal Confidentiality of Alcohol and Drug Abuse Patient Records regulations: The Federal rules restrict any use of the information to criminally investigate or prosecute any alcohol or drug abuse patient.[facility] SystemIn the event this information is protected by the Federal Confidentiality of Alcohol and Drug Abuse Patient Records regulations: The Federal rules restrict any use of the information to criminally investigate or prosecute any alcohol or drug abuse patient.[facility] SystemIn the event this information is protected by the Federal Confidentiality of Alcohol and Drug Abuse Patient Records regulations: The Federal rules restrict any use of the information to criminally investigate or prosecute any alcohol or drug abuse patient.[facility] SystemIn the event this information is protected by the Federal Confidentiality of Alcohol and Drug Abuse Patient Records regulations: The Federal rules restrict any use of the information to criminally investigate or prosecute any alcohol or drug abuse patient.[facility] SystemIn the event this information is protected by the Federal Confidentiality of Alcohol and Drug Abuse Patient Records regulations: The Federal rules restrict any use of the information to criminally investigate or prosecute any alcohol or drug abuse patient.[facility] Reason for Visit (unrecogniz ed section and content) Reason Comments Consult sebaceous cyst Procedure Excision of chest se baceous cyst Specialty Diagnoses / Procedures Referred By Kandis tadeo Referred To Contact General Surgery Diagnoses Sebaceous cyst Procedures CONSULT TO GENERAL SURGERY OFFICE/OUTPATIENT [facility] MDM 60-74 MINUTES Aaron Cm MD [address] [place] [address] Referral ID Status Reason Start Date Expiration Date V isits Requested Visits Authorized [id number] Closed PCP Requested Referral 05/22/2021 05/22/2022 1 1 Reason Comments Follow Up suture removal, woun d check Reason Comments Recheck numbness in right ar m Reason Comments Follow Up EGD Reason Onset Date Comments Refill Request 10/17/2021 Reason Comments complete eye exam Reason Onset Date Comments Refill Request 04/10/2022 Reason Onset Date Comments Refill Request 05/07/2022 Reason Comments Cough Cough, congestion an d ST x 10 days Reason Onset Date Comments Refill Request 05/29/2022 Reason Comments Cough Pt reported chest co ngestion, x5 days. Reason Comments Medicare Wellness Exam Reason Comments Opened In Error Reason Comments Hypertension Reason Onset Date Comments Refill Request 11/14/2022 Reason Comments ER F/U Reason Comments ext document Surgery Office note Reason Comments Outside H&P Reason Comments Outside Imaging Reason Onset Date Comments Refill Request 06/07/2023 Reason Comments Derm Problem Reason Comments Derm Problem Skin lesion behind r ight ear x 1 month, states condition has not changed in the past month Reason Comments Consult Reason Comments Cough Chest congestion x11 days Reason Onset Date Comments Refill Request 12/04/2023 Reason Comments Yearly Exam Reason Onset Date Comments Refill Request 02/23/2024 Reason Onset Date Comments Refill Request 03/06/2024 Reason Comments Hospital F/U Reason Comments Outside Cardiology Reason Comments Results Outside lab results Reason Comments Medication Problem Care Teams (unrecognized sec tion and content) Boatswains Mate Relationship Specialty Start Date End Date Aaron Cm MD [address] [place] [address] PCP - General Family Practice 03/16/13 Boatswains Mate Relationship Specialty Start Date End Date Aaron Cm MD [address] [place] [address] PCP - General Family Practice 03/16/13 Boatswains Mate Relationship Specialty Start Date End Date Aaron Cm MD [address] [place] [address] PCP - General Family Practice 03/16/13 Boatswains Mate Relationship Specialty Start Date End Date Aaron Cm MD [address] [place] [address] PCP - General Family Practice 03/16/13 Boatswains Mate Relationship Specialty Start Date End Date Aaron Cm MD [address] [place] [address] PCP - General Family Practice 03/16/13 Boatswains Mate Relationship Specialty Start Date End Date Aaron Cm MD [address] [place] [address], [place] [address] PCP - General Family Practice 03/16/13 Boatswains Mate Relationship Specialty Start Date End Date Aaron Cm MD [address] [place] [address], [place] [address] PCP - General Family Practice 03/16/13 Boatswains Mate Relationship Specialty Start Date End Date Aaron Cm MD [address] [place] [address] [place] [address] PCP - General Family Medicine 03/16/13 Boatswains Mate Relationship Specialty Start Date End Date Aaron Cm MD [address] [place] [address] PCP - General Family Medicine 03/16/13 Boatswains Mate Relationship Specialty Start Date End Date Aaron Cm MD [address] [place] [address] PCP - General Family Medicine 03/16/13 Boatswains Mate Relationship Specialty Start Date End Date Aaron Cm MD [address] [place] [address] [place] [address] PCP - General Family Medicine 03/16/13 Boatswains Mate Relationship Specialty Start Date End Date Aaron Cm MD [address] [place] [address] PCP - General Family Medicine 03/16/13 Boatswains Mate Relationship Specialty Start Date End Date Aaron Cm MD [address] [place] [address] [place] [address] PCP - General Family Medicine 03/16/13 Boatswains Mate Relationship Specialty Start Date End Date Aaron Cm MD [address] [place] [address] [place] [address] PCP - General Family Medicine 03/16/13 Boatswains Mate Relationship Specialty Start Date End Date Aaron Cm MD [address] [place], [place] [address] PCP - General Family Medicine 03/16/13 Boatswains Mate Relationship Specialty Start Date End Date Aaron Cm MD [address] [place], [place] [address] PCP - General Family Medicine 03/16/13 Boatswains Mate Relationship Specialty Start Date End Date Aaron Cm MD [address] [place], [place] [address] PCP - General Family Medicine 03/16/13 Team Status: Active Member Role Status Dates Dr. Aaron Cm MD Primary Care Provider Active Team Status: Inactive Member Role Status Dates Dr. Aaron Cm MD Primary Care Provider Active Dr. Guy Boateng DO Emergency Provider Active Boatswains Mate Relationship Specialty Start Date End Date Aaron Cm MD [address] [place], [place] [address] PCP - General Family Medicine 03/16/13 Team Status: Inactive Member Role Status Dates Dr. Aaron Cm MD Primary Care Provider Active Dr. Guy Boateng DO Attending Provider, Emergency Pr ovider Active Team Status: Inactive Member Role Status Dates Dr. Aaron mC MD Primary Care Provider Active Dr. Nito Wick MD Emergency Provider Active Boatswains Mate Relationship Specialty Start Date End Date Aaron Cm MD [address] [place], [place] [id number] PCP - General Family Medicine 03/16/13 Team Status: Inactive Member Role Status Dates Dr. Aaron Cm MD Primary Care Provider, Referri ng Provider Active Dr. Madeline Tripp MD Attending Provider Active Team Status: Active Member Role Status Dates Dr. Aaron Cm MD Primary Care Provider Active Dr. Madeline Tripp MD Attending Provi ginger, Referring Provider, Other Provider Active Team Status: Inactive Member Role Status Dates Dr. Aaron Cm MD Primary Care Provider Active Dr. Nito Wick MD Attending Provider, Emergency Provider Active Team Status: Inactive Member Role Status Dates Dr. Aaron Cm MD Primary Care Provider Active Dr. Madeline Tripp MD Attending Provider, Referring Provider Active Boatswains Mate Relationship Specialty Start Date End Date Aaron Cm MD [address] [place] [address] PCP - General Family Medicine 03/16/13 Boatswains Mate Relationship Specialty Start Date End Date Aaron Cm MD [address] [place] [address] PCP - General Family Medicine 03/16/13 Boatswains Mate Relationship Specialty Start Date End Date Aaron Cm MD [address] [place] [address] PCP - General Family Medicine 03/16/13 Boatswains Mate Relationship Specialty Start Date End Date Aaron Cm MD [address] [place] [address] PCP - General Family Medicine 03/16/13 Boatswains Mate Relationship Specialty Start Date End Date Aaron Cm MD [address] [place] [address] PCP - General Family Medicine 03/16/13 Boatswains Mate Relationship Specialty Start Date End Date Aaron Cm MD [address] [place] [address] PCP - General Family Medicine 03/16/13 Boatswains Mate Relationship Specialty Start Date End Date Aaron Cm MD [address] [place] [address] PCP - General Family Medicine 03/16/13 Boatswains Mate Relationship Specialty Start Date End Date Aaron Cm MD [address] [place] [address] PCP - General Family Medicine 03/16/13 Boatswains Mate Relationship Specialty Start Date End Date Aaron Cm MD [address] [place] [address] PCP - General Family Medicine 03/16/13 Boatswains Mate Relationship Specialty Start Date End Date Aaron Cm MD [address] [place] [address] PCP - General Family Medicine 03/16/13 Boatswains Mate Relationship Specialty Start Date End Date Aaron Cm MD [address] [place] [address] PCP - General Family Medicine 03/16/13 Kitty Matamoros APRN.[employer]TACT [employer]INGER [employer]SEMBLER [address] [place] [address] [employer] [facility] 03/04/24 Kayleen Schrader PA-C [address] [place] [address] [employer] [facility] 03/04/24 Boatswains Mate Relationship Specialty Start Date End Date Aaron Cm MD [address] [place] [address] PCP - General Family Medicine 03/16/13 Kitty Matamoros, NUHA.CONTACT FINGER ASSEMBLER [address] [place] [address] [facility] 03/04/24 Kayleen Schrader PA-C [address] [place], [place] [address] [facility] 03/04/24 Boatswains Mate Relationship Specialty Start Date End Date Aaron Cm MD [address] [place], [place] [address] PCP - General Family Medicine 03/16/13 Kitty Matamoros APRN.[employer]TACT [employer]INGER ASSEMBLER [address] [place], [place] [id number] [facility] 03/04/24 Kayleen Schrader PA-C [address] [place], [place] [id number] [facility] 03/04/24 Team Status: Inactive Member Role Status Dates Dr. Aaron Cm MD Primary Care Provider Active Start: May 18, 2024 End: May 19, 2024 Dr. Robby Elizondo MD Emergency Provider Active Sta rt: May 18, 2024 End: May 19, 2024 Dr. Shayla Armijo MD Admit Provider Active Star t: May 18, 2024 End: May 19, 2024 Dr. Shayla Armijo MD Other Provider Active Star t: May 18, 2024 End: May 19, 2024 Dr. Radha Hodges MD Attending Provider Active Start: May 18, 2024 End: May 19, 2024 Dr. Jasmin Morales MD Other Provider Active Star t: May 18, 2024 End: May 19, 2024 Team Status: Active Member Role Status Dates Dr. Aaron Cm MD Primary Care Provider Active Start: May 18, 2024 Dr. Robby Elizondo MD Emergency Provider Active Sta rt: May 18, 2024 Dr. Shayla Armijo MD Admit Provider Active Star t: May 18, 2024 Dr. Shayla Armijo MD Attending Provider Active Start: May 18, 2024 Dr. Shayla Armijo MD Other Provider Active Star t: May 18, 2024 Team Status: Active Member Role Status Dates Dr. Aaron Cm MD Primary Care Provider Active Start: May 18, 2024 Dr. Robby Elizondo MD Emergency Provider Active Sta rt: May 18, 2024 Dr. Shayla Armijo MD Admit Provider Active Star t: May 18, 2024 Dr. Shayla Armijo MD Other Provider Active Star t: May 18, 2024 Dr. Jasmin Morales MD Attending Provider Active Start: May 18, 2024 Dr. Jasmin Morales MD Other Provider Active Star t: May 18, 2024 Team Status: Active Member Role Status Dates Dr. Aaron Cm MD Primary Care Provider Active Start: May 19, 2024 Dr. Shayla Armijo MD Attending Provider Active Start: May 19, 2024 Team Status: Active Member Role Status Dates Dr. Aaron Cm MD Primary Care Provider Active Start: May 19, 2024 Dr. Toni Perez MD Attending Provider Active Start: May 19, 2024 Team Status: Active Member Role Status Dates Dr. Aaron Cm MD Primary Care Provider Active Start: May 19, 2024 Dr. Robby Elizondo MD Emergency Provider Active Sta rt: May 19, 2024 Dr. Shayla Armijo MD Admit Provider Active Star t: May 19, 2024 Dr. Shayla Armijo MD Other Provider Active Star t: May 19, 2024 Dr. Radha Hodges MD Attending Provider Active Start: May 19, 2024 Dr. Radha Hodges MD Other Provider Active St art: May 19, 2024 Dr. Jasmin Morales MD Other Provider Active Star t: May 19, 2024 Team Status: Inactive Member Role Status Dates Dr. Aaron Cm MD Primary Care Provider Active Start: May 23, 2024 End: May 23, 2024 Dr. Shayla Armijo MD Attending Provider Active Start: May 23, 2024 End: May 23, 2024 Dr. Shayla Armijo MD Referring Provider Active Start: May 23, 2024 End: May 23, 2024 Team Status: Inactive Member Role Status Dates Dr. Aaron Cm MD Primary Care Provider Active Start: May 26, 2024 End: May 26, 2024 Dr. Shayla Armijo MD Attending Provider Active Start: May 26, 2024 End: May 26, 2024 Dr. Shayla Armijo MD Referring Provider Active Start: May 26, 2024 End: May 26, 2024 Team Status: Active Member Role Status Dates Dr. Aaron Cm MD Primary Care Provider Active Start: June 05, 2024 Dr. Shayla Armijo MD Attending Provider Active Start: June 05, 2024 Dr. Shayla Armijo MD Referring Provider Active Start: June 05, 2024 Team Status: Inactive Member Role Status Dates Dr. Aaron Cm MD Primary Care Provider Active Start: June 15, 2024 End: June 15, 2024 Dr. Aaron Cm MD Referring Provider Active Start: June 15, 2024 End: June 15, 2024 Dr. Shayla Armijo MD Attending Provider Active Start: June 15, 2024 End: June 15, 2024 Team Status: Inactive Member Role Status Dates Dr. Aaron Cm MD Primary Care Provider Active Start: June 26, 2024 End: June 26, 2024 Dr. Shayla Armijo MD Attending Provider Active Start: June 26, 2024 End: June 26, 2024 Dr. Shayla Armijo MD Referring Provider Active Start: June 26, 2024 End: June 26, 2024 Team Status: Inactive Member Role Status Dates Dr. Aaron Cm MD Primary Care Provider Active Start: July 26, 2024 End: July 26, 2024 Dr. Shayla Armijo MD Attending Provider Active Start: July 26, 2024 End: July 26, 2024 Dr. Shayla Armijo MD Referring Provider Active Start: July 26, 2024 End: July 26, 2024 Team Status: Inactive Member Role Status Dates Dr. Aaron Cm MD Primary Care Provider Active Start: August 25, 2024 End: August 26, 2024 Dr. Shayla Armijo MD Attending Provider Active Start: August 25, 2024 End: August 26, 2024 Dr. Shayla Armijo MD Referring Provider Active Start: August 25, 2024 End: August 26, 2024 Team Status: Inactive Member Role Status Dates Dr. Aaron Cm MD Primary Care Provider Active Start: September 11, 2024 End: September 11, 2024 Dr. Aaron Cm MD Referring Provider Active Start: September 11, 2024 End: September 11, 2024 Dr. Shayla Armijo MD Attending Provider Active Start: September 11, 2024 End: September 11, 2024 Boatswains Mate Relationship Specialty Start Date End Date Aaron Cm MD [address] [place] [id number] PCP - General Family Medicine 07/03/24 Kitty Matamoros, NUHA.CONTACT [employer]ING[employer]ER [address] [place] [id number] [facility] 08/28/24 Kayleen Schrader PA-C [address] [place] [address] [id number] [facility] 08/28/24 Team Status: Inactive Member Role Status Dates Dr. Aaron Cm MD Primary Care Provider Active Start: September 12, 2024 End: September 12, 2024 Dr. Shayla Armijo MD Attending Provider Active Start: September 12, 2024 End: September 12, 2024 Dr. Shayla Armijo MD Referring Provider Active Start: September 12, 2024 End: September 12, 2024 Boatswains Mate Relationship Specialty Start Date End Date Aaron Cm MD [address] [place] [address] [id number] PCP - General Family Medicine 07/03/24 Kitty Matamoros, NUHA.CONTACT FINGER ASSEMBLER [facility] [place], [place] [id number] [facility] 08/28/24 Kayleen Schrader PA-C [facility] [place], [place] [id number] [facility] 08/28/24 Boatswains Mate Relationship Specialty Start Date End Date Aaron Cm MD [address] [place] [id number] PCP - General Family Medicine 07/03/24 Kitty Matamoros APRN.CONTACT FINGER ASSEM[employer]ER [address] [place] [phone] [facility] 08/28/24 Kayleen Schrader PA-C [address] [place] [id number] [facility] 08/28/24 Team Status: Active Member Role/Relationship Status Dates Dr. Aaron Cm MD Primary Care Provider Active Team Status: Inactive Member Role/Relationship Status Dates Dr. Aaron Cm MD Primary Care Provider Active Start: July 26, 2024 End: July 26, 2024 Dr. Shayal Armijo MD Attending Provider Active Start: July 26, 2024 End: July 26, 2024 Dr. Shayla Armijo MD Referring Provider Active Start: July 26, 2024 End: July 26, 2024 Team Status: Inactive Member Role/Relationship Status Dates Dr. Aaron Cm MD Primary Care Provider Active Start: August 25, 2024 End: August 26, 2024 Dr. Shayla Armijo MD Attending Provider Active Start: August 25, 2024 End: August 26, 2024 Dr. Shayla Armijo MD Referring Provider Active Start: August 25, 2024 End: August 26, 2024 Team Status: Inactive Member Role/Relationship Status Dates Dr. Aaron Cm MD Primary Care Provider Active Start: September 11, 2024 End: September 11, 2024 Dr. Aaron Cm MD Referring Provider Active Start: September 11, 2024 End: September 11, 2024 Dr. Shayla Armijo MD Attending Provider Active Start: September 11, 2024 End: September 11, 2024 Team Status: Inactive Member Role/Relationship Status Dates Dr. Aaron Cm MD Primary Care Provider Active Start: September 12, 2024 End: September 12, 2024 Dr. Shayla Armijo MD Attending Provider Active Start: September 12, 2024 End: September 12, 2024 Dr. Shayla Armijo MD Referring Provider Active Start: September 12, 2024 End: September 12, 2024 Team Status: Inactive Member Role/Relationship Status Dates Dr. Aaron Cm MD Primary Care Provider Active Start: September 26, 2024 End: October 26, 2024 Dr. Zia Fink MD Attending Provider Active S tart: September 26, 2024 End: October 26, 2024 Boatswains Mate Relationship Specialty Start Date End Date Aaron Cm MD [address] [place], [place] [id number] PCP - General Family Medicine 07/03/24 Kitty Matamoros APRN.CONTACT FINGER ASSEM[employer]ER [address] [place] [address] [facility] 08/28/24 Kayleen Schrader PA-C [address] [place] [id number] [facility] 08/28/24 Goals (unrecognized section and content) Goals may be documented in a n alternate sectionGoals may be documented in an alternate sectionGoals may be documented in an alternate sectionGoals may be documented in an alternate section (unrecognized sect ion and content) No Status Records FoundNo Status Records Found INFORMATION SOURCE (unrecogn ized section and content) DATE CREATED AUTHOR 10/29/2024 [facility] DATE CREATED AUTHOR RADHA NAVARRETE 12/06/2024 [facility] FOR RECORDS PERTAINING TO PATIENTS WHO ARE OR HAVE BEEN ENROLLED IN A CHEMICAL DEPENDENCY/SUBSTANCEABUSE PROGRAM, SOME INFORMATION MAY BE OMITTED. This clinical summary was aggregated from multiple sources. Caution should be exercised in using it in the provision of clinical care. This summary normalizes information from multiple sources, and as a consequence, information in this document may materially change the coding, format and clinical context of patient data. In addition, data may be omitted in some cases. CLINICAL DECISIONS SHOULD BE BASED ON THE PRIMARY CLINICAL RECORDS. [facility] [employer] [facility]. provides no warranty or guarantee of the accuracy or completeness of information in this document.
[2024-12-18 21:46] VITALS: BP 161/78; PULSE 55; RESP 14; TEMP 36.8; O2SAT 99
== END 2024-12-18 21:47 | disposition home or self-care (01) ==
PROVIDERS: Emergency Provider Student in an Organized Health Care Education/Training Program; PCP Family Medicine; Visit Provider Student in an Organized Health Care Education/Training Program
DX: I10 Essential (primary) hypertension (principal); I25.10 Atherosclerotic heart disease of native coronary artery without angina pectoris; I25.2 Old myocardial infarction; Z95.5 Presence of coronary angioplasty implant and graft
CPT/HCPCS: 99282; A4216

== ENCOUNTER → 2025-02-16 | Outpatient (CLI) | payer MEDICARE, OTHER, SELFPAY ==
[2024-08-11 09:55] VITALS: BMI 26.6
--- NOTE | 2025-02-16 12:44 | CDU_ITS ---
Reason For Study Reason For Study: Dizziness Rt. Velocities/BP Lt. Velocities/BP Prox CCA 87.2/14.5 cm/sec. Prox CCA 92.7/16.8 cm/sec. Mid CCA 97.1/16.8 cm/sec. Mid CCA 96/14.6 cm/sec. Dist CCA 74/15.7 cm/sec. Dist CCA 65.2/13.5 cm/sec. Prox ICA 60.8/15.7 cm/sec. Prox ICA 68.5/16.8 cm/sec. Mid ICA 39.9/11.9 cm/sec. Mid ICA 54.2/19 cm/sec. Dist ICA 36.6/12.3 cm/sec. Dist ICA 49.6/13.1 cm/sec. Rt. ICA/CCA = 0.63. Lt. ICA/CCA = 0.71. Prox ECA 44.3/5.8 cm/sec. Prox ECA 58.6/9.1 cm/sec. Rt. Vert. 33.3/11.3 cm/sec. Lt. Vert. 25.1/5.2 cm/sec. Right Extracranial There is intimal thickening but no significant atherosclerotic plaque noted in the right common carotid artery. There is heterogeneous, irregular atherosclerotic plaque noted in the right internal carotid artery. There is intimal thickening but no significant atherosclerotic plaque noted in the right external carotid artery. Antegrade flow is noted in the right vertebral artery. Left Extracranial There is intimal thickening but no significant atherosclerotic plaque noted in the left common carotid artery. There is heterogeneous, irregular atherosclerotic plaque noted in the left internal carotid artery. There is intimal thickening but no significant atherosclerotic plaque noted in the left external carotid artery. Antegrade flow is noted in the left vertebral artery. Procedure Carotid Duplex 20838. This is a Carotid Duplex examination using B-mode, color flow and specral Doppler. Exam performed in department. VL/Carotid Duplex Ultrasound Interpretation Summary Mild (<50%) stenosis right extracranial internal carotid. Mild (<50%) stenosis left extracranial internal carotid. Flow within the vertebral arteries is antegrade bilaterally. Ordering Physician: Jori Alvarez Referring Physician: Aaron Weber Performed By: Yaquelin Madrid RVT
--- NOTE | 2025-02-16 12:44 | ECHOD_ITS ---
Reason For Study Reason For Study: HEART DISEASE Procedure This was a 2D Doppler, Color Flow transthoracic echocardiogram. Exam performed in department. Left Ventricle Normal LV size. Mild concentric left ventricular hypertrophy. The left ventricular ejection fraction is 60 %. Stage 1 diastolic dysfunction. Right Ventricle Normal right ventricle. Atria The left atrium is mildly enlarged. Normal right atrium. Mitral Valve Trivial mitral valve insufficiency. Tricuspid Valve Trivial tricuspid valve insufficiency. Unable to estimate RV systolic pressure due to insufficient tricuspid regurgitant envelope. Aortic Valve Trisinus/trileaflet aortic valve. Pulmonic Valve Trivial pulmonic valve insufficiency. Great Vessels Normal sized aortic root. Pericardium/Pleural No pericardial effusion. MMode/2D Measurements & Calculations LVIDd: 4.7 cm IVSd: 1.00 cm LVOT diam: 2.0 cm LVIDs: 3.6 cm LVPWd: 1.2 cm LVOT area: 3.3 cm2 RVDd: 4.1 cm FS: 23.6 % Ao root diam: 3.7 cm LAV(MOD-bp): 76.0 ml LVAd ap4: 28.8 cm2 LAV(MOD-bp) Indexed: 38.5 ml/m2 LVLd ap4: 8.2 cm LAV(MOD-sp2): 64.8 ml EDV(MOD-sp4): 86.8 ml LAV(MOD-sp4): 82.1 ml EDV(sp4-el): 85.8 ml LVAs ap4: 12.9 cm2 LVLs ap4: 6.1 cm ESV(MOD-sp4): 22.7 ml ESV(sp4-el): 23.1 ml EF(MOD-sp4): 73.8 % EF(sp4-el): 73.1 % SV(MOD-sp4): 64.1 ml SV(sp4-el): 62.7 ml LA A4 area: 26.2 cm2 SI(MOD-sp4): 32.5 ml/m2 LA dimension(2D): 4.1 cm RA A4 area: 19.6 cm2 Time Measurements MV dec time: 0.20 sec Doppler Measurements & Calculations MV E max sunny: 78.3 cm/sec Lat Peak E' Sunny: 11.4 cm/sec Med Peak E' Sunny: 15.8 cm/sec MV A max sunny: 76.5 cm/sec E/E' lat: 6.9 E/E' med: 5.0 MV E/A: 1.0 MV V2 max: 103.1 cm/sec Ao V2 max: 147.4 cm/sec MV max P.3 mmHg MV dec slope: 401.3 cm/sec2 Ao max P.7 mmHg MV V2 mean: 44.9 cm/sec Ao V2 mean: 97.2 cm/sec MV mean P.1 mmHg Ao mean P.4 mmHg MV V2 VTI: 40.6 cm Ao V2 VTI: 35.1 cm AV (velocity ratio): 0.70 MVA(VTI): 2.0 cm2 JOYCE(I,D): 2.3 cm2 JOYCE(V,D): 2.5 cm2 LV V1 max: 112.6 cm/sec SV(LVOT): 80.1 ml PA V2 max: 95.8 cm/sec LV V1 max P.1 mmHg PA V2 mean: 62.1 cm/sec LV V1 mean P.5 mmHg LV V1 mean: 73.2 cm/sec LV V1 VTI: 24.6 cm
== END | disposition home or self-care (01) ==
LOC: CVS 12:42
PROVIDERS: PCP Family Medicine; Referring Provider Student in an Organized Health Care Education/Training Program; Visit Provider Student in an Organized Health Care Education/Training Program
DX: R42 Dizziness and giddiness (principal); I51.9 Heart disease, unspecified
CPT/HCPCS: 93306; 93880

== ENCOUNTER → 2025-02-26 | Outpatient (CLI) | payer MEDICARE, OTHER, SELFPAY ==
[2024-08-11 09:55] VITALS: BMI 26.6
[2025-02-26 12:40] LABS: Anion Gap 9 (5-15); BUN 25 mg/dL (4-19); BUN/Creat Ratio 16.4 RATIO (10-20); Calcium,Total 9.2 mg/dL (7.6-11.0); Carbon Dioxide 28.5 mmol/L (21.0-32.0); Chloride 101 mmol/L (98-108); Glucose 93 mg/dL (70-99); Potassium 4.3 mmol/L (3.3-5.1)
== END | disposition home or self-care (01) ==
LOC: LAB 11:04
PROVIDERS: PCP Family Medicine; Referring Provider Nurse Practitioner Gerontology; Visit Provider Nurse Practitioner Gerontology
DX: I10 Essential (primary) hypertension (principal)
CPT/HCPCS: 36415; 80048